=== PATIENT | male | born 1980 | race Hispanic/Latino ===

== ENCOUNTER 2021-04-08 06:02 | Emergency (ER) | payer OTHER ==
[~2021-04-08] VITALS: Ht 180.3 cm; Wt 113.4 kg
[2021-04-08 06:25] VITALS: BP 127/79
[2021-04-08 06:44] LABS: BASOPHILS % (AUTO) 0.3 % (0.0-5.0); HEMATOCRIT 42.2 % (42-54); MEAN CORPUSCULAR HEMOGLOBIN 30.1 pg (27.0-33.0); MEAN CORPUSCULAR HGB CONC 33.6 g/dL (32.0-36.0); MEAN CORPUSCULAR VOLUME 89.4 fL (79-99); MONOCYTES % (AUTO) 8.8 % (3.0-13.0); NEUTROPHILS % (AUTO) 76.5 % (40.0-77.0); PLATELET COUNT (AUTO) 258 K/uL (130-400); RED BLOOD CELL COUNT(AUTO) 4.72 MIL/uL (4.50-6.20); RED CELL DISTRIBUTION WIDTH 12.5 % (11.0-15.5)
[2021-04-08 07:04] LABS: ALBUMIN 3.3 g/dL (3.5-5.0); BILIRUBIN,TOTAL 0.7 mg/dL (0.2-1.0); CREATININE 0.9 mg/dL (0.5-1.5); TOTAL PROTEIN, SERUM 6.5 g/dL (6.0-8.3)
[2021-04-08 07:06] LABS: APPEARANCE,URINE Clear (CLEAR); BILIRUBIN,URINE Negative (NEGATIVE); COLOR,URINE Yellow (YELLOW); GLUCOSE, URINE (UA) Negative (NEGATIVE); KETONES,URINE Negative (NEGATIVE); LEUKOCYTE ESTERASE ,URINE Negative (NEGATIVE); NITRATE,URINE Negative (NEGATIVE); OCCULT BLOOD,URINE Negative (NEGATIVE); PH,URINE 6.5 (5.0-8.0); PROTEIN,URINE Negative (NEGATIVE); UROBILINOGEN,URINE 0.2 mg/dL (0.2-1.0)
[2021-04-08 07:25] VITALS: BP 132/82
[2021-04-08] MEDS ORDERED: METRONIDAZOLE 500MG/100ML BAG 100 ML IVPB SCH (08:10)
[2021-04-08] MEDS ORDERED: METR-172 PO (08:13)
[2021-04-08] MEDS ORDERED: CIPR-278 PO (08:13)
[2021-04-08] MEDS ORDERED: LEVOFLOXACIN 500 MG/D5W 100 ML 100 ML IV SCH (08:30)
[2021-04-08] MEDS ORDERED: KETOROLAC 30MG VIAL (30MG/ML) ONE (08:45)
[2021-04-08] MEDS ORDERED: KETOROLAC 30MG VIAL (30MG/ML) IV SCH (09:00)
[2021-04-08 09:41] VITALS: BP 127/71
== END 2021-04-08 10:09 | disposition home or self-care (01) ==
LOC: EDH 06:02
DX: K57.92 Diverticulitis of intestine, part unspecified, without perforation or abscess without bleeding (principal); Z79.1 Long term (current) use of non-steroidal anti-inflammatories (NSAID)
CPT/HCPCS: 36415; 80053; 81003; 83605; 83690; 85025; 96365; 96367; 96375; 99284; J1885; J1956; J3490

== ENCOUNTER 2022-12-09 12:02 | Emergency (ER) | payer OTHER ==
[~2022-12-09] VITALS: Ht 177.8 cm; Wt 104.3 kg
[~2022-12-09 12:02] MED LIST: CIPR-278 PO; METR-172 PO
[2022-12-09 12:37] VITALS: BP 139/89
[2022-12-09] MEDS ORDERED: CIPOTIC OT (13:13)
[2022-12-09] MEDS ORDERED: AMOX500C2 PO (13:13)
[2022-12-09] MEDS ORDERED: CIPROFLOXACIN HCL 0.2%/HYDROCORT 1% 10 ML OTIC SUSP OTIC SCH (13:30)
[2022-12-09] MEDS ORDERED: ACETAMINOPHEN 500 MG TABLET PO ONE (13:30)
[2022-12-09] MEDS ORDERED: AMOXICILLIN 500 MG CAPSULE PO ONE (13:30)
[2022-12-09] MEDS ORDERED: IBUPROFEN 600 MG TABLET PO ONE (13:30)
== END 2022-12-09 13:44 | disposition home or self-care (01) ==
LOC: EDH 12:02
DX: H60.91 Unspecified otitis externa, right ear (principal); H66.91 Otitis media, unspecified, right ear; Z79.899 Other long term (current) drug therapy; Z98.890 Other specified postprocedural states

== ENCOUNTER → 2023-03-04 | Outpatient (CLI) | payer OTHER ==
[~2023-03-04] MED LIST changes: +AMOX500C2 PO; +CIPOTIC OT
[2023-03-04 08:54] LABS: APPEARANCE,URINE CLEAR (CLEAR); BILIRUBIN,URINE NEGATIVE (NEGATIVE); COLOR,URINE LIGHT-YELLOW (YELLOW); GLUCOSE, URINE (UA) NEGATIVE (NEGATIVE); KETONES,URINE NEGATIVE (NEGATIVE); LEUKOCYTE ESTERASE ,URINE NEGATIVE Leu/uL (NEGATIVE); MUCUS,URINE RARE LPF (None Seen); NITRATE,URINE NEGATIVE (NEGATIVE); OCCULT BLOOD,URINE NEGATIVE (NEGATIVE); PH,URINE 5.5 (5.0-8.0); PROTEIN,URINE NEGATIVE (NEGATIVE); UROBILINOGEN,URINE 0.2 mg/dL (0.2-1.0); WBC,URINE 0-1 /HPF (0-1)
[2023-03-04 09:03] LABS: ALBUMIN 3.8 g/dL (3.5-5.0); BILIRUBIN,TOTAL 0.6 mg/dL (0.2-1.0); CREATININE 0.8 mg/dL (0.5-1.5); POTASSIUM 3.8 mmol/L (3.5-5.1); THYROID STIMULATING HORMONE 0.96 uIU/mL (0.36-3.74); TOTAL PROTEIN, SERUM 6.8 g/dL (6.0-8.3)
== END | disposition home or self-care (01) ==
LOC: LAB 08:00
PROVIDERS: ATTEND Family Medicine
DX: I10 Essential (primary) hypertension (principal); E78.2 Mixed hyperlipidemia
CPT/HCPCS: 36415; 80053; 80061; 81001; 82043; 82570; 84439; 84443

== ENCOUNTER 2023-07-14 00:22 | Emergency (ER) | payer OTHER ==
[~2023-07-14] VITALS: Ht 177.8 cm; Wt 108.9 kg
[2023-07-14 00:51] LABS: BASOPHILS # (AUTO) 0.05 K/uL (0.00-0.20); BASOPHILS % (AUTO) 0.6 % (0.0-5.0); EOSINOPHILS # (AUTO) 0.23 K/uL (0.00-0.70); EOSINOPHILS % (AUTO) 2.6 % (0.0-8.0); HEMATOCRIT 41.1 % (42-54); IMMATURE GRANULOCYTE ABSOLUTE 0.02 K/uL (0-1); LYMPHOCYTES # (AUTO) 1.8 K/uL (1.0-4.8); LYMPHOCYTES % (AUTO) 20.6 % (21.0-51.0); MEAN CORPUSCULAR HEMOGLOBIN 30.1 pg (27.0-33.0); MEAN CORPUSCULAR HGB CONC 34.8 g/dL (32.0-36.0); MEAN CORPUSCULAR VOLUME 86.5 fL (79-99); MONOCYTES # (AUTO) 0.7 K/uL (0.1-1.0); MONOCYTES % (AUTO) 7.6 % (3.0-13.0); NEUTROPHILS # (AUTO) 6.1 K/uL (1.8-7.7); NEUTROPHILS % (AUTO) 68.4 % (40.0-77.0); PLATELET COUNT (AUTO) 280 K/uL (130-400); RED BLOOD CELL COUNT(AUTO) 4.75 MIL/uL (4.50-6.20); RED CELL DISTRIBUTION WIDTH 11.9 % (11.0-15.5); WHITE BLOOD COUNT (AUTO) 8.9 K/uL (4.8-10.8)
[2023-07-14] MEDS ORDERED: METOCLOPRAMIDE 10 MG/2 ML VIAL IVP ONE (01:00)
[2023-07-14] MEDS ORDERED: LACTATED RINGERS 1000ML 1,000 ML IV ONE ×2 (01:00→02:30)
[2023-07-14] MEDS ORDERED: FAMOTIDINE 20MG VIAL IV ONE (01:00)
[2023-07-14] MEDS ORDERED: KETOROLAC 30MG VIAL (30MG/ML) IVP ONE (01:00)
[2023-07-14 01:03] LABS: CREATININE 0.8 mg/dL (0.5-1.5); POTASSIUM 3.8 mmol/L (3.5-5.1)
[2023-07-14 01:07] LABS: ALBUMIN 3.7 g/dL (3.5-5.0); BILIRUBIN,TOTAL 0.5 mg/dL (0.2-1.0); TOTAL PROTEIN, SERUM 7.6 g/dL (6.0-8.3)
[2023-07-14 01:10] LABS: APPEARANCE,URINE CLEAR (CLEAR); BILIRUBIN,URINE NEGATIVE (NEGATIVE); COLOR,URINE YELLOW (YELLOW); GLUCOSE, URINE (UA) NEGATIVE (NEGATIVE); KETONES,URINE NEGATIVE (NEGATIVE); LEUKOCYTE ESTERASE ,URINE NEGATIVE Leu/uL (NEGATIVE); NITRATE,URINE NEGATIVE (NEGATIVE); OCCULT BLOOD,URINE NEGATIVE (NEGATIVE); PROTEIN,URINE NEGATIVE (NEGATIVE); UROBILINOGEN,URINE 0.2 mg/dL (0.2-1.0)
[2023-07-14 01:11] LABS: ADD UA MICROSCOPIC NO
[2023-07-14] MEDS ORDERED: IOHEXOL 350 MG/ML 100ML INFUS..BTL IV ONE (01:19)
[2023-07-14] MEDS ORDERED: CIPR-278 PO (02:04)
[2023-07-14] MEDS ORDERED: METR-172 PO (02:04)
[2023-07-14] MEDS ORDERED: METRONIDAZOLE 500MG/100ML BAG 100 ML ONE (02:25)
[2023-07-14] MEDS ORDERED: LEVOFLOXACIN 750 MG/D5W 150ML BAG IV ONE (02:30)
[2023-07-14 03:59] VITALS: BP 126/82; PULSE 68; RESP 16; O2SAT 99
[2023-07-14] MEDS ORDERED: METRONIDAZOLE 500MG/100ML BAG 100 ML IVPB SCH (06:00)
== END 2023-07-14 04:13 | disposition home or self-care (01) ==
LOC: EDH 00:22
DX: K57.92 Diverticulitis of intestine, part unspecified, without perforation or abscess without bleeding (principal); I16.0 Hypertensive urgency; Z79.899 Other long term (current) drug therapy; Z98.890 Other specified postprocedural states
CPT/HCPCS: 99285; 74178; 96365; 96375; 96366; 96361; 82550; 84484; 80053; 83690; 85025; 83605; 81003; 36415; 96368; J7120 ×2; J3490 ×2; J1956; J1885; J2765; Q9967

== ENCOUNTER → 2023-08-28 | Outpatient (CLI) | payer OTHER ==
[2023-08-28 07:29] LABS: BILIRUBIN,TOTAL 0.8 mg/dL (0.2-1.0); CREATININE 0.8 mg/dL (0.5-1.5); POTASSIUM 3.8 mmol/L (3.5-5.1); THYROID STIMULATING HORMONE 0.77 uIU/mL (0.36-3.74); TOTAL PROTEIN, SERUM 7.2 g/dL (6.0-8.3)
[2023-08-28 08:15] LABS: APPEARANCE,URINE CLEAR (CLEAR); BILIRUBIN,URINE NEGATIVE (NEGATIVE); COLOR,URINE LIGHT-YELLOW (YELLOW); GLUCOSE, URINE (UA) NEGATIVE (NEGATIVE); KETONES,URINE 5 mg/dL (NEGATIVE); LEUKOCYTE ESTERASE ,URINE NEGATIVE Leu/uL (NEGATIVE); NITRATE,URINE NEGATIVE (NEGATIVE); OCCULT BLOOD,URINE NEGATIVE (NEGATIVE); PH,URINE 5.5 (5.0-8.0); PROTEIN,URINE NEGATIVE (NEGATIVE); UROBILINOGEN,URINE 0.2 mg/dL (0.2-1.0)
[2023-08-28 08:22] LABS: ADD UA MICROSCOPIC YES
[2023-08-28 08:26] LABS: MUCUS,URINE RARE LPF (None Seen)
== END | disposition home or self-care (01) ==
LOC: LAB 06:13
PROVIDERS: ATTEND Family Medicine
DX: E78.2 Mixed hyperlipidemia (principal)
CPT/HCPCS: 36415; 80053; 80061; 81001; 82043; 82570; 84439; 84443

== ENCOUNTER 2023-11-10 02:09 | Emergency (ER) | payer OTHER ==
[~2023-11-10] VITALS: Ht 177.8 cm; Wt 107.5 kg
[2023-11-10 02:20] VITALS: BP 132/88; PULSE 88; RESP 16; O2SAT 99
[2023-11-10] MEDS: BUPIVACAINE/PF 0.5% 10ML VIAL IJ ONE (02:49)
[2023-11-10] MEDS: TRIAMCINOLONE ACETONIDE 40 MG/ML 1ML VIAL IARTIC ONE (02:49)
[2023-11-10] MEDS ORDERED: MELO10CA3 PO (02:50)
[2023-11-10] MEDS: LIDOCAINE HCL-MPF 2% 5ML VIAL ONE (02:50)
[2023-11-10] MEDS: LIDOCAINE HCL MPF 1% 5ML VIAL IM SCH (02:50)
== END 2023-11-10 02:59 | disposition home or self-care (01) ==
LOC: EDH 02:09
DX: M25.562 Pain in left knee (principal); Z79.899 Other long term (current) drug therapy; Z98.890 Other specified postprocedural states
CPT/HCPCS: 20610; 99283; J0665; J3301; J3490 ×2

== ENCOUNTER → 2024-03-01 | Outpatient (CLI) | payer OTHER ==
[~2024-03-01] MED LIST changes: +MELO10CA3 PO
[2024-03-01 09:49] LABS: ALBUMIN 3.9 g/dL (3.5-5.0); BILIRUBIN,TOTAL 0.3 mg/dL (0.2-1.0); CREATININE 0.8 mg/dL (0.5-1.3); POTASSIUM 3.9 mmol/L (3.5-5.1); TOTAL PROTEIN, SERUM 7.8 g/dL (6.0-8.3)
[2024-03-01 09:57] LABS: APPEARANCE,URINE CLEAR (CLEAR); BILIRUBIN,URINE NEGATIVE (NEGATIVE); COLOR,URINE COLORLESS (YELLOW); GLUCOSE, URINE (UA) NEGATIVE (NEGATIVE); KETONES,URINE NEGATIVE (NEGATIVE); LEUKOCYTE ESTERASE ,URINE NEGATIVE Leu/uL (NEGATIVE); NITRATE,URINE NEGATIVE (NEGATIVE); OCCULT BLOOD,URINE NEGATIVE (NEGATIVE); PROTEIN,URINE NEGATIVE (NEGATIVE); UROBILINOGEN,URINE 0.2 mg/dL (0.2-1.0)
[2024-03-01 10:02] LABS: ADD UA MICROSCOPIC NO
== END | disposition home or self-care (01) ==
LOC: LAB 08:58
PROVIDERS: ATTEND Family Medicine
DX: I10 Essential (primary) hypertension (principal); R73.01 Impaired fasting glucose; E78.2 Mixed hyperlipidemia
CPT/HCPCS: 36415; 80053; 80061; 81003; 82043; 82570; 83036

== ENCOUNTER → 2024-03-08 | Outpatient (CLI) | payer OTHER ==
[2024-03-08 07:58] LABS: BASOPHILS # (AUTO) 0.05 K/uL (0.00-0.20); BASOPHILS % (AUTO) 0.9 % (0.0-5.0); EOSINOPHILS # (AUTO) 0.16 K/uL (0.00-0.70); HEMATOCRIT 44.7 % (42-54); IMMATURE GRANULOCYTE ABSOLUTE 0.01 K/uL (0-1); LYMPHOCYTES # (AUTO) 1.2 K/uL (1.0-4.8); LYMPHOCYTES % (AUTO) 23.4 % (21.0-51.0); MEAN CORPUSCULAR HEMOGLOBIN 30.6 pg (27.0-33.0); MEAN CORPUSCULAR VOLUME 89.9 fL (79-99); MONOCYTES # (AUTO) 0.4 K/uL (0.1-1.0); MONOCYTES % (AUTO) 6.6 % (3.0-13.0); NEUTROPHILS # (AUTO) 3.5 K/uL (1.8-7.7); NEUTROPHILS % (AUTO) 65.9 % (40.0-77.0); PLATELET COUNT (AUTO) 287 K/uL (130-400); RED BLOOD CELL COUNT(AUTO) 4.97 MIL/uL (4.50-6.20); WHITE BLOOD COUNT (AUTO) 5.3 K/uL (4.8-10.8)
[2024-03-08 08:26] LABS: THYROID STIMULATING HORMONE 1.47 uIU/mL (0.36-3.74)
== END | disposition home or self-care (01) ==
LOC: LAB 07:14
PROVIDERS: ATTEND Family Medicine
DX: E29.1 Testicular hypofunction (principal); R53.83 Other fatigue
CPT/HCPCS: 36415; 82306; 84270; 84402; 84403; 84439; 84443; 85025

== ENCOUNTER → 2024-09-02 | Outpatient (CLI) | payer OTHER ==
[2024-09-02 08:14] LABS: APPEARANCE,URINE CLEAR (CLEAR); BILIRUBIN,URINE NEGATIVE (NEGATIVE); COLOR,URINE LIGHT-YELLOW (YELLOW); GLUCOSE, URINE (UA) NEGATIVE (NEGATIVE); KETONES,URINE 10 mg/dL (NEGATIVE); LEUKOCYTE ESTERASE ,URINE NEGATIVE Leu/uL (NEGATIVE); NITRATE,URINE NEGATIVE (NEGATIVE); OCCULT BLOOD,URINE NEGATIVE (NEGATIVE); PH,URINE 5.5 (5.0-8.0); PROTEIN,URINE NEGATIVE (NEGATIVE); UROBILINOGEN,URINE 0.2 mg/dL (0.2-1.0)
[2024-09-02 08:24] LABS: ADD UA MICROSCOPIC YES
[2024-09-02 08:26] LABS: MUCUS,URINE RARE LPF (None Seen); WBC,URINE 0-1 /HPF (0-1)
[2024-09-02 08:28] LABS: ALBUMIN 4.2 g/dL (3.5-5.0); BILIRUBIN,TOTAL 0.9 mg/dL (0.2-1.0); CREATININE 0.9 mg/dL (0.5-1.3); TOTAL PROTEIN, SERUM 8.1 g/dL (6.0-8.3)
== END | disposition home or self-care (01) ==
LOC: LAB 08:36
PROVIDERS: ATTEND Family Medicine
DX: I10 Essential (primary) hypertension (principal); E78.2 Mixed hyperlipidemia; R53.83 Other fatigue
CPT/HCPCS: 36415; 80053; 80061; 81001; 82043; 82570; 84270; 84402; 84403

== ENCOUNTER → 2024-09-26 | Outpatient (CLI) | payer OTHER | END | disposition home or self-care (01) | LOC: LAB 07:51 | PROVIDERS: ATTEND Family Medicine | DX: E29.1 Testicular hypofunction (principal) | CPT/HCPCS: 36415; 84270; 84402; 84403 ==

== ENCOUNTER → 2025-03-17 | Outpatient (CLI) | payer OTHER ==
[2025-03-17 08:29] LABS: APPEARANCE,URINE CLEAR (CLEAR); GLUCOSE, URINE (UA) NEGATIVE (NEGATIVE); LEUKOCYTE ESTERASE ,URINE 75 Leu/uL (NEGATIVE); NITRATE,URINE NEGATIVE (NEGATIVE); OCCULT BLOOD,URINE SMALL (NEGATIVE)
[2025-03-17 08:40] LABS: ASPARTATE AMINOTRANSFERASE 22.0 U/L (10-37); CREATININE 0.9 mg/dL (0.5-1.3); GLOMERULAR FILTR. RATE CALC 109.0 mL/min (>90); GLUCOSE,RANDOM 99.0 mg/dL (70-105); LDL DIRECT 147.0 mg/dL (0-99); SODIUM SERUM 133.0 mmol/L (136-145); TOTAL PROTEIN, SERUM 8.4 g/dL (6.0-8.3); UREA NITROGEN, BLOOD 13.0 mg/dL (7-18)
[2025-03-17 08:44] LABS: SQUAMOUS EPITHELIAL CELL,UR Rare /HPF (0-2)
== END | disposition home or self-care (01) ==
LOC: LAB 07:25
PROVIDERS: ATTEND Family Medicine
DX: E29.1 Testicular hypofunction (principal); I10 Essential (primary) hypertension; R53.83 Other fatigue
CPT/HCPCS: 36415; 80053; 80061; 81001; 82043; 82570; 83036; 84270; 84402; 84403; 87086; 87186

== ENCOUNTER 2025-03-27 19:40 | Inpatient (IN) | payer OTHER ==
[~2025-03-27] VITALS: Ht 177.8 cm; Wt 118.2 kg
--- NOTE | 2025-03-27 20:13 | ERN ---
ED Note History of Present Illness Stated Complaint: GBW Chief Complaint: Fever Time Seen by MD: 19:56 Dictation: This is a 44-year-old male who presented to the emergency room with complaints of generalized body weakness and fever since Thursday. He took Tylenol at 5:00 p.m. and decided to come into the ER for further evaluation. Denied any travel or sick contacts . He reports fever with chills generalized malaise. He does have right flank pain but he attributes it to right knee pain radiating to the flank. No diarrhea nausea vomitings. Relates diaphoresis also. Spouse Suze as at bedside. He denies any pain in the perineum genitals but he has chronic left lower abdominal pain which he states that is related to diverticulitis Temperature 99.9 pulse 98 respirations 18 blood pressure 108/76 with a pulse oximetry of 99% on room air His only past medical history includes ADHD and history of knee surgery. He also gives a history of diverticulitis in the past Allergies: Coded Allergies: No Known Drug Allergies (Unverified Allergy, Unknown, 04/08/21) Home Meds Active Scripts Meloxicam, Submicronized (Meloxicam) 10 Mg Capsule, 10 MG PO DAILY, #30 CAP Prov:SHAHEEN OCONNOR MD 11/10/23 Metronidazole (Metronidazole) 500 Mg Tablet, 500 MG PO QID, #40 TAB 0 Refills Prov:EMILY BERNAL Sr., MD 07/14/23 Ciprofloxacin HCl (Cipro) 500 Mg Tablet, 1 TAB PO BID for 10 Days, #20 TAB 0 Refills Prov:EMILY BERNAL Sr., MD 07/14/23 Amoxicillin (Amoxicillin) 500 Mg Capsule, 500 MG PO BID for 7 Days, #14 CAP 0 Refills Prov:BARBY SINGH NP 12/09/22 Ciprofloxacin/Hydrocortisone (Cipro Hc Otic Suspension) 10 Ml Drops.susp, 1 DROP OT TID for 7 Days, #1 BOTTLE Prov:BARBY SINGH NP 12/09/22 Metronidazole (Metronidazole) 500 Mg Tablet, 500 MG PO TID for 10 Days, #30 TAB 0 Refills Prov:MEME PETERSON MD 04/08/21 Ciprofloxacin HCl (Cipro) 500 Mg Tablet, 1 TAB PO BID for 10 Days, #20 TAB 0 Refills Prov:MEME PETERSON MD 04/08/21 Past Medical History Past Medical History: No Pertinent History, Diverticulitis, UTI Additional Past Medical Hx: ADHD Surgical History: Other Surgical History Other: BILAT ACL REPAIR Family History: Negative Social History: Negative, Lives with family RN Note Reviewed/Agreed w/PFSH: Yes Review of System Dictation Constitutional: Positive for fever, also positive for generalized body weakness and malaise chills, deniesand weight loss Eyes: Negative for injury, pain,redness, and discharge ENT: Negative for injury,pain or swelling Cardiovascular: Negative for chest pain, palpitations, and edema Respiratory: Negative for shortness of breath, cough, and wheezing, Abdomen/GI: Negative for abdominal pain, nausea, vomiting, diarrhea, and constipation Back: Negative for injury and positive for right flank pain : Negative for injury, bleeding and discharge MS/Extremity: Negative for injury and deformity Skin: Negative for rash, and discoloration Neuro: Negative for headache, weakness, numbness, tingling, and seizure Psych: Negative for suicide ideation, homicidal ideation, and hallucinations Initial Vital Sign VS Vital Signs Date Time Temp Pulse Resp B/P (MAP) Pulse Ox O2 Delivery O2 Flow Rate FiO2 03/27/25 19:49 99.9 98 18 108/76 99 Room Air 0 03/27/25 21:49 21 Physical Exam Dictation General: awake, alert, NAD looks sick, facial flush Head/Face: Normocephalic, atraumatic Eyes: PERRL, EOMI, vision at baseline ENT: oral cavity clear, TMs clear, no signs of infection Neck: Trachea midline, supple, no nuchal rigidity Cardiovascular: RRR, normal S1/S2, No MRGs, no JVD Respiratory: CTAB, no respiratory distress, No rales or wheezes Abdomen: Soft, non-tender, non-distended, normal bowel sounds, no guarding or rebound. Tenderness in the right flank area Skin: Warm, dry, normal turgor, no rash MS/Extremity: Pulses equal, no cyanosis, neurovascular intact, FROM Neuro: COAx4, GCS 15, strength 5/5, CN 2-12 intact, normal cerebellar exam, normal gait, Psych: Normal behavior, mood, and affect normal Extremities-trace edema without any palpable cords, Homans sign is negative Results (Laboratory/Radiology) Laboratory/Radiology Laboratory Tests Test 03/27/25 20:06 03/27/25 20:17 03/27/25 20:25 Influenza Type A Antigen Negative For Type A Influenza Type B Antigen Negative For Type B SARS-CoV-2, RNA, NAAT NEGATIVE SARS CoV-2 Group A Streptococcus Rapid negative (NEGATIVE) White Blood Count 17.0 K/uL (4.8-10.8) H Red Blood Count 5.30 MIL/uL (4.50-6.20) Hemoglobin 15.9 g/dL (14.0-18.0) Hematocrit 46.8 % (42-54) Mean Corpuscular Volume 88.3 fL (79-99) Mean Corpuscular Hemoglobin 30.0 pg (27.0-33.0) Mean Corpuscular Hemoglobin Concent 34.0 g/dL (32.0-36.0) Red Cell Distribution Width 13.7 % (11.0-15.5) Platelet Count 264 K/uL (130-400) Mean Platelet Volume 8.7 fL (7.5-10.5) Immature Granulocyte % (Auto) 0.3 % (0-1) Neutrophils (%) (Auto) 85.1 % (40.0-77.0) H Lymphocytes (%) (Auto) 5.9 % (21.0-51.0) L Monocytes (%) (Auto) 8.3 % (3.0-13.0) Eosinophils (%) (Auto) 0.1 % (0.0-8.0) Basophils (%) (Auto) 0.3 % (0.0-5.0) Neutrophils # (Auto) 14.5 K/uL (1.8-7.7) H Lymphocytes # (Auto) 1.0 K/uL (1.0-4.8) Monocytes # (Auto) 1.4 K/uL (0.1-1.0) H Eosinophils # (Auto) 0.02 K/uL (0.00-0.70) Basophils # (Auto) 0.05 K/uL (0.00-0.20) Absolute Immature Granulocyte (auto 0.05 K/uL (0-1) Nucleated Red Blood Cells 0.0 % (0.0-0.19) White Cell Morphology Comment See comments Sodium Level 133 mmol/L (136-145) L Potassium Level 3.7 mmol/L (3.5-5.1) Chloride Level 97 mmol/L (101-111) L Carbon Dioxide Level 30 mmol/L (21-32) Blood Urea Nitrogen 10 mg/dL (7-18) Creatinine 1.0 mg/dL (0.5-1.3) Glomerular Filtration Rate Calc 96 mL/min (>90) Random Glucose 94 mg/dL (70-105) Lactic Acid Level 1.7 mmol/L (0.8-2.5) Total Calcium 9.0 mg/dL (8.5-10.1) Urine Color LIGHT-ORANGE (YELLOW) Urine Appearance CLOUDY (CLEAR) H Urine pH 6.0 (5.0-8.0) Urine Specific Raymond 1.011 (1.001-1.031) Urine Protein 30 mg/dL (NEGATIVE) H Urine Glucose (UA) NEGATIVE mg/dL (NEGATIVE) Urine Ketones NEGATIVE mg/dL (NEGATIVE) Urine Occult Blood MODERATE (NEGATIVE) H Urine Nitrate 2+ (NEGATIVE) H Urine Bilirubin NEGATIVE mg/dL (NEGATIVE) Urine Urobilinogen 0.2 mg/dL (0.2-1.0) Urine Leukocyte Esterase 500 Isabela/uL (NEGATIVE) H Urine RBC 11-25 /HPF (0-1) H Urine WBC TNTC /HPF (0-1) H Urine WBC Clumps (Auto) MOD /HPF (0-1) Urine Non-Squamous Epithelial Cells 2 /HPF (0-2) Urine Bacteria MANY /HPF (None Seen) Urine Hyaline Casts 2-5 /LPF (0-1 /LPF) H Labs Reviewed?: Yes ED Course ED Course Orders Procedure Category Date Status Time Cbc With Differential LAB 03/27/25 Complete 19:44 Basic Metabolic Panel LAB 03/27/25 Complete 19:44 Chest 1vw RAD 03/27/25 Resulted 19:44 Covid Rna Naat LAB 03/27/25 Complete 19:44 Influenza Type A & B, LAB 03/27/25 Complete Rapid 19:44 Rapid (Group A Strep) LAB 03/27/25 Complete 19:44 0.9%Nacl 1000ml (Ns PHA 03/27/25 Complete 1000ml) 20:30 Urinalysis Profile LAB 03/27/25 Complete 20:19 Lactic Acid LAB 03/27/25 Complete 20:19 0.9%Nacl 1000ml (Ns PHA 03/27/25 Complete 1000ml) 20:30 Ketorolac PHA 03/27/25 Complete Tromethamine 30mg/Ml 20:30 Culture Urine PARK 03/27/25 In Process 20:38 Ct Abdomen/Pelvis CT 03/27/25 Logged W/Wo Contras 21:16 0.9%Nacl 1000ml (Ns PHA 03/27/25 In Process 1000ml) 21:30 Levofloxacin 750 PHA 03/27/25 Complete Mg/D5w 150 Ml 21:30 Diatr PHA 03/27/25 Complete Meglu/Diatrizoate 22:10 Iohexol (Omnipaque) PHA 03/27/25 Complete 23:30 Current Medications Medications (Trade) Dose Ordered Sig/Armando Route PRN Reason Start Time Stop Time Status Last Admin Dose Admin Diatrizoate Meglum/ Diatrizoate Sod (Gastrografin 66-10 Solution) 30 ml STK-MED ONCE .ROUTE 03/27/25 22:10 03/27/25 22:10 DC Iohexol (Omnipaque) 35,000 mg STK-MED ONCE IV 03/27/25 23:30 03/27/25 23:31 DC Ketorolac Tromethamine (toRADol) 30 mg ONCE ONCE IVP 03/27/25 20:30 03/27/25 20:31 DC 03/27/25 20:29 Levofloxacin/ Dextrose (LEvaquIN 750 MG/ D5W 150 ML) 750 mg ONCE ONCE IV 03/27/25 21:30 03/27/25 21:31 DC 03/27/25 21:48 Sodium Chloride 1,000 ml @ 0 mls/hr ONCE ONCE IV 03/27/25 20:30 03/27/25 20:31 DC 03/27/25 20:30 Sodium Chloride 1,000 ml @ 0 mls/hr Q0M ONCE IV 03/27/25 20:30 03/27/25 20:31 DC Sodium Chloride 1,000 ml @ 125 mls/hr ONCE ONCE IV 03/27/25 21:30 03/28/25 05:29 03/27/25 21:47 Vital Signs Date Time Temp Pulse Resp B/P (MAP) Pulse Ox O2 Delivery O2 Flow Rate FiO2 03/27/25 22:46 86 20 120/64 98 Room Air* 0 21 03/27/25 21:49 99.0 90 18 110/56 99 Room Air* 0 21 03/27/25 19:49 99.9 98 18 108/76 99 Room Air 0 We will perform diagnostic labs, imaging and administer medications according to the patient's complaint. Once the results are available, will review and personally interpreted the labs to rule out any acute life-threatening emergency the trach require immediate intervention and treatment. I will then re-evaluate the patient after treatment and diagnostic exams have return to determine whether the patient requires any further testing, can safely be discharged home or need further admission to hospital for additional treatment and evaluation. 8:40 p.m. labs [place] [address] hemoglobin 15.9 platelets 264. Lactic acid is 1.7. BNP 7 is significant for a sodium of 133 chloride 97 bicarb 30 BUN and creatinine are 10 and 1.0 with a glucose of 96. Urinalysis shows positive leuko esterase positive nitrites too numerous to count WBCs. Swabs for influenza Streptococcus and COVID are negative. Chest x-ray is unremarkable for any focal infiltrate. Blood cultures requested and empiric levofloxacin. I had a long discussion with patient and and at such a young age patient has a recurrent UTI which raises multiple concerns including resistant UTI, prostatitis, pyelonephritis, infected stone, any other intra abdominal pathology We will pursue a CT scan of the abdomen and pelvis to better evaluate the etiology discussed above and patient is agreeable 11:15 p.m. patient remains sick and continues to feel bad overall. Persistent low-grade fevers continue. CT scan of the abdomen and pelvis is still pending. I recommended admission to the hospital in view of sepsis and recurrent UTI and patient is agreeable 11:40 p.m. patient accepted by [facility]-level provider for [facility] for admission and further management Medical Decision Making MDM Differential diagnosis: Pyelonephritis, recurrent UTI, diverticulitis Influenza, COVID, streptococcal pharyngitis, acute viral syndrome, pneumonia, br onchitis Rationale: Tests considered and ordered secondary to shared decision making include: Previous outside records reviewed: Old ER visits. Risk of complication and/or morbidity or mortality of patient management: None Medications-Per medication reconciliation Need for hospitalization: Patient does not meet criteria for hospitalization. Need for emergency major/minor surgery: No There are no social concerns with this patient. Prescription drug management Prescriptions will include symptomatic care Patient's prior external medical records from other ER visits were reviewed by me as indicated. Prior testing and results from previous visits were reviewed. Prior tests were taken into account with medical decision making and resource utilization, independent historian/historians were used to obtain complete medical history. I independently interpreted the test that were performed, results were reviewed by me and considered findings on radiology if ordered. Medical management and examination interpretation discussions were had by me with other qualified healthcare professionals as indicated for the patient's care. Problem List Problem List: (1) Sepsis (2) Complicated UTI (urinary tract infection) (3) Recurrent UTI (4) Leukocytosis (5) Hyponatremia (6) Hypochloremia (7) Dehydration (8) History of diverticulitis DX & DISP Disposition: Inpatient Decision to Admit Time: 23:45 Departure Impression: Primary Impression: Sepsis Additional Impressions: Complicated UTI (urinary tract infection), Recurrent UTI, Leukocytosis, Hyponatremia, Hypochloremia, Dehydration, History of diverticulitis Condition: Stable Additional Instructions: Patient was informed of all the diagnostic labs and procedures conducted in the emergency room today and demonstrated understanding of the results. I personally reviewed and interpreted all the diagnostic exams performed in the ER today. The patient will be admitted to the hospital for further treatment and evaluation. Disposition-admit to facility Condition-stable/guarded Course-uncertain at this time Pain status-decreased Assessment-exam unchanged Admission Certification- I certify that the patients status is appropriate and is based on my best clinical judgment and the patient's condition as documented in the medical records Referrals: KAE HWANG MD (PCP) ISABEL MENDOZA MD Mar 27, 2025 20:13
[2025-03-27 20:25] LABS: IMMATURE GRANULOCYTE ABSOLUTE 0.05 K/uL (0-1); NUCLEATED RED BLOOD CELLS 0.0 % (0.0-0.19); PLATELET COUNT (AUTO) 264 K/uL (130-400); RED BLOOD CELL COUNT(AUTO) 5.30 MIL/uL (4.50-6.20); RED CELL DISTRIBUTION WIDTH 13.7 % (11.0-15.5); WHITE BLOOD COUNT (AUTO) 17.0 K/uL (4.8-10.8)
[2025-03-27] MEDS: 0.9%NACL 1000ML 1,000 ML IV ONE ×3 (20:30→21:47)
[2025-03-27 20:33] LABS: CREATININE 1.0 mg/dL (0.5-1.3); GLOMERULAR FILTR. RATE CALC 96.0 mL/min (>90); GLUCOSE,RANDOM 94.0 mg/dL (70-105); SODIUM SERUM 133.0 mmol/L (136-145); UREA NITROGEN, BLOOD 10.0 mg/dL (7-18)
[2025-03-27 20:35] LABS: APPEARANCE,URINE CLOUDY (CLEAR); GLUCOSE, URINE (UA) NEGATIVE (NEGATIVE); LEUKOCYTE ESTERASE ,URINE 500 Leu/uL (NEGATIVE); NITRATE,URINE 2+ (NEGATIVE); OCCULT BLOOD,URINE MODERATE (NEGATIVE)
[2025-03-27 20:35] LABS: SARS-CoV-2, RNA, NAAT NEGATIVE SARS CoV-2 (NEGATIVE)
[2025-03-27 20:38] LABS: ADD UA MICROSCOPIC YES
[2025-03-27 20:41] LABS: INFLUENZA TYPE A Negative For Type A (NEGATIVE); INFLUENZA TYPE B Negative For Type B (NEGATIVE)
[2025-03-27 20:42] LABS: NON-SQUAMOUS EPITHELIAL CELL 2 /HPF (0-2); WBC CLUMP MOD /HPF (0-1)
[2025-03-27 20:51] LABS: RAPID GROUP A STREP negative (NEGATIVE)
--- NOTE | 2025-03-27 20:56 | HMCIMG ---
EXAM: XR Chest, 1 View. CLINICAL HISTORY: 44 year old male with shortness of breath. COMPARISON: None provided. FINDINGS: LUNGS: The lungs are clear. No consolidation. PLEURAL SPACES: No pleural effusion or pneumothorax. HEART: The heart size is normal. BONES: No acute osseous abnormality. IMPRESSION: 1. No acute cardiopulmonary pathology. /[place]
[2025-03-27] MEDS ORDERED: DIATR MEGLU/DIATRIZOATE SODIUM 30 ML BOTTLE ONE (22:10)
[2025-03-27] MEDS ORDERED: IOHEXOL 350 MG/ML 100ML INFUS..BTL IV ONE (23:30)
--- NOTE | 2025-03-27 23:42 | HP ---
[facility] HISTORY & PHYSICAL Date Patient Seen: Mar 27, 2025 Time of Visit: 23:45 Supervising Physician: [Dr. Farooq Berrios] Primary Care Physician: [Dr. Raul Blanco] Outpatient Specialists: [ ] Inpatient Consults: [ ] PROBLEM LIST: Suspected complicated UTI-POA Sepsis 2/2 above-POA Primary HTN ADHD Prior diverticulitis PLAN: -Admit to [facility] -Start on IV Rocephin and Vancomycin, deescalate as warranted -Pending blood and urine CX report; monitor fever curve, WBC trends and SIRS/Mews score -CT AP pending -Manage pain, fever and N/V PRN HPI: [Patient is a 44-year-old morbidly obese male with PMH significant for diverticulitis, HTN and ADHD who has presented to the ED concerning UTI symptoms with fever onset the night prior to ED visit.Pertinent positives include dysuria, low back pain, urinary frequency, urgency, lower abdominal pain, concentrated urine, nausea and chills. He also noticed gas/fart coming out of his urethra. Patient denies diarrhea, hematuria or HX of kidney stone. He was treated with oral antibiotics for UTI last month and he recovered well after that. However, he came back tonight feeling worst. He was flagged meeting the sepsis criteria 2/2 positive UTI and was given IV fluids and IV Levaquin. CT AP is pending result. Physical assessment was unrevealing except for lower abdominal and LUQ tenderness. Goals of care were discussed with the patient verbalizing understanding and agreement.] PAST MEDICAL HX: see above PAST SURGICAL HX: noncontributory SOCIAL HISTORY: No tobacco, ETOH, or illicit drug use Coded Allergies: No Known Drug Allergies (Unverified Allergy, Unknown, 04/08/21) REVIEW OF SYSTEMS: 12 point ROS reviewed with patient. Pertinent positives mentioned above. Otherwise negative. PHYSICAL EXAM: GENERAL: alert, weak, awake oriented x 3 HEENT: EOMI, Sclera non icteric, moist mucosa NECK: Supple, no JVD, trachea midline LUNGS: Clear breath sounds bilaterally. No wheezes HEART: Regular rate and rhythm. Normal S1 and S2, without murmurs ABD: Abdomen soft, (+) lower abdomen and LUQ tenderness. Bowel sounds present EXT: No clubbing cyanosis or edema NEURO: Alert and oriented to person, follows commands Vital Signs (last 8hr) Date Time Temp Pulse Resp B/P (MAP) Pulse Ox O2 Delivery O2 Flow Rate FiO2 03/27/25 22:46 86 20 120/64 98 Room Air* 0 21 03/27/25 21:49 99.0 90 18 110/56 99 Room Air* 0 21 03/27/25 19:49 99.9 98 18 108/76 99 Room Air 0 LABS: Hematology Labs: Test 03/27/25 20:17 Range/Units White Blood Count 17.0 H 4.8-10.8 K/uL Red Blood Count 5.30 4.50-6.20 MIL/uL Hemoglobin 15.9 14.0-18.0 g/dL Hematocrit 46.8 42-54 % Mean Corpuscular Volume 88.3 79-99 fL Mean Corpuscular Hemoglobin 30.0 27.0-33.0 pg Mean Corpuscular Hemoglobin Concent 34.0 32.0-36.0 g/dL Red Cell Distribution Width 13.7 11.0-15.5 % Platelet Count 264 130-400 K/uL Mean Platelet Volume 8.7 7.5-10.5 fL Immature Granulocyte % (Auto) 0.3 0-1 % Neutrophils (%) (Auto) 85.1 H 40.0-77.0 % Lymphocytes (%) (Auto) 5.9 L 21.0-51.0 % Monocytes (%) (Auto) 8.3 3.0-13.0 % Eosinophils (%) (Auto) 0.1 0.0-8.0 % Basophils (%) (Auto) 0.3 0.0-5.0 % Neutrophils # (Auto) 14.5 H 1.8-7.7 K/uL Lymphocytes # (Auto) 1.0 1.0-4.8 K/uL Monocytes # (Auto) 1.4 H 0.1-1.0 K/uL Eosinophils # (Auto) 0.02 0.00-0.70 K/uL Basophils # (Auto) 0.05 0.00-0.20 K/uL Absolute Immature Granulocyte (auto 0.05 0-1 K/uL Nucleated Red Blood Cells 0.0 0.0-0.19 % White Cell Morphology Comment See comments Chemistry Labs: Test 03/27/25 20:17 Range/Units Sodium Level 133 L 136-145 mmol/L Potassium Level 3.7 3.5-5.1 mmol/L Chloride Level 97 L 101-111 mmol/L Carbon Dioxide Level 30 21-32 mmol/L Blood Urea Nitrogen 10 7-18 mg/dL Creatinine 1.0 0.5-1.3 mg/dL Glomerular Filtration Rate Calc 96 >90 mL/min Random Glucose 94 70-105 mg/dL Lactic Acid Level 1.7 0.8-2.5 mmol/L Total Calcium 9.0 8.5-10.1 mg/dL DIAGNOSTICS / RADIOLOGY RESULTS: [ ] PLAN NEURO: Minimize central acting medications as possible. Maintain fall precautions, adequate lighting during the day PULMONARY: Supplemental 02 as needed. Maintain aspiration precautions at all times CARDIOVASCULAR: Follow hemodynamics. Vital signs per facility protocol GI & NUTRITION: Continue with nutritional support. Continue stool softeners and laxatives as needed. KIDNEYS & ELECTROLYTES: Strict monitoring of intake, output and overall fluid balance. Avoid nephrotoxic medications to the extent possible. Medications to be dosed according to renal function. Monitor electrolytes and replace as needed ENDOCRINE: Maintain blood glucose between 100-180 at all times. Hypoglycemia protocol in place INFECTIOUS DISEASE: Trend temperature, WBC and procalcitonin level Follow cultures, deescalate antibiotics as soon as possible. Panculture if new onset fever ONCOLOGY/HEMATOLOGY/COAGULATION: Monitor for s/s of bleeding Monitor hemoglobin, coagulation studies as needed SKIN: Pressure ulcer prevention per facility protocol Specialty mattress ORTHO/REHAB: Continue PT/OT Prophylaxis: Continue GI and DVT prophylaxis Code Status: Full Resuscitation Disposition: Home MARLYYAS MENDIETA AGPCNP Mar 27, 2025 23:42
[2025-03-28] VITALS (12 sets, daily range): BP systolic 110–151; BP diastolic 67–90; PULSE 101–116; RESP 18–19; TEMP 98.8–103; O2SAT 98–99
[2025-03-28] MEDS ORDERED: LACTULOSE 20 GM/30 ML UDCUP PO PRN
--- NOTE | 2025-03-28 00:02 | NUR ---
PT IS CURRENTLY DRINKING PO CONTRAST. LONG PREP NEEDED DUE TO HX OF RECURRING UTI, POSSIBLE FISTULA.
[2025-03-28] MEDS: 0.9%NACL 1000ML 1,000 ML IV SCH (00:05)
[2025-03-28] MEDS ORDERED: RENAL DOSE IV STA (01:02)
[2025-03-28] MEDS ORDERED: VANCOMYCIN PROTOCOL PER PHARMACY IV SCH (01:30)
[2025-03-28] MEDS: VANCOMYCIN 2GM/500 ML BAG 500 ML IV ONE (02:16)
--- NOTE | 2025-03-28 02:18 | NUR ---
REPORT GIVEN TO ESCOBAR ABBOTT
[2025-03-28] MEDS ORDERED: LOSA50TA64 PO (03:27)
[2025-03-28] MEDS ORDERED: LISD70CA PO (03:27)
--- NOTE | 2025-03-28 03:49 | HMCIMG ---
EXAM: CT Abdomen and Pelvis without and with IV contrast CLINICAL HISTORY: Recurrent UTI. Questionable stone or prostatitis. Questionable rectovesical fistula. TECHNIQUE: Pre and post-contrast thin collimated axial CT images of the abdomen and pelvis were obtained, with sagittal and coronal reformatted images also submitted. A CT scan is done according to ALARA (As Low As Reasonably Achievable). COMPARISON: CT abdomen and pelvis dated 07/14/2023. FINDINGS: Mild right diaphragmatic eventration with subsegmental atelectasis in the right lung base. Mild fatty liver. No focal abnormality within the gallbladder, pancreas, spleen, or adrenals. Mild hydroureteronephrosis and perinephric inflammatory changes on the right side. Unremarkable left kidney. There is asymmetric soft tissue thickening around the left anterior superior aspect of the urinary bladder with a maximum thickness of 2 cm, with a fistulous communication between the urinary bladder and the adjacent portion of the sigmoid colon, which measures about 3 cm in length and 1.5 cm in width. Scattered colonic diverticula with questionable chronic sigmoid diverticulitis. No significant bowel dilatation or obstruction. Unremarkable appendix. A component of mild constipation is present in the colon. Mild calcific atherosclerotic disease in the abdominal aorta and iliac arteries. Small, uncomplicated fat-containing umbilical hernia. No pathological lymphadenopathy in the abdomen or pelvis. No ascites or pneumoperitoneum. No acute bony abnormality is evident. Chronic left L5 spondylolysis without significant spondylolisthesis. Mild degenerative osseous changes. 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 Scattered colonic diverticula with chronic sigmoid diverticulitis. The inflammatory process is less pronounced in the present CT compared to the previous CT dated 07/14/2023. A component of mild constipation is present in the colon. Interval development of mild hydroureteronephrosis and perinephric inflammatory changes on the right side. No renal, ureteral, or bladder calculus is evident. Stable mild fatty liver. Stable small, uncomplicated fat-containing umbilical hernia. Redemonstrated chronic left L5 spondylolysis without significant spondylolisthesis. /[place]
[2025-03-28 05:36] LABS: AMPHET/METH SCREEN,URINE POSITIVE (NEGATIVE); BARBITURATE SCREEN, URINE NEGATIVE (NEGATIVE); CANNABINOID SCREEN,URINE POSITIVE (NEGATIVE); COCAINE SCREEN,URINE NEGATIVE (NEGATIVE)
[2025-03-28 06:27] LABS: CREATININE 0.9 mg/dL (0.5-1.3); GLOMERULAR FILTR. RATE CALC 109.0 mL/min (>90); GLUCOSE,RANDOM 98.0 mg/dL (70-105); SODIUM SERUM 134.0 mmol/L (136-145); UREA NITROGEN, BLOOD 11.0 mg/dL (7-18)
[2025-03-28 06:33] LABS: IMMATURE GRANULOCYTE ABSOLUTE 0.04 K/uL (0-1); NUCLEATED RED BLOOD CELLS 0.0 % (0.0-0.19); PLATELET COUNT (AUTO) 217 K/uL (130-400); RED BLOOD CELL COUNT(AUTO) 4.78 MIL/uL (4.50-6.20); RED CELL DISTRIBUTION WIDTH 13.5 % (11.0-15.5); WHITE BLOOD COUNT (AUTO) 11.5 K/uL (4.8-10.8)
[2025-03-28] MEDS: DEXTROSE 5 % AND 0.9 % NACL 1,000 ML IV SCH (09:57)
[2025-03-28] MEDS ORDERED: VANCOMYCIN 1G/250ML KIT 250 ML IV SCH (10:00)
--- NOTE | 2025-03-28 10:56 | NUR ---
DCP:HOME Pt currently lives at home with his and 2 children. Pt does not have any DME, home health, or provider services. Pt is able to complete ADLs independently. PCP is Dr. Raul Blanco and uses [facility] for any RX needs. At [place] pt will want to go home and family can assist with transportation. Addendum: 03/28/25 at 1058 by ZAKIA WARD SS Amended: Links added.
[2025-03-28] MEDS: 0.9% NACL 500ML IV.SOLN 500 ML IV STA (11:32)
--- NOTE | 2025-03-28 13:32 | CONS ---
CONSULT NOTE: Consulting physician:Dr Berrios Consulting service: General surgery Reason for consultation: Colovesicular fistula History of present illness: This is a 44-year-old male with a medical history listed below most notably previous episode of diverticulitis greater than one year prior that has been consulted to surgery for concerns of colovesicular fistula. Patient reporting a one week history of abdominal discomfort. Patient also reporting fevers. Patient also reporting dark urine with concerns of gas coming out of the urethra. For concerns patient presented to the hospital where imaging confirmed day colovesicular fistula . Patient was admitted started on IV antibiotics. Patient on clear liquid diet but still reporting abdominal pain. WBCs 11.5 with a hemoglobin of 14. Medical history: Previous history of diverticulitis Hypertension Surgical history: Knee surgery Review of systems: General: No Fever, No Chills, No Night Sweats, No Fatigue, No Malaise, No Appetite, No Other HEENT: No Head Aches, No Visual Changes, No Eye Pain, No Ear Pain, No Dysphasia, No Sinus Congestion, No Post Nasal Drip, No Sore Throat, No Other Pulmonary: No Dyspnea, No Cough, No Pleuritic Chest Pain, No Other Cardiovascular: No: Chest Pain, Palpitations, Orthopnea, Paroxysmal No Dyspnea, Edema, Lt Headedness, Other Gastrointestinal: No: Nausea, Vomiting, Diarrhea, Constipation, Melena, Hematochezia, Other Genitourinary: No Dysuria, No Frequency, No Incontinence, No Hematuria, No Retention, No Other Musculoskeletal: No: other, neck pain, shoulder pain, arm pain, back pain, hand pain, leg pain, foot pain Skin: No Urticaria, No Rash, No Other Neurological: No: Weakness, Numbness, Incoordination, Change in speech, Confusion, Seizures, Other Physical exam: General: Awake alert and oriented Heart: Regular rate and rhythm} Lungs: [Clear to auscultation no distress Abdomen: Generalized abdominal discomfort more focused in left lower quadrant no peritonitis Assessment: This is a 44-year-old male with concerns of colovesicular fistula Plan: At this point in time plan will be for conservative management Plan will be to treat diverticulitis 1st with the IV antibiotics Patient to be made NPO Repeat CBC and CMP At later date once diverticulitis has resolved patient will likely need colonoscopy before colovesicular fistula takedown Dr. Reeder has been made aware of patient's status Surgical team to follow patient closely Surgical case has been discussed with my supervising physician in the above plan was formulated and agreed upon Supervising physicians evaluation the patient be done within next 24 hours We appreciate the hospitalist team for us to participate in patient's care. Greater than 55 minutes of time spent patient, reviewing chart, working on documentation SAMIRA ARAUZ Jr. Mar 28, 2025 13:32
--- NOTE | 2025-03-28 15:04 | PN ---
[facility] PROGRESS NOTE Date Patient Seen: Mar 28, 2025 Time of Visit: 14:52 Supervising Physician: NIK CUELLO Primary Care Physician: [Dr. Raul Blanco] Outpatient Specialists: [ ] Inpatient Consults: JULY MD ESTHER - GENERAL SURGERY PROBLEM LIST: Severe Sepsis , POA Acute Colovesicular Fistula Complicated Cystitis secondary to above Chronic Diverticulitis Hydroureteronephrosis secondary to above Primary HTN ADHD PLAN: STAT bolus 500cc , npo status Proceed with D5NS at 100cc/hr Ice Packs Levaquin/Flagyl and ID consultation General Surgery consult - for now treat the active infection and await further recommendations Follow Blood /Urine culture Manage pain, fever and N/V PRN INTERVAL HISTORY: Patient was seen and examined today by me, the patient is lying in bed with at bedside. At this time the patient continues septic with leukocytosis at 11, persistent fever at 1:02 a.m. 103 F, tachycardia, with blood pressures dipping in the low 100s. Stat bolus was given to the patient with improvement of blood pressures in the 150s. Antibiotic therapy was adjusted and ID was consulted along with general surgery. Long discussion with the patient's and patient regarding plan of care and current findings. All questions were answered to the satisfaction. REVIEW OF SYSTEMS: 12 point ROS reviewed with patient. Pertinent positives mentioned above. Otherwise negative. PHYSICAL EXAM: GENERAL: alert, weak, awake oriented x 3, toxic appearing, ill acutely, warm s kin HEENT: EOMI, Sclera non icteric, moist mucosa , diaphoretic, facial flushing NECK: Supple, no JVD, trachea midline LUNGS: Clear breath sounds bilaterally. No wheezes HEART: Regular rate and rhythm. Normal S1 and S2, without murmurs ABD: Abdomen soft, (+) lower abdomen and LUQ tenderness. Bowel sounds present EXT: No clubbing cyanosis or edema NEURO: Alert and oriented to person, follows commands Vital Signs (last 8hr) Date Time Temp Pulse Resp B/P (MAP) Pulse Ox O2 Delivery O2 Flow Rate FiO2 03/28/25 12:11 102.7 115 18 131/78 96 Room Air 0.0 03/28/25 11:40 99.3 116 18 151/86 98 Room Air 03/28/25 11:10 102.9 03/28/25 11:00 102.9 116 18 151/86 98 Room Air 03/28/25 07:47 98.8 103 18 118/76 98 Room Air LABS: Hematology Labs: Test 03/28/25 05:30 03/27/25 20:17 Range/Units White Blood Count 11.5 #H 4.8-10.8 K/uL Red Blood Count 4.78 4.50-6.20 MIL/uL Hemoglobin 14.4 14.0-18.0 g/dL Hematocrit 42.5 42-54 % Mean Corpuscular Volume 88.9 79-99 fL Mean Corpuscular Hemoglobin 30.1 27.0-33.0 pg Mean Corpuscular Hemoglobin Concent 33.9 32.0-36.0 g/dL Red Cell Distribution Width 13.5 11.0-15.5 % Platelet Count 217 130-400 K/uL Mean Platelet Volume 9.1 7.5-10.5 fL Immature Granulocyte % (Auto) 0.3 0-1 % Neutrophils (%) (Auto) 85.6 H 40.0-77.0 % Lymphocytes (%) (Auto) 4.8 L 21.0-51.0 % Monocytes (%) (Auto) 8.7 3.0-13.0 % Eosinophils (%) (Auto) 0.2 0.0-8.0 % Basophils (%) (Auto) 0.4 0.0-5.0 % Neutrophils # (Auto) 9.8 H 1.8-7.7 K/uL Lymphocytes # (Auto) 0.6 L 1.0-4.8 K/uL Monocytes # (Auto) 1.0 0.1-1.0 K/uL Eosinophils # (Auto) 0.02 0.00-0.70 K/uL Basophils # (Auto) 0.05 0.00-0.20 K/uL Absolute Immature Granulocyte (auto 0.04 0-1 K/uL Nucleated Red Blood Cells 0.0 0.0-0.19 % White Cell Morphology Comment See comments Chemistry Labs: Test 03/28/25 11:07 03/28/25 05:30 03/27/25 20:17 Range/Units Whole Blood Glucose 103 70-110 MG/DL Sodium Level 134 L 136-145 mmol/L Potassium Level 3.7 3.5-5.1 mmol/L Chloride Level 100 L 101-111 mmol/L Carbon Dioxide Level 26 21-32 mmol/L Blood Urea Nitrogen 11 7-18 mg/dL Creatinine 0.9 0.5-1.3 mg/dL Glomerular Filtration Rate Calc 109 >90 mL/min Random Glucose 98 70-105 mg/dL Total Calcium 7.7 L 8.5-10.1 mg/dL Magnesium Level 1.60 L 1.80-2.40 mg/dL Lactic Acid Level 1.7 0.8-2.5 mmol/L Procalcitonin 6.75 H 0.05-0.5 ng/mL DIAGNOSTICS / RADIOLOGY RESULTS: [ ] PLAN NEURO: Minimize central acting medications as possible. Maintain fall precautions, adequate lighting during the day PULMONARY: Supplemental 02 as needed. Maintain aspiration precautions at all times CARDIOVASCULAR: Follow hemodynamics. Vital signs per facility protocol GI & NUTRITION: Continue with nutritional support. Continue stool softeners and laxatives as needed. KIDNEYS & ELECTROLYTES: Strict monitoring of intake, output and overall fluid balance. Avoid nephrotoxic medications to the extent possible. Medications to be dosed according to renal function. Monitor electrolytes and replace as needed ENDOCRINE: Maintain blood glucose between 100-180 at all times. Hypoglycemia protocol in place INFECTIOUS DISEASE: Trend temperature, WBC and procalcitonin level Follow cultures, deescalate antibiotics as soon as possible. Panculture if new onset fever ONCOLOGY/HEMATOLOGY/COAGULATION: Monitor for s/s of bleeding Monitor hemoglobin, coagulation studies as needed SKIN: Pressure ulcer prevention per facility protocol Specialty mattress ORTHO/REHAB: Continue PT/OT Prophylaxis: Continue GI and DVT prophylaxis Code Status: Full Resuscitation Disposition: To be determined Total patient care time is over 35 minutes, high-risk for decompensation. ZAKIA LITTLEJOHN Mar 28, 2025 15:04
[2025-03-28] MEDS: ZOSYN 3.375GM +NS 50ML IV SCH (21:36)
[2025-03-29] VITALS (9 sets, daily range): BP systolic 121–152; BP diastolic 55–83; PULSE 67–98; RESP 18–20; TEMP 98.3–100.6; O2SAT 98
[2025-03-29 03:55] LABS: IMMATURE GRANULOCYTE ABSOLUTE 0.03 K/uL (0-1); NUCLEATED RED BLOOD CELLS 0.0 % (0.0-0.19); PLATELET COUNT (AUTO) 195 K/uL (130-400); RED BLOOD CELL COUNT(AUTO) 4.83 MIL/uL (4.50-6.20); RED CELL DISTRIBUTION WIDTH 13.3 % (11.0-15.5); WHITE BLOOD COUNT (AUTO) 8.2 K/uL (4.8-10.8)
[2025-03-29 04:18] LABS: ASPARTATE AMINOTRANSFERASE 23.0 U/L (10-37); CREATININE 1.1 mg/dL (0.5-1.3); GLOMERULAR FILTR. RATE CALC 85.0 mL/min (>90); GLUCOSE,RANDOM 120.0 mg/dL (70-105); SODIUM SERUM 131.0 mmol/L (136-145); TOTAL PROTEIN, SERUM 6.8 g/dL (6.0-8.3); UREA NITROGEN, BLOOD 8.0 mg/dL (7-18)
--- NOTE | 2025-03-29 14:49 | NUR ---
DR PRESSLEY SAW PATIENT AND I UPDATED HIM ON ALL CURRENT LABS/DIAGNOSTIC EXAMS. DEPENDING UPON PROGRESSION, PATIENT MAY/MAY NOT REQUIRE THE PLACEMENT OF A PERIPHERALLY INSERTED CENTRAL CATHETER (PICC LINE) FOR ANTIBIOTICS AN OUTPATIENT
--- NOTE | 2025-03-29 14:52 | PN ---
[facility] PROGRESS NOTE Date Patient Seen: Mar 29, 2025 Time of Visit: 14:47 Supervising Physician: NIK CUELLO Primary Care Physician: [Dr. Raul Blanco] Outpatient Specialists: [ ] Inpatient Consults: JULY MD ESTHER - GENERAL SURGERY PROBLEM LIST: Severe Sepsis , POA Acute Colovesicular Fistula Complicated Cystitis secondary to above Chronic Diverticulitis Hydroureteronephrosis secondary to above Primary HTN ADHD PLAN: NPO status Continue D5NS at 100cc/hr Ice Packs , Acetaminophen rectal prn fever Zosyn , ID following closely General Surgery consult - for now treat the active infection and await further recommendations Urology consultation Follow Blood /Urine culture Manage pain, fever and N/V PRN INTERVAL HISTORY: Patient was seen and examined today by me, the patient is lying in bed with family at bedside. At this time the patient continues septic , persistent fever at 100.6 F,wth TMAX of 102 overnight , tachycardia. WBC downtrending and tachycardia resolved ID is following closely Long discussion with the patient's and patient/family regarding plan of care and current findings. All questions were answered to the satisfaction. REVIEW OF SYSTEMS: 12 point ROS reviewed with patient. Pertinent positives mentioned above. Otherwise negative. PHYSICAL EXAM: GENERAL: alert, weak, awake oriented x 3,ill acutely, warm skin HEENT: EOMI, Sclera non icteric, moist mucosa , diaphoretic, facial flushing NECK: Supple, no JVD, trachea midline LUNGS: Clear breath sounds bilaterally. No wheezes HEART: Regular rate and rhythm. Normal S1 and S2, without murmurs ABD: Abdomen soft, (+) lower abdomen and LUQ tenderness. Bowel sounds present EXT: No clubbing cyanosis or edema NEURO: Alert and oriented to person, follows commands Vital Signs (last 8hr) Date Time Temp Pulse Resp B/P (MAP) Pulse Ox O2 Delivery O2 Flow Rate FiO2 03/29/25 13:15 100.6 03/29/25 12:58 100.6 03/29/25 12:00 99.7 92 20 138/82 95 Room Air 03/29/25 08:00 98.6 93 20 121/72 95 Room Air LABS: Hematology Labs: Test 03/29/25 03:26 03/27/25 20:17 Range/Units White Blood Count 8.2 # 4.8-10.8 K/uL Red Blood Count 4.83 4.50-6.20 MIL/uL Hemoglobin 14.6 14.0-18.0 g/dL Hematocrit 41.6 L 42-54 % Mean Corpuscular Volume 86.1 79-99 fL Mean Corpuscular Hemoglobin 30.2 27.0-33.0 pg Mean Corpuscular Hemoglobin Concent 35.1 32.0-36.0 g/dL Red Cell Distribution Width 13.3 11.0-15.5 % Platelet Count 195 130-400 K/uL Mean Platelet Volume 9.2 7.5-10.5 fL Immature Granulocyte % (Auto) 0.4 0-1 % Neutrophils (%) (Auto) 84.5 H 40.0-77.0 % Lymphocytes (%) (Auto) 6.0 L 21.0-51.0 % Monocytes (%) (Auto) 8.7 3.0-13.0 % Eosinophils (%) (Auto) 0.0 0.0-8.0 % Basophils (%) (Auto) 0.4 0.0-5.0 % Neutrophils # (Auto) 6.9 1.8-7.7 K/uL Lymphocytes # (Auto) 0.5 L 1.0-4.8 K/uL Monocytes # (Auto) 0.7 0.1-1.0 K/uL Eosinophils # (Auto) 0.00 0.00-0.70 K/uL Basophils # (Auto) 0.03 0.00-0.20 K/uL Absolute Immature Granulocyte (auto 0.03 0-1 K/uL Nucleated Red Blood Cells 0.0 0.0-0.19 % White Cell Morphology Comment See comments Chemistry Labs: Test 03/29/25 11:51 03/29/25 03:26 03/27/25 20:17 Range/Units Whole Blood Glucose 94 70-110 MG/DL Sodium Level 131 L 136-145 mmol/L Potassium Level 3.9 3.5-5.1 mmol/L Chloride Level 97 L 101-111 mmol/L Carbon Dioxide Level 26 21-32 mmol/L Blood Urea Nitrogen 8 7-18 mg/dL Creatinine 1.1 0.5-1.3 mg/dL Glomerular Filtration Rate Calc 85 >90 mL/min Random Glucose 120 H 70-105 mg/dL Total Calcium 7.8 L 8.5-10.1 mg/dL Magnesium Level 1.70 L 1.80-2.40 mg/dL Total Bilirubin 0.6 0.2-1.0 mg/dL Aspartate Amino Transf (AST/SGOT) 23 10-37 U/L Alanine Aminotransferase (ALT/SGPT) 26 12-78 U/L Alkaline Phosphatase 79 50-136 U/L Total Protein 6.8 6.0-8.3 g/dL Albumin 2.6 L 3.5-5.0 g/dL Lactic Acid Level 1.7 0.8-2.5 mmol/L Procalcitonin 6.75 H 0.05-0.5 ng/mL DIAGNOSTICS / RADIOLOGY RESULTS: REASON: recurrent UTI- ? stone? prostatitis ? Recto-vescial fistula ORDERING PHYSICIAN: ISABEL MENDOZA MD PROCEDURE: ABD PELWWO - CT ABDOMEN/PELVIS W/WO CONTRAS EXAM: CT Abdomen and Pelvis without and with IV contrast CLINICAL HISTORY: Recurrent UTI. Questionable stone or prostatitis. Questionable rectovesical fistula. TECHNIQUE: Pre and post-contrast thin collimated axial CT images of the abdomen and pelvis were obtained, with sagittal and coronal reformatted images also submitted. A CT scan is done according to ALARA (As Low As Reasonably Achievable). COMPARISON: CT abdomen and pelvis dated 07/14/2023. FINDINGS: Mild right diaphragmatic eventration with subsegmental atelectasis in the right lung base. Mild fatty liver. No focal abnormality within the gallbladder, pancreas, spleen, or adrenals. Mild hydroureteronephrosis and perinephric inflammatory changes on the right side. Unremarkable left kidney. There is asymmetric soft tissue thickening around the left anterior superior aspect of the urinary bladder with a maximum thickness of 2 cm, with a fistulous communication between the urinary bladder and the adjacent portion of the sigmoid colon, which measures about 3 cm in length and 1.5 cm in width. Scattered colonic diverticula with questionable chronic sigmoid diverticulitis. No significant bowel dilatation or obstruction. Unremarkable appendix. A component of mild constipation is present in the colon. Mild calcific atherosclerotic disease in the abdominal aorta and iliac arteries. Small, uncomplicated fat-containing umbilical hernia. No pathological lymphadenopathy in the abdomen or pelvis. No ascites or pneumoperitoneum. No acute bony abnormality is evident. Chronic left L5 spondylolysis without significant spondylolisthesis. Mild degenerative osseous changes. 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 Scattered colonic diverticula with chronic sigmoid diverticulitis. The inflammatory process is less pronounced in the present CT compared to the previous CT dated 07/14/2023. A component of mild constipation is present in the colon. Interval development of mild hydroureteronephrosis and perinephric inflammatory changes on the right side. No renal, ureteral, or bladder calculus is evident. Stable mild fatty liver. Stable small, uncomplicated fat-containing umbilical hernia. Redemonstrated chronic left L5 spondylolysis without significant spondylolisthesis. PLAN NEURO: Minimize central acting medications as possible. Maintain fall precautions, adequate lighting during the day PULMONARY: Supplemental 02 as needed. Maintain aspiration precautions at all times CARDIOVASCULAR: Follow hemodynamics. Vital signs per facility protocol GI & NUTRITION: Continue with nutritional support. Continue stool softeners and laxatives as needed. KIDNEYS & ELECTROLYTES: Strict monitoring of intake, output and overall fluid balance. Avoid nephrotoxic medications to the extent possible. Medications to be dosed according to renal function. Monitor electrolytes and replace as needed ENDOCRINE: Maintain blood glucose between 100-180 at all times. Hypoglycemia protocol in place INFECTIOUS DISEASE: Trend temperature, WBC and procalcitonin level Follow cultures, deescalate antibiotics as soon as possible. Panculture if new onset fever ONCOLOGY/HEMATOLOGY/COAGULATION: Monitor for s/s of bleeding Monitor hemoglobin, coagulation studies as needed SKIN: Pressure ulcer prevention per facility protocol Specialty mattress ORTHO/REHAB: Continue PT/OT Prophylaxis: Continue GI and DVT prophylaxis Code Status: Full Resuscitation Disposition: To be determined Total patient care time is over 35 minutes, high-risk for decompensation. ZAKIA LITTLEJOHN Mar 29, 2025 14:52
--- NOTE | 2025-03-29 16:01 | PN ---
This is a 44-year-old male with concerns of colovesicular fistula Interval history: This 44-year-old male seen in his room resting Patient continues with fevers Infectious disease on board Patient continues with the antibiotics Patient remains NPO Continued abdominal discomfort noted WBCs trending down hemoglobin stable Physical exam General: Awake alert and oriented Heart: Regular rate and rhythm} Lungs: [Clear to auscultation no distress Abdomen: [Continued abdominal discomfort Assessment : This is a 44-year-old male with colovesicular fistula Plan: From surgical standpoint patient to remain NPO Continue with the IV fluids and IV antibiotics Await for cultures for UTI Patient will need colovesicular takedown pending future date once current episode of diverticulitis resolves Patient made aware of plan understands Dr. Reeder to be updated in patient's status and nursing report any further acute events Surgical case has been discussed with my supervising physician in the above plan was formulated and agreed upon We appreciate the hospitalist team for us to participate in patient's care. Greater than 45 minutes of time spent patient, reviewing chart, working on documentation Vitals/Labs Vital Signs Date Time Temp Pulse Resp B/P (MAP) Pulse Ox O2 Delivery O2 Flow Rate FiO2 03/29/25 13:15 100.6 03/29/25 12:00 92 20 138/82 95 Room Air 03/28/25 20:00 0 21 Laboratory Tests 03/29/25 03:26 Medications Current Medications Sodium Chloride 1,000 ml @ 0 mls/hr ONCE ONCE IV Last administered on 03/27/25at 20:30; Start 03/27/25 at 20:30; Stop 03/27/25 at 20:31; Status DC Sodium Chloride 1,000 ml @ 0 mls/hr Q0M ONCE IV; Start 03/27/25 at 20:30; Stop 03/27/25 at 20:31; Status DC Ketorolac Tromethamine 30 mg ONCE ONCE IVP Last administered on 03/27/25at 20:29; Start 03/27/25 at 20:30; Stop 03/27/25 at 20:31; Status DC Sodium Chloride 1,000 ml @ 125 mls/hr ONCE ONCE IV Last administered on 03/27/25at 21:47; Start 03/27/25 at 21:30; Stop 03/28/25 at 05:29; Status DC Levofloxacin/ Dextrose 750 mg ONCE ONCE IV Last administered on 03/27/25at 21:48; Start 03/27/25 at 21:30; Stop 03/27/25 at 21:31; Status DC Diatrizoate Meglum/ Diatrizoate Sod 30 ml STK-MED ONCE .ROUTE; Start 03/27/25 at 22:10; Stop 03/27/25 at 22:10; Status DC Iohexol 35,000 mg STK-MED ONCE IV; Start 03/27/25 at 23:30; Stop 03/27/25 at 23:31; Status DC Sodium Chloride 1,000 ml @ 125 mls/hr Q8H IV Last administered on 03/28/25at 00:05; Start 03/28/25 at 00:00; Stop 03/28/25 at 09:41; Status DC Ceftriaxone Sodium 2 gm DAILY10 IVP; Start 03/28/25 at 00:00; Stop 03/28/25 at 00:01; Status DC Acetaminophen 650 mg Q6H PRN PO Last administered on 03/29/25at 13:15; Start 03/28/25 at 00:00; Stop 04/27/25 at 00:00 Lactulose 20 gm Q6H PRN PO; Start 03/28/25 at 00:00; Stop 04/27/25 at 00:00 Temazepam 15 mg HS PRN PO Last administered on 03/29/25at 01:33; Start 03/28/25 at 00:00; Stop 04/27/25 at 00:00 Ondansetron HCl 4 mg Q6H PRN IVP Last administered on 03/29/25at 07:42; Start 03/28/25 at 00:00; Stop 04/27/25 at 00:00 Clonidine HCl 0.1 mg Q6H PRN PO; Start 03/28/25 at 00:00; Stop 04/27/25 at 00:00 Hydralazine HCl 10 mg Q6H PRN IV; Start 03/28/25 at 00:00; Stop 03/27/25 at 23:53; Status DC Labetalol HCl 10 mg Q2H PRN IV; Start 03/28/25 at 00:00; Stop 04/27/25 at 00:00 Insulin Human Regular INSULIN SLIDING SCAL... ACHS SQ; Start 03/28/25 at 07:30; Stop 04/27/25 at 07:29 Ceftriaxone Sodium 1 gm DAILY10 IVPB Last administered on 03/28/25at 00:06; Start 03/28/25 at 00:00; Stop 03/28/25 at 01:05; Status DC Ibuprofen 800 mg ONCE ONCE PO Last administered on 03/28/25at 01:26; Start 03/28/25 at 01:00; Stop 03/28/25 at 01:05; Status DC Ceftriaxone Sodium 1 gm DAILY10 IVPB; Start 03/29/25 at 00:00; Stop 03/28/25 at 09:40; Status DC Ketorolac Tromethamine 30 mg ONCE ONCE IVP Last administered on 03/28/25at 01:27; Start 03/28/25 at 01:30; Stop 03/28/25 at 01:31; Status DC Vancomycin HCl 1 each AD IV; Start 03/28/25 at 01:30; Stop 03/28/25 at 09:59; Status DC Vancomycin HCl 500 ml @ 250 mls/hr ONCE ONCE IV Last administered on 03/28/25at 02:16; Start 03/28/25 at 01:30; Stop 03/28/25 at 03:29; Status DC Vancomycin HCl 250 ml @ 125 mls/hr Q8H IV; Start 03/28/25 at 10:00; Stop 03/28/25 at 09:40; Status DC Hydromorphone HCl 0.5 mg Q4H PRN IVP Last administered on 03/29/25at 12:52; Start 03/28/25 at 10:00; Stop 04/02/25 at 09:59 Levofloxacin/ Dextrose 750 mg Q24H IV Last administered on 03/28/25at 10:57; Start 03/28/25 at 10:00; Stop 03/28/25 at 19:12; Status DC Metronidazole/ Sodium Chloride 500 mg Q8H IV Last administered on 03/29/25at 14:02; Start 03/28/25 at 12:00; Stop 03/29/25 at 15:57; Status DC Dextrose/Sodium Chloride 1,000 ml @ 100 mls/hr Q10H IV Last administered on 03/29/25at 04:58; Start 03/28/25 at 10:00; Stop 04/27/25 at 09:59 Sodium Chloride 500 ml @ 0 mls/hr Q0M STAT IV Last administered on 03/28/25at 11:32; Start 03/28/25 at 11:14; Stop 03/28/25 at 11:18; Status DC Ketorolac Tromethamine 15 mg ONCE ONCE IM Last administered on 03/28/25at 13:54; Start 03/28/25 at 14:00; Stop 03/28/25 at 14:01; Status DC Acetaminophen 650 mg Q6H PRN RC Last administered on 03/28/25at 18:40; Start 03/28/25 at 18:00; Stop 04/27/25 at 17:59 Piperacillin Sod/ Tazobactam Sod 3.375 gm Q8H IV Last administered on 03/29/25at 14:02; Start 03/28/25 at 21:00; Stop 04/07/25 at 20:59 Enoxaparin Sodium 40 mg DAILY SQ; Start 03/30/25 at 09:00; Stop 04/29/25 at 08:59; Status SAMIRA CR Jr. Mar 29, 2025 16:01
--- NOTE | 2025-03-29 22:21 | PN ---
INFECTIOUS DISEASE PROGRESS NOTE Date of Service: Mar 29, 2025 SUBJECTIVE: This is a 44-year-old male patient who presented to the hospital with chief complaint of fever, abdominal pain and urinary symptoms. On admission the WBC was 17.0 and patient had a fever of 101.3. Today patient patient is still having a low-grade fever of 100.6, the WBC however has trended down to 8.2. Was positive and urine culture is growing A CT of the abdomen with done on admission showed a colovesical fistula and chronic sigmoid diverticulitis. General surgery has been consulted. We will continue on Zosyn. PHYSICAL EXAM EYES: Anicteric. Pupils equal and reactive. HENT: No oral thrush seen, moist Oral mucosa NECK: Supple, no JVD or thyromegaly. LUNGS: Good air entry. No rales, no rhonchi. CARDIOVASCULAR: S1, S2 regular. No murmur heard. ABDOMEN: Soft, non tender, bowel sounds present, no organomegaly. Abdominal pain POA. CENTRAL NERVOUS SYSTEM: Awake, alert, oriented x 3. SKIN: No rashes, no swelling. LYMPHATICS: No peripheral lymphadenopathy. MUSCULOSKELETAL: No joint swelling, erythema or tenderness. EXTREMITIES: No cyanosis or clubbing. BACK: No deformity, no pressure ulcer. Lower back pain POA. GENITOURINARY: Dysuria, frequency and urgency POA. Vital Sign (Last 12 Hours) 03/29/25 03/29/25 03/29/25 03/29/25 12:00 12:58 13:15 16:00 Temp 99.7 100.6 100.6 99.9 Pulse 92 83 Resp 20 20 B/P (MAP) 138/82 128/80 Pulse Ox 95 96 O2 Delivery Room Air Room Air 03/29/25 19:00 Temp 100.6 Pulse 98 Resp 18 B/P (MAP) 136/79 Pulse Ox 97 O2 Delivery Room Air Intake & Output (last 24hrs) 03/28/25 03/28/25 03/29/25 14:59 22:59 06:59 Output Total 400 ml Balance -400 ml LABS: Laboratory: Test 03/29/25 20:44 03/29/25 03:26 03/28/25 05:22 Range/Units Whole Blood Glucose 111 H 70-110 MG/DL White Blood Count 8.2 # 4.8-10.8 K/uL Red Blood Count 4.83 4.50-6.20 MIL/uL Hemoglobin 14.6 14.0-18.0 g/dL Hematocrit 41.6 L 42-54 % Mean Corpuscular Volume 86.1 79-99 fL Mean Corpuscular Hemoglobin 30.2 27.0-33.0 pg Mean Corpuscular Hemoglobin Concent 35.1 32.0-36.0 g/dL Red Cell Distribution Width 13.3 11.0-15.5 % Platelet Count 195 130-400 K/uL Mean Platelet Volume 9.2 7.5-10.5 fL Immature Granulocyte % (Auto) 0.4 0-1 % Neutrophils (%) (Auto) 84.5 H 40.0-77.0 % Lymphocytes (%) (Auto) 6.0 L 21.0-51.0 % Monocytes (%) (Auto) 8.7 3.0-13.0 % Eosinophils (%) (Auto) 0.0 0.0-8.0 % Basophils (%) (Auto) 0.4 0.0-5.0 % Neutrophils # (Auto) 6.9 1.8-7.7 K/uL Lymphocytes # (Auto) 0.5 L 1.0-4.8 K/uL Monocytes # (Auto) 0.7 0.1-1.0 K/uL Eosinophils # (Auto) 0.00 0.00-0.70 K/uL Basophils # (Auto) 0.03 0.00-0.20 K/uL Absolute Immature Granulocyte (auto 0.03 0-1 K/uL Nucleated Red Blood Cells 0.0 0.0-0.19 % Sodium Level 131 L 136-145 mmol/L Potassium Level 3.9 3.5-5.1 mmol/L Chloride Level 97 L 101-111 mmol/L Carbon Dioxide Level 26 21-32 mmol/L Blood Urea Nitrogen 8 7-18 mg/dL Creatinine 1.1 0.5-1.3 mg/dL Glomerular Filtration Rate Calc 85 >90 mL/min Random Glucose 120 H 70-105 mg/dL Total Calcium 7.8 L 8.5-10.1 mg/dL Magnesium Level 1.70 L 1.80-2.40 mg/dL Total Bilirubin 0.6 0.2-1.0 mg/dL Aspartate Amino Transf (AST/SGOT) 23 10-37 U/L Alanine Aminotransferase (ALT/SGPT) 26 12-78 U/L Alkaline Phosphatase 79 50-136 U/L Total Protein 6.8 6.0-8.3 g/dL Albumin 2.6 L 3.5-5.0 g/dL Urine Opiates Screen NEGATIVE NEGATIVE Urine Barbiturates Screen NEGATIVE NEGATIVE Urine Phencyclidine Screen NEGATIVE NEGATIVE Urine Amphetamines Screen POSITIVE H NEGATIVE Urine Benzodiazepines Screen NEGATIVE NEGATIVE Urine Cocaine Screen NEGATIVE NEGATIVE Urine Marijuana (THC) Screen POSITIVE H NEGATIVE DIAGNOSTICS / RADIOLOGY: PATIENT: ANIYA GIRON ACCT: [id number] LOC: [facility] U: [id number] AGE/SX: 44/M ROOM: 204 RE03/27/[address]: TAURUS SALAZAR MD : 1980 BED: 1 DIS: STATUS: ADM Amanda TLOC: SPEC: [id number] KARIS: 03/27/25-2024 STATUS: RES REQ: [id number] RECD: 03/28/[address] [facility] [address]: ISABEL MENDOZA [place] [facility] [place]25 [facility] DR: KAE HWANG MD [facility]: CLEAN CAT ORDERED: AERO ID & SENS Procedure Result Christophe Date-Time AEROBIC ID & SENSITIVITIES Preliminary 03/29/25-08 [facility] COLONY DESCRIPTION: DAY 1: COLONY COUNT: >100,000 CFU/ML GRAM NEGATIVE RODS IDENTIFICATION AND SENSITIVITY TO FOLLOW ASSESSMENT: Urinary tract infection. Colovesicular fistula. Sigmoid diverticulitis. Hypertension. PLAN: Continue Zosyn IV every 8 hours. Continue antidiabetics. We will follow up on the final cultures. Continue pain management. This case was reviewed and discussed with my supervising physician Dr. Pressley and the above assessment and plan was formulated and agreed upon. ATTESTATION BY PHYSICIAN I have seen and examined the patient. I reviewed the documentation, medical decision making, and treatment plan as noted by the mid-level provider above. I agree with the findings and plan of care. MEENA PRESSLEY MD, MIRTA L [facility] Mar 29, 2025 22:21
[2025-03-30] VITALS (9 sets, daily range): BP systolic 109–145; BP diastolic 71–89; PULSE 75–94; RESP 16–20; TEMP 98.1–100.4; O2SAT 97–98
--- NOTE | 2025-03-30 02:27 | CONS ---
INFECTIOUS DISEASES CONSULTATION DATE OF SERVICE: 03/29/2025 REQUESTING PHYSICIAN: MAGEN Sarkar REASON FOR CONSULTATION: Sepsis and antibiotic management. HISTORY OF PRESENT ILLNESS: A 44-year-old male with morbid obesity, diverticulitis and hypertension, who was admitted after presenting with fever and chills. The patient also complains of urinary symptoms. The patient's T-max was 102.9. The patient was started on levofloxacin and Flagyl for continued persistent fever. CT of the abdomen was done, which came back positive for colovesical fistula. Urine culture growing Gram-negative rods. No cough. No hemoptysis. PAST MEDICAL HISTORY: 1. Obesity. 2. Hypertension. 3. ADHD. 4. Diverticulitis. PAST SURGICAL HISTORY: Denies. ALLERGIES: No known drug allergies. CURRENT MEDICATIONS: Reviewed. SOCIAL HISTORY: . No alcohol, tobacco or illicit drug use. FAMILY HISTORY: Noncontributory. REVIEW OF SYSTEMS: Greater than 10 systems were reviewed and negative, except as documented above. PHYSICAL EXAMINATION: GENERAL: A young male. VITAL SIGNS: Temperature 99.2, pulse 92, respiratory rate 20, BP 138/82. EYES: No icterus. Pupils equal and reactive. HENT: No oral thrush seen. Moist oral mucosa. NECK: Supple. No JVD or thyromegaly. LUNGS: Good air entry. No rales. No rhonchi. CARDIOVASCULAR: S1 and S2. Regular. Tachycardic. No murmur heard. ABDOMEN: Obese, soft, nontender and bowel sounds are present. CENTRAL NERVOUS SYSTEM: Awake, alert and oriented x 3. No focal deficits. SKIN: No rashes. No itchiness. LYMPHATICS: No peripheral lymphadenopathy. MUSCULOSKELETAL: No joint swelling, erythema or tenderness. BACK: No deformity. No pressure ulcer. LABORATORY DATA: Sodium 131, potassium 3.9, BUN 8, creatinine 1.1. WBC 8.2, hemoglobin 14.6 and platelets 195. Urine drug screen was positive for amphetamines and THC. Blood culture - No growth for 1 day. Urine culture growing Gram-negative eddie. RADIOLOGY: CT of the abdomen shows colovesical fistula. ASSESSMENT: A 44-year-old male with fever. CURRENT PROBLEMS: Include: 1. Gram-negative sepsis. 2. Urinary tract infection. 3. Colovesical fistula. 4. Obesity. PLAN: 1. Continue Zosyn. 2. Follow up cultures. 3. Continue pain management. 4. Continue DVT prophylaxis. 5. Continue antiemetics. 6. Antibiotics will be adjusted when cultures are updated or finalized. Thank you for allowing me to participate in the care of this patient. TID: [id number] RECEIPT: [id number]
[2025-03-30 04:22] LABS: IMMATURE GRANULOCYTE ABSOLUTE 0.02 K/uL (0-1); NUCLEATED RED BLOOD CELLS 0.0 % (0.0-0.19); PLATELET COUNT (AUTO) 191 K/uL (130-400); RED BLOOD CELL COUNT(AUTO) 4.88 MIL/uL (4.50-6.20); RED CELL DISTRIBUTION WIDTH 13.3 % (11.0-15.5); WHITE BLOOD COUNT (AUTO) 5.4 K/uL (4.8-10.8)
[2025-03-30 04:50] LABS: ASPARTATE AMINOTRANSFERASE 20.0 U/L (10-37); CREATININE 0.9 mg/dL (0.5-1.3); GLOMERULAR FILTR. RATE CALC 109.0 mL/min (>90); GLUCOSE,RANDOM 118.0 mg/dL (70-105); SODIUM SERUM 133.0 mmol/L (136-145); TOTAL PROTEIN, SERUM 6.5 g/dL (6.0-8.3); UREA NITROGEN, BLOOD 7.0 mg/dL (7-18)
--- NOTE | 2025-03-30 09:28 | PN ---
[facility] PROGRESS NOTE Date Patient Seen: Mar 30, 2025 Time of Visit: 09:25 Supervising Physician: MARTIN Primary Care Physician: [Dr. Raul Blanco] Outpatient Specialists: [ ] Inpatient Consults: JULY MD ESTHER - GENERAL SURGERY PROBLEM LIST: Severe Sepsis , POA Acute Colovesicular Fistula Complicated Cystitis secondary to above , ECOLI Chronic Diverticulitis Hydroureteronephrosis secondary to above Primary HTN ADHD PLAN: NPO status Continue D5NS at 100cc/hr , wean once on clear liquid diet Potassium/magnesium protocols Ice Packs , Acetaminophen rectal prn fever Zosyn , ID following closely General Surgery consult - for now treat the active infection and await further recommendations . NPO until pain resolves. Manage pain, fever and N/V PRN INTERVAL HISTORY: Patient was seen and examined today by me, the patient is lying in bed with family at bedside. TMAX of 100.6 overnight WBC downtrending and tachycardia resolved ID is following closely . General surgery on the case., at this time ina continue with current treatment with Iv antibiotics, NPO status and Fever control . Patient will require surgical repair at a later date likely 6-8 weeks post this event once active infection has completely healed. Discussed Urology consult with General surgery, at this time they state they will continue the care and will consult Urology in the near future if warranted. Long discussion with the patient's and patient/family regarding plan of care and current findings. All questions were answered to the satisfaction. REVIEW OF SYSTEMS: 12 point ROS reviewed with patient. Pertinent positives mentioned above. Otherwise negative. PHYSICAL EXAM: GENERAL: alert, weak, awake oriented x 3,ill acutely, warm skin HEENT: EOMI, Sclera non icteric, moist mucosa , diaphoretic, facial flushing NECK: Supple, no JVD, trachea midline LUNGS: Clear breath sounds bilaterally. No wheezes HEART: Regular rate and rhythm. Normal S1 and S2, without murmurs ABD: Abdomen soft, (+) lower abdomen and LUQ tenderness. Bowel sounds present EXT: No clubbing cyanosis or edema NEURO: Alert and oriented to person, follows commands Vital Signs (last 8hr) Date Time Temp Pulse Resp B/P (MAP) Pulse Ox O2 Delivery O2 Flow Rate FiO2 03/30/25 08:00 98 Room Air* 0 21 03/30/25 07:00 98.1 91 16 109/74 97 Room Air 9/18/25 05:30 98.8 03/30/25 03:29 100.4 94 18 115/71 96 Room Air LABS: Hematology Labs: Test 03/30/25 04:11 Range/Units White Blood Count 5.4 4.8-10.8 K/uL Red Blood Count 4.88 4.50-6.20 MIL/uL Hemoglobin 14.5 14.0-18.0 g/dL Hematocrit 41.7 L 42-54 % Mean Corpuscular Volume 85.5 79-99 fL Mean Corpuscular Hemoglobin 29.7 27.0-33.0 pg Mean Corpuscular Hemoglobin Concent 34.8 32.0-36.0 g/dL Red Cell Distribution Width 13.3 11.0-15.5 % Platelet Count 191 130-400 K/uL Mean Platelet Volume 8.8 7.5-10.5 fL Immature Granulocyte % (Auto) 0.4 0-1 % Neutrophils (%) (Auto) 82.0 H 40.0-77.0 % Lymphocytes (%) (Auto) 5.8 L 21.0-51.0 % Monocytes (%) (Auto) 11.2 3.0-13.0 % Eosinophils (%) (Auto) 0.2 0.0-8.0 % Basophils (%) (Auto) 0.4 0.0-5.0 % Neutrophils # (Auto) 4.4 1.8-7.7 K/uL Lymphocytes # (Auto) 0.3 L 1.0-4.8 K/uL Monocytes # (Auto) 0.6 0.1-1.0 K/uL Eosinophils # (Auto) 0.01 0.00-0.70 K/uL Basophils # (Auto) 0.02 0.00-0.20 K/uL Absolute Immature Granulocyte (auto 0.02 0-1 K/uL Nucleated Red Blood Cells 0.0 0.0-0.19 % Chemistry Labs: Test 03/30/25 05:47 03/30/25 04:11 Range/Units Whole Blood Glucose 114 H 70-110 MG/DL Sodium Level 133 L 136-145 mmol/L Potassium Level 3.4 L 3.5-5.1 mmol/L Chloride Level 98 L 101-111 mmol/L Carbon Dioxide Level 26 21-32 mmol/L Blood Urea Nitrogen 7 7-18 mg/dL Creatinine 0.9 0.5-1.3 mg/dL Glomerular Filtration Rate Calc 109 >90 mL/min Random Glucose 118 H 70-105 mg/dL Total Calcium 8.0 L 8.5-10.1 mg/dL Magnesium Level 1.90 1.80-2.40 mg/dL Total Bilirubin 0.4 0.2-1.0 mg/dL Aspartate Amino Transf (AST/SGOT) 20 10-37 U/L Alanine Aminotransferase (ALT/SGPT) 26 12-78 U/L Alkaline Phosphatase 71 50-136 U/L Total Protein 6.5 6.0-8.3 g/dL Albumin 2.5 L 3.5-5.0 g/dL DIAGNOSTICS / RADIOLOGY RESULTS: [ ] PLAN NEURO: Minimize central acting medications as possible. Maintain fall precautions, adequate lighting during the day PULMONARY: Supplemental 02 as needed. Maintain aspiration precautions at all times CARDIOVASCULAR: Follow hemodynamics. Vital signs per facility protocol GI & NUTRITION: Continue with nutritional support. Continue stool softeners and laxatives as needed. KIDNEYS & ELECTROLYTES: Strict monitoring of intake, output and overall fluid balance. Avoid nephrotoxic medications to the extent possible. Medications to be dosed according to renal function. Monitor electrolytes and replace as needed ENDOCRINE: Maintain blood glucose between 100-180 at all times. Hypoglycemia protocol in place INFECTIOUS DISEASE: Trend temperature, WBC and procalcitonin level Follow cultures, deescalate antibiotics as soon as possible. Panculture if new onset fever ONCOLOGY/HEMATOLOGY/COAGULATION: Monitor for s/s of bleeding Monitor hemoglobin, coagulation studies as needed SKIN: Pressure ulcer prevention per facility protocol Specialty mattress ORTHO/REHAB: Continue PT/OT Prophylaxis: Continue GI and DVT prophylaxis Code Status: Full Resuscitation Disposition: To be determined Total patient care time is over 35 minutes, high-risk for decompensation. ZAKIA LITTLEJOHN Mar 30, 2025 09:28
[2025-03-30] MEDS ORDERED: PoTASSium chl 10% ELIXIR 20MEQ 20 MEQ/15 ML UDCUP PO PRN (09:30)
[2025-03-30] MEDS ORDERED: MAGNESIUM 2GM PREMIX 50ML 50 ML IV PRN (09:30)
[2025-03-30] MEDS: ENOXAPARIN SODIUM 40 MG/0.4 ML SYRINGE SQ SCH (09:40)
[2025-03-30] MEDS: PoTASSium chloRIDE 20MEQ ER 20 MEQ ERTAB PO PRN (09:41)
[2025-03-30] MEDS: PoTASSium chloRIDE 20MEQ ER 20 MEQ ERTAB PO ONE (09:41)
--- NOTE | 2025-03-30 11:08 | NUR ---
I SPOKE WITH DR PRESSLEY WHILE HE WAS EVALUATING THE PATIENT. STATED THAT NO PICC LINE OR OUTPATIENT INFUSIONS WILL BE NECESSARY OF THIS TIME BECAUSE PATIENT IS IMPROVING ON CURRENT MEDICATIONS. STATED "PATIENT WILL LIKELY GO HOME IN THE NEXT COUPLE OF DAYS ON ORAL ANTIBIOTICS."
--- NOTE | 2025-03-30 16:08 | PN ---
INFECTIOUS DISEASE PROGRESS NOTE Date of Service: Mar 30, 2025 SUBJECTIVE: This is a 44-year-old male patient who was seen and examined at bedside in room 204. Patient is awake, alert and oriented x3. Patient had a low-grade fever of 100.4 earlier this morning. The WBC however has trended down to 5.4 and patient reported improvement of the abdominal pain and the dysuria and frequency has decreased. The final urine culture results came back positive for E coli. We will continue on Zosyn and current plan is to discharge patient on oral antibiotics when ready to discharge. PHYSICAL EXAM EYES: Anicteric. Pupils equal and reactive. HENT: No oral thrush seen, moist Oral mucosa NECK: Supple, no JVD or thyromegaly. LUNGS: Good air entry. No rales, no rhonchi. CARDIOVASCULAR: S1, S2 regular. No murmur heard. ABDOMEN: Soft, non tender, bowel sounds present, no organomegaly. Abdominal pain POA. CENTRAL NERVOUS SYSTEM: Awake, alert, oriented x 3. SKIN: No rashes, no swelling. LYMPHATICS: No peripheral lymphadenopathy. MUSCULOSKELETAL: No joint swelling, erythema or tenderness. EXTREMITIES: No cyanosis or clubbing. BACK: No deformity, no pressure ulcer. Lower back pain POA. GENITOURINARY: Dysuria, frequency and urgency POA. Vital Sign (Last 12 Hours) 03/30/25 03/30/25 03/30/25 03/30/25 05:30 07:00 08:00 11:00 Temp 98.8 98.1 98.4 Pulse 91 77 Resp 16 20 B/P (MAP) 109/74 130/82 Pulse Ox 97 98 97 O2 Delivery Room Air Room Air* Room Air O2 Flow Rate 0 FiO2 21 Intake & Output (last 24hrs) 03/29/25 03/29/25 03/30/25 15:00 23:00 07:00 Intake Total 50.0 ml 1250.0 ml Output Total 950 ml 1000 ml Balance -900.0 ml 250.0 ml LABS: Laboratory: Test 03/30/25 15:41 03/30/25 04:11 Range/Units Whole Blood Glucose 85 70-110 MG/DL White Blood Count 5.4 4.8-10.8 K/uL Red Blood Count 4.88 4.50-6.20 MIL/uL Hemoglobin 14.5 14.0-18.0 g/dL Hematocrit 41.7 L 42-54 % Mean Corpuscular Volume 85.5 79-99 fL Mean Corpuscular Hemoglobin 29.7 27.0-33.0 pg Mean Corpuscular Hemoglobin Concent 34.8 32.0-36.0 g/dL Red Cell Distribution Width 13.3 11.0-15.5 % Platelet Count 191 130-400 K/uL Mean Platelet Volume 8.8 7.5-10.5 fL Immature Granulocyte % (Auto) 0.4 0-1 % Neutrophils (%) (Auto) 82.0 H 40.0-77.0 % Lymphocytes (%) (Auto) 5.8 L 21.0-51.0 % Monocytes (%) (Auto) 11.2 3.0-13.0 % Eosinophils (%) (Auto) 0.2 0.0-8.0 % Basophils (%) (Auto) 0.4 0.0-5.0 % Neutrophils # (Auto) 4.4 1.8-7.7 K/uL Lymphocytes # (Auto) 0.3 L 1.0-4.8 K/uL Monocytes # (Auto) 0.6 0.1-1.0 K/uL Eosinophils # (Auto) 0.01 0.00-0.70 K/uL Basophils # (Auto) 0.02 0.00-0.20 K/uL Absolute Immature Granulocyte (auto 0.02 0-1 K/uL Nucleated Red Blood Cells 0.0 0.0-0.19 % Sodium Level 133 L 136-145 mmol/L Potassium Level 3.4 L 3.5-5.1 mmol/L Chloride Level 98 L 101-111 mmol/L Carbon Dioxide Level 26 21-32 mmol/L Blood Urea Nitrogen 7 7-18 mg/dL Creatinine 0.9 0.5-1.3 mg/dL Glomerular Filtration Rate Calc 109 >90 mL/min Random Glucose 118 H 70-105 mg/dL Total Calcium 8.0 L 8.5-10.1 mg/dL Magnesium Level 1.90 1.80-2.40 mg/dL Total Bilirubin 0.4 0.2-1.0 mg/dL Aspartate Amino Transf (AST/SGOT) 20 10-37 U/L Alanine Aminotransferase (ALT/SGPT) 26 12-78 U/L Alkaline Phosphatase 71 50-136 U/L Total Protein 6.5 6.0-8.3 g/dL Albumin 2.5 L 3.5-5.0 g/dL DIAGNOSTICS / RADIOLOGY: PATIENT: ANIYA GIRON ACCT: [id number] LOC: [facility] U: [id number] AGE/SX: 44/M ROOM: 204 RE03/27/[address]: TAURUS SALAZAR MD : 1980 BED: 1 DIS: STATUS: ADM IN TLOC: SPEC: [id number] KARIS: 03/27/25-2024 STATUS: COMP REQ: [id number] RECD: 03/28/[address] [facility] [address]: ISABEL MENDOZA MD SOURCE: [facility] [place]: 03/28/25 [facility] DR: KAE HWANG MD SPDESC: CLEAN CAT ORDERED: AERO ID & SENS ----- ------- Procedure Result Christophe Date-Time AEROBIC ID & SENSITIVITIES Final 03/30/25-714 [facility] COLONY DESCRIPTION: DAY 1: COLONY COUNT: >100,000 CFU/ML GRAM NEGATIVE RODS IDENTIFICATION AND SENSITIVITY TO FOLLOW ESCHERICHIA COLI E COLI M.I.C. RX --------- ---- AMPICILLIN >16 R AZTREONAM <=4 S CEFAZOLIN 8 R CEFTAZIDIME/AVIBACTAM <=8 S CEFTRIAXONE <=1 S GENTAMICIN >8 R LEVOFLOXACIN <=0.5 S NITROFURANTOIN <=32 S TOBRAMYCIN 8 R MEROPENEM <=1 S PIPERACILLIN/TAZOBACTAM <=8 S TRIMETHOPRIM/SUFLAMETHOXAZOLE >/38 R ASSESSMENT: Urinary tract infection with E coli. Colovesicular fistula. Sigmoid diverticulitis. Hypertension. PLAN: Continue Zosyn IV every 8 hours. Continue antidiabetics. General surgery following patient. Continue pain management. Plan is for oral antibiotics on discharge. This case was reviewed and discussed with my supervising physician Dr. Pressley and the above assessment and plan was formulated and agreed upon. ATTESTATION BY PHYSICIAN I have seen and examined the patient. I reviewed the documentation, medical decision making, and treatment plan as noted by the mid-level provider above. I agree with the findings and plan of care. MEENA PRESSLEY MD, MIRTA L [facility] Mar 30, 2025 16:08
--- NOTE | 2025-03-30 17:19 | PN ---
GENERAL SURGERY PROGRESS NOTE Date/Time Patient Seen: [03/30/2025 13:00 PM ] Problem List: [Diverticulitis, colovesicular fistula ] Interval History: [44-year-old male seen in his room resting Patient has been afebrile for 24 hours WBCs trending down to 5.4 Patient continues with IV antibiotics Patient remains NPO Continues with lower abdominal pain, but significantly less and more tolerable] Current Medications Medications (Trade) Dose Ordered Sig/Armando Route Start Time Stop Time Status Last Admin Dose Admin Ceftriaxone Sodium (ROCEphine 1G INJ) 1 gm DAILY10 IVPB 03/28/25 00:00 03/28/25 01:05 DC 03/28/25 00:06 1 GM Ceftriaxone Sodium (ROCEphine 1G INJ) 1 gm DAILY10 IVPB 03/29/25 00:00 03/28/25 09:40 DC Ceftriaxone Sodium (ROCEphine 1G INJ) 2 gm DAILY10 IVP 03/28/25 00:00 03/28/25 00:01 DC Dextrose/Sodium Chloride 1,000 ml @ 100 mls/hr Q10H IV 03/28/25 10:00 04/27/25 09:59 03/30/25 02:13 100 MLS/HR Enoxaparin Sodium (Lovenox) 40 mg DAILY SQ 03/30/25 09:00 04/29/25 08:59 03/30/25 09:40 40 MG Insulin Human Regular (humuLIN R 100 UNIT/ML 3ML) INSULIN SLIDING SCAL... ACHS SQ 03/28/25 07:30 04/27/25 07:29 Levofloxacin/ Dextrose (LEvaquIN 750 MG/ D5W 150 ML) 750 mg Q24H IV 03/28/25 10:00 03/28/25 19:12 DC 03/28/25 10:57 750 MG Metronidazole/ Sodium Chloride (flaGYL) 500 mg Q8H IV 03/28/25 12:00 03/29/25 15:57 DC 03/29/25 14:02 500 MG Piperacillin Sod/ Tazobactam Sod (Zosyn 3.375gm+NS 50ml) 3.375 gm Q8H IV 03/28/25 21:00 04/07/25 20:59 03/30/25 15:28 3.375 GM Sodium Chloride 500 ml @ 0 mls/hr Q0M STAT IV 03/28/25 11:14 03/28/25 11:18 DC 03/28/25 11:32 500 MLS/HR Sodium Chloride 1,000 ml @ 125 mls/hr Q8H IV 03/28/25 00:00 03/28/25 09:41 DC 03/28/25 00:05 125 MLS/HR Vancomycin HCl 250 ml @ 125 mls/hr Q8H IV 03/28/25 10:00 03/28/25 09:40 DC Vancomycin HCl (Vancomycin Protocol) 1 each AD IV 03/28/25 01:30 03/28/25 09:59 DC Physical Examination: GENERAL: [No acute distress, male, comfortably resting in bed with family at bedside.] HEAD: [Normocephalic.] EYES: [PERRLA.] ENT: [Hearing grossly intact] NECK: [Supple.] LUNGS: [Clear breath sounds bilaterally.] HEART: [Normal rate and rhythm.] VASC: [Peripheral pulses +2 bilaterally.] ABD: [Bowel sounds normal, soft, minimal tenderness to lower abdomen on deep palpation, no guarding or rigidity.] : [Not examined] EXT: [No edema.] SKIN: [No rashes or lesions noted.] NEURO: [Awake, alert, and oriented x3. No focal sensory or strength deficits noted.] Vital Signs (last 8hr) Date Time Temp Pulse Resp B/P (MAP) Pulse Ox O2 Delivery O2 Flow Rate FiO2 03/30/25 16:00 98.8 87 20 143/89 97 Room Air 03/30/25 11:00 98.4 77 20 130/82 97 Room Air Laboratory: [ ] Hematology Labs: Test 03/30/25 04:11 Range/Units White Blood Count 5.4 4.8-10.8 K/uL Red Blood Count 4.88 4.50-6.20 MIL/uL Hemoglobin 14.5 14.0-18.0 g/dL Hematocrit 41.7 L 42-54 % Mean Corpuscular Volume 85.5 79-99 fL Mean Corpuscular Hemoglobin 29.7 27.0-33.0 pg Mean Corpuscular Hemoglobin Concent 34.8 32.0-36.0 g/dL Red Cell Distribution Width 13.3 11.0-15.5 % Platelet Count 191 130-400 K/uL Mean Platelet Volume 8.8 7.5-10.5 fL Immature Granulocyte % (Auto) 0.4 0-1 % Neutrophils (%) (Auto) 82.0 H 40.0-77.0 % Lymphocytes (%) (Auto) 5.8 L 21.0-51.0 % Monocytes (%) (Auto) 11.2 3.0-13.0 % Eosinophils (%) (Auto) 0.2 0.0-8.0 % Basophils (%) (Auto) 0.4 0.0-5.0 % Neutrophils # (Auto) 4.4 1.8-7.7 K/uL Lymphocytes # (Auto) 0.3 L 1.0-4.8 K/uL Monocytes # (Auto) 0.6 0.1-1.0 K/uL Eosinophils # (Auto) 0.01 0.00-0.70 K/uL Basophils # (Auto) 0.02 0.00-0.20 K/uL Absolute Immature Granulocyte (auto 0.02 0-1 K/uL Nucleated Red Blood Cells 0.0 0.0-0.19 % Chemistry Labs: Test 03/30/25 15:41 03/30/25 04:11 Range/Units Whole Blood Glucose 85 70-110 MG/DL Sodium Level 133 L 136-145 mmol/L Potassium Level 3.4 L 3.5-5.1 mmol/L Chloride Level 98 L 101-111 mmol/L Carbon Dioxide Level 26 21-32 mmol/L Blood Urea Nitrogen 7 7-18 mg/dL Creatinine 0.9 0.5-1.3 mg/dL Glomerular Filtration Rate Calc 109 >90 mL/min Random Glucose 118 H 70-105 mg/dL Total Calcium 8.0 L 8.5-10.1 mg/dL Magnesium Level 1.90 1.80-2.40 mg/dL Total Bilirubin 0.4 0.2-1.0 mg/dL Aspartate Amino Transf (AST/SGOT) 20 10-37 U/L Alanine Aminotransferase (ALT/SGPT) 26 12-78 U/L Alkaline Phosphatase 71 50-136 U/L Total Protein 6.5 6.0-8.3 g/dL Albumin 2.5 L 3.5-5.0 g/dL Diagnostics / Radiology: [Copy/Paste Echos/Imaging Report here] Impression and Plan: [Clinically, patient is doing significantly better, pain improving and has been afebrile for 24 hours We will repeat CT scan abdomen pelvis with IV and oral contrast tomorrow morning From surgical standpoint patient to remain NPO Continue with the IV fluids and IV antibiotics Await for cultures for UTI Patient will need colovesicular takedown pending future date once current episode of diverticulitis resolves Patient and family made aware of plan understands Continue with IV fluids and IV antibiotics Repeat labs in a.m. Dr. Lutz, covering for Dr. Reeder, updated in patient's status and nursing report any further acute events Surgical case has been discussed with my supervising physician in the above plan was formulated and agreed upon We appreciate the hospitalist team for us to participate in patient's care. Greater than 45 minutes of time spent patient, reviewing chart, working on documentation] ATTESTATION BY PHYSICIAN I have seen and examined the patient. I reviewed the documentation, medical decision making, and treatment plan as noted by the mid-level provider above. I agree with the findings and plan of care. MD KENDRA Khoury LETICIA A [employer] Mar 30, 2025 17:19
[2025-03-30 17:53] LABS: ASPARTATE AMINOTRANSFERASE 21.0 U/L (10-37); CREATININE 0.9 mg/dL (0.5-1.3); GLOMERULAR FILTR. RATE CALC 109.0 mL/min (>90); GLUCOSE,RANDOM 93.0 mg/dL (70-105); SODIUM SERUM 133.0 mmol/L (136-145); TOTAL PROTEIN, SERUM 7.0 g/dL (6.0-8.3); UREA NITROGEN, BLOOD 7.0 mg/dL (7-18)
[2025-03-30] MEDS ORDERED: DIATR MEGLU/DIATRIZOATE SODIUM 30 ML BOTTLE ONE (22:22)
[2025-03-31] VITALS (7 sets, daily range): BP systolic 124–148; BP diastolic 73–92; PULSE 68–78; RESP 16–20; TEMP 97.9–99.4; O2SAT 98–99
[2025-03-31 04:33] LABS: IMMATURE GRANULOCYTE ABSOLUTE 0.01 K/uL (0-1); NUCLEATED RED BLOOD CELLS 0.0 % (0.0-0.19); PLATELET COUNT (AUTO) 263 K/uL (130-400); RED BLOOD CELL COUNT(AUTO) 4.90 MIL/uL (4.50-6.20); RED CELL DISTRIBUTION WIDTH 13.6 % (11.0-15.5); WHITE BLOOD COUNT (AUTO) 4.6 K/uL (4.8-10.8)
[2025-03-31 04:52] LABS: ASPARTATE AMINOTRANSFERASE 24.0 U/L (10-37); CREATININE 0.9 mg/dL (0.5-1.3); GLOMERULAR FILTR. RATE CALC 109.0 mL/min (>90); GLUCOSE,RANDOM 108.0 mg/dL (70-105); SODIUM SERUM 134.0 mmol/L (136-145); TOTAL PROTEIN, SERUM 6.4 g/dL (6.0-8.3); UREA NITROGEN, BLOOD 8.0 mg/dL (7-18)
[2025-03-31] MEDS ORDERED: IOHEXOL-350 75 ML VIAL IV ONE (06:51)
--- NOTE | 2025-03-31 09:17 | HMCIMG ---
EXAM: CT Abdomen and Pelvis with IV contrast CLINICAL HISTORY: COLOVESICULAR FISTULA TECHNIQUE: Axial computed tomography images of the abdomen and pelvis with intravenous contrast. CONTRAST: with intravenous contrast. COMPARISON: CT Abdomen and Pelvis dated 03/28/2025 FINDINGS: LUNG BASES: Mild right diaphragmatic eventration with subsegmental atelectasis in the right lung base. LIVER: Liver is enlarged and measures 18.6 cm in craniocaudal span. Mild hepatic steatosis. GALLBLADDER AND BILE DUCTS: The gallbladder appears within normal limits. No radioopaque gallstones are seen. No biliary ductal dilatation is evident. PANCREAS: Unremarkable. SPLEEN: Unremarkable. ADRENAL GLANDS: Unremarkable. KIDNEYS AND URETERS: Mild hydroureteronephrosis and perinephric inflammatory changes on the right side. Stable since prior CT scan dated 03/28/2025. Unremarkable left kidney. Left kidney appears within normal limits. There is no hydronephrosis or hydroureter. No urinary calculi are seen. STOMACH AND BOWEL AND BLADDER: Unremarkable appearance of the stomach. There is asymmetric soft tissue thickening along the left anterior superior aspect of the urinary bladder with a maximum thickness of 2 cm. A fistulous communication between the urinary bladder and the adjacent portion of the sigmoid colon is demostrated, which measures about 3 cm in length and 1.5 cm in width. Stable since prior CT scan dated 03/28/2025. Small intravesical air. Scattered colonic diverticula with questionable chronic sigmoid diverticulitis. Stable since prior CT scan dated 03/28/2025. Small, uncomplicated fat-containing umbilical hernia.APPENDIX: No evidence of acute appendicitis on CT examination. PERITONEUM: No free fluid. No free air. LYMPH NODES: No lymphadenopathy is evident. REPRODUCTIVE: Unremarkable as visualized. VASCULATURE: No evidence of abdominal aortic aneurysm. Mild calcific atherosclerotic disease in the abdominal aorta and iliac arteries. BONES: Chronic left L5 spondylolysis without significant spondylolisthesis. Mild degenerative osseous changes. No aggressive appearing osseous lesion. No acute osseous pathology evident. 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 Scattered colonic diverticula with chronic sigmoid diverticulitis. Stable compared to the previous CT dated 03/28/2025. Redemonstrated mild hydroureteronephrosis and perinephric inflammatory changes on the right side. No renal, ureteral, or bladder calculus is evident. Stable mild hepatomegaly with heaptic steatosis. Stable small, uncomplicated fat-containing umbilical hernia. Redemonstrated chronic left L5 spondylolysis without significant spondylolisthesis. /[place]
--- NOTE | 2025-03-31 10:25 | PN ---
[facility] PROGRESS NOTE Date Patient Seen: Mar 31, 2025 Time of Visit: 10:22 Supervising Physician: MARTIN CONDON Primary Care Physician: [Dr. Raul Blanco] Outpatient Specialists: [ ] Inpatient Consults: JULY MD ESTHER - GENERAL SURGERY PROBLEM LIST: Severe Sepsis , POA Acute Colovesicular Fistula Complicated Cystitis secondary to above , ECOLI Chronic Diverticulitis Mild Right Sided Hydroureteronephrosis with peripheric stranding 2/2 to above Primary HTN ADHD PLAN: NPO status Continue D5NS at 100cc/hr , wean once on clear liquid diet Potassium/magnesium protocols Ice Packs , Acetaminophen rectal prn fever Zosyn , ID following closely , plan for home iwth oral abx once diet advanced General Surgery consult - for now treat the active infection and await further recommendations . NPO until pain resolves. Manage pain, fever and N/V PRN INTERVAL HISTORY: Patient was seen and examined today by me, pain improved , no further fevers. ID is following closely . General surgery on the case., at this time will continue with current treatment with Iv antibiotics, NPO status . Patient will require surgical repair at a later date likely 6-8 weeks post this event once active infection has completely healed. Discussed Urology consult with General surgery, at this time they state they will continue the care and will consult Urology in the near future if warranted. Repeat CT scan done by General surgery overnight reveals stable findings without change All questions were answered to the satisfaction. REVIEW OF SYSTEMS: 12 point ROS reviewed with patient. Pertinent positives mentioned above. Otherwise negative. PHYSICAL EXAM: GENERAL: alert, weak, awake oriented x 3 , calm HEENT: EOMI, Sclera non icteric, moist mucosa NECK: Supple, no JVD, trachea midline LUNGS: Clear breath sounds bilaterally. No wheezes HEART: Regular rate and rhythm. Normal S1 and S2, without murmurs ABD: Abdomen soft,nondistended, mild tenderness Bowel sounds present EXT: No clubbing cyanosis or edema NEURO: Alert and oriented to person, follows commands Vital Signs (last 8hr) Date Time Temp Pulse Resp B/P (MAP) Pulse Ox O2 Delivery O2 Flow Rate FiO2 03/31/25 08:00 98.2 69 20 142/92 98 Room Air 03/31/25 04:12 98.2 68 18 124/73 98 Room Air LABS: Hematology Labs: Test 03/31/25 04:06 Range/Units White Blood Count 4.6 L 4.8-10.8 K/uL Red Blood Count 4.90 4.50-6.20 MIL/uL Hemoglobin 14.5 14.0-18.0 g/dL Hematocrit 42.2 42-54 % Mean Corpuscular Volume 86.1 79-99 fL Mean Corpuscular Hemoglobin 29.6 27.0-33.0 pg Mean Corpuscular Hemoglobin Concent 34.4 32.0-36.0 g/dL Red Cell Distribution Width 13.6 11.0-15.5 % Platelet Count 263 # 130-400 K/uL Mean Platelet Volume 8.8 7.5-10.5 fL Immature Granulocyte % (Auto) 0.2 0-1 % Neutrophils (%) (Auto) 66.5 40.0-77.0 % Lymphocytes (%) (Auto) 16.6 L 21.0-51.0 % Monocytes (%) (Auto) 14.9 H 3.0-13.0 % Eosinophils (%) (Auto) 0.9 0.0-8.0 % Basophils (%) (Auto) 0.9 0.0-5.0 % Neutrophils # (Auto) 3.0 1.8-7.7 K/uL Lymphocytes # (Auto) 0.8 L 1.0-4.8 K/uL Monocytes # (Auto) 0.7 0.1-1.0 K/uL Eosinophils # (Auto) 0.04 0.00-0.70 K/uL Basophils # (Auto) 0.04 0.00-0.20 K/uL Absolute Immature Granulocyte (auto 0.01 0-1 K/uL Nucleated Red Blood Cells 0.0 0.0-0.19 % Chemistry Labs: Test 03/31/25 05:42 03/31/25 04:06 Range/Units Whole Blood Glucose 102 70-110 MG/DL Sodium Level 134 L 136-145 mmol/L Potassium Level 3.5 3.5-5.1 mmol/L Chloride Level 100 L 101-111 mmol/L Carbon Dioxide Level 26 21-32 mmol/L Blood Urea Nitrogen 8 7-18 mg/dL Creatinine 0.9 0.5-1.3 mg/dL Glomerular Filtration Rate Calc 109 >90 mL/min Random Glucose 108 H 70-105 mg/dL Total Calcium 8.0 L 8.5-10.1 mg/dL Magnesium Level 2.00 1.80-2.40 mg/dL Total Bilirubin 0.4 # 0.2-1.0 mg/dL Aspartate Amino Transf (AST/SGOT) 24 10-37 U/L Alanine Aminotransferase (ALT/SGPT) 27 # 12-78 U/L Alkaline Phosphatase 66 50-136 U/L Total Protein 6.4 6.0-8.3 g/dL Albumin 2.5 L 3.5-5.0 g/dL DIAGNOSTICS / RADIOLOGY RESULTS: [ ] PLAN NEURO: Minimize central acting medications as possible. Maintain fall precautions, adequate lighting during the day PULMONARY: Supplemental 02 as needed. Maintain aspiration precautions at all times CARDIOVASCULAR: Follow hemodynamics. Vital signs per facility protocol GI & NUTRITION: Continue with nutritional support. Continue stool softeners and laxatives as needed. KIDNEYS & ELECTROLYTES: Strict monitoring of intake, output and overall fluid balance. Avoid nephrotoxic medications to the extent possible. Medications to be dosed according to renal function. Monitor electrolytes and replace as needed ENDOCRINE: Maintain blood glucose between 100-180 at all times. Hypoglycemia protocol in place INFECTIOUS DISEASE: Trend temperature, WBC and procalcitonin level Follow cultures, deescalate antibiotics as soon as possible. Panculture if new onset fever ONCOLOGY/HEMATOLOGY/COAGULATION: Monitor for s/s of bleeding Monitor hemoglobin, coagulation studies as needed SKIN: Pressure ulcer prevention per facility protocol Specialty mattress ORTHO/REHAB: Continue PT/OT Prophylaxis: Continue GI and DVT prophylaxis Code Status: Full Resuscitation Disposition: To be determined Total patient care time is over 35 minutes, high-risk for decompensation. ZAKIA LITTLEJOHN Mar 31, 2025 10:25
--- NOTE | 2025-03-31 15:43 | PN ---
INFECTIOUS DISEASE PROGRESS NOTE Date of Service: Mar 31, 2025 SUBJECTIVE: This is a 44-year-old male patient who was seen and examined at bedside in room 204. Patient is awake, alert and oriented x 3. Patient has remained afebrile for the past 24 hours and the WBC has remained within normal level of 4.6. Continues on Zosyn and no reports of nausea or vomiting. From Infectious Disease standpoint patient can be discharged on levofloxacin 750 mg p.o. daily x 14 days when ready to discharge. PHYSICAL EXAM EYES: Anicteric. Pupils equal and reactive. HENT: No oral thrush seen, moist Oral mucosa NECK: Supple, no JVD or thyromegaly. LUNGS: Good air entry. No rales, no rhonchi. CARDIOVASCULAR: S1, S2 regular. No murmur heard. ABDOMEN: Soft, non tender, bowel sounds present, no organomegaly. Abdominal pain POA, resolved. CENTRAL NERVOUS SYSTEM: Awake, alert, oriented x 3. SKIN: No rashes, no swelling. LYMPHATICS: No peripheral lymphadenopathy. MUSCULOSKELETAL: No joint swelling, erythema or tenderness. EXTREMITIES: No cyanosis or clubbing. BACK: No deformity, no pressure ulcer. Lower back pain POA. GENITOURINARY: Dysuria, frequency and urgency POA, resolved. Vital Sign (Last 12 Hours) 03/31/25 03/31/25 03/31/25 03/31/25 04:12 08:00 08:00 12:00 Temp 98.2 98.2 98.1 Pulse 68 69 70 Resp 18 20 20 B/P (MAP) 124/73 142/92 130/82 Pulse Ox 98 98 98 97 O2 Delivery Room Air Room Air* Room Air Room Air O2 Flow Rate 0 FiO2 21 Intake & Output (last 24hrs) 03/30/25 03/30/25 03/31/25 14:59 22:59 06:59 Intake Total 240 ml 350.0 ml 750.0 ml Output Total 300 ml 750 ml Balance -60 ml 350.0 ml 0 ml LABS: Laboratory: Test 03/31/25 11:35 03/31/25 04:06 Range/Units Whole Blood Glucose 95 70-110 MG/DL White Blood Count 4.6 L 4.8-10.8 K/uL Red Blood Count 4.90 4.50-6.20 MIL/uL Hemoglobin 14.5 14.0-18.0 g/dL Hematocrit 42.2 42-54 % Mean Corpuscular Volume 86.1 79-99 fL Mean Corpuscular Hemoglobin 29.6 27.0-33.0 pg Mean Corpuscular Hemoglobin Concent 34.4 32.0-36.0 g/dL Red Cell Distribution Width 13.6 11.0-15.5 % Platelet Count 263 # 130-400 K/uL Mean Platelet Volume 8.8 7.5-10.5 fL Immature Granulocyte % (Auto) 0.2 0-1 % Neutrophils (%) (Auto) 66.5 40.0-77.0 % Lymphocytes (%) (Auto) 16.6 L 21.0-51.0 % Monocytes (%) (Auto) 14.9 H 3.0-13.0 % Eosinophils (%) (Auto) 0.9 0.0-8.0 % Basophils (%) (Auto) 0.9 0.0-5.0 % Neutrophils # (Auto) 3.0 1.8-7.7 K/uL Lymphocytes # (Auto) 0.8 L 1.0-4.8 K/uL Monocytes # (Auto) 0.7 0.1-1.0 K/uL Eosinophils # (Auto) 0.04 0.00-0.70 K/uL Basophils # (Auto) 0.04 0.00-0.20 K/uL Absolute Immature Granulocyte (auto 0.01 0-1 K/uL Nucleated Red Blood Cells 0.0 0.0-0.19 % Sodium Level 134 L 136-145 mmol/L Potassium Level 3.5 3.5-5.1 mmol/L Chloride Level 100 L 101-111 mmol/L Carbon Dioxide Level 26 21-32 mmol/L Blood Urea Nitrogen 8 7-18 mg/dL Creatinine 0.9 0.5-1.3 mg/dL Glomerular Filtration Rate Calc 109 >90 mL/min Random Glucose 108 H 70-105 mg/dL Total Calcium 8.0 L 8.5-10.1 mg/dL Magnesium Level 2.00 1.80-2.40 mg/dL Total Bilirubin 0.4 # 0.2-1.0 mg/dL Aspartate Amino Transf (AST/SGOT) 24 10-37 U/L Alanine Aminotransferase (ALT/SGPT) 27 # 12-78 U/L Alkaline Phosphatase 66 50-136 U/L Total Protein 6.4 6.0-8.3 g/dL Albumin 2.5 L 3.5-5.0 g/dL ASSESSMENT: Urinary tract infection with E coli. Colovesicular fistula. Sigmoid diverticulitis. Leukocytosis, resolved. Hypertension. PLAN: Continue Zosyn IV every 8 hours while in the hospital.. From Infectious Disease standpoint patient can be discharged on levofloxacin 750 mg p.o. daily x14 days when ready to discharge. This case was reviewed and discussed with my supervising physician Dr. Pressley and the above assessment and plan was formulated and agreed upon. ATTESTATION BY PHYSICIAN I have seen and examined the patient. I reviewed the documentation, medical decision making, and treatment plan as noted by the mid-level provider above. I agree with the findings and plan of care. MEENA PRESSLEY MD, [facility] Mar 31, 2025 15:42
--- NOTE | 2025-03-31 16:15 | PN ---
This is a 44-year-old male with concerns for colovesicular fistula Interval history: This 44-year-old male seen in his room resting CT imaging showing no significant changes to colovesicular fistula Patient with no abdominal pain Patient is still NPO Labs and vitals stable Physical exam General: Awake alert and oriented Heart: Regular rate and rhythm} Lungs: Clear to auscultation no distress Abdomen: [Soft, nontender, nondistended Assessment : This is a 44-year-old male with concerns for colovesicular fistula Plan: From surgical standpoint patient is cleared for discharge once cleared medically Patient to be started on clear liquid diet Patient to remain on liquid diet until follow up with Dr. Reeder Scheduled follow up in 3-4 weeks for planning of potential colovesicular fistula Dr. Reeder to be updated in patient's status and nursing to report any further acute events Surgical team to sign off at this time Surgical case has been discussed with my supervising physician in the above plan was formulated and agreed upon We appreciate the hospitalist team for us to participate in patient's care. Greater than 45 minutes of time spent patient, reviewing chart, working on documentation Vitals/Labs Vital Signs Date Time Temp Pulse Resp B/P (MAP) Pulse Ox O2 Delivery O2 Flow Rate FiO2 03/31/25 12:00 98.1 70 20 130/82 97 Room Air 03/31/25 08:00 0 21 Laboratory Tests 03/30/25 17:24 03/31/25 04:06 Medications Current Medications Sodium Chloride 1,000 ml @ 0 mls/hr ONCE ONCE IV Last administered on 03/27/25at 20:30; Start 03/27/25 at 20:30; Stop 03/27/25 at 20:31; Status DC Sodium Chloride 1,000 ml @ 0 mls/hr Q0M ONCE IV; Start 03/27/25 at 20:30; Stop 03/27/25 at 20:31; Status DC Ketorolac Tromethamine 30 mg ONCE ONCE IVP Last administered on 03/27/25at 20:29; Start 03/27/25 at 20:30; Stop 03/27/25 at 20:31; Status DC Sodium Chloride 1,000 ml @ 125 mls/hr ONCE ONCE IV Last administered on 03/27/25at 21:47; Start 03/27/25 at 21:30; Stop 03/28/25 at 05:29; Status DC Levofloxacin/ Dextrose 750 mg ONCE ONCE IV Last administered on 03/27/25at 21:48; Start 03/27/25 at 21:30; Stop 03/27/25 at 21:31; Status DC Diatrizoate Meglum/ Diatrizoate Sod 30 ml STK-MED ONCE .ROUTE; Start 03/27/25 at 22:10; Stop 03/27/25 at 22:10; Status DC Iohexol 35,000 mg STK-MED ONCE IV; Start 03/27/25 at 23:30; Stop 03/27/25 at 23:31; Status DC Sodium Chloride 1,000 ml @ 125 mls/hr Q8H IV Last administered on 03/28/25at 00:05; Start 03/28/25 at 00:00; Stop 03/28/25 at 09:41; Status DC Ceftriaxone Sodium 2 gm DAILY10 IVP; Start 03/28/25 at 00:00; Stop 03/28/25 at 00:01; Status DC Acetaminophen 650 mg Q6H PRN PO Last administered on 03/31/25at 12:30; Start 03/28/25 at 00:00; Stop 04/27/25 at 00:00 Lactulose 20 gm Q6H PRN PO; Start 03/28/25 at 00:00; Stop 04/27/25 at 00:00 Temazepam 15 mg HS PRN PO Last administered on 03/31/25at 02:47; Start 03/28/25 at 00:00; Stop 04/27/25 at 00:00 Ondansetron HCl 4 mg Q6H PRN IVP Last administered on 03/30/25at 23:21; Start 03/28/25 at 00:00; Stop 04/27/25 at 00:00 Clonidine HCl 0.1 mg Q6H PRN PO; Start 03/28/25 at 00:00; Stop 04/27/25 at 00:00 Hydralazine HCl 10 mg Q6H PRN IV; Start 03/28/25 at 00:00; Stop 03/27/25 at 23:53; Status DC Labetalol HCl 10 mg Q2H PRN IV; Start 03/28/25 at 00:00; Stop 04/27/25 at 00:00 Insulin Human Regular INSULIN SLIDING SCAL... ACHS SQ; Start 03/28/25 at 07:30; Stop 04/27/25 at 07:29 Ceftriaxone Sodium 1 gm DAILY10 IVPB Last administered on 03/28/25at 00:06; Start 03/28/25 at 00:00; Stop 03/28/25 at 01:05; Status DC Ibuprofen 800 mg ONCE ONCE PO Last administered on 03/28/25at 01:26; Start 03/28/25 at 01:00; Stop 03/28/25 at 01:05; Status DC Ceftriaxone Sodium 1 gm DAILY10 IVPB; Start 03/29/25 at 00:00; Stop 03/28/25 at 09:40; Status DC Ketorolac Tromethamine 30 mg ONCE ONCE IVP Last administered on 03/28/25at 01:27; Start 03/28/25 at 01:30; Stop 03/28/25 at 01:31; Status DC Vancomycin HCl 1 each AD IV; Start 03/28/25 at 01:30; Stop 03/28/25 at 09:59; Status DC Vancomycin HCl 500 ml @ 250 mls/hr ONCE ONCE IV Last administered on 03/28/25at 02:16; Start 03/28/25 at 01:30; Stop 03/28/25 at 03:29; Status DC Vancomycin HCl 250 ml @ 125 mls/hr Q8H IV; Start 03/28/25 at 10:00; Stop 03/28/25 at 09:40; Status DC Hydromorphone HCl 0.5 mg Q4H PRN IVP Last administered on 03/30/25at 23:21; Start 03/28/25 at 10:00; Stop 04/02/25 at 09:59 Levofloxacin/ Dextrose 750 mg Q24H IV Last administered on 03/28/25at 10:57; Start 03/28/25 at 10:00; Stop 03/28/25 at 19:12; Status DC Metronidazole/ Sodium Chloride 500 mg Q8H IV Last administered on 03/29/25at 14:02; Start 03/28/25 at 12:00; Stop 03/29/25 at 15:57; Status DC Dextrose/Sodium Chloride 1,000 ml @ 100 mls/hr Q10H IV Last administered on 03/31/25at 09:14; Start 03/28/25 at 10:00; Stop 04/27/25 at 09:59 Sodium Chloride 500 ml @ 0 mls/hr Q0M STAT IV Last administered on 03/28/25at 11:32; Start 03/28/25 at 11:14; Stop 03/28/25 at 11:18; Status DC Ketorolac Tromethamine 15 mg ONCE ONCE IM Last administered on 03/28/25at 13:54; Start 03/28/25 at 14:00; Stop 03/28/25 at 14:01; Status DC Acetaminophen 650 mg Q6H PRN RC Last administered on 03/28/25at 18:40; Start 03/28/25 at 18:00; Stop 04/27/25 at 17:59 Piperacillin Sod/ Tazobactam Sod 3.375 gm Q8H IV Last administered on 03/31/25at 12:20; Start 03/28/25 at 21:00; Stop 04/07/25 at 20:59 Enoxaparin Sodium 40 mg DAILY SQ Last administered on 03/31/25at 09:15; Start 03/30/25 at 09:00; Stop 04/29/25 at 08:59 Potassium Chloride 100 ml @ 50 mls/hr AD PRN IV; Start 03/30/25 at 09:30; Stop 04/29/25 at 09:29 Magnesium Sulfate 50 ml @ 0 mls/hr PROTOCOL PRN IV; Start 03/30/25 at 09:30; Stop 04/29/25 at 09:29 Potassium Chloride 20 meq AD PRN PO; Start 03/30/25 at 09:30; Stop 04/29/25 at 09:29 Potassium Chloride 20 meq AD PRN PO Last administered on 03/31/25at 02:47; Start 03/30/25 at 09:30; Stop 04/29/25 at 09:29 Potassium Chloride 20 meq STK-MED ONCE PO Last administered on 03/30/25at 09:41; Start 03/30/25 at 09:32; Stop 03/30/25 at 09:32; Status DC Diatrizoate Meglum/ Diatrizoate Sod 30 ml STK-MED ONCE .ROUTE; Start 03/30/25 at 22:22; Stop 03/30/25 at 22:22; Status DC Iohexol 75 ml STK-MED ONCE IV; Start 03/31/25 at 06:51; Stop 03/31/25 at 06:51; Status DC SAMIRA ARAUZ Jr. MAGEN Mar 31, 2025 16:15
[2025-04-01 04:38] VITALS: BP 142/96; PULSE 72; RESP 16; TEMP 98.5
[2025-04-01 04:46] LABS: IMMATURE GRANULOCYTE ABSOLUTE 0.02 K/uL (0-1); NUCLEATED RED BLOOD CELLS 0.0 % (0.0-0.19); PLATELET COUNT (AUTO) 244 K/uL (130-400); RED BLOOD CELL COUNT(AUTO) 4.91 MIL/uL (4.50-6.20); RED CELL DISTRIBUTION WIDTH 13.6 % (11.0-15.5); WHITE BLOOD COUNT (AUTO) 5.0 K/uL (4.8-10.8)
[2025-04-01 05:01] LABS: ASPARTATE AMINOTRANSFERASE 30.0 U/L (10-37); CREATININE 0.9 mg/dL (0.5-1.3); GLOMERULAR FILTR. RATE CALC 109.0 mL/min (>90); GLUCOSE,RANDOM 113.0 mg/dL (70-105); SODIUM SERUM 137.0 mmol/L (136-145); TOTAL PROTEIN, SERUM 6.4 g/dL (6.0-8.3); UREA NITROGEN, BLOOD 6.0 mg/dL (7-18)
[2025-04-01 07:17] VITALS: BP 124/82; PULSE 68; RESP 18; TEMP 98.1
[2025-04-01 08:00] VITALS: O2SAT 99
--- NOTE | 2025-04-01 10:21 | NUR ---
PATIENT ALERT AND ORIENTED X4 WITH FAMILY MEMBER AT BEDSIDE BEING DISCHARGED HOME. PATIENT EDUCATED TO FOLLOW UP WITH PCP AND CALL ON THURSDAY FOR GABRI[place] WITH DR. CONNOR. PRESCRIPTION FOR ANTIBIOTIC GIVEN, MEDICATION EXPLAINED INCLUDING SIDE EFFECTS, PATIENT EDUCATED TO RESUME HOME MEDS. IV REMOVED WITHOUT COMPLICATIONS. PATIENT EDUCATED TO CONTINUE ON CLEAR LIQUID DIET UNTIL FOLLOW UP WITH DR. CONNOR. ALL QUESTIONS ANSWERED, PATIENT VERBALIZED COMPLETE UNDERSTANDING. PATIENT GATHERED ALL BELONGINGS AND TOOK WITH HIM AT [place].
--- NOTE | 2025-04-01 10:52 | DS ---
[facility] DISCHARGE SUMMARY Date Patient Seen: Apr 01, 2025 Time of Visit: 10:50 Supervising Physician: Dr Farooq Berrios Primary Care Physician: [Dr. Raul Blanco] Outpatient Specialists: [ ] Inpatient Consults: JULY MD ESTHER - GENERAL SURGERY PROBLEM LIST: Severe Sepsis , POA Acute Colovesicular Fistula Complicated Cystitis secondary to above , ECOLI Chronic Diverticulitis Mild Right Sided Hydroureteronephrosis with peripheric stranding 2/2 to above Primary HTN ADHD HOSPITAL COURSE: HPI [Patient is a 44-year-old morbidly obese male with PMH significant for diverticulitis, HTN and ADHD who has presented to the ED concerning UTI symptoms with fever onset the night prior to ED visit.Pertinent positives include dysuria, low back pain, urinary frequency, urgency, lower abdominal pain, concentrated urine, nausea and chills. He also noticed gas/fart coming out of his urethra. Patient denies diarrhea, hematuria or HX of kidney stone. He was treated with oral antibiotics for UTI last month and he recovered well after that. However, he came back tonight feeling worst. He was flagged meeting the sepsis criteria 2/2 positive UTI and was given IV fluids and IV Levaquin. CT AP is pending result. Physical assessment was unrevealing except for lower abdominal and LUQ tenderness. Goals of care were discussed with the patient verbalizing understanding and agreement.] PAST MEDICAL HX: The patient was treated for the following problems: ACTIVE PROBLEM LIST FOR THE HOSPITALIZATION: Severe Sepsis , POA Acute Colovesicular Fistula Complicated Cystitis secondary to above , ECOLI Chronic Diverticulitis Mild Right Sided Hydroureteronephrosis with peripheric stranding 2/2 to above Primary HTN ADHD CHRONIC PROBLEMS: continue previous management per PCP unless otherwise indicated [employer] FINDINGS/RECOMMENDATIONS: [ ] PROCEDURES: as mentioned above DISCHARGE MEDICATIONS: Levofloxacin 750 mg q.day times 14 days per Infectious Disease Pt hemodynamically stable and afebrile at time of discharge. PCP notified of patients admission, hospital course and discharge. PHYSICAL EXAM: GENERAL: alert, weak, awake oriented x 3 , calm HEENT: EOMI, Sclera non icteric, moist mucosa NECK: Supple, no JVD, trachea midline LUNGS: Clear breath sounds bilaterally. No wheezes HEART: Regular rate and rhythm. Normal S1 and S2, without murmurs ABD: Abdomen soft,nondistended, mild tenderness Bowel sounds present EXT: No clubbing cyanosis or edema NEURO: Alert and oriented to person, follows commands FOLLOW-UP: Follow-up with PCP in 2-3 days Liquid diet until follow up with surgery in 2-3 weeks Return precautions Antibiotics RECOMMENDATIONS: See Discharge Instructions This case was seen and discussed with my supervising physician. More than 30 minutes spent on discharge process, including evaluation of the patient, discussion with nursing staff, medication reconciliation and follow-up appointments YAS APPLE Apr 01, 2025 10:52
== END 2025-04-01 10:44 | disposition home or self-care (01) | DRG 872 ==
LOC: EDH 19:40 → OBSVTOIN 23:36 → EDHIP 23:36 → INTOOBSV 23:36 → 3BH 03-28 01:54 → 2AH 03-28 17:37
PROVIDERS: ADMIT Internal Medicine Critical Care Medicine; ATTEND Internal Medicine Critical Care Medicine
DX: A41.50 Gram-negative sepsis, unspecified (principal); K57.32 Diverticulitis of large intestine without perforation or abscess without bleeding; N13.6 Pyonephrosis; N32.1 Vesicointestinal fistula; F90.9 Attention-deficit hyperactivity disorder, unspecified type; I10 Essential (primary) hypertension; R65.20 Severe sepsis without septic shock; B96.20 Unspecified Escherichia coli [E. coli] as the cause of diseases classified elsewhere; Z87.440 Personal history of urinary (tract) infections; Z79.899 Other long term (current) drug therapy
CPT/HCPCS: 36415; 71045; 74177; 74178; 80048; 80053; 80305; 81001; 82948; 83605; 83735; 84145; 85025; 87040; 87086; 87186; 87635; 87804; 87880; 96361; 96374; 99285; G0378; J0696; J1171; J1650; J1885; J1956; J2405; J2543; J3490; Q9963; Q9967; J3375

== ENCOUNTER 2025-04-09 15:30 | Emergency (ER) | payer OTHER ==
[~2025-04-09] VITALS: Ht 177.8 cm; Wt 104.3 kg
[~2025-04-09 15:30] MED LIST changes: -AMOX500C2 PO; -CIPOTIC OT; -CIPR-278 PO; +LISD70CA PO; +LOSA50TA64 PO; -MELO10CA3 PO; -METR-172 PO
--- NOTE | 2025-04-09 16:19 | NUR ---
UA CUP PROVIDED
[2025-04-09] MEDS: 0.9%NACL 1000ML 3,129 ML IV ONE (16:49)
[2025-04-09 16:56] LABS: IMMATURE GRANULOCYTE ABSOLUTE 0.03 K/uL (0-1); NUCLEATED RED BLOOD CELLS 0.0 % (0.0-0.19); PLATELET COUNT (AUTO) 590 K/uL (130-400); RED BLOOD CELL COUNT(AUTO) 4.84 MIL/uL (4.50-6.20); RED CELL DISTRIBUTION WIDTH 13.2 % (11.0-15.5); WHITE BLOOD COUNT (AUTO) 8.4 K/uL (4.8-10.8)
[2025-04-09 16:58] LABS: APPEARANCE,URINE CLEAR (CLEAR); GLUCOSE, URINE (UA) NEGATIVE (NEGATIVE); LEUKOCYTE ESTERASE ,URINE 500 Leu/uL (NEGATIVE); NITRATE,URINE NEGATIVE (NEGATIVE); OCCULT BLOOD,URINE NEGATIVE (NEGATIVE)
[2025-04-09 16:59] LABS: ADD UA MICROSCOPIC YES
[2025-04-09 17:08] LABS: CREATININE 0.9 mg/dL (0.5-1.3); GLOMERULAR FILTR. RATE CALC 109.0 mL/min (>90); GLUCOSE,RANDOM 82.0 mg/dL (70-105); SODIUM SERUM 136.0 mmol/L (136-145); UREA NITROGEN, BLOOD 8.0 mg/dL (7-18)
--- NOTE | 2025-04-09 17:11 | ERN ---
General Chief Complaint: Abdominal Pain Stated Complaint: LEFT LOWER QUADRANT PAIN Time Seen by MD: 16:16 Source: patient History of Present Illness Initial Comments Patient is a 44-year-old gentleman coming in complaining of lower abdominal discomfort. Per patient he was recently diagnosed with diverticulitis received IV antibiotics while in the hospital was pending a PICC line placement for ongoing IV antibiotics at home but did not occur. Per patient the discomfort has been ongoing and has been progressively getting worse. He states that he has been also been presenting with fever chills nauseousness. Along with the his he did not noticed blood in the urine as well. Allergies: Coded Allergies: No Known Drug Allergies (Unverified Allergy, Unknown, 04/08/21) Home Meds Active Scripts Oxycodone HCl/Acetaminophen (Percocet 5-325 mg Tablet) 5 Mg-325 Mg Tablet, 1 EACH PO Q6H for pain, #16 TAB 0 Refills Prov:ISABEL MENDOZA MD 04/09/25 Sulfamethoxazole/Trimethoprim (Bactrim Ds Tablet) 800 Mg-160 Mg Tablet, 1 TAB PO BID for 14 Days, #28 TAB 0 Refills Prov:ISABEL MENDOZA MD 04/09/25 Reported Medications Lisdexamfetamine Dimesylate (Vyvanse) 70 Mg Capsule, 1 CAP PO DAILY 03/28/25 Losartan Potassium (Losartan Potassium) 50 Mg Tablet, 1 TAB PO DAILY 03/28/25 Past Medical History Past Medical History: Diverticulitis, UTI Medical History Other: ADHD, SEPSIS Past Surgical History: Other Surgical History Other: BILAT ACL REPAIR Family History Family History: Negative Social History Social History: Negative, Lives with family ROS Dictation CONSTITUTIONAL: No chills, no fever, no weakness, no diaphoresis, no malaise. HEAD/FACE: No signs of trauma. EENT: No eye pain, no blurred vision, no tearing, no double vision, no ear pain, no ear discharge, no nose pain, no nasal congestion, no throat pain, no throat swelling, no mouth pain. RESPIRATORY: No cough, no orthopnea, no SOB, no stridor, no wheezing. CARDIOVASCULAR: No chest pain, no edema, no palpitations, no syncope. GASTROINTESTINAL/ABDOMINAL: No abdominal pain, no constipation, no diarrhea, no nausea, no vomiting. GENITOURINARY: No abnormal discharge, no dysuria, no frequent urination, no hematuria. No complaints of pain in the genitals. MUSCULOSKELETAL: No back pain, no gout, no joint pain, no joint swelling, no muscle pain, no muscle stiffness, no neck pain. INTEGUMENTARY: No change in color, no change in hair/nails, no dryness, no lesion, no lumps, no rash. NEUROLOGICAL/PSYCH: No anxiety, not depressed, no emotional problem, no headache, no numbness, no pre-existing deficit, no history of seizures, no tremors, no weakness. HEMATOLOGIC/LYMPHATIC: Not anemic, no history of blood clots, no apparent bleeding, no bruising, glands not swollen. All Systems Negative, Except as Noted. Physical Exam Physical Exam Dictation VITAL SIGNS: Reviewed. GENERAL APPEARANCE: Alert, oriented x3, no acute distress, obese. HEAD AND FACE: Non-traumatic. EYES: PERRL, pink conjunctivas, eyelid no trauma, anterior chamber clear. EARS: Pinnas intact and no signs of trauma or erythema. Ear canals clear and n o discharge. TMs no erythema. NOSE: No discharge, no bleeding. OROPHARYNX: Mouth normal, teeth no caries, tongue pink. Pharynx clear, no erythema. Tonsils no exudates, no abscesses noted. Mucous membrane moist. NECK: Supple, non-tender, no thyromegaly, no masses, no JVD, no bruits. BREAST: Deferred. CHEST: No tenderness, no crepitus, no paradoxical movement, no retractions. LUNGS: Clear, well-ventilated, symmetric, no rales, no wheezing, no rhonchi, no stridor, good breath sounds bilaterally. HEART: Regular rate, regular rhythm, no murmur, no gallops. VASCULAR: No peripheral edema. ABDOMEN: Soft, positive bowel sounds, nondistended, no guarding, nontender, no rebound, no masses no hepatomegaly, no splenomegaly, no Xiong's sign, no hernias. RECTAL: Deferred. GENITAL: Deferred. NEUROLOGICAL: Normal speech, gross motor function intact, gross sensory function intact. MUSCULOSKELETAL: Neck nontender, full range of motion, back nontender, full range of motion. EXTREMITIES: Nontender, full range of motion. SKIN: Color pink, dry, no turgor, no rash, no lacerations, no abrasions, no contusions. LYMPHATICS: Deferred. Results Laboratory and Microbiology Lab and Micro Result Laboratory Tests Test 04/09/25 16:45 04/09/25 16:48 White Blood Count 8.4 K/uL (4.8-10.8) Red Blood Count 4.84 MIL/uL (4.50-6.20) Hemoglobin 14.4 g/dL (14.0-18.0) Hematocrit 42.2 % (42-54) Mean Corpuscular Volume 87.2 fL (79-99) Mean Corpuscular Hemoglobin 29.8 pg (27.0-33.0) Mean Corpuscular Hemoglobin Concent 34.1 g/dL (32.0-36.0) Red Cell Distribution Width 13.2 % (11.0-15.5) Platelet Count 590 K/uL (130-400) H Mean Platelet Volume 8.6 fL (7.5-10.5) Immature Granulocyte % (Auto) 0.4 % (0-1) Neutrophils (%) (Auto) 75.3 % (40.0-77.0) Lymphocytes (%) (Auto) 16.6 % (21.0-51.0) L Monocytes (%) (Auto) 6.5 % (3.0-13.0) Eosinophils (%) (Auto) 0.7 % (0.0-8.0) Basophils (%) (Auto) 0.5 % (0.0-5.0) Neutrophils # (Auto) 6.3 K/uL (1.8-7.7) Lymphocytes # (Auto) 1.4 K/uL (1.0-4.8) Monocytes # (Auto) 0.5 K/uL (0.1-1.0) Eosinophils # (Auto) 0.06 K/uL (0.00-0.70) Basophils # (Auto) 0.04 K/uL (0.00-0.20) Absolute Immature Granulocyte (auto 0.03 K/uL (0-1) Nucleated Red Blood Cells 0.0 % (0.0-0.19) Sodium Level 136 mmol/L (136-145) Potassium Level 3.6 mmol/L (3.5-5.1) Chloride Level 96 mmol/L (101-111) L Carbon Dioxide Level 27 mmol/L (21-32) Blood Urea Nitrogen 8 mg/dL (7-18) Creatinine 0.9 mg/dL (0.5-1.3) Glomerular Filtration Rate Calc 109 mL/min (>90) Random Glucose 82 mg/dL (70-105) Lactic Acid Level 1.8 mmol/L (0.8-2.5) Total Calcium 8.8 mg/dL (8.5-10.1) Total Creatine Kinase 55 U/L (21-232) Troponin I High Sensitivity 6 ng/L (4-75) Urine Color STRAW (YELLOW) Urine Appearance CLEAR (CLEAR) Urine pH 6.0 (5.0-8.0) Urine Specific [place] 1.001 (1.001-1.031) Urine Protein NEGATIVE mg/dL (NEGATIVE) Urine Glucose (UA) NEGATIVE mg/dL (NEGATIVE) Urine Ketones 5 mg/dL (NEGATIVE) H Urine Occult Blood NEGATIVE (NEGATIVE) Urine Nitrate NEGATIVE (NEGATIVE) Urine Bilirubin NEGATIVE mg/dL (NEGATIVE) Urine Urobilinogen 0.2 mg/dL (0.2-1.0) Urine Leukocyte Esterase 500 Isabela/uL (NEGATIVE) H Urine RBC 0-1 /HPF (0-1) Urine WBC 11-25 /HPF (0-1) H Urine Bacteria RARE /HPF (None Seen) Labs Reviewed?: Yes MDM MDM: Differential diagnosis: Diverticulitis, UTI, abdominal pain, Rationale: Tests considered and ordered secondary to shared decision making incl ude: Previous outside records reviewed: Old ER visits. Risk of complication and/or morbidity or mortality of patient management: None Medications-Per medication reconciliation Need for hospitalization: Patient does meet criteria for hospitalization. Need for emergency major/minor surgery: No There are no social concerns with this patient. Prescription drug management Prescriptions will include symptomatic care Patient's prior external medical records from other ER visits were reviewed by me as indicated. Prior testing and results from previous visits were reviewed. Prior tests were taken into account with medical decision making and resource utilization, independent historian/historians were used to obtain complete medical history. I independently interpreted the test that were performed, results were reviewed by me and considered findings on radiology if ordered. Medical management and examination interpretation discussions were had by me with other qualified healthcare professionals as indicated for the patient's care. 7:00 p.m. assumed care . 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 Martine Reeder who basically recommended only conservative management. He came into the ER today with left lower quadrant abdominal pain. No fevers chills. I reviewed the labs today as well as cultures from his recent admission and the urine culture showed E coli which is resistant to levofloxacin. Patient was seen by infectious disease and treated for diverticulitis with Levaquin and F lagyl. Today's Labs reviewed urinalysis shows positive leuko esterase increased WBCs again consistent with a UTI. I updated Yeison and his on today CT scan findings which I reviewed. I made an illustration and presented the problems as well as possible options 1, recurrent UTI-2 days UTI likely was not treated recently as E coli was resistant to Levaquin. In looking at the antibiogram, it is sensitive to Bactrim 2. Colovesical fistula-anterosuperior area of the bladder there are severe inf lammatory changes. Patient has been on clear liquid diet for the past 14 days and has lost some weight. He has a scheduled appointment with the [facility] this coming . I recommended that he should continue the clear liquids for now until GI evaluation and possible colonoscopy to assess the fistula. Until such time he should be treated with Bactrim to complete the treatment for E coli UTI. Should he have any recurrent fever and sepsis or worsening air from his bladder and penis, I recommended to pursue any surgical options at a tertiary care center and also to obtain opinion from the GI physician Yeison did not want to be admitted to the hospital this time and stated that he satisfied that the pain maybe related to the inflammatory changes in the bladder and colon area. I recommended that he should return to the ER should he have any worsening pain, fever chills or diarrhea. ED Course Orders Procedure Category Date Status Time Cbc With Differential LAB 04/09/25 Complete 16:26 Blood Cult PARK 04/09/25 In Process 16:26 Urinalysis Profile LAB 04/09/25 Complete 16:26 Culture Urine PARK 04/09/25 In Process 16: 0.9%Nacl 1000ml (Ns PHA 04/09/25 Complete 1000ml) 16:30 Creatine Kinase, Total LAB 04/09/25 Complete 16: Troponin I High LAB 04/09/25 Complete Sensitivity 16:26 Lactic Acid LAB 04/09/25 Complete 16:26 Basic Metabolic Panel LAB 04/09/25 Complete 16:26 Ondansetron 4mg Inj PHA 04/09/25 Complete (Zofran 4mg Inj) 16:30 Morphine 4mg Syg PHA 04/09/25 Complete (Morphine 4mg Syg) 17:00 Ct Abdomen/Pelvis CT 04/09/25 Resulted W/Contrast 17:19 Iohexol (Omnipaque) PHA 04/09/25 Complete 17:43 Hydromorphone 0.5mg PHA 04/09/25 Complete Syg (Dilaudid 0.5mg 18:30 Current Medications Medications (Trade) Dose Ordered Sig/Armando Route PRN Reason Start Time Stop Time Status Last Admin Dose Admin Hydromorphone HCl (DiLAUDid 0.5MG INJ) 0.5 mg ONCE ONCE IJ 04/09/25 18:30 04/09/25 18:31 DC 04/09/25 19:03 Iohexol (Omnipaque) 75 ml STK-MED ONCE IV 04/09/25 17:43 04/09/25 17:43 DC Morphine Sulfate (morPHINE 4MG SYG) 2 mg ONCE ONCE IVP 04/09/25 17:00 04/09/25 17:01 DC 04/09/25 16:50 Ondansetron HCl (zoFRAN 4MG INJ) 4 mg ONCE ONCE IVP 04/09/25 16:30 04/09/25 16:31 DC 04/09/25 16:49 Sodium Chloride 3,129 ml @ 1,043 mls/hr ONCE ONCE IV 04/09/25 16:30 04/09/25 19:29 DC 04/09/25 16:49 Vital Signs Date Time Temp Pulse Resp B/P (MAP) Pulse Ox O2 Delivery O2 Flow Rate FiO2 04/09/25 20:30 98.6 95 18 141/87 99 Room Air* 0 04/09/25 16:57 98.2 76 16 130/91 98 Room Air* 0 21 04/09/25 16:16 98.1 116 20 172/110 97 Room Air 7:00 p.m. assumed care from Dr. Arellano See my note in MDM section DX & DISP Disposition: Discharge Departure Impression: Primary Impression: Urinary tract infection Additional Impressions: Diverticulitis, E. coli UTI (urinary tract infection) Condition: Stable Scripts Oxycodone HCl/Acetaminophen (Percocet 5-325 mg Tablet) 5 Mg-325 Mg Tablet 1 EACH PO Q6H for pain, #16 TAB 0 Refills Prov: ISABEL MENDOZA MD 04/09/25 Sulfamethoxazole/Trimethoprim (Bactrim Ds Tablet) 800 Mg-160 Mg Tablet 1 TAB PO BID for 14 Days, #28 TAB 0 Refills Prov: ISABEL MENDOZA MD 04/09/25 Additional Instructions: Patient and the caregiver have been informed of all the diagnostic tests and the imaging conducted during the today's visit to the emergency room and has verbalized understanding of the results I have personally reviewed and interpreted all diagnostic exams performed here in the ER today as well as the v ital signs documented by the nursing staff. The patient is now being discharged to home and should follow up with the primary care physician or the specialist as directed by the ER staff. Referrals: KAE HWANG MD (PCP) DEDE ARELLANO MD Apr 09, 2025 17:11 ISABEL MENDOZA MD Apr 09, 2025 20:13
[2025-04-09 17:23] LABS: CREATINE KINASE, TOTAL 55.0 U/L (21-232)
--- NOTE | 2025-04-09 17:25 | NUR ---
PENDING CONSENT FOR CT EXAM.
[2025-04-09] MEDS ORDERED: IOHEXOL-350 75 ML VIAL IV ONE (17:43)
--- NOTE | 2025-04-09 19:08 | HMCIMG ---
EXAM: CT Abdomen and Pelvis with IV contrast CLINICAL HISTORY: Left lower abdominal pain. TECHNIQUE: Axial computed tomography images of the abdomen and pelvis with intravenous contrast. CONTRAST: with intravenous contrast. COMPARISON: CT Abdomen and Pelvis dated 03/31/2025 FINDINGS: LUNG BASES: Visualized lung parenchyma appear unremarkable. LIVER: Liver is enlarged and measures 18.6 cm in craniocaudal span. Mild hepatic steatosis. GALLBLADDER AND BILE DUCTS: The gallbladder appears within normal limits. No radioopaque gallstones are seen. No biliary ductal dilatation is evident. PANCREAS: Unremarkable. SPLEEN: Unremarkable. ADRENAL GLANDS: Unremarkable. KIDNEYS AND URETERS: Mild hydroureteronephrosis and perinephric inflammatory changes on the right side. Mild interval improvement since prior CT scan dated 03/31/2025. Unremarkable left kidney. Left kidney appears within normal limits. There is no hydronephrosis or hydroureter. No urinary calculi are seen. STOMACH AND BOWEL AND BLADDER: Unremarkable appearance of the stomach. There is asymmetric soft tissue thickening along the left anterior superior aspect of the urinary bladder with a maximum thickness of 2 cm. A fistulous communication between the urinary bladder and the adjacent portion of the sigmoid colon is demostrated, which measures about 3 cm in length and 1.5 cm in width. Stable since prior CT scan dated 03/31/2025. Interval resolution of the intravesical air. Scattered colonic diverticula with sigmoid diverticulitis. Mild interval increase in the adjacent fat stranding since prior CT scan dated 03/28/2025. Small, uncomplicated fat-containing umbilical hernia. APPENDIX: No evidence of acute appendicitis on CT examination. PERITONEUM: No free fluid. No free air. LYMPH NODES: No lymphadenopathy is evident. REPRODUCTIVE: Unremarkable as visualized. VASCULATURE: No evidence of abdominal aortic aneurysm. Mild calcific atherosclerotic disease in the abdominal aorta and iliac arteries. BONES: Chronic left L5 spondylolysis without significant spondylolisthesis. Mild degenerative osseous changes. No aggressive appearing osseous lesion. No acute osseous pathology evident. IMPRESSION: Redemonstrated acute sigmoid diverticulitis with colovesical fistula. Interval resolution of the intravesical air. Imaging findings could represent closure of the fistula lumen. However, CT with rectal contrast can better demonstrate the patency of the fistula. Redemonstrated mild hydroureteronephrosis and perinephric inflammatory changes on the right side. No renal, ureteral, or bladder calculus is evident. Stable mild hepatomegaly with heaptic steatosis. Stable small, uncomplicated fat-containing umbilical hernia. Redemonstrated chronic left L5 spondylolysis without significant spondylolisthesis. /[place]
[2025-04-09] MEDS ORDERED: OXYC-38 PO (20:09)
[2025-04-09] MEDS ORDERED: SULF1TAB42 PO (20:09)
[2025-04-09 20:30] VITALS: BP 141/87; PULSE 95; RESP 18; TEMP 98.6; O2SAT 99
== END 2025-04-09 20:32 | disposition home or self-care (01) ==
LOC: EDH 15:30
DX: N39.0 Urinary tract infection, site not specified (principal); K57.32 Diverticulitis of large intestine without perforation or abscess without bleeding; B96.20 Unspecified Escherichia coli [E. coli] as the cause of diseases classified elsewhere; Z79.899 Other long term (current) drug therapy
CPT/HCPCS: 99285; 74177; 96374; 96361; 96375; 82550; 84484; 80048; 85025; 87040 ×2; 87086; 83605; 81001; 36415; J7030; J2405; J2270 ×2; Q9967; J1171

== ENCOUNTER 2025-05-01 07:48 | Day surgery (SDC) | payer OTHER ==
[~2025-05-01] VITALS: Ht 177.8 cm; Wt 101.2 kg
[2025-05-01] VITALS (10 sets, daily range): BP systolic 109–131; BP diastolic 71–95; PULSE 74–86; RESP 16–18; TEMP 97.2–98
[~2025-05-01 07:48] MED LIST changes: +OXYC-38 PO; +SULF1TAB42 PO
[2025-05-01] MEDS: 0.9%NACL 1000ML 1,000 ML IV ONE (08:26)
== END 2025-05-01 10:08 | disposition home or self-care (01) ==
LOC: ENDO 07:48 → DAH 07:48 → ENDO 10:08
PROVIDERS: ATTEND Surgery
DX: K57.92 Diverticulitis of intestine, part unspecified, without perforation or abscess without bleeding (principal); K64.0 First degree hemorrhoids; K57.30 Diverticulosis of large intestine without perforation or abscess without bleeding; F90.9 Attention-deficit hyperactivity disorder, unspecified type; Z80.1 Family history of malignant neoplasm of trachea, bronchus and lung; Z98.890 Other specified postprocedural states
CPT/HCPCS: 45378; J7030; A4620; A4215 ×2; A4223; A4222; A4221; A4663; A4606

== ENCOUNTER 2025-05-05 22:36 | Emergency (ER) | payer OTHER ==
[~2025-05-05] VITALS: Ht 177.8 cm; Wt 99.8 kg
[~2025-05-05 22:36] MED LIST changes: -LOSA50TA64 PO; -OXYC-38 PO
--- NOTE | 2025-05-05 22:50 | ERN ---
ED Note History of Present Illness Stated Complaint: POST SX ISSUES, Chief Complaint: Post-Op Problem Time Seen by MD: 22:39 Dictation: 44-year-old male with a history of vesical fistula status post ileostomy creation who presented to the ER due to leaking at site of ileostomy. Denies fever, chills, no abdominal pain. Allergies: Coded Allergies: No Known Drug Allergies (Unverified Allergy, Unknown, 04/08/21) Home Meds Active Scripts Sulfamethoxazole/Trimethoprim (Bactrim Ds Tablet) 800 Mg-160 Mg Tablet, 1 TAB PO BID for 14 Days, #28 TAB 0 Refills Prov:ISABEL MENDOZA MD 04/09/25 Reported Medications Lisdexamfetamine Dimesylate (Vyvanse) 70 Mg Capsule, 1 CAP PO DAILY 03/28/25 Discontinued Reported Medications Losartan Potassium (Losartan Potassium) 50 Mg Tablet, 1 TAB PO DAILY 03/28/25 Discontinued Scripts Oxycodone HCl/Acetaminophen (Percocet 5-325 mg Tablet) 5 Mg-325 Mg Tablet, 1 EACH PO Q6H for pain, #16 TAB 0 Refills Prov:ISABEL MENDOZA MD 04/09/25 Past Medical History Past Medical History: Diverticulitis, UTI Additional Past Medical Hx: ADHD, SEPSIS Surgical History: Other Surgical History Other: BILAT ACL REPAIR, ILEOSTOMY Family History: Negative Social History: Negative, Lives with family Review of System Dictation NEGATIVE EXCEPT PER HPI Constitutional: Negative for fever,chills, and weight loss Eyes: Negative for injury, pain,redness, and discharge ENT: Negative for injury,pain or swelling Cardiovascular: denies chest pain, palpitations, and edema Respiratory: Negative for shortness of breath, cough, and wheezing, Abdomen/GI: Ileostomy leakage Back: Negative for injury and pain : Negative for injury, bleeding and discharge MS/Extremity: Negative for injury and deformity Skin: Negative for rash, and discoloration Neuro: Negative for headache, weakness, numbness, tingling, and seizure Psych: Negative for suicide ideation, homicidal ideation, and hallucinations Initial Vital Sign VS Vital Signs Date Time Temp Pulse Resp B/P (MAP) Pulse Ox O2 Delivery O2 Flow Rate FiO2 05/05/25 22:37 97.9 90 20 150/99 99 Room Air Physical Exam Dictation General: awake, alert, NAD Head/Face: Normocephalic, atraumatic Eyes: PERRL, EOMI, vision at baseline ENT: oral cavity clear, TMs clear, no signs of infection Neck: Trachea midline, supple, no nuchal rigidity Cardiovascular: RRR, normal S1/S2, No MRGs, no JVD Respiratory: CTAB, no respiratory distress, No rales or wheezes Abdomen: Soft lost some in place with leaking Skin: Warm, dry, normal turgor, no rash MS/Extremity: Pulses equal, no cyanosis, neurovascular intact, FROM Neuro: COAx4, GCS 15, strength 5/5, CN 2-12 intact, normal cerebellar exam, normal gait, Psych: Normal behavior, mood, and affect normal ED Course ED Course Vital Signs Date Time Temp Pulse Resp B/P (MAP) Pulse Ox O2 Delivery O2 Flow Rate FiO2 05/05/25 22:37 97.9 90 20 150/99 99 Room Air Medical Decision Making MDM Ileostomy leaking We will proceed with a change of ileostomy bag, If there is no leak the patient will be discharged in recommendation to follow up with the PCP DX & DISP Disposition: Discharge Departure Impression: Primary Impression: Ileostomy bag changed Additional Impression: Ileostomy dysfunction Condition: Stable Additional Instructions: RETURN TO ER FOR ANY ACUTE OR WORSENING SYMPTOMS. FOLLOW-UP IN 1-2 DAYS WITH PRIMARY PROVIDER FOR RECHECK OF TODAY'S SYMPTOMS. Referrals: KAE HWANG MD (PCP) MAGUI CHRISTIAN MD May 05, 2025 22:50
--- NOTE | 2025-05-05 23:01 | NUR ---
COLOSTOMY BAG EXCHANGED ORDERED
[2025-05-05 23:20] VITALS: BP 142/68; PULSE 86; RESP 18; TEMP 97.8; O2SAT 99
== END 2025-05-05 23:49 | disposition home or self-care (01) ==
LOC: EDH 22:36
DX: K94.13 Enterostomy malfunction (principal); F90.9 Attention-deficit hyperactivity disorder, unspecified type; Z79.899 Other long term (current) drug therapy; Z87.440 Personal history of urinary (tract) infections; Y83.8 Other surgical procedures as the cause of abnormal reaction of the patient, or of later complication, without mention of misadventure at the time of the procedure
CPT/HCPCS: 99282

== ENCOUNTER 2025-05-06 08:59 | Emergency (ER) | payer OTHER ==
[~2025-05-06] VITALS: Ht 177.8 cm; Wt 99.8 kg
--- NOTE | 2025-05-06 09:41 | ERN ---
General Chief Complaint: Other Problems Stated Complaint: ILEOSTOMY LEAK Time Seen by MD: 09:12 History of Present Illness Initial Comments 44 y/o male came in for ileostomy bag leak which started yesterday. Otherwise has no pain at the site. Allergies: Coded Allergies: No Known Drug Allergies (Unverified Allergy, Unknown, 04/08/21) Home Meds Active Scripts Sulfamethoxazole/Trimethoprim (Bactrim Ds Tablet) 800 Mg-160 Mg Tablet, 1 TAB PO BID for 14 Days, #28 TAB 0 Refills Prov:ISABEL MENDOZA MD 04/09/25 Reported Medications Lisdexamfetamine Dimesylate (Vyvanse) 70 Mg Capsule, 1 CAP PO DAILY 03/28/25 Discontinued Reported Medications Losartan Potassium (Losartan Potassium) 50 Mg Tablet, 1 TAB PO DAILY 03/28/25 Discontinued Scripts Oxycodone HCl/Acetaminophen (Percocet 5-325 mg Tablet) 5 Mg-325 Mg Tablet, 1 EACH PO Q6H for pain, #16 TAB 0 Refills Prov:ISABEL MENDOZA MD 04/09/25 Past Medical History Past Medical History: Diverticulitis, UTI Medical History Other: ADHD, SEPSIS Past Surgical History: Other Surgical History Other: BILAT ACL REPAIR, ILEOSTOMY Family History Family History: Negative Social History Social History: Negative, Lives with family ROS Dictation None Physical Exam Physical Exam Dictation Ileostomy site looks clean and dry without any tenderness. There is paste noted around the site which is preventing adhesion of the bag. MDM Paste removed and bag replaced without any problem. Pt to follow up with lambert krause. Pt agrees and understand with plan of care. ED Course Orders Procedure Category Date Status Time Labetalol 20mg Syg PHA 05/06/25 Complete (Trandate 20mg Syg) 09:30 Current Medications Medications (Trade) Dose Ordered Sig/Armando Route PRN Reason Start Time Stop Time Status Last Admin Dose Admin Labetalol HCl (TRANdate 20MG SYG) 10 mg ONCE ONCE IV 05/06/25 09:30 05/06/25 09:31 DC Vital Signs Date Time Temp Pulse Resp B/P (MAP) Pulse Ox O2 Delivery O2 Flow Rate FiO2 05/06/25 09:03 97.9 111 16 150/97 98 Room Air* 0 21 05/06/25 09:00 97.9 111 16 177/111 98 Room Air DX & DISP Disposition: Discharge Departure Impression: Primary Impression: Ileostomy bag changed Condition: Stable Referrals: KAE HWANG MD (PCP) CLAUDE BARNETT MD May 06, 2025 09:41
[2025-05-06 11:05] VITALS: BP 144/99; PULSE 101; RESP 20; TEMP 98.2; O2SAT 98
--- NOTE | 2025-05-06 11:08 | NUR ---
ILEOSTOMY BAG CHANGED AND VERIFIED GOOD SEAL AND NO LEAKAGE NOTED, PT TOLERATED WELL. WRITTEN ILEOSTOMY CARE INSTRUCTIONS PROVIDED TO PT AND PT VERBALIZED UNDERSTANDING.
== END 2025-05-06 11:12 | disposition home or self-care (01) ==
LOC: EDH 08:59
DX: K94.13 Enterostomy malfunction (principal); F90.9 Attention-deficit hyperactivity disorder, unspecified type; Z79.899 Other long term (current) drug therapy; Z87.440 Personal history of urinary (tract) infections; Y83.8 Other surgical procedures as the cause of abnormal reaction of the patient, or of later complication, without mention of misadventure at the time of the procedure
CPT/HCPCS: 99282

== ENCOUNTER 2025-05-07 23:42 | Emergency (ER) | payer OTHER ==
[~2025-05-07] VITALS: Ht 177.8 cm; Wt 99.8 kg
--- NOTE | 2025-05-08 01:23 | NUR ---
OSTOMY APPLIANCE REPLACED FOR PATIENT.
[2025-05-08] MEDS: OCTYL 2-CYANOACRYLATE 1 EACH TP ONE ×2 (01:58→02:41)
--- NOTE | 2025-05-08 02:34 | ERN ---
General Chief Complaint: Other Problems Stated Complaint: OSTOMY Time Seen by MD: 23:45 History of Present Illness Initial Comments 44-year-old male came in for concerned with a his ileostomy bag. Patient states that his back has been leaking around the adhesive part of the bag. Patient was seen few days ago for similar concern in the bag was replaced. Patient is a advised in his abdominal pain nausea and vomiting. Allergies: Coded Allergies: No Known Drug Allergies (Unverified Allergy, Unknown, 04/08/21) Home Meds Active Scripts Sulfamethoxazole/Trimethoprim (Bactrim Ds Tablet) 800 Mg-160 Mg Tablet, 1 TAB PO BID for 14 Days, #28 TAB 0 Refills Prov:ISABEL MENDOZA MD 04/09/25 Reported Medications Lisdexamfetamine Dimesylate (Vyvanse) 70 Mg Capsule, 1 CAP PO DAILY 03/28/25 Discontinued Reported Medications Losartan Potassium (Losartan Potassium) 50 Mg Tablet, 1 TAB PO DAILY 03/28/25 Discontinued Scripts Oxycodone HCl/Acetaminophen (Percocet 5-325 mg Tablet) 5 Mg-325 Mg Tablet, 1 EACH PO Q6H for pain, #16 TAB 0 Refills Prov:ISABEL MENDOZA MD 04/09/25 Past Medical History Past Medical History: Diverticulitis, UTI Medical History Other: ADHD, SEPSIS Past Surgical History: Other Surgical History Other: BILAT ACL REPAIR, ILEOSTOMY Family History Family History: Negative Social History Social History: Negative, Lives with family ROS Dictation None Physical Exam Physical Exam Dictation Ileostomy stoma noted no tenderness around the stoma with the ostomy site looks dry and clean. That has no abdominal tenderness in all four quadrants. [facility] Ileostomy bag replaced patient to follow up with Dr. Casarez. Patient is a signed the agrees with the plan of care. ED Course Orders Procedure Category Date Status Time Dermabond (Dermabond) PHA 05/08/25 Complete 00:58 Dermabond (Dermabond) PHA 05/08/25 Complete 01:00 Current Medications Medications (Trade) Dose Ordered Sig/Armando Route PRN Reason Start Time Stop Time Status Last Admin Dose Admin Octyl Cyanoacrylate (Dermabond) 1 each ONCE ONCE TP 05/08/25 01:00 05/08/25 01:11 DC Octyl Cyanoacrylate (Dermabond) 1 each STK-MED ONCE TP 05/08/25 00:58 05/08/25 00:58 DC Vital Signs Date Time Temp Pulse Resp B/P (MAP) Pulse Ox O2 Delivery O2 Flow Rate FiO2 05/07/25 23:44 98.4 88 18 165/109 98 Room Air DX & DISP Disposition: Discharge Departure Impression: Primary Impression: Ileostomy bag changed Condition: Stable Referrals: KAE HWANG MD (PCP) CLAUDE BARNETT MD May 08, 2025 02:34
[2025-05-08 02:46] VITALS: BP 138/80; PULSE 76; RESP 18; TEMP 98.4; O2SAT 98
== END 2025-05-08 02:51 | disposition home or self-care (01) ==
LOC: EDH 23:42
DX: K94.13 Enterostomy malfunction (principal); F90.9 Attention-deficit hyperactivity disorder, unspecified type; Z79.899 Other long term (current) drug therapy; Z87.440 Personal history of urinary (tract) infections
CPT/HCPCS: 99282

== ENCOUNTER → 2025-05-25 | Outpatient (CLI) | payer OTHER ==
[2025-05-25 08:20] LABS: IMMATURE GRANULOCYTE ABSOLUTE 0.03 K/uL (0-1); NUCLEATED RED BLOOD CELLS 0.0 % (0.0-0.19); PLATELET COUNT (AUTO) 347 K/uL (130-400); RED BLOOD CELL COUNT(AUTO) 5.08 MIL/uL (4.50-6.20); RED CELL DISTRIBUTION WIDTH 13.9 % (11.0-15.5); WHITE BLOOD COUNT (AUTO) 6.7 K/uL (4.8-10.8)
[2025-05-25 08:43] LABS: ASPARTATE AMINOTRANSFERASE 21.0 U/L (10-37); CREATININE 0.8 mg/dL (0.5-1.3); GLOMERULAR FILTR. RATE CALC 113.0 mL/min (>90); GLUCOSE,RANDOM 94.0 mg/dL (70-105); LDL DIRECT 71.0 mg/dL (0-99); SODIUM SERUM 137.0 mmol/L (136-145); TOTAL PROTEIN, SERUM 8.5 g/dL (6.0-8.3); UREA NITROGEN, BLOOD 13.0 mg/dL (7-18)
== END | disposition home or self-care (01) ==
LOC: LAB 07:49
PROVIDERS: ATTEND Family Medicine
DX: E29.1 Testicular hypofunction (principal); Z00.00 Encounter for general adult medical examination without abnormal findings; F90.9 Attention-deficit hyperactivity disorder, unspecified type; Z93.2 Ileostomy status
CPT/HCPCS: 36415; 80053; 80061; 84153; 84154; 84402; 84403; 84443; 85025

== ENCOUNTER → 2025-06-05 | Outpatient (CLI) | payer OTHER ==
[~2025-06-05] MED LIST changes: +DIATR MEGLU/DIATRIZOATE SODIUM 30 ML BOTTLE ONE
--- NOTE | 2025-06-05 14:19 | HMCIMG ---
Single-contrast Gastrografin enema History: Ileostomy status Comparison: None available Contrast: barium sulfate suspension and air insufflated through rectal tube TECHNIQUE: EXAMINATION IS DONE UNDER FLUOROSCOPIC CONTROL, WITH FLUOROSCOPIC SPOTS OBTAINED. Procedure performed by Silvina Nguyen, RA student, under the supervision of Dr. Lobo. Multiple overheads obtained as well. Total fluoro time: 0.7 minutes Findings: The sales enablement analyst film is unremarkable. After retrograde instillation of Gastrografin into the rectum, there is normal flow from rectum to cecum without obstructive or stenotic lesions. No radiographic evidence of diverticulitis is noted at this time. There is no perforation. No leak of contrast or air is noted during the examination. No gross intraluminal lesions are noted to suggest polyps or tumors.. The appendix is unremarkable. There are no other gross abnormalities. There is scattered diverticulosis mostly in the sigmoid colon. Impression: Diverticulosis mostly in the sigmoid colon...
== END | disposition home or self-care (01) ==
LOC: RAH 07:52
PROVIDERS: ATTEND Surgery
DX: K57.30 Diverticulosis of large intestine without perforation or abscess without bleeding (principal); Z93.2 Ileostomy status
CPT/HCPCS: 74270; Q9963 ×2

== ENCOUNTER 2025-06-14 12:49 | Inpatient (IN) | payer OTHER ==
[~2025-06-14] VITALS: Ht 177.8 cm; Wt 102.4 kg
[~2025-06-14 12:49] MED LIST changes: -DIATR MEGLU/DIATRIZOATE SODIUM 30 ML BOTTLE ONE
--- NOTE | 2025-06-14 13:07 | ERN ---
ED Note History of Present Illness Stated Complaint: MULTIPLE COMPLAINTS Chief Complaint: Multiple Complaints Time Seen by MD: 13:01 Dictation: PATIENT IS A 44-YEAR-OLD MALE HERE WITH COMPLAINTS OF INCREASED LIQUID HE OUTPUT FROM HIS ILEOSTOMY OVER THE LAST TWO DAYS. HE STATES HE IS ALSO HAVING MILD DIFFUSE ABDOMINAL PAIN WITH NAUSEA FOR THE SAME AMOUNT OF TIME. NO FEVER NO CHILLS NO CHEST PAIN NO BACK PAIN. STATES HE WAS ABLE TO EAT BREAKFAST THIS MORNING WHICH WAS EGGS WITH TOAST. Allergies: Coded Allergies: No Known Drug Allergies (Unverified Allergy, Unknown, 04/08/21) Home Meds Active Scripts Sulfamethoxazole/Trimethoprim (Bactrim Ds Tablet) 800 Mg-160 Mg Tablet, 1 TAB PO BID for 14 Days, #28 TAB 0 Refills Prov:ISABEL MENDOZA MD 04/09/25 Reported Medications Lisdexamfetamine Dimesylate (Vyvanse) 70 Mg Capsule, 1 CAP PO DAILY 03/28/25 Past Medical History Past Medical History: Diverticulitis, Diverticulosis Additional Past Medical Hx: ADHD, SEPSIS Surgical History: Other Surgical History Other: ILEOSTOMY, URINARY BLADDER FISTULA REPAIR BILAT KNEE SX, Family History: Negative Social History: Negative, Lives with family RN Note Reviewed/Agreed w/PFSH: Yes Review of System Dictation CONSTITUTIONAL: NEGATIVE EXCEPT FOR HPI HEAD/FACE: NEGATIVE EXCEPT FOR HPI EENT: NEGATIVE EXCEPT FOR HPI RESPIRATORY: NEGATIVE EXCEPT FOR HPI GASTROINTESTINAL/ABDOMINAL: NEGATIVE EXCEPT FOR HPI NAUSEA WITH INCREASED ILEOSTOMY OUTPUT ABDOMINAL PAIN GENITOURINARY: NEGATIVE EXCEPT FOR HPI MUSCULOSKELETAL: NEGATIVE EXCEPT FOR HPI INTEGUMENTARY: NEGATIVE EXCEPT FOR HPI NEUROLOGICAL/PSYCH: NEGATIVE EXCEPT FOR HPI HEMATOLOGIC/LYMPHATIC: NEGATIVE EXCEPT FOR HPI ALL SYSTEMS NEGATIVE, EXCEPT NOTED ABOVE. 13 POINT REVIEW OF SYSTEMS ASSESSED AND ALL NEGATIVE EXCEPT FOR ABOVE. Initial Vital Sign VS Vital Signs Date Time Temp Pulse Resp B/P (MAP) Pulse Ox O2 Delivery O2 Flow Rate FiO2 06/14/25 12:50 98.1 113 18 148/103 96 Room Air 0 06/14/25 13:40 21 Physical Exam Dictation VITAL SIGNS REVIEWED GENERAL APPEARANCE: ALERT, ORIENTED X 3, MILD ACUTE DISTRESS, WELL DEVELOPED, N OURISHED. HEAD AND FACE: NON-TRAUMATIC. EYES: PERRL, PINK CONJUNCTIVAS, EYELID NO TRAUMA, ANTERIOR CHAMBER WITH ARCUS SENILIS. EARS: PINNAS INTACT AND NO SIGNS OF TRAUMA OR ERYTHEMA EAR CANALS CLEAR AND NO DISCHARGE TM NO ERYTHEMA NOSE: NO DISCHARGE, NO BLEEDING. OROPHARYNX: MOUTH NORMAL, TONGUE PINK, PHARYNX CLEAR,NO ERYTHEMA, TONSILS NO EXUDATES, NO ABSCESSES NOTED, MUCOUS MEMBRANE MOIST NECK: SUPPLE, NON-TENDER, NO THYROMEGALY, NO MASSES, NO JVD, NO BRUITS BREAST:DEFERRED CHEST:NO TENDERNESS, NO CREPITUS, NO PARADOXICAL MOVEMENT, NO RETRACTIONS LUNGS:CLEAR, WELL-VENTILATED, SYMMETRIC, NO RALES, NO WHEEZING, NO RHONCHI, NO STRIDOR, GOOD BREATH SOUNDS BILATERALLY HEART: REGULAR RATE, REGULAR RHYTHM, NO MURMUR, NO GALLOPS VASCULAR: NO PERIPHERAL EDEMA, ABDOMEN: SOFT, POSITIVE BOWEL SOUNDS, NONDISTENDED, NO GUARDING, NONTENDER, NO REBOUND, NO MASSES NO HEPATOMEGALY, NO SPLENOMEGALY, NO FRANK'S SIGN, NO HERNIAS. ILEOSTOMY IN PLACE WITH GREEN DRAINAGE RECTAL: DEFERRED GENITAL: DEFERRED NEUROLOGICAL: NORMAL SPEECH, MOTOR FUNCTION INTACT, SENSORY FUNCTION INTACT MUSCULOSKELETAL: NECK NONTENDER, FULL RANGE OF MOTION, BACK NONTENDER, FULL RANGE OF MOTION, EXTREMITIES: NONTENDER, FULL RANGE OF MOTION SKIN: COLOR PINK, DRY, NO TURGOR, NO RASH, NO LACERATIONS, NO ABRASIONS, NO CONTUSIONS. LYMPHATIC: DEFERRED Results (Laboratory/Radiology) Laboratory/Radiology Laboratory Tests Test 06/14/25 13:20 06/14/25 14:26 White Blood Count 15.9 K/uL (4.8-10.8) H Red Blood Count 6.00 MIL/uL (4.50-6.20) Hemoglobin 18.1 g/dL (14.0-18.0) H Hematocrit 51.6 % (42-54) Mean Corpuscular Volume 86.0 fL (79-99) Mean Corpuscular Hemoglobin 30.2 pg (27.0-33.0) Mean Corpuscular Hemoglobin Concent 35.1 g/dL (32.0-36.0) Red Cell Distribution Width 15.5 % (11.0-15.5) Platelet Count 285 K/uL (130-400) Mean Platelet Volume 8.7 fL (7.5-10.5) Immature Granulocyte % (Auto) 0.3 % (0-1) Neutrophils (%) (Auto) 79.6 % (40.0-77.0) H Lymphocytes (%) (Auto) 7.6 % (21.0-51.0) L Monocytes (%) (Auto) 6.8 % (3.0-13.0) Eosinophils (%) (Auto) 5.4 % (0.0-8.0) Basophils (%) (Auto) 0.3 % (0.0-5.0) Neutrophils # (Auto) 12.7 K/uL (1.8-7.7) H Lymphocytes # (Auto) 1.2 K/uL (1.0-4.8) Monocytes # (Auto) 1.1 K/uL (0.1-1.0) H Eosinophils # (Auto) 0.86 K/uL (0.00-0.70) H Basophils # (Auto) 0.04 K/uL (0.00-0.20) Absolute Immature Granulocyte (auto 0.05 K/uL (0-1) Nucleated Red Blood Cells 0.0 % (0.0-0.19) White Cell Morphology Comment See comments Sodium Level 136 mmol/L (136-145) Potassium Level 3.4 mmol/L (3.5-5.1) L Chloride Level 98 mmol/L (101-111) L Carbon Dioxide Level 26 mmol/L (21-32) Blood Urea Nitrogen 15 mg/dL (7-18) Creatinine 1.0 mg/dL (0.5-1.3) Glomerular Filtration Rate Calc 96 mL/min (>90) Random Glucose 108 mg/dL (70-105) H Total Calcium 9.2 mg/dL (8.5-10.1) Lipase 69 U/L (16-77) Lactic Acid Level 2.4 mmol/L (0.8-2.5) GALLBLADDER AND BILE DUCTS: The gallbladder appears within normal limits. No radioopaque gallstones are seen. No biliary ductal dilatation is evident. PANCREAS: Unremarkable. SPLEEN: Unremarkable. ADRENAL GLANDS: Unremarkable. KIDNEYS, URETERS, AND BLADDER: The kidneys appear within normal limits. There is no hydronephrosis or hydroureter. No urinary calculi are seen. STOMACH AND BOWEL: Unremarkable appearance of the stomach and bowel. No evidence of bowel obstruction. No evidence suggesting enteritis or colitis. There is underdistention of the transverse colon ascending colon with apparent thickening. 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 APPENDIX: No evidence of acute appendicitis on CT examination. PERITONEUM: No free fluid. No free air. LYMPH NODES: No lymphadenopathy is evident. REPRODUCTIVE: Unremarkable as visualized. VASCULATURE: No evidence of abdominal aortic aneurysm. BONES: No aggressive appearing osseous lesion. No acute osseous pathology evident. IMPRESSION: 1. Thickening of the ascending colon transverse colon which could be related to underdistention versus colitis. 2. Right sided ostomy with parastomal hernia. No evidence for bowel obstruction /[facility] Labs Reviewed?: Yes ED Course ED Course Orders Procedure Category Date Status Time Cbc With Differential LAB 06/14/25 Complete 13:05 Urinalysis Profile LAB 06/14/25 Logged 13:05 Ct Abdomen/Pelvis CT 06/14/25 Resulted W/Contrast 13:05 0.9%Nacl 1000ml (Ns PHA 06/14/25 Complete 1000ml) 13:30 Morphine 2mg Syg PHA 06/14/25 Complete (Morphine 2mg Syg) 13:30 Ondansetron 4mg Inj PHA 06/14/25 Complete (Zofran 4mg Inj) 13:30 Lipase LAB 06/14/25 Complete 13:05 Basic Metabolic Panel LAB 06/14/25 Complete 13:05 Iohexol (Omnipaque) PHA 06/14/25 Complete 13:39 Diatr PHA 06/14/25 Complete Meglu/Diatrizoate 13:56 Blood Cult PARK 06/14/25 In Process 14:02 Lactic Acid LAB 06/14/25 Complete 14:02 Zosyn 3.375gm+Ns 50ml PHA 06/14/25 Complete (Zosyn 3.375gm+Ns 15:30 Hydromorphone 1 Mg PHA 06/14/25 In Process Inj (Dilaudid 1mg Inj 16:00 Edm Admit Bridge Order ADM 06/14/25 Verified 15:48 Current Medications Medications (Trade) Dose Ordered Sig/Armando Route PRN Reason Start Time Stop Time Status Last Admin Dose Admin Diatrizoate Meglum/ Diatrizoate Sod (Gastrografin 66-10 Solution) 30 ml STK-MED ONCE .ROUTE 06/14/25 13:56 06/14/25 13:56 DC Hydromorphone HCl (DiLAUDid 1MG INJ) 1 mg ONCE ONCE IVP 06/14/25 16:00 06/14/25 16:01 Iohexol (Omnipaque) 75 ml STK-MED ONCE IV 06/14/25 13:39 06/14/25 13:40 DC Morphine Sulfate (morPHINE 2MG SYG) 2 mg ONCE ONCE IVP 06/14/25 13:30 06/14/25 15:42 DC Ondansetron HCl (zoFRAN 4MG INJ) 4 mg ONCE ONCE IVP 06/14/25 13:30 06/14/25 13:31 DC 06/14/25 14:40 Piperacillin Sod/ Tazobactam Sod (Zosyn 3.375gm+NS 50ml) 3.375 gm ONCE ONCE IVPB 06/14/25 15:30 06/14/25 15:31 DC Sodium Chloride 1,000 ml @ 0 mls/hr ONCE ONCE IV 06/14/25 13:30 06/14/25 13:31 DC 06/14/25 14:39 Vital Signs Date Time Temp Pulse Resp B/P (MAP) Pulse Ox O2 Delivery O2 Flow Rate FiO2 06/14/25 13:40 98.8 103 20 144/95 95 Room Air* 0 21 06/14/25 12:50 98.1 113 18 148/103 96 Room Air 0 1545/spoke with patient at length regarding clinical [place], [address] WBCs, lactic acid elevation. He is requesting Dilaudid since he does better with the pain management then with morphine. I agreed for this He is aware I we will be admitting him to the hospital for further evaluation and treatment. All questions and 1550/spoke with , reviewed CT labs and interventions for sepsis to include fluids and Zosyn. He agreed to admit patient. Medical Decision Making MDM MDM: Differential diagnosis: Appendicitis/diverticulitis/ileus/small-bowel obstruction/hernia with a incarceration/electrolyte imbalance/dehydration/sepsis Rationale: Tests considered and ordered secondary to shared decision making include: labs, and radiology Previous outside records reviewed: Old ER visits. Risk of complication and/or morbidity or mortality of patient management: Moderate Medications-Per medication reconciliation Need for hospitalization: Patient does meet criteria for hospitalization. Patient will need admitted to the hospital for further evaluation of his diarrhea and management of colitis pain management Need for emergency major/minor surgery: No There are no social concerns with this patient. Prescription drug management Prescriptions will include symptomatic care Patient's prior external medical records from other ER visits were reviewed by me as indicated. Prior testing and results from previous visits were reviewed. Prior tests were taken into account with medical decision making and resource utilization, independent historian/historians were used to obtain complete medical history. I independently interpreted the test that were performed, results were reviewed by me and considered findings on radiology if ordered. Medical management and examination interpretation discussions were had by me with other qualified healthcare professionals as indicated for the patient's care. DX & DISP Disposition: Inpatient Decision to Admit Time: 15:45 Departure Impression: Primary Impression: Infectious colitis Additional Impressions: Hypochloremia, Hypokalemia, Hyperglycemia, Sepsis, Ileostomy in place Condition: Stable Referrals: DONNA GARZA Jr., MD (PCP) Time of Disposition: 15:45 I have reviewed the case, and I agree with, Diagnosis and Plan CECILE PATTENP Jun 14, 2025 13:07
[2025-06-14 13:28] LABS: IMMATURE GRANULOCYTE ABSOLUTE 0.05 K/uL (0-1); NUCLEATED RED BLOOD CELLS 0.0 % (0.0-0.19); PLATELET COUNT (AUTO) 285 K/uL (130-400); RED BLOOD CELL COUNT(AUTO) 6.00 MIL/uL (4.50-6.20); RED CELL DISTRIBUTION WIDTH 15.5 % (11.0-15.5); WHITE BLOOD COUNT (AUTO) 15.9 K/uL (4.8-10.8)
[2025-06-14 13:36] LABS: CREATININE 1.0 mg/dL (0.5-1.3); GLOMERULAR FILTR. RATE CALC 96.0 mL/min (>90); GLUCOSE,RANDOM 108.0 mg/dL (70-105); SODIUM SERUM 136.0 mmol/L (136-145); UREA NITROGEN, BLOOD 15.0 mg/dL (7-18)
[2025-06-14] MEDS ORDERED: IOHEXOL-350 75 ML VIAL IV ONE (13:39)
[2025-06-14] MEDS ORDERED: DIATR MEGLU/DIATRIZOATE SODIUM 30 ML BOTTLE ONE (13:56)
[2025-06-14] MEDS: 0.9%NACL 1000ML 1,000 ML IV ONE (14:39)
--- NOTE | 2025-06-14 15:17 | HMCIMG ---
EXAM: CT Abdomen and Pelvis with IV contrast CLINICAL HISTORY: NAUSEA WITH INCREASED ILEOSTOMY OUTPUT. TECHNIQUE: Axial computed tomography images of the abdomen and pelvis with intravenous contrast. CONTRAST: with intravenous contrast. COMPARISON: April 09, 2025 FINDINGS: LUNG BASES: The lung bases appear clear. No pleural effusions are seen. LIVER: Unremarkable. GALLBLADDER AND BILE DUCTS: The gallbladder appears within normal limits. No radioopaque gallstones are seen. No biliary ductal dilatation is evident. PANCREAS: Unremarkable. SPLEEN: Unremarkable. ADRENAL GLANDS: Unremarkable. KIDNEYS, URETERS, AND BLADDER: The kidneys appear within normal limits. There is no hydronephrosis or hydroureter. No urinary calculi are seen. STOMACH AND BOWEL: Unremarkable appearance of the stomach and bowel. No evidence of bowel obstruction. No evidence suggesting enteritis or colitis. There is underdistention of the transverse colon ascending colon with apparent thickening. 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 APPENDIX: No evidence of acute appendicitis on CT examination. PERITONEUM: No free fluid. No free air. LYMPH NODES: No lymphadenopathy is evident. REPRODUCTIVE: Unremarkable as visualized. VASCULATURE: No evidence of abdominal aortic aneurysm. BONES: No aggressive appearing osseous lesion. No acute osseous pathology evident. IMPRESSION: 1. Thickening of the ascending colon transverse colon which could be related to underdistention versus colitis. 2. Right sided ostomy with parastomal hernia. No evidence for bowel obstruction /[place]
[2025-06-14] MEDS ORDERED: PoTASSium chloRIDE 20MEQ ER 20 MEQ ERTAB PO PRN (16:30)
[2025-06-14] MEDS: ZOSYN 3.375GM +NS 50ML IVPB ONE (16:34)
--- NOTE | 2025-06-14 17:51 | NUR ---
REPORT GIVEN TO RACHEL AT THIS TIME.
[2025-06-14 17:52] LABS: ASPARTATE AMINOTRANSFERASE 19.0 U/L (10-37); LACTATE DEHYDROGENASE 136.0 U/L (81-234); TOTAL PROTEIN, SERUM 6.8 g/dL (6.0-8.3)
[2025-06-14 18:30] VITALS: BP 130/89; PULSE 81; RESP 16; TEMP 98.3
--- NOTE | 2025-06-14 18:30 | NUR ---
RECEIVED PATIENT FROM ER. VITAL SIGNS ARE STABLE. SIGNED BED ALARM REFUSAL. ORIENTED TO ROOM. NO C/O PAIN OR DISCOMFORT.
[2025-06-14 19:21] LABS: CREATININE 1.0 mg/dL (0.5-1.3); GLOMERULAR FILTR. RATE CALC 96.0 mL/min (>90); GLUCOSE,RANDOM 102.0 mg/dL (70-105); SODIUM SERUM 138.0 mmol/L (136-145); UREA NITROGEN, BLOOD 14.0 mg/dL (7-18)
--- NOTE | 2025-06-14 19:31 | CONS ---
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 He presented with abdominal pain, nausea and vomiting. Has been having a recent output from ileostomy he is pending reversal next week he has been treated for mild cellulitis with Augmentin by his PCP. CT abdomen and pelvis revealing thickening of the ascending colon which could be related to underdistention versus colitis and right-sided ostomy with parastomal hernia Review of Systems: CONSTITUTIONAL: No malaise or change in sensation of wellbeing. ENMT: No rhinorrhea, otorrhea, sinus pain, ear ache. CARDIOVASCULAR: No angina, palpitations, orthopnea or paroxysmal dyspnea. RESPIRATORY: No SOB. GASTROINTESTINAL: No abdominal pain, nausea, vomiting, diarrhea, hematemesis, melena or change in the patient's habitual bowel movements consistency/number. GENITOURINARY: No dysuria, hematuria or change in bladder continence. MUSCULOSKELETAL: No new muscle pain or decrease in muscular strength. No new joint swelling, redness or tenderness. SKIN: No new rash. Past Medical History: [ ] Past Surgical History: [ ] Past Social History: [ ] Family History: [ ] Coded Allergies: No Known Drug Allergies (Unverified Allergy, Unknown, 04/08/21) Physical Exam: GEN: Awake, alert, oriented in person, time and place, and in no acute distress. HEENT: No sinus tenderness. Tympanic membranes were not examined. No rhinorrhea. Oral pharyngeal mucosa is pink, moist and within normal limits. Neck is supple with no cervical lymphadenopathy, thyromegaly or JVD. CHEST: Inspection, palpation and percussion of the chest were unremarkable. Lung auscultation revealed normal breath sounds bilaterally. CARDIAC: PMI is within normal limits. Heart sounds are regular. Normal S1, S2. No gallop or murmur. ABD: Soft, non-tender and not distended. No peritoneal signs on palpation. No organomegaly. Normal bowel sounds. EXT: No cyanosis or clubbing. No edema. SKIN: Intact. No rashes. JOINTS: No evidence of synovitis or acute arthritis. NEURO: Alert and oriented to name, place and person. Cranial nerve examination is unremarkable. No focal motor deficits. Normal speech. Gait is normal. Strength is normal. Vital Sign (Last 24 Hours) 06/14/25 06/14/25 17:51 18:30 Temp 98.2 Pulse 81 Resp 16 B/P (MAP) 130/89 Pulse Ox 98 O2 Delivery Room Air O2 Flow Rate 0 FiO2 21 Laboratory: [ ] Laboratory: Test 06/14/25 18:57 06/14/25 16:45 06/14/25 14:26 06/14/25 13:20 Range/Units Sodium Level 138 136-145 mmol/L Potassium Level 3.7 3.5-5.1 mmol/L Chloride Level 99 L 101-111 mmol/L Carbon Dioxide Level 29 21-32 mmol/L Blood Urea Nitrogen 14 7-18 mg/dL Creatinine 1.0 0.5-1.3 mg/dL Glomerular Filtration Rate Calc 96 >90 mL/min Random Glucose 102 70-105 mg/dL Lactic Acid Level 1.6 0.8-2.5 mmol/L Total Calcium 8.5 8.5-10.1 mg/dL C. difficile Antigen and Toxins A,B See comments NEG Magnesium Level 1.20 L 1.80-2.40 mg/dL Total Bilirubin 0.9 0.2-1.0 mg/dL Direct Bilirubin 0.1 0.0-0.3 mg/dL Aspartate Amino Transf (AST/SGOT) 19 10-37 U/L Alanine Aminotransferase (ALT/SGPT) 55 12-78 U/L Alkaline Phosphatase 105 50-136 U/L Lactate Dehydrogenase 136 81-234 U/L C-Reactive Protein, Quantitative 8.70 H 0.5-3.0 mg/L Total Protein 6.8 6.0-8.3 g/dL Albumin 3.4 L 3.5-5.0 g/dL Procalcitonin < 0.05 L 0.05-0.5 ng/mL White Blood Count 15.9 H 4.8-10.8 K/uL Red Blood Count 6.00 4.50-6.20 MIL/uL Hemoglobin 18.1 H 14.0-18.0 g/dL Hematocrit 51.6 42-54 % Mean Corpuscular Volume 86.0 79-99 fL Mean Corpuscular Hemoglobin 30.2 27.0-33.0 pg Mean Corpuscular Hemoglobin Concent 35.1 32.0-36.0 g/dL Red Cell Distribution Width 15.5 11.0-15.5 % Platelet Count 285 130-400 K/uL Mean Platelet Volume 8.7 7.5-10.5 fL Immature Granulocyte % (Auto) 0.3 0-1 % Neutrophils (%) (Auto) 79.6 H 40.0-77.0 % Lymphocytes (%) (Auto) 7.6 L 21.0-51.0 % Monocytes (%) (Auto) 6.8 3.0-13.0 % Eosinophils (%) (Auto) 5.4 0.0-8.0 % Basophils (%) (Auto) 0.3 0.0-5.0 % Neutrophils # (Auto) 12.7 H 1.8-7.7 K/uL Lymphocytes # (Auto) 1.2 1.0-4.8 K/uL Monocytes # (Auto) 1.1 H 0.1-1.0 K/uL Eosinophils # (Auto) 0.86 H 0.00-0.70 K/uL Basophils # (Auto) 0.04 0.00-0.20 K/uL Absolute Immature Granulocyte (auto 0.05 0-1 K/uL Nucleated Red Blood Cells 0.0 0.0-0.19 % White Cell Morphology Comment See comments Erythrocyte Sedimentation Rate 22 H 0-15 MM/HR Lipase 69 16-77 U/L Current Medications Medications (Trade) Dose Ordered Sig/Armando Route PRN Reason Start Time Stop Time Status Last Admin Dose Admin Acetaminophen (TYLenol 325MG TAB) 650 mg Q6H PRN PO MILD PAIN (1-3) 06/14/25 16:30 07/14/25 16:29 Hydromorphone HCl (DiLAUDid 0.5MG INJ) 0.5 mg Q6H PRN IVP SEVERE PAIN (7-10) 06/14/25 16:30 06/19/25 16:29 Lactated Ringer's 1,000 ml @ 100 mls/hr Q10H IV 06/14/25 17:00 07/14/25 16:59 Magnesium Sulfate 50 ml @ 0 mls/hr PROTOCOL IV 06/14/25 19:00 07/14/25 18:59 Ondansetron HCl (zoFRAN 4MG INJ) 4 mg Q6H PRN IVP NAUSEA/VOMITING 06/14/25 16:30 07/14/25 16:29 Piperacillin Sod/ Tazobactam Sod (Zosyn 3.375gm+NS 50ml) 3.375 gm Q8H IVPB 06/14/25 21:00 06/14/25 16:24 DC Piperacillin Sod/ Tazobactam Sod (Zosyn 3.375gm+NS 50ml) 3.375 gm Q8H IVPB 06/15/25 00:30 06/25/25 00:29 Potassium Chloride 100 ml @ 100 mls/hr AD PRN IV POTASSIUM PROTOCOL 06/14/25 16:30 07/14/25 16:29 Potassium Chloride (K-Dur/Klor-Con 20meq) 20 meq AD PRN PO POTASSIUM PROTOCOL 06/14/25 16:30 07/14/25 16:29 Potassium Chloride (KCl 10% Elixir 20meq/15ml) 20 meq AD PRN PO POTASSIUM PROTOCOL 06/14/25 16:30 07/14/25 16:29 Diagnostics / Radiology: [COPY/PASTE HERE IF NO REPORTS PLEASE DELETE SECTION] Assessment: Dehydration Ileostomy status Plan: IVF hydration No colorectal intervention at this time JADON MASSEY [employer] Jun 14, 2025 19:31
[2025-06-14 20:00] VITALS: BP 131/81; PULSE 84; RESP 18; TEMP 98.3
--- NOTE | 2025-06-14 20:24 | HP ---
[facility] HISTORY AND PHYSICAL Date of Service: Jun 14, 2025 Time of Service: 20:15 HISTORY OF PRESENT ILLNESS: Date of service: 06/14/2025, patient was seen in ER room 13 This is a 44-year-old male with history of diverticulosis complicated by colovesical fistula with history of laparoscopic diverting ileostomy in 04/2025 with repair of bladder, presented to the ER for further evaluation of abdominal pain, nausea and vomiting. Symptoms have been ongoing for the past two days. Patient reports having increased output from the ileostomy. He has needed to change the ileostomy about five times today due to loose stool. Patient reports having nausea and had episodes of vomiting yesterday. Oral intake has been poor. Abdominal pain is moderate in severity. Denies any episodes of GI bleeding. Reports having had surgery for colovesicular fistula in 04/2025 and is supposed to have reversal of ileostomy next week by Dr. Baez. Patient denies any previous cardiac or pulmonary comorbidities. Does report having being previously hospitalized in March, in [facility] [place] [facility] for management of sepsis secondary to complicated urinary tract infection. Patient does report being treated for mild cellulitis with Augmentin by his PCP, he finished Augmentin 4 days prior to getting his current symptoms. Patient on further evaluation was noted to be afebrile with T-max of 98.1 F, heart rate of 113, blood pressure of 148/103. [place] [address], hemoglobin of 18.1, platelet count of 359436. BMP on presentation showed sodium of 136, potassium 3.4, chloride of 98, bicarb of 26, BUN of 15, creatinine of 1.0, lactic acid of 2.4, magnesium 1.2. Patient underwent further evaluation with CT abdomen pelvis with IV contrast which showed findings of colitis involving the ascending colon and transverse colon. There was no evidence of bowel obstruction. Patient will be admitted for further management of sepsis with acute colitis involving the ascending and transverse colon. Patient is dehydrated [place] [address] with lactic acidosis of 2.4. Patient will receive aggressive IV hydration, broad-spectrum antibiotics, consultation with Gastroenterology will be requested this admission. We will see how patient progresses in the next 24-48 hours. REVIEW OF SYSTEMS CONSTITUTIONAL: Denies fevers, chills, or night sweats. No unintentional weight loss reported. NEUROLOGICAL: Denies headache, amaurosis fugax, motor weakness, sensory deficit, vertigo/spinning sensation, gait abnormalities, or tremors. ENT: No hearing loss, otalgia, otorrhea, rhinitis, rhinorrhea, hoarseness, or sore throat. CARDIOVASCULAR: Denies any exertional angina, dyspnea on exertion, orthopnea, paroxysmal nocturnal dyspnea, palpitations, life-threatening arrhythmias, claudication. PULMONARY: Denies any shortness of breath, cough, phlegm/sputum, hemoptysis, pleuritic chest pain. SLEEP: Denies morning headaches, daytime somnolence or napping. Denies difficulty falling asleep, staying asleep, waking from sleep. Denies knowledge of snoring. GASTROINTESTINAL: Denies any type of dysphagia to either liquids or solids. Denies nausea, vomiting, pyrosis, early satiety, abdominal pain, diarrhea, constipation, or changes in stool consistency or caliber. Denies coffee-ground emesis, hematemesis, hematochezia, or melanotic stools. GENITOURINARY: Denies frequency, urgency, nocturia, hematuria or incontinence (Storage/Irritative symptoms.) Low urinary stream, straining to void, urinary intermittency or hesitancy, splitting of the voiding stream, terminal dribbling. ENDOCRINOLOGIC: Denies polyuria, polydipsia, polyphagia or heat/cold intolerances. HEMATOLOGIC: Denies thrombophilia/previous clots, or coagulopathy/bleeding disorders. ONCOLOGIC: Denies personal history of malignancy. DERMATOLOGIC: Denies rashes or pruritus. PSYCHIATRIC: Denies any suicidal or homicidal ideation. Denies hallucinations. PAST MEDICAL HISTORY: [ ADHD, history of previous diverticulosis/diverticulitis ] PAST SURGICAL HISTORY: [ ACL Knee, colovesicular fistula repair in 04/[address] Baez with creation of diverting ileostomy] PAST SOCIAL HISTORY: [ Patient lives with . Patient denies alcohol tobacco and recreational drug use ] FAMILY HISTORY: [Hypertension, diabetes, Chronic obstructive pulmonary disease and cancer ] Coded Allergies: No Known Drug Allergies (Unverified Allergy, Unknown, 04/08/21) PHYSICAL EXAM GENERAL APPEARANCE: The patient is awake, alert, and oriented, in no acute cardiopulmonary distress. NEUROLOGICAL: Cranial nerves II-XII grossly intact. Motor is 5/5 in bilateral upper and lower extremities proximal to distal. No sensory deficits. HEENT: Face is symmetric. Pupils are equal and reactive. Extraocular movements are intact. NECK: Supple. No JVD. No thyromegaly. No submental, submandibular, pre- /postauricular, occipital or supraclavicular lymphadenopathy. CHEST: Normal chest expansion. No Telemetry. LUNGS: Absence of any rales, rhonchi or any wheezing. CARDIOVASCULAR: Regular. S1 and S2 normal. No appreciable rubs, murmurs or gallops. ABDOMEN: Soft, nondistended, ileostomy site is productive, mild tenderness to palpation of the lower abdominal quadrant : Deferred. No Lee. EXTREMITIES: Non-edematous and not cyanotic. No clubbing. Good capillary refill. SKIN: No skin breakdown. Vital Sign (Last 24 Hours) 06/14/25 06/14/25 17:51 18:30 Temp 98.2 Pulse 81 Resp 16 B/P (MAP) 130/89 Pulse Ox 98 O2 Delivery Room Air O2 Flow Rate 0 FiO2 21 LABS: Laboratory: Test 06/14/25 18:57 06/14/25 16:45 06/14/25 14:26 06/14/25 13:20 Range/Units Sodium Level 138 136-145 mmol/L Potassium Level 3.7 3.5-5.1 mmol/L Chloride Level 99 L 101-111 mmol/L Carbon Dioxide Level 29 21-32 mmol/L Blood Urea Nitrogen 14 7-18 mg/dL Creatinine 1.0 0.5-1.3 mg/dL Glomerular Filtration Rate Calc 96 >90 mL/min Random Glucose 102 70-105 mg/dL Lactic Acid Level 1.6 0.8-2.5 mmol/L Total Calcium 8.5 8.5-10.1 mg/dL C. difficile Antigen and Toxins A,B See comments NEG Magnesium Level 1.20 L 1.80-2.40 mg/dL Total Bilirubin 0.9 0.2-1.0 mg/dL Direct Bilirubin 0.1 0.0-0.3 mg/dL Aspartate Amino Transf (AST/SGOT) 19 10-37 U/L Alanine Aminotransferase (ALT/SGPT) 55 12-78 U/L Alkaline Phosphatase 105 50-136 U/L Lactate Dehydrogenase 136 81-234 U/L C-Reactive Protein, Quantitative 8.70 H 0.5-3.0 mg/L Total Protein 6.8 6.0-8.3 g/dL Albumin 3.4 L 3.5-5.0 g/dL Procalcitonin < 0.05 L 0.05-0.5 ng/mL White Blood Count 15.9 H 4.8-10.8 K/uL Red Blood Count 6.00 4.50-6.20 MIL/uL Hemoglobin 18.1 H 14.0-18.0 g/dL Hematocrit 51.6 42-54 % Mean Corpuscular Volume 86.0 79-99 fL Mean Corpuscular Hemoglobin 30.2 27.0-33.0 pg Mean Corpuscular Hemoglobin Concent 35.1 32.0-36.0 g/dL Red Cell Distribution Width 15.5 11.0-15.5 % Platelet Count 285 130-400 K/uL Mean Platelet Volume 8.7 7.5-10.5 fL Immature Granulocyte % (Auto) 0.3 0-1 % Neutrophils (%) (Auto) 79.6 H 40.0-77.0 % Lymphocytes (%) (Auto) 7.6 L 21.0-51.0 % Monocytes (%) (Auto) 6.8 3.0-13.0 % Eosinophils (%) (Auto) 5.4 0.0-8.0 % Basophils (%) (Auto) 0.3 0.0-5.0 % Neutrophils # (Auto) 12.7 H 1.8-7.7 K/uL Lymphocytes # (Auto) 1.2 1.0-4.8 K/uL Monocytes # (Auto) 1.1 H 0.1-1.0 K/uL Eosinophils # (Auto) 0.86 H 0.00-0.70 K/uL Basophils # (Auto) 0.04 0.00-0.20 K/uL Absolute Immature Granulocyte (auto 0.05 0-1 K/uL Nucleated Red Blood Cells 0.0 0.0-0.19 % White Cell Morphology Comment See comments Erythrocyte Sedimentation Rate 22 H 0-15 MM/HR Lipase 69 16-77 U/L Current Medications Medications (Trade) Dose Ordered Sig/Armando Route PRN Reason Start Time Stop Time Status Last Admin Dose Admin Acetaminophen (TYLenol 325MG TAB) 650 mg Q6H PRN PO MILD PAIN (1-3) 06/14/25 16:30 07/14/25 16:29 Hydromorphone HCl (DiLAUDid 0.5MG INJ) 0.5 mg Q6H PRN IVP SEVERE PAIN (7-10) 06/14/25 16:30 06/19/25 16:29 Lactated Ringer's 1,000 ml @ 100 mls/hr Q10H IV 06/14/25 17:00 07/14/25 16:59 Magnesium Sulfate 50 ml @ 0 mls/hr PROTOCOL IV 06/14/25 19:00 07/14/25 18:59 Ondansetron HCl (zoFRAN 4MG INJ) 4 mg Q6H PRN IVP NAUSEA/VOMITING 06/14/25 16:30 07/14/25 16:29 Piperacillin Sod/ Tazobactam Sod (Zosyn 3.375gm+NS 50ml) 3.375 gm Q8H IVPB 06/14/25 21:00 06/14/25 16:24 DC Piperacillin Sod/ Tazobactam Sod (Zosyn 3.375gm+NS 50ml) 3.375 gm Q8H IVPB 06/15/25 00:30 06/25/25 00:29 Potassium Chloride 100 ml @ 100 mls/hr AD PRN IV POTASSIUM PROTOCOL 06/14/25 16:30 07/14/25 16:29 Potassium Chloride (K-Dur/Klor-Con 20meq) 20 meq AD PRN PO POTASSIUM PROTOCOL 06/14/25 16:30 07/14/25 16:29 Potassium Chloride (KCl 10% Elixir 20meq/15ml) 20 meq AD PRN PO POTASSIUM PROTOCOL 06/14/25 16:30 07/14/25 16:29 DIAGNOSTICS / RADIOLOGY: SERVICE 1305 REASON: NAUSEA WITH INCREASED ILEOSTOMY OUTPUT. ORDERING PHYSICIAN: CECILE PATTEN PROCEDURE: ABD PEL W - CT ABDOMEN/PELVIS W/CONTRAST EXAM: CT Abdomen and Pelvis with IV contrast CLINICAL HISTORY: NAUSEA WITH INCREASED ILEOSTOMY OUTPUT. TECHNIQUE: Axial computed tomography images of the abdomen and pelvis with intravenous contrast. CONTRAST: with intravenous contrast. COMPARISON: April 09, 2025 FINDINGS: LUNG BASES: The lung bases appear clear. No pleural effusions are seen. LIVER: Unremarkable. GALLBLADDER AND BILE DUCTS: The gallbladder appears within normal limits. No radioopaque gallstones are seen. No biliary ductal dilatation is evident. PANCREAS: Unremarkable. SPLEEN: Unremarkable. ADRENAL GLANDS: Unremarkable. KIDNEYS, URETERS, AND BLADDER: The kidneys appear within normal limits. There is no hydronephrosis or hydroureter. No urinary calculi are seen. STOMACH AND BOWEL: Unremarkable appearance of the stomach and bowel. No evidence of bowel obstruction. No evidence suggesting enteritis or colitis. There is underdistention of the transverse colon ascending colon with apparent thickening. 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 APPENDIX: No evidence of acute appendicitis on CT examination. PERITONEUM: No free fluid. No free air. LYMPH NODES: No lymphadenopathy is evident. REPRODUCTIVE: Unremarkable as visualized. VASCULATURE: No evidence of abdominal aortic aneurysm. BONES: No aggressive appearing osseous lesion. No acute osseous pathology evident. IMPRESSION: 1. Thickening of the ascending colon transverse colon which could be related to underdistention versus colitis. 2. Right sided ostomy with parastomal hernia. No evidence for bowel obstruction /[place] DICTATED BY: JUICE MOREIRA MD DATE: 06/14/251614 ELECTRONICALLY SIGNED BY: JUICE MOREIRA MD DATE: 06/14/251614 ASSESSMENT: Sepsis, 2/2 infectious colitis, POA Acute colitis involving the ascending and transverse colon, POA Leukocytosis, POA Significant dehydration, POA Hypokalemia, POA Hypomagnesemia, POA Lactic acidosis secondary to underlying sepsis, POA History of diverting ileostomy, POA History of colovesical fistula status post repair in 04/2025, POA History of diverticulitis/diverticulosis, POA PLAN: Patient will be admitted to cardiac telemetry floor Patient will receive full sepsis bolus of fluid 30 mL/kg and will be started on maintenance IV fluid with LR at 100 mL/hour Patient will be started on renally dosed IV Zosyn Blood cultures, GI PCR panel,stool cultures, C diff panel will be obtained Consultation with GI will be requested, patient's case was discussed with Dr. Del Castillo, appreciate recommendations, we will have GI notify Colorectal Service w/ Dr. Baez about patient's acute hospitalization, patient reports there is plans for patient to undergo reversal of ileostomy next week on Thursday We will keep patient on bowel rest today and we will start patient on a clear liquid diet tomorrow Pain control with IV hydromorphone 0.5 mg q.6 hours PRN Home medications were reconciled and updated once available We will keep patient on GI prophylaxis with Pepcid and DVT prophylaxis with Lovenox All labs will be repeated in the morning We will see how patient progresses next 24-48 hours Plan of care was discussed with patient family at bedside Date of service: 06/14/2025, Mathew Dodd MD Advanced Care Planning: Which of the following were discussed: Hospice care: Yes __ No _X_ Therapeutic options: Yes _X_ No __ Advance directives: Yes X__ No __ Other discussions: Discussed with who?: Patient Voluntary nature of this service was explained to the patient? Yes _x_ No __ Amount of time spent: 20 minutes MATHEW DODD MD Jun 14, 2025 20:24
[2025-06-14] MEDS ORDERED: ZOSYN 3.375GM +NS 50ML IVPB SCH (21:00)
[2025-06-14] MEDS: LACTATED RINGERS 1000ML 1,000 ML IV SCH (21:41)
[2025-06-14] MEDS: 0.9%NACL 1000ML 2,190 ML IV ONE (21:42)
[2025-06-14 21:45] VITALS: O2SAT 96
[2025-06-14] MEDS: FAMOTIDINE 20MG VIAL IV SCH (22:42)
[2025-06-14] MEDS: MAGNESIUM 2GM PREMIX 50ML 50 ML IV SCH (22:42)
[2025-06-14 23:30] VITALS: BP 130/84; PULSE 73; RESP 18; TEMP 98.1
[2025-06-15] VITALS (8 sets, daily range): BP systolic 122–139; BP diastolic 79–93; PULSE 64–87; RESP 16–20; TEMP 97.9–98.3; O2SAT 95–97
[2025-06-15] MEDS: MAG/ALUM/SIMETH 30 ML UDCUP PO ONE (00:27)
[2025-06-15] MEDS: ZOSYN 3.375GM +NS 50ML IVPB SCH (01:13)
[2025-06-15 05:30] LABS: APPEARANCE,URINE CLEAR (CLEAR); GLUCOSE, URINE (UA) NEGATIVE (NEGATIVE); LEUKOCYTE ESTERASE ,URINE NEGATIVE Leu/uL (NEGATIVE); NITRATE,URINE NEGATIVE (NEGATIVE); OCCULT BLOOD,URINE NEGATIVE (NEGATIVE)
[2025-06-15 05:37] LABS: ADD UA MICROSCOPIC NO
[2025-06-15 06:45] LABS: IMMATURE GRANULOCYTE ABSOLUTE 0.03 K/uL (0-1); NUCLEATED RED BLOOD CELLS 0.0 % (0.0-0.19); PLATELET COUNT (AUTO) 220 K/uL (130-400); RED BLOOD CELL COUNT(AUTO) 5.19 MIL/uL (4.50-6.20); RED CELL DISTRIBUTION WIDTH 15.2 % (11.0-15.5); WHITE BLOOD COUNT (AUTO) 8.8 K/uL (4.8-10.8)
[2025-06-15 06:59] LABS: CREATININE 1.1 mg/dL (0.5-1.3); GLOMERULAR FILTR. RATE CALC 85.0 mL/min (>90); GLUCOSE,RANDOM 103.0 mg/dL (70-105); SODIUM SERUM 136.0 mmol/L (136-145); UREA NITROGEN, BLOOD 11.0 mg/dL (7-18)
[2025-06-15] MEDS: DIPHENOXYLATE HCL/ATROPINE 2.5/0.025 MG TAB PO ONE ×2 (07:01→14:46)
[2025-06-15] MEDS: ENOXAPARIN SODIUM 40 MG/0.4 ML SYRINGE SQ SCH (10:03)
[2025-06-15] MEDS: PoTASSium chl 10% ELIXIR 20MEQ 20 MEQ/15 ML UDCUP PO PRN (10:06)
--- NOTE | 2025-06-15 12:21 | NUR ---
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 Pt independent, no DME or in home care services. PCP is Marty Hernandez and uses [facility] for rx needs. Pt denies dc needs, will return home at dc
--- NOTE | 2025-06-15 12:32 | PN ---
[facility] PROGRESS NOTE Date of Service: Jun 15, 2025 Time of Service: 12:29 SUBJECTIVE: 06/15 the patient has been seen and examined at bedside, case discussed with the RN, no acute events overnight. Patient admitted to the PCU secondary to sepsis due to infectious colitis, with CT findings of acute colitis involving the ascending and transverse colon. At the time of my visit the patient is awake, following commands, denies chest pain, shortness shortness for breath, no nausea, no vomiting, no abdominal discomfort. Leukocytosis resolved, WBC today at 8.8. Patient to be downgraded to the medical floor, continue broad-spectrum IV antibiotics with Zosyn IV adjusted to creatinine clearance. Follow GI stool panel. GI consultation requested as the patient reported that there is plan for patient to undergo reversal ileostomy next week on Thursday. Patient already evaluated by GI, diet has been advanced. We will follow a.m. labs. REVIEW OF SYSTEMS CONSTITUTIONAL: Denies fevers, chills, or night sweats. No unintentional weight loss reported. NEUROLOGICAL: Denies headache, amaurosis fugax, motor weakness, sensory deficit, vertigo/spinning sensation, gait abnormalities, or tremors. ENT: No hearing loss, otalgia, otorrhea, rhinitis, rhinorrhea, hoarseness, or sore throat. CARDIOVASCULAR: Denies any exertional angina, dyspnea on exertion, orthopnea, paroxysmal nocturnal dyspnea, palpitations, life-threatening arrhythmias, claudication. PULMONARY: Denies any shortness of breath, cough, phlegm/sputum, hemoptysis, pleuritic chest pain. SLEEP: Denies morning headaches, daytime somnolence or napping. Denies difficulty falling asleep, staying asleep, waking from sleep. Denies knowledge of snoring. GASTROINTESTINAL: Denies any type of dysphagia to either liquids or solids. Denies nausea, vomiting, pyrosis, early satiety, abdominal pain, diarrhea, constipation, or changes in stool consistency or caliber. Denies coffee-ground emesis, hematemesis, hematochezia, or melanotic stools. GENITOURINARY: Denies frequency, urgency, nocturia, hematuria or incontinence (Storage/Irritative symptoms.) Low urinary stream, straining to void, urinary intermittency or hesitancy, splitting of the voiding stream, terminal dribbling. ENDOCRINOLOGIC: Denies polyuria, polydipsia, polyphagia or heat/cold intolerances. HEMATOLOGIC: Denies thrombophilia/previous clots, or coagulopathy/bleeding disorders. ONCOLOGIC: Denies personal history of malignancy. DERMATOLOGIC: Denies rashes or pruritus. PSYCHIATRIC: Denies any suicidal or homicidal ideation. Denies hallucinations. PHYSICAL EXAM GENERAL APPEARANCE: The patient is awake, alert, and oriented, in no acute cardiopulmonary distress. NEUROLOGICAL: Cranial nerves II-XII grossly intact. Motor is 5/5 in bilateral upper and lower extremities proximal to distal. No sensory deficits. HEENT: Face is symmetric. Pupils are equal and reactive. Extraocular movements are intact. NECK: Supple. No JVD. No thyromegaly. No submental, submandibular, pre- /postauricular, occipital or supraclavicular lymphadenopathy. CHEST: Normal chest expansion. No Telemetry. LUNGS: Absence of any rales, rhonchi or any wheezing. CARDIOVASCULAR: Regular. S1 and S2 normal. No appreciable rubs, murmurs or gallops. ABDOMEN: Soft, nondistended, ileostomy site is productive, mild tenderness to palpation of the lower abdominal quadrant : Deferred. No Lee. EXTREMITIES: Non-edematous and not cyanotic. No clubbing. Good capillary refill. SKIN: No skin breakdown. Vital Signs (last 8hr) Date Time Temp Pulse Resp B/P (MAP) Pulse Ox O2 Delivery O2 Flow Rate FiO2 06/15/25 12: 97.9 77 16 135/79 97 Room Air 06/15/25 07:47 98.1 64 16 122/82 97 Room Air LABS: Laboratory: Test 06/15/25 06:39 06/15/25 02:20 06/14/25 18:57 06/14/25 16:45 Range/Units White Blood Count 8.8 # 4.8-10.8 K/uL Red Blood Count 5.19 4.50-6.20 MIL/uL Hemoglobin 15.7 14.0-18.0 g/dL Hematocrit 46.3 42-54 % Mean Corpuscular Volume 89.2 79-99 fL Mean Corpuscular Hemoglobin 30.3 27.0-33.0 pg Mean Corpuscular Hemoglobin Concent 33.9 32.0-36.0 g/dL Red Cell Distribution Width 15.2 11.0-15.5 % Platelet Count 220 130-400 K/uL Mean Platelet Volume 8.5 7.5-10.5 fL Immature Granulocyte % (Auto) 0.3 0-1 % Neutrophils (%) (Auto) 68.3 40.0-77.0 % Lymphocytes (%) (Auto) 12.1 L 21.0-51.0 % Monocytes (%) (Auto) 7.0 3.0-13.0 % Eosinophils (%) (Auto) 12.1 H 0.0-8.0 % Basophils (%) (Auto) 0.2 0.0-5.0 % Neutrophils # (Auto) 6.0 1.8-7.7 K/uL Lymphocytes # (Auto) 1.1 1.0-4.8 K/uL Monocytes # (Auto) 0.6 0.1-1.0 K/uL Eosinophils # (Auto) 1.06 H 0.00-0.70 K/uL Basophils # (Auto) 0.02 0.00-0.20 K/uL Absolute Immature Granulocyte (auto 0.03 0-1 K/uL Nucleated Red Blood Cells 0.0 0.0-0.19 % Sodium Level 136 136-145 mmol/L Potassium Level 3.8 3.5-5.1 mmol/L Chloride Level 99 L 101-111 mmol/L Carbon Dioxide Level 33 H 21-32 mmol/L Blood Urea Nitrogen 11 7-18 mg/dL Creatinine 1.1 0.5-1.3 mg/dL Glomerular Filtration Rate Calc 85 >90 mL/min Random Glucose 103 70-105 mg/dL Total Calcium 8.0 L 8.5-10.1 mg/dL Magnesium Level 2.40 1.80-2.40 mg/dL Urine Color COLORLESS YELLOW Urine Appearance CLEAR CLEAR Urine pH 5.5 5.0-8.0 Urine Specific [place] 1.009 1.001-1.031 Urine Protein NEGATIVE NEGATIVE mg/dL Urine Glucose (UA) NEGATIVE NEGATIVE mg/dL Urine Ketones NEGATIVE NEGATIVE mg/dL Urine Occult Blood NEGATIVE NEGATIVE Urine Nitrate NEGATIVE NEGATIVE Urine Bilirubin NEGATIVE NEGATIVE mg/dL Urine Urobilinogen 0.2 0.2-1.0 mg/dL Urine Leukocyte Esterase NEGATIVE NEGATIVE [place]/uL Lactic Acid Level 1.6 0.8-2.5 mmol/L C. difficile Antigen and Toxins A,B See comments NEG Test 12/3/25 14:26 06/14/25 13:20 Range/Units Total Bilirubin 0.9 0.2-1.0 mg/dL Direct Bilirubin 0.1 0.0-0.3 mg/dL Aspartate Amino Transf (AST/SGOT) 19 10-37 U/L Alanine Aminotransferase (ALT/SGPT) 55 12-78 U/L Alkaline Phosphatase 105 50-136 U/L Lactate Dehydrogenase 136 81-234 U/L C-Reactive Protein, Quantitative 8.70 H 0.5-3.0 mg/L Total Protein 6.8 6.0-8.3 g/dL Albumin 3.4 L 3.5-5.0 g/dL Procalcitonin < 0.05 L 0.05-0.5 ng/mL White Cell Morphology Comment See comments Erythrocyte Sedimentation Rate 22 H 0-15 MM/HR Lipase 69 16-77 U/L Current Medications Medications (Trade) Dose Ordered Sig/Armando Route PRN Reason Start Time Stop Time Status Last Admin Dose Admin Acetaminophen (TYLenol 325MG TAB) 650 mg Q6H PRN PO MILD PAIN (1-3) 06/14/25 16:30 07/14/25 16:29 06/15/25 10:09 650 MG Enoxaparin Sodium (Lovenox) 40 mg DAILY SQ 06/15/25 09:00 07/15/25 08:59 06/15/25 10:03 40 MG Famotidine (Pepcid 20mg Vial) 20 mg BID IV 06/14/25 21:00 07/14/25 20:59 06/15/25 10:06 20 MG Hydromorphone HCl (DiLAUDid 0.5MG INJ) 0.5 mg Q6H PRN IVP SEVERE PAIN (7-10) 06/14/25 16:30 06/19/25 16:29 Lactated Ringer's 1,000 ml @ 100 mls/hr Q10H IV 06/14/25 17:00 07/14/25 16:59 06/14/25 21:41 100 MLS/HR Magnesium Sulfate 50 ml @ 0 mls/hr PROTOCOL IV 06/14/25 19:00 07/14/25 18:59 06/15/25 02:01 25 MLS/HR Ondansetron HCl (zoFRAN 4MG INJ) 4 mg Q6H PRN IVP NAUSEA/VOMITING 06/14/25 16:30 07/14/25 16:29 06/14/25 21:44 4 MG Piperacillin Sod/ Tazobactam Sod (Zosyn 3.375gm+NS 50ml) 3.375 gm Q8H IVPB 06/14/25 21:00 06/14/25 16:24 DC Piperacillin Sod/ Tazobactam Sod (Zosyn 3.375gm+NS 50ml) 3.375 gm Q8H IVPB 06/15/25 00:30 06/25/25 00:29 06/15/25 10:02 3.375 GM Potassium Chloride 100 ml @ 100 mls/hr AD PRN IV POTASSIUM PROTOCOL 06/14/25 16:30 07/14/25 16:29 Potassium Chloride (K-Dur/Klor-Con 20meq) 20 meq AD PRN PO POTASSIUM PROTOCOL 06/14/25 16:30 07/14/25 16:29 Potassium Chloride (KCl 10% Elixir 20meq/15ml) 20 meq AD PRN PO POTASSIUM PROTOCOL 06/14/25 16:30 07/14/25 16:29 06/15/25 10:06 20 MEQ DIAGNOSTICS / RADIOLOGY: [ ] ASSESSMENT: Sepsis, 2/2 infectious colitis, POA Acute colitis involving the ascending and transverse colon, POA Leukocytosis, POA Significant dehydration, POA Hypokalemia, POA Hypomagnesemia, POA Lactic acidosis secondary to underlying sepsis, POA History of diverting ileostomy, POA History of colovesical fistula status post repair in 04/2025, POA History of diverticulitis/diverticulosis, POA PLAN: the patient has been seen and examined at bedside, case discussed with the RN, no acute events overnight. Patient admitted to the PCU secondary to sepsis due to infectious colitis, with CT findings of acute colitis involving the ascending and transverse colon. At the time of my visit the patient is awake, following commands, denies chest pain, shortness shortness for breath, no nausea, no vom iting, no abdominal discomfort. Leukocytosis resolved, WBC today at 8.8. Patient to be downgraded to the medical floor, continue broad-spectrum IV antibiotics with Zosyn IV adjusted to creatinine clearance. Follow GI stool panel. GI consultation requested as the patient reported that there is plan for patient to undergo reversal ileostomy next week on Thursday. Patient already e valuated by GI, diet has been advanced. We will follow a.m. labs. NEURO: Minimize central acting medications as possible. Fall Precautions. Well lighted room through the day and minimize interruptions through the night to prevent acute delirium. PULMONARY: Supplemental 02 as needed BiPAP as necessary, for respiratory distress Titrate Fio2 to keep Spo2 > or = 90% DuoNebs and CPT as needed IS hourly while awake for pulmonary hygiene prn Out of bed to chair as tolerated Maintain aspiration precautions at all times CARDIOVASCULAR: Follow hemodynamics. Vital signs per facility protocol GI & NUTRITION: Continue nutritional support Aspirations precautions Prokinetic agents and laxatives as needed KIDNEYS & ELECTROLYTES: Strict monitoring of intake and output Daily weights Avoid nephrotoxic agents Monitor electrolytes and replace as needed Goal urine output of 30mL/hr or 0.5mL/kg/hr Medications to be dosed according to renal function. Avoid contrast if possible ENDOCRINE: Maintain blood glucose between 100-180 at all times. Insulin sliding scale for blood glucose management Hypoglycemia and hyperglycemia protocol in place INFECTIOUS DISEASE: Trend temperature, WBC and procalcitonin level Follow cultures, deescalate antibiotics as soon as possible. Panculture if new onset fever HEMATOLOGY & COAGULATION: Monitor H&H. Keep Hgb > 7 Transfuse 1 unit of PRBC for Hgb < 7 Transfuse 1 pack of platelets of platelets < 20, 000 Watch for any signs and symptoms of bleeding SKIN: Pressure ulcer prevention per facility protocol Specialty mattress as needed ORTHO/REHAB Continue PT/OT PRN: MEDICATIONS Tylenol 650 mg po every 4 hrs for fever zofran 4 mg IV every 6 hrs for n/v Hydralazine 5 mg IV every 4 hrs systolic pressure > 160 bowel regiment: lactulose 20 gm PO BID PRN constipation Supportive measures: Continue GI and DVT prophylaxis Disposition: Pending improvement in clinical condition All questions answered time spent: > 35 min FRANCISCO DELGADO MD Jun 15, 2025 12:32
--- NOTE | 2025-06-15 16:00 | NUR ---
SPEECH TRIGGER COMPLETED / DEHYDRATION Pt IS A 44 Y.O. MALE ADMITTED SECONDARY TO SEPSIS, COLITIS, LACTIC ACIDOSIS, AND DEHYDRATION. Pt HAS A PAST MEDICAL HISTORY SIGNIFICANT FOR DIVERTICULOSIS AND ADHD. Pt CURRENTLY ON GI SOFT/BLAND DIET (REGULAR TEXTURE AND THIN LIQUIDS). PER NURSE LEE ANN, Pt TOLERATING DIET WITH NO OVERT S/S OF ASPIRATION. PLEASE REQUEST SPEECH THERAPY SERVICES FOR SKILLED BEDSIDE SWALLOW EVALUATION IF Pt PRESENTS WITH +S/S OF ASPIRATION SUCH COUGH RESPONSE, THROAT CLEAR, OR WET VOCAL QUALITY DURING ORAL INTAKE. ALL QUESTIONS ANSWERED AT THIS TIME. Addendum: 06/15/[address] JAVIER TATE Amended: Links added.
--- NOTE | 2025-06-15 16:55 | PN ---
GASTROENTEROLOGY PROGRESS NOTE Date of Visit: Jun 15, 2025 Time of Visit: 16:55 Events / Notes: [ ] Review of Systems: CONSTITUTIONAL: No malaise or change in sensation of wellbeing. ENMT: No rhinorrhea, otorrhea, sinus pain, ear ache. CARDIOVASCULAR: No angina, palpitations, orthopnea or paroxysmal dyspnea. RESPIRATORY: No SOB. GASTROINTESTINAL: No abdominal pain, nausea, vomiting, diarrhea, hematemesis, melena or change in the patient's habitual bowel movements consistency/number. GENITOURINARY: No dysuria, hematuria or change in bladder continence. MUSCULOSKELETAL: No new muscle pain or decrease in muscular strength. No new joint swelling, redness or tenderness. SKIN: No new rash. Physical Exam: GEN: Awake, alert, oriented in person, time and place, and in no acute distress. HEENT: No sinus tenderness. Tympanic membranes were not examined. No rhinorrhea. Oral pharyngeal mucosa is pink, moist and within normal limits. Neck is supple with no cervical lymphadenopathy, thyromegaly or JVD. CHEST: Inspection, palpation and percussion of the chest were unremarkable. Lung auscultation revealed normal breath sounds bilaterally. CARDIAC: PMI is within normal limits. Heart sounds are regular. Normal S1, S2. No gallop or murmur. ABD: Soft, non-tender and not distended. No peritoneal signs on palpation. No organomegaly. Normal bowel sounds. EXT: No cyanosis or clubbing. No edema. SKIN: Intact. No rashes. JOINTS: No evidence of synovitis or acute arthritis. NEURO: Alert and oriented to name, place and person. Cranial nerve examination is unremarkable. No focal motor deficits. Normal speech. Gait is normal. Strength is normal. Vital Signs (last 8hr) Date Time Temp Pulse Resp B/P (MAP) Pulse Ox O2 Delivery O2 Flow Rate FiO2 06/15/25 16:00 98.1 87 16 139/93 98 Room Air 06/15/25 12: 97.9 77 16 135/79 97 Room Air Laboratory: [ ] Laboratory: Test 06/15/25 06:39 06/15/25 02:20 06/14/25 18:57 06/14/25 16:45 Range/Units White Blood Count 8.8 # 4.8-10.8 K/uL Red Blood Count 5.19 4.50-6.20 MIL/uL Hemoglobin 15.7 14.0-18.0 g/dL Hematocrit 46.3 42-54 % Mean Corpuscular Volume 89.2 79-99 fL Mean Corpuscular Hemoglobin 30.3 27.0-33.0 pg Mean Corpuscular Hemoglobin Concent 33.9 32.0-36.0 g/dL Red Cell Distribution Width 15.2 11.0-15.5 % Platelet Count 220 130-400 K/uL Mean Platelet Volume 8.5 7.5-10.5 fL Immature Granulocyte % (Auto) 0.3 0-1 % Neutrophils (%) (Auto) 68.3 40.0-77.0 % Lymphocytes (%) (Auto) 12.1 L 21.0-51.0 % Monocytes (%) (Auto) 7.0 3.0-13.0 % Eosinophils (%) (Auto) 12.1 H 0.0-8.0 % Basophils (%) (Auto) 0.2 0.0-5.0 % Neutrophils # (Auto) 6.0 1.8-7.7 K/uL Lymphocytes # (Auto) 1.1 1.0-4.8 K/uL Monocytes # (Auto) 0.6 0.1-1.0 K/uL Eosinophils # (Auto) 1.06 H 0.00-0.70 K/uL Basophils # (Auto) 0.02 0.00-0.20 K/uL Absolute Immature Granulocyte (auto 0.03 0-1 K/uL Nucleated Red Blood Cells 0.0 0.0-0.19 % Sodium Level 136 136-145 mmol/L Potassium Level 3.8 3.5-5.1 mmol/L Chloride Level 99 L 101-111 mmol/L Carbon Dioxide Level 33 H 21-32 mmol/L Blood Urea Nitrogen 11 7-18 mg/dL Creatinine 1.1 0.5-1.3 mg/dL Glomerular Filtration Rate Calc 85 >90 mL/min Random Glucose 103 70-105 mg/dL Total Calcium 8.0 L 8.5-10.1 mg/dL Magnesium Level 2.40 1.80-2.40 mg/dL Urine Color COLORLESS YELLOW Urine Appearance CLEAR CLEAR Urine pH 5.5 5.0-8.0 Urine Specific [place] 1.009 1.001-1.031 Urine Protein NEGATIVE NEGATIVE mg/dL Urine Glucose (UA) NEGATIVE NEGATIVE mg/dL Urine Ketones NEGATIVE NEGATIVE mg/dL Urine Occult Blood NEGATIVE NEGATIVE Urine Nitrate NEGATIVE NEGATIVE Urine Bilirubin NEGATIVE NEGATIVE mg/dL Urine Urobilinogen 0.2 0.2-1.0 mg/dL Urine Leukocyte Esterase NEGATIVE NEGATIVE Isabel[place]/uL Lactic Acid Level 1.6 0.8-2.5 mmol/L C. difficile Antigen and Toxins A,B See comments NEG Test 06/14/25 14:26 06/14/25 13:20 Range/Units Total Bilirubin 0.9 0.2-1.0 mg/dL Direct Bilirubin 0.1 0.0-0.3 mg/dL Aspartate Amino Transf (AST/SGOT) 19 10-37 U/L Alanine Aminotransferase (ALT/SGPT) 55 12-78 U/L Alkaline Phosphatase 105 50-136 U/L Lactate Dehydrogenase 136 81-234 U/L C-Reactive Protein, Quantitative 8.70 H 0.5-3.0 mg/L Total Protein 6.8 6.0-8.3 g/dL Albumin 3.4 L 3.5-5.0 g/dL Procalcitonin < 0.05 L 0.05-0.5 ng/mL White Cell Morphology Comment See comments Erythrocyte Sedimentation Rate 22 H 0-15 MM/HR Lipase 69 16-77 U/L Current Medications Medications (Trade) Dose Ordered Sig/Armando Route PRN Reason Start Time Stop Time Status Last Admin Dose Admin Acetaminophen (TYLenol 325MG TAB) 650 mg Q6H PRN PO MILD PAIN (1-3) 06/14/25 16:30 07/14/25 16:29 06/15/25 10:09 650 MG Enoxaparin Sodium (Lovenox) 40 mg DAILY SQ 06/15/25 09:00 07/15/25 08:59 06/15/25 10:03 40 MG Famotidine (Pepcid 20mg Vial) 20 mg BID IV 06/14/25 21:00 07/14/25 20:59 06/15/25 10:06 20 MG Hydromorphone HCl (DiLAUDid 0.5MG INJ) 0.5 mg Q6H PRN IVP SEVERE PAIN (7-10) 06/14/25 16:30 06/19/25 16:29 Lactated Ringer's 1,000 ml @ 100 mls/hr Q10H IV 06/14/25 17:00 07/14/25 16:59 06/15/25 14:39 100 MLS/HR Magnesium Sulfate 50 ml @ 0 mls/hr PROTOCOL IV 06/14/25 19:00 07/14/25 18:59 06/15/25 02:01 25 MLS/HR Ondansetron HCl (zoFRAN 4MG INJ) 4 mg Q6H PRN IVP NAUSEA/VOMITING 06/14/25 16:30 07/14/25 16:29 06/15/25 14:24 4 MG Piperacillin Sod/ Tazobactam Sod (Zosyn 3.375gm+NS 50ml) 3.375 gm Q8H IVPB 06/14/25 21:00 06/14/25 16:24 DC Piperacillin Sod/ Tazobactam Sod (Zosyn 3.375gm+NS 50ml) 3.375 gm Q8H IVPB 06/15/25 00:30 06/25/25 00:29 06/15/25 10:02 3.375 GM Potassium Chloride 100 ml @ 100 mls/hr AD PRN IV POTASSIUM PROTOCOL 06/14/25 16:30 07/14/25 16:29 Potassium Chloride (K-Dur/Klor-Con 20meq) 20 meq AD PRN PO POTASSIUM PROTOCOL 06/14/25 16:30 07/14/25 16:29 Potassium Chloride (KCl 10% Elixir 20meq/15ml) 20 meq AD PRN PO POTASSIUM PROTOCOL 06/14/25 16:30 07/14/25 16:29 06/15/25 10:06 20 MEQ Diagnostics / Radiology: [COPY/PASTE HERE IF NO REPORTS PLEASE DELETE SECTION] Assessment: Dehydration Ileostomy status Plan: IVF hydration No colorectal intervention at this time JADON MASSEY BASKET GRADER Jun 15, 2025 16:55
[2025-06-15] MEDS: LACTOBACILLUS RHAMNOSUS GG 1 EACH CAP.SPRINK PO SCH (20:29)
[2025-06-15] MEDS: DIPHENOXYLATE HCL/ATROPINE 2.5/0.025 MG TAB PO SCH (20:29)
[2025-06-15] MEDS: PSYLLIUM SEED 1 EACH PACKET PO SCH (20:30)
[2025-06-16 03:10] VITALS: BP 117/75; PULSE 76; RESP 18; TEMP 97.6
[2025-06-16 03:39] LABS: NUCLEATED RED BLOOD CELLS 0.0 % (0.0-0.19); PLATELET COUNT (AUTO) 234.0 K/uL (130-400); RED BLOOD CELL COUNT(AUTO) 4.85 MIL/uL (4.50-6.20); RED CELL DISTRIBUTION WIDTH 14.7 % (11.0-15.5); WHITE BLOOD COUNT (AUTO) 6.6 K/uL (4.8-10.8)
[2025-06-16 03:55] LABS: ASPARTATE AMINOTRANSFERASE 17.0 U/L (10-37); CREATININE 1.0 mg/dL (0.5-1.3); GLOMERULAR FILTR. RATE CALC 96.0 mL/min (>90); GLUCOSE,RANDOM 88.0 mg/dL (70-105); SODIUM SERUM 138.0 mmol/L (136-145); TOTAL PROTEIN, SERUM 6.6 g/dL (6.0-8.3); UREA NITROGEN, BLOOD 11.0 mg/dL (7-18)
[2025-06-16 07:48] VITALS: BP 133/85; PULSE 70; RESP 18; TEMP 97.9
[2025-06-16 08:00] VITALS: O2SAT 100
--- NOTE | 2025-06-16 11:18 | PN ---
[facility] PROGRESS NOTE Date of Service: Jun 16, 2025 Time of Service: 11:16 SUBJECTIVE: 06/15 the patient has been seen and examined at bedside, case discussed with the RN, no acute events overnight. Patient admitted to the PCU secondary to sepsis due to infectious colitis, with CT findings of acute colitis involving the ascending and transverse colon. At the time of my visit the patient is awake, following commands, denies chest pain, shortness shortness for breath, no nausea, no vomiting, no abdominal discomfort. Leukocytosis resolved, WBC today at 8.8. Patient to be downgraded to the medical floor, continue broad-spectrum IV antibiotics with Zosyn IV adjusted to creatinine clearance. Follow GI stool panel. GI consultation requested as the patient reported that there is plan for patient to undergo reversal ileostomy next week on Thursday. Patient already evaluated by GI, diet has been advanced. We will follow a.m. labs. REVIEW OF SYSTEMS CONSTITUTIONAL: Denies fevers, chills, or night sweats. No unintentional weight loss reported. NEUROLOGICAL: Denies headache, amaurosis fugax, motor weakness, sensory deficit, vertigo/spinning sensation, gait abnormalities, or tremors. ENT: No hearing loss, otalgia, otorrhea, rhinitis, rhinorrhea, hoarseness, or sore throat. CARDIOVASCULAR: Denies any exertional angina, dyspnea on exertion, orthopnea, paroxysmal nocturnal dyspnea, palpitations, life-threatening arrhythmias, claudication. PULMONARY: Denies any shortness of breath, cough, phlegm/sputum, hemoptysis, pleuritic chest pain. SLEEP: Denies morning headaches, daytime somnolence or napping. Denies difficulty falling asleep, staying asleep, waking from sleep. Denies knowledge of snoring. GASTROINTESTINAL: Denies any type of dysphagia to either liquids or solids. Denies nausea, vomiting, pyrosis, early satiety, abdominal pain, diarrhea, constipation, or changes in stool consistency or caliber. Denies coffee-ground emesis, hematemesis, hematochezia, or melanotic stools. GENITOURINARY: Denies frequency, urgency, nocturia, hematuria or incontinence (Storage/Irritative symptoms.) Low urinary stream, straining to void, urinary intermittency or hesitancy, splitting of the voiding stream, terminal dribbling. ENDOCRINOLOGIC: Denies polyuria, polydipsia, polyphagia or heat/cold intolerances. HEMATOLOGIC: Denies thrombophilia/previous clots, or coagulopathy/bleeding disorders. ONCOLOGIC: Denies personal history of malignancy. DERMATOLOGIC: Denies rashes or pruritus. PSYCHIATRIC: Denies any suicidal or homicidal ideation. Denies hallucinations. PHYSICAL EXAM GENERAL APPEARANCE: The patient is awake, alert, and oriented, in no acute cardiopulmonary distress. NEUROLOGICAL: Cranial nerves II-XII grossly intact. Motor is 5/5 in bilateral upper and lower extremities proximal to distal. No sensory deficits. HEENT: Face is symmetric. Pupils are equal and reactive. Extraocular movements are intact. NECK: Supple. No JVD. No thyromegaly. No submental, submandibular, pre- /postauricular, occipital or supraclavicular lymphadenopathy. CHEST: Normal chest expansion. No Telemetry. LUNGS: Absence of any rales, rhonchi or any wheezing. CARDIOVASCULAR: Regular. S1 and S2 normal. No appreciable rubs, murmurs or gallops. ABDOMEN: Soft, nondistended, ileostomy site is productive, mild tenderness to palpation of the lower abdominal quadrant : Deferred. No Lee. EXTREMITIES: Non-edematous and not cyanotic. No clubbing. Good capillary refill. SKIN: No skin breakdown. Vital Signs (last 8hr) Date Time Temp Pulse Resp B/P (MAP) Pulse Ox O2 Delivery O2 Flow Rate FiO2 06/16/25 08:00 100 Room Air* 0 21 06/16/25 07:48 97.9 70 18 133/85 100 Room Air LABS: Laboratory: Test 06/16/25 03:28 06/15/25 06:39 06/15/25 02:20 06/14/25 18:57 Range/Units White Blood Count 6.6 4.8-10.8 K/uL Red Blood Count 4.85 4.50-6.20 MIL/uL Hemoglobin 14.7 14.0-18.0 g/dL Hematocrit 42.3 42-54 % Mean Corpuscular Volume 87.2 79-99 fL Mean Corpuscular Hemoglobin 30.3 27.0-33.0 pg Mean Corpuscular Hemoglobin Concent 34.8 32.0-36.0 g/dL Red Cell Distribution Width 14.7 11.0-15.5 % Platelet Count 234 130-400 K/uL Mean Platelet Volume 8.6 7.5-10.5 fL Nucleated Red Blood Cells 0.0 0.0-0.19 % Sodium Level 138 136-145 mmol/L Potassium Level 3.6 3.5-5.1 mmol/L Chloride Level 100 L 101-111 mmol/L Carbon Dioxide Level 31 21-32 mmol/L Blood Urea Nitrogen 11 7-18 mg/dL Creatinine 1.0 0.5-1.3 mg/dL Glomerular Filtration Rate Calc 96 >90 mL/min Random Glucose 88 70-105 mg/dL Total Calcium 8.0 L 8.5-10.1 mg/dL Magnesium Level 2.10 1.80-2.40 mg/dL Total Bilirubin 0.6 0.2-1.0 mg/dL Aspartate Amino Transf (AST/SGOT) 17 10-37 U/L Alanine Aminotransferase (ALT/SGPT) 39 12-78 U/L Alkaline Phosphatase 105 50-136 U/L Total Protein 6.6 6.0-8.3 g/dL Albumin 3.3 L 3.5-5.0 g/dL Immature Granulocyte % (Auto) 0.3 0-1 % Neutrophils (%) (Auto) 68.3 40.0-77.0 % Lymphocytes (%) (Auto) 12.1 L 21.0-51.0 % Monocytes (%) (Auto) 7.0 3.0-13.0 % Eosinophils (%) (Auto) 12.1 H 0.0-8.0 % Basophils (%) (Auto) 0.2 0.0-5.0 % Neutrophils # (Auto) 6.0 1.8-7.7 K/uL Lymphocytes # (Auto) 1.1 1.0-4.8 K/uL Monocytes # (Auto) 0.6 0.1-1.0 K/uL Eosinophils # (Auto) 1.06 H 0.00-0.70 K/uL Basophils # (Auto) 0.02 0.00-0.20 K/uL Absolute Immature Granulocyte (auto 0.03 0-1 K/uL Urine Color COLORLESS YELLOW Urine Appearance CLEAR CLEAR Urine pH 5.5 5.0-8.0 Urine Specific [place] 1.009 1.001-1.031 Urine Protein NEGATIVE NEGATIVE mg/dL Urine Glucose (UA) NEGATIVE NEGATIVE mg/dL Urine Ketones NEGATIVE NEGATIVE mg/dL Urine Occult Blood NEGATIVE NEGATIVE Urine Nitrate NEGATIVE NEGATIVE Urine Bilirubin NEGATIVE NEGATIVE mg/dL Urine Urobilinogen 0.2 0.2-1.0 mg/dL Urine Leukocyte Esterase NEGATIVE NEGATIVE Isabela/uL Lactic Acid Level 1.6 0.8-2.5 mmol/L Test 06/14/25 16:45 06/14/25 14:26 06/14/25 13:20 Range/Units C. difficile Antigen and Toxins A,B See comments NEG Direct Bilirubin 0.1 0.0-0.3 mg/dL Lactate Dehydrogenase 136 81-234 U/L C-Reactive Protein, Quantitative 8.70 H 0.5-3.0 mg/L Procalcitonin < 0.05 L 0.05-0.5 ng/mL White Cell Morphology Comment See comments Erythrocyte Sedimentation Rate 22 H 0-15 MM/HR Lipase 69 16-77 U/L Current Medications Medications (Trade) Dose Ordered Sig/Amrando Route PRN Reason Start Time Stop Time Status Last Admin Dose Admin Acetaminophen (TYLenol 325MG TAB) 650 mg Q6H PRN PO MILD PAIN (1-3) 06/14/25 16:30 07/14/25 16:29 06/15/25 20:31 650 MG Cholestyramine Resin (Cholestyramine Packet) 4 gm TIDAC PO 06/16/25 11:30 07/16/25 11:29 Diphenoxylate HCl/ Atropine (Lomotil) 2 tab TID PO 06/15/25 21:00 07/15/25 20:59 06/16/25 08:52 2 TAB Enoxaparin Sodium (Lovenox) 40 mg DAILY SQ 06/15/25 09:00 07/15/25 08:59 06/16/25 08:52 40 MG Famotidine (Pepcid 20mg Vial) 20 mg BID IV 06/14/25 21:00 07/14/25 20:59 06/16/25 08:53 20 MG Hydromorphone HCl (DiLAUDid 0.5MG INJ) 0.5 mg Q6H PRN IVP SEVERE PAIN (7-10) 06/14/25 16:30 06/19/25 16:29 Lactated Ringer's 1,000 ml @ 100 mls/hr Q10H IV 06/14/25 17:00 1/2/26 16:59 06/16/25 08:53 100 MLS/HR Lactobacillus Rhamnosus ([facility] [employer]) 1 each BID PO 06/15/25 21:00 07/15/25 20:59 06/16/25 08:53 1 EACH Magnesium Sulfate 50 ml @ 0 mls/hr PROTOCOL IV 06/14/25 19:00 07/14/25 18:59 06/15/25 02:01 25 MLS/HR Ondansetron HCl (zoFRAN 4MG INJ) 4 mg Q6H PRN IVP NAUSEA/VOMITING 06/14/25 16:30 07/14/25 16:29 06/15/25 14:24 4 MG Piperacillin Sod/ Tazobactam Sod (Zosyn 3.375gm+NS 50ml) 3.375 gm Q8H IVPB 06/14/25 21:00 06/14/25 16:24 DC Piperacillin Sod/ Tazobactam Sod (Zosyn 3.375gm+NS 50ml) 3.375 gm Q8H IVPB 06/15/25 00:30 06/25/25 00:29 06/16/25 08:53 3.375 GM Potassium Chloride 100 ml @ 100 mls/hr AD PRN IV POTASSIUM PROTOCOL 06/14/25 16:30 07/14/25 16:29 Potassium Chloride (K-Dur/Klor-Con 20meq) 20 meq AD PRN PO POTASSIUM PROTOCOL 06/14/25 16:30 07/14/25 16:29 Potassium Chloride (KCl 10% Elixir 20meq/15ml) 20 meq AD PRN PO POTASSIUM PROTOCOL 06/14/25 16:30 07/14/25 16:29 06/16/25 08:52 20 MEQ Psyllium Hydrophilic Mucilloid (Metamucil) 1 tbs BID PO 06/15/25 21:00 07/15/25 20:59 06/16/25 08:52 1 TBS DIAGNOSTICS / RADIOLOGY: [ ] ASSESSMENT: Sepsis, 2/2 infectious colitis, POA Acute colitis involving the ascending and transverse colon, POA Leukocytosis, POA Significant dehydration, POA Hypokalemia, POA Hypomagnesemia, POA Lactic acidosis secondary to underlying sepsis, POA History of diverting ileostomy, POA History of colovesical fistula status post repair in 04/2025, POA History of diverticulitis/diverticulosis, POA PLAN: the patient has been seen and examined at bedside, case discussed with the RN, no acute events overnight. Patient admitted to the PCU secondary to sepsis due to infectious colitis, with CT findings of acute colitis involving the ascending and transverse colon. At the time of my visit the patient is awake, following commands, denies chest pain, shortness shortness for breath, no nausea, no vomiting, no abdominal discomfort. Leukocytosis resolved, WBC today at 8.8. Patient to be downgraded to the medical floor, continue broad-spectrum IV antibiotics with Zosyn IV adjusted to creatinine clearance. Follow GI stool panel. GI consultation requested as the patient reported that there is plan for patient to undergo reversal ileostomy next week on Thursday. Patient already evaluated by GI, diet has been advanced. We will follow a.m. labs. NEURO: Minimize central acting medications as possible. Fall Precautions. Well lighted room through the day and minimize interruptions through the night to prevent acute delirium. PULMONARY: Supplemental 02 as needed BiPAP as necessary, for respiratory distress Titrate Fio2 to keep Spo2 > or = 90% DuoNebs and CPT as needed IS hourly while awake for pulmonary hygiene prn Out of bed to chair as tolerated Maintain aspiration precautions at all times CARDIOVASCULAR: Follow hemodynamics. Vital signs per facility protocol GI & NUTRITION: Continue nutritional support Aspirations precautions Prokinetic agents and laxatives as needed KIDNEYS & ELECTROLYTES: Strict monitoring of intake and output Daily weights Avoid nephrotoxic agents Monitor electrolytes and replace as needed Goal urine output of 30mL/hr or 0.5mL/kg/hr Medications to be dosed according to renal function. Avoid contrast if possible ENDOCRINE: Maintain blood glucose between 100-180 at all times. Insulin sliding scale for blood glucose management Hypoglycemia and hyperglycemia protocol in place INFECTIOUS DISEASE: Trend temperature, WBC and procalcitonin level Follow cultures, deescalate antibiotics as soon as possible. Panculture if new onset fever HEMATOLOGY & COAGULATION: Monitor H&H. Keep Hgb > 7 Transfuse 1 unit of PRBC for Hgb < 7 Transfuse 1 pack of platelets of platelets < 20, 000 Watch for any signs and symptoms of bleeding SKIN: Pressure ulcer prevention per facility protocol Specialty mattress as needed ORTHO/REHAB Continue PT/OT PRN: MEDICATIONS Tylenol 650 mg po every 4 hrs for fever zofran 4 mg IV every 6 hrs for n/v Hydralazine 5 mg IV every 4 hrs systolic pressure > 160 bowel regiment: lactulose 20 gm PO BID PRN constipation Supportive measures: Continue GI and DVT prophylaxis Disposition: Pending improvement in clinical condition All questions answered time spent: > 35 min ATTESTATION BY PHYSICIAN I have seen and examined the patient. I reviewed the documentation, medical decision making, and treatment plan as noted by the resident physician above. I agree with the findings and plan of care. YEIMY LARA MD, SUNIL MD Jun 16, 2025 11:18
[2025-06-16 11:44] VITALS: BP 128/79; PULSE 79; RESP 18; TEMP 97.6
[2025-06-16] MEDS: CHOLESTYRAMINE PACKET 4 GM PACKET PO SCH (11:44)
[2025-06-16] MEDS ORDERED: CHOL4POW4 PO (14:25)
[2025-06-16] MEDS ORDERED: LACT1CAP79 PO (14:25)
[2025-06-16] MEDS ORDERED: AMOX-426 PO (14:25)
--- NOTE | 2025-06-16 15:02 | DS ---
Discharge Summary Assessment/Plan: ASSESSMENT: Sepsis, 2/2 infectious colitis, POA Acute colitis involving the ascending and transverse colon, POA Leukocytosis, POA Significant dehydration, POA Hypokalemia, POA Hypomagnesemia, POA Lactic acidosis secondary to underlying sepsis, POA History of diverting ileostomy, POA History of colovesical fistula status post repair in 04/2025, POA History of diverticulitis/diverticulosis, POA PLAN: the patient has been seen and examined at bedside, case discussed with the RN, no acute events overnight. Patient admitted to the PCU secondary to sepsis due to infectious colitis, with CT findings of acute colitis involving the ascending and transverse colon. At the time of my visit the patient is awake, following commands, denies chest pain, shortness shortness for breath, no nausea, no v omiting, no abdominal discomfort. Leukocytosis resolved, WBC today at 8.8. Patient to be downgraded to the medical floor, continue broad-spectrum IV antibiotics with Zosyn IV adjusted to creatinine clearance. Follow GI stool panel. GI consultation requested as the patient reported that there is plan for patient to undergo reversal ileostomy next week on Thursday. Patient already evaluated by GI, diet has been advanced. We will follow a.m. labs. NEURO: Minimize central acting medications as possible. Fall Precautions. Well lighted room through the day and minimize interruptions through the night to prevent acute delirium. PULMONARY: Supplemental 02 as needed BiPAP as necessary, for respiratory distress Titrate Fio2 to keep Spo2 > or = 90% DuoNebs and CPT as needed IS hourly while awake for pulmonary hygiene prn Out of bed to chair as tolerated Maintain aspiration precautions at all times CARDIOVASCULAR: Follow hemodynamics. Vital signs per facility protocol GI & NUTRITION: Continue nutritional support Aspirations precautions Prokinetic agents and laxatives as needed KIDNEYS & ELECTROLYTES: Strict monitoring of intake and output Daily weights Avoid nephrotoxic agents Monitor electrolytes and replace as needed Goal urine output of 30mL/hr or 0.5mL/kg/hr Medications to be dosed according to renal function. Avoid contrast if possible ENDOCRINE: Maintain blood glucose between 100-180 at all times. Insulin sliding scale for blood glucose management Hypoglycemia and hyperglycemia protocol in place INFECTIOUS DISEASE: Trend temperature, WBC and procalcitonin level Follow cultures, deescalate antibiotics as soon as possible. Panculture if new onset fever HEMATOLOGY & COAGULATION: Monitor H&H. Keep Hgb > 7 Transfuse 1 unit of PRBC for Hgb < 7 Transfuse 1 pack of platelets of platelets < 20, 000 Watch for any signs and symptoms of bleeding SKIN: Pressure ulcer prevention per facility protocol Specialty mattress as needed ORTHO/REHAB Continue PT/OT PRN: MEDICATIONS Tylenol 650 mg po every 4 hrs for fever zofran 4 mg IV every 6 hrs for n/v Hydralazine 5 mg IV every 4 hrs systolic pressure > 160 bowel regiment: lactulose 20 gm PO BID PRN constipation Supportive measures: Continue GI and DVT prophylaxis Disposition: Pending improvement in clinical condition All questions answered time spent: > 35 min Discharge Instructions: -You are prescribed Augmentin (500-125) twice a day for 7 days. Please continue as recommended -You are started on 4gm cholestyramine packet. Please take it 3 times a day before meal. -You are started on diphenoxylate. Please take 2 tab 3 times a day -You are started on Metamucil. Please take 1 tab twice a day -Please take lactobacillus probiotic capsule, 1 cap twice a day for 5 days -Please keep yourself hydrated -You have upcoming ileostomy reversal surgery on Thursday. -Please follow up with your PCP within 2-3 days. Home Medications: Active Scripts Sulfamethoxazole/Trimethoprim (Bactrim Ds Tablet) 800 Mg-160 Mg Tablet, 1 TAB PO BID for 14 Days, #28 TAB 0 Refills Prov:ISABEL MENDOZA MD 04/09/25 Reported Medications Lisdexamfetamine Dimesylate (Vyvanse) 70 Mg Capsule, 1 CAP PO DAILY 03/28/25 Time spent arranging discharge: 1-30 minutes ATTESTATION BY PHYSICIAN I have seen and examined the patient. I reviewed the documentation, medical decision making, and treatment plan as noted by the resident physician above. I agree with the findings and plan of care. YEIMY ALRA MD, SUNIL MD Jun 16, 2025 15:02
[2025-06-16] MEDS ORDERED: PSYL0.4C2 PO (15:06)
[2025-06-16] MEDS ORDERED: DIPH1TAB PO (15:06)
[2025-06-16 15:15] VITALS: BP 131/82; PULSE 82; RESP 18; TEMP 97.7
--- NOTE | 2025-06-16 15:20 | NUR ---
DISCHARGE INSTRUCTIONS WERE GIVEN TO THIS PATIENT AND EDUCATION WAS GIVEN ON NEW MEDICATIONS. PIV TO LEFT AND RIGHT FOREARM WAS REMOVED WITH CATHETERS INTACT AND DRY DRESSING WAS APPLIED ONCE BLEEDING SUBSIDED. TELE PACK WAS REMOVED AND RETURNED. PATIENT DENIES ANY PAIN AND DENIES SHORTNESS OF BREATH. PATIENT WAS TAKEN DOWN TO PRIVATE VEHICLE VIA WHEEL CHAIR.
--- NOTE | 2025-06-16 19:32 | PN ---
GASTROENTEROLOGY PROGRESS NOTE Date of Visit: Jun 16, 2025 Time of Visit: 19:32 Events / Notes: [ ] Review of Systems: CONSTITUTIONAL: No malaise or change in sensation of wellbeing. ENMT: No rhinorrhea, otorrhea, sinus pain, ear ache. CARDIOVASCULAR: No angina, palpitations, orthopnea or paroxysmal dyspnea. RESPIRATORY: No SOB. GASTROINTESTINAL: No abdominal pain, nausea, vomiting, diarrhea, hematemesis, melena or change in the patient's habitual bowel movements consistency/number. GENITOURINARY: No dysuria, hematuria or change in bladder continence. MUSCULOSKELETAL: No new muscle pain or decrease in muscular strength. No new joint swelling, redness or tenderness. SKIN: No new rash. Physical Exam: GEN: Awake, alert, oriented in person, time and place, and in no acute distress. HEENT: No sinus tenderness. Tympanic membranes were not examined. No rhinorrhea. Oral pharyngeal mucosa is pink, moist and within normal limits. Neck is supple with no cervical lymphadenopathy, thyromegaly or JVD. CHEST: Inspection, palpation and percussion of the chest were unremarkable. Lung auscultation revealed normal breath sounds bilaterally. CARDIAC: PMI is within normal limits. Heart sounds are regular. Normal S1, S2. No gallop or murmur. ABD: Soft, non-tender and not distended. No peritoneal signs on palpation. No organomegaly. Normal bowel sounds. EXT: No cyanosis or clubbing. No edema. SKIN: Intact. No rashes. JOINTS: No evidence of synovitis or acute arthritis. NEURO: Alert and oriented to name, place and person. Cranial nerve examination is unremarkable. No focal motor deficits. Normal speech. Gait is normal. Strength is normal. Vital Signs (last 8hr) Date Time Temp Pulse Resp B/P (MAP) Pulse Ox O2 Delivery O2 Flow Rate FiO2 06/16/25 15:15 97.7 82 18 131/82 100 Room Air 06/16/25 11:44 97.5 79 18 128/79 100 Room Air Laboratory: [ ] Laboratory: Test 06/16/25 03:28 06/15/25 06:39 06/15/25 02:20 Range/Units White Blood Count 6.6 4.8-10.8 K/uL Red Blood Count 4.85 4.50-6.20 MIL/uL Hemoglobin 14.7 14.0-18.0 g/dL Hematocrit 42.3 42-54 % Mean Corpuscular Volume 87.2 79-99 fL Mean Corpuscular Hemoglobin 30.3 27.0-33.0 pg Mean Corpuscular Hemoglobin Concent 34.8 32.0-36.0 g/dL Red Cell Distribution Width 14.7 11.0-15.5 % Platelet Count 234 130-400 K/uL Mean Platelet Volume 8.6 7.5-10.5 fL Nucleated Red Blood Cells 0.0 0.0-0.19 % Sodium Level 138 136-145 mmol/L Potassium Level 3.6 3.5-5.1 mmol/L Chloride Level 100 L 101-111 mmol/L Carbon Dioxide Level 31 21-32 mmol/L Blood Urea Nitrogen 11 7-18 mg/dL Creatinine 1.0 0.5-1.3 mg/dL Glomerular Filtration Rate Calc 96 >90 mL/min Random Glucose 88 70-105 mg/dL Total Calcium 8.0 L 8.5-10.1 mg/dL Magnesium Level 2.10 1.80-2.40 mg/dL Total Bilirubin 0.6 0.2-1.0 mg/dL Aspartate Amino Transf (AST/SGOT) 17 10-37 U/L Alanine Aminotransferase (ALT/SGPT) 39 12-78 U/L Alkaline Phosphatase 105 50-136 U/L Total Protein 6.6 6.0-8.3 g/dL Albumin 3.3 L 3.5-5.0 g/dL Immature Granulocyte % (Auto) 0.3 0-1 % Neutrophils (%) (Auto) 68.3 40.0-77.0 % Lymphocytes (%) (Auto) 12.1 L 21.0-51.0 % Monocytes (%) (Auto) 7.0 3.0-13.0 % Eosinophils (%) (Auto) 12.1 H 0.0-8.0 % Basophils (%) (Auto) 0.2 0.0-5.0 % Neutrophils # (Auto) 6.0 1.8-7.7 K/uL Lymphocytes # (Auto) 1.1 1.0-4.8 K/uL Monocytes # (Auto) 0.6 0.1-1.0 K/uL Eosinophils # (Auto) 1.06 H 0.00-0.70 K/uL Basophils # (Auto) 0.02 0.00-0.20 K/uL Absolute Immature Granulocyte (auto 0.03 0-1 K/uL Urine Color COLORLESS YELLOW Urine Appearance CLEAR CLEAR Urine pH 5.5 5.0-8.0 Urine Specific [place] 1.009 1.001-1.031 Urine Protein NEGATIVE NEGATIVE mg/dL Urine Glucose (UA) NEGATIVE NEGATIVE mg/dL Urine Ketones NEGATIVE NEGATIVE mg/dL Urine Occult Blood NEGATIVE NEGATIVE Urine Nitrate NEGATIVE NEGATIVE Urine Bilirubin NEGATIVE NEGATIVE mg/dL Urine Urobilinogen 0.2 0.2-1.0 mg/dL Urine Leukocyte Esterase NEGATIVE NEGATIVE Isabela/uL Current Medications Medications (Trade) Dose Ordered Sig/Armando Route PRN Reason Start Time Stop Time Status Last Admin Dose Admin Acetaminophen (TYLenol 325MG TAB) 650 mg Q6H PRN PO MILD PAIN (1-3) 06/14/25 16:30 06/16/25 15:30 DC 06/15/25 20:31 650 MG Cholestyramine Resin (Cholestyramine Packet) 4 gm TIDAC PO 06/16/25 11:30 06/16/25 15:30 DC 06/16/25 11:44 4 GM Diphenoxylate HCl/ Atropine (Lomotil) 2 tab TID PO 06/15/25 21:00 06/16/25 15:30 DC 06/16/25 14:36 2 TAB Enoxaparin Sodium (Lovenox) 40 mg DAILY SQ 06/15/25 09:00 06/16/25 15:30 DC 06/16/25 08:52 40 MG Famotidine (Pepcid 20mg Vial) 20 mg BID IV 06/14/25 21:00 06/16/25 15:30 DC 06/16/25 08:53 20 MG Hydromorphone HCl (DiLAUDid 0.5MG INJ) 0.5 mg Q6H PRN IVP SEVERE PAIN (7-10) 06/14/25 16:30 06/16/25 15:30 DC Lactated Ringer's 1,000 ml @ 100 mls/hr Q10H IV 06/14/25 17:00 06/16/25 15:30 DC 06/16/25 08:53 100 MLS/HR Lactobacillus Rhamnosus ([facility] [employer]) 1 each BID PO 06/15/25 21:00 06/16/25 15:30 DC 06/16/25 08:53 1 EACH Magnesium Sulfate 50 ml @ 0 mls/hr PROTOCOL IV 06/14/25 19:00 06/16/25 15:30 DC 06/15/25 02:01 25 MLS/HR Ondansetron HCl (zoFRAN 4MG INJ) 4 mg Q6H PRN IVP NAUSEA/VOMITING 06/14/25 16:30 06/16/25 15:30 DC 06/15/25 14:24 4 MG Piperacillin Sod/ Tazobactam Sod (Zosyn 3.375gm+NS 50ml) 3.375 gm Q8H IVPB 06/14/25 21:00 06/14/25 16:24 DC Piperacillin Sod/ Tazobactam Sod (Zosyn 3.375gm+NS 50ml) 3.375 gm Q8H IVPB 06/15/25 00:30 06/16/25 15:30 DC 06/16/25 08:53 3.375 GM Potassium Chloride 100 ml @ 100 mls/hr AD PRN IV POTASSIUM PROTOCOL 06/14/25 16:30 06/16/25 15:30 DC Potassium Chloride (K-Dur/Klor-Con 20meq) 20 meq AD PRN PO POTASSIUM PROTOCOL 06/14/25 16:30 06/16/25 15:30 DC Potassium Chloride (KCl 10% Elixir 20meq/15ml) 20 meq AD PRN PO POTASSIUM PROTOCOL 06/14/25 16:30 06/16/25 15:30 DC 06/16/25 08:52 20 MEQ Psyllium Hydrophilic Mucilloid (Metamucil) 1 tbs BID PO 06/15/25 21:00 06/16/25 15:30 DC 06/16/25 08:52 1 TBS Diagnostics / Radiology: [COPY/PASTE HERE IF NO REPORTS PLEASE DELETE SECTION] Assessment: Dehydration Ileostomy status Plan: IVF hydration No colorectal intervention at this time JADON MASSEY PHOTOGRAPHIC TECHNICIAN Jun 16, 2025 19:32
[2025-06-17 05:11] LABS: C DIFFICILE TOXIN A/B Not Detected (Not Detected); ENTEROAGGREGATIVE ECOLI Not Detected (Not Detected); GIARDIA LAMBLIA Not Detected (Not Detected); PLESIOMONAS SHIGELOIDES Not Detected (Not Detected); SAPOVIRUS Not Detected (Not Detected); SHIGELLA/ENTEROINVASIVE E COLI Not Detected (Not Detected); VIBRIO Not Detected (Not Detected); VIBRIO CHOLERAE Not Detected (Not Detected)
== END 2025-06-16 15:30 | disposition home or self-care (01) | DRG 872 ==
LOC: EDH 12:49 → EDHIP 16:04 → 2DH 18:30
PROVIDERS: ADMIT Internal Medicine; ATTEND Internal Medicine
DX: A41.9 Sepsis, unspecified organism (principal); E87.20 Acidosis, unspecified; A09 Infectious gastroenteritis and colitis, unspecified; E86.0 Dehydration; K43.5 Parastomal hernia without obstruction or gangrene; E87.6 Hypokalemia; E83.42 Hypomagnesemia; E87.8 Other disorders of electrolyte and fluid balance, not elsewhere classified; Z82.5 Family history of asthma and other chronic lower respiratory diseases; Z83.3 Family history of diabetes mellitus; Z93.2 Ileostomy status; Z82.49 Family history of ischemic heart disease and other diseases of the circulatory system
CPT/HCPCS: 36415; 74177; 80048; 80053; 80076; 81003; 83605; 83615; 83690; 83735; 84145; 85025; 85027; 85651; 86140; 87040; 87046; 87177; 87324; 87507; 99285; G0378; J1171; J1650; J2270; J2405; J2543; J3475; J7030; Q9963; Q9967; J1308

== ENCOUNTER 2025-06-17 08:22 | Inpatient (IN) | payer OTHER ==
[~2025-06-17] VITALS: Ht 177.8 cm; Wt 100.0 kg
--- NOTE | 2025-06-17 08:32 | NUR ---
PT JUST NOW PLACED IN ED BED 9
--- NOTE | 2025-06-17 08:44 | EKG ---
[facility] Test Date: 2025-06-17 Test Time: 08:35:35 Pat Name: ANIYA GIRON Department: ED Room: 403 Gender: M Windows [employer] Developer: [id number] : 1980 Requested By: DEDE ARELLANO Order Number: [id number] Reading MD: Joe Villalba Measurements Intervals [place] Rate: 73 P: 35 NM: 154 QRS: 64 QRSD: 77 T: 80 QT: 358 QTc: 395 Interpretive Statements Sinus rhythm Compared to ECG 04/27/2025 07:22:21 No significant changes Electronically Signed On 06-19-2025 13:07:01 TRANSPORT OPERATIONS INSPECTOR by Joe Villalba Please click the below link to view image of tracing.
--- NOTE | 2025-06-17 09:00 | NUR ---
GREEN LIQUID STOOL SAMPLE SENT TO LAB. OBTAINED FROM PTS ILEOSTOMY
[2025-06-17] MEDS: 0.9%NACL 1000ML 1,000 ML IV ONE ×2 (09:08→09:47)
--- NOTE | 2025-06-17 09:10 | NUR ---
ED INFORMED THAT PT C/O HEAD AND ABD DISCOMFORT
--- NOTE | 2025-06-17 09:27 | ERN ---
General Chief Complaint: Abdominal Pain Stated Complaint: ABDOMINAL PAIN Time Seen by MD: 08:24 Source: patient History of Present Illness Initial Comments Patient is a 44-year-old male coming in complaining of abdominal pain. Per patient he was recently discharged from hospital. He states that he was at home in his excruciating pain and he passed out. Allergies: Coded Allergies: No Known Drug Allergies (Unverified Allergy, Unknown, 04/08/21) Home Meds Active Scripts Psyllium Husk (Metamucil) 0.4 Gram Capsule, 1 CAP PO BID for 30 Days, #60 CAP 0 Refills Prov:YEIMY LARA MD 06/16/25 Diphenoxylate HCl/Atropine (Lomotil Tablet) 2.5 Mg-0.025 Mg Tablet, 2 TAB PO TID for 10 Days, #60 TAB 0 Refills Prov:YEIMY LARA MD 06/16/25 Amoxicillin/Potassium Clav (Augmentin 500-125 Tablet) 500 Mg-125 Mg Tablet, 1 TAB PO BID for 7 Days, #14 TAB 0 Refills Prov:VIVI WALTERS MD 06/16/25 Lactobacillus Rhamnosus GG (Culturelle) 15 Billion Cell Cap.sprink, 1 EACH PO BID for 5 Days, #10 CAP.SPRINK 0 Refills Prov:VIVI WALTERS MD 06/16/25 Cholestyramine (with Sugar) (Cholestyramine Packet) 4 Gram Powd.pack, 1 PACKET PO TIDAC for 5 Days, #15 PACKET 0 Refills Prov:VIVI WALTERS MD 06/16/25 Reported Medications Lisdexamfetamine Dimesylate (Vyvanse) 70 Mg Capsule, 1 CAP PO DAILY 03/28/25 Discontinued Scripts Sulfamethoxazole/Trimethoprim (Bactrim Ds Tablet) 800 Mg-160 Mg Tablet, 1 TAB PO BID for 14 Days, #28 TAB 0 Refills Prov:ISABEL MENDOZA MD 04/09/25 Past Medical History Past Medical History: Diverticulitis, Diverticulosis Medical History Other: ADHD, SEPSIS Past Surgical History: Other Surgical History Other: ILEOSTOMY, URINARY BLADDER FISTULA REPAIR BILAT KNEE SX, Family History Family History: Negative Social History Social History: Negative, Lives with family ROS Dictation CONSTITUTIONAL: No chills, no fever, no weakness, no diaphoresis, no malaise. HEAD/FACE: No signs of trauma. EENT: No eye pain, no blurred vision, no tearing, no double vision, no ear pain, no ear discharge, no nose pain, no nasal congestion, no throat pain, no throat swelling, no mouth pain. RESPIRATORY: No cough, no orthopnea, no SOB, no stridor, no wheezing. CARDIOVASCULAR: No chest pain, no edema, no palpitations, no syncope. GASTROINTESTINAL/ABDOMINAL: abdominal pain, no constipation, no diarrhea, no nausea, no vomiting. GENITOURINARY: No abnormal discharge, no dysuria, no frequent urination, no hematuria. No complaints of pain in the genitals. MUSCULOSKELETAL: No back pain, no gout, no joint pain, no joint swelling, no muscle pain, no muscle stiffness, no neck pain. INTEGUMENTARY: No change in color, no change in hair/nails, no dryness, no lesion, no lumps, no rash. NEUROLOGICAL/PSYCH: No anxiety, not depressed, no emotional problem, no headache, no numbness, no pre-existing deficit, no history of seizures, no tremors, no weakness. HEMATOLOGIC/LYMPHATIC: Not anemic, no history of blood clots, no apparent b leeding, no bruising, glands not swollen. All Systems Negative, Except as Noted. Physical Exam Physical Exam Dictation VITAL SIGNS: Reviewed. GENERAL APPEARANCE: Alert, oriented x3, no acute distress, obese. HEAD AND FACE: Non-traumatic. EYES: PERRL, pink conjunctivas, eyelid no trauma, anterior chamber clear. EARS: Pinnas intact and no signs of trauma or erythema. Ear canals clear and no discharge. TMs no erythema. NOSE: No discharge, no bleeding. OROPHARYNX: Mouth normal, teeth no caries, tongue pink. Pharynx clear, no erythema. Tonsils no exudates, no abscesses noted. Mucous membrane moist. NECK: Supple, non-tender, no thyromegaly, no masses, no JVD, no bruits. BREAST: Deferred. CHEST: No tenderness, no crepitus, no paradoxical movement, no retractions. LUNGS: Clear, well-ventilated, symmetric, no rales, no wheezing, no rhonchi, no stridor, good breath sounds bilaterally. HEART: Regular rate, regular rhythm, no murmur, no gallops. VASCULAR: No peripheral edema. ABDOMEN: Soft, positive bowel sounds, nondistended, no guarding, nontender, no rebound, no masses no hepatomegaly, no splenomegaly, no Xiong's sign, no hernias. RECTAL: Deferred. GENITAL: Deferred. NEUROLOGICAL: Normal speech, gross motor function intact, gross sensory function intact. MUSCULOSKELETAL: Neck nontender, full range of motion, back nontender, full ra nge of motion. EXTREMITIES: Nontender, full range of motion. SKIN: Color pink, dry, no turgor, no rash, no lacerations, no abrasions, no contusions. LYMPHATICS: Deferred. Results Laboratory and Microbiology Lab and Micro Result Laboratory Tests Test 06/17/25 08:50 06/17/25 09:24 Stool Occult Blood POSITIVE (NEGATIVE) H White Blood Count 8.8 K/uL (4.8-10.8) Red Blood Count 5.55 MIL/uL (4.50-6.20) Hemoglobin 16.8 g/dL (14.0-18.0) Hematocrit 48.6 % (42-54) Mean Corpuscular Volume 87.6 fL (79-99) Mean Corpuscular Hemoglobin 30.3 pg (27.0-33.0) Mean Corpuscular Hemoglobin Concent 34.6 g/dL (32.0-36.0) Red Cell Distribution Width 14.7 % (11.0-15.5) Platelet Count 249 K/uL (130-400) Mean Platelet Volume 9.0 fL (7.5-10.5) Immature Granulocyte % (Auto) 0.3 % (0-1) Neutrophils (%) (Auto) 67.6 % (40.0-77.0) Lymphocytes (%) (Auto) 13.2 % (21.0-51.0) L Monocytes (%) (Auto) 6.7 % (3.0-13.0) Eosinophils (%) (Auto) 12.0 % (0.0-8.0) H Basophils (%) (Auto) 0.2 % (0.0-5.0) Neutrophils # (Auto) 5.9 K/uL (1.8-7.7) Lymphocytes # (Auto) 1.2 K/uL (1.0-4.8) Monocytes # (Auto) 0.6 K/uL (0.1-1.0) Eosinophils # (Auto) 1.06 K/uL (0.00-0.70) H Basophils # (Auto) 0.02 K/uL (0.00-0.20) Absolute Immature Granulocyte (auto 0.03 K/uL (0-1) Nucleated Red Blood Cells 0.0 % (0.0-0.19) Sodium Level 138 mmol/L (136-145) Potassium Level 3.9 mmol/L (3.5-5.1) Chloride Level 99 mmol/L (101-111) L Carbon Dioxide Level 30 mmol/L (21-32) Blood Urea Nitrogen 11 mg/dL (7-18) Creatinine 0.9 mg/dL (0.5-1.3) Glomerular Filtration Rate Calc 109 mL/min (>90) Random Glucose 92 mg/dL (70-105) Total Calcium 8.4 mg/dL (8.5-10.1) L Total Bilirubin 1.0 mg/dL (0.2-1.0) Aspartate Amino Transf (AST/SGOT) 23 U/L (10-37) Alanine Aminotransferase (ALT/SGPT) 39 U/L (12-78) Alkaline Phosphatase 124 U/L (50-136) Total Creatine Kinase 52 U/L (21-232) Troponin I High Sensitivity 4 ng/L (4-75) Total Protein 6.7 g/dL (6.0-8.3) Albumin 3.6 g/dL (3.5-5.0) Lipase 24 U/L (16-77) Labs Reviewed?: Yes EKG/XRAY/US/CT/MRI EKG Comment 06/17/2025 time 8:35 a.m. Ventricular rate 73 Sinus rhythm OR [address] wave elevation or depression MDM MDM: Differential diagnosis: SYNCOPE, DEHYDRATION, Rationale: Tests considered and ordered secondary to shared decision making include: Previous outside records reviewed: Old ER visits. Risk of complication and/or morbidity or mortality of patient management: None Medications-Per medication reconciliation Need for hospitalization: Patient does meet criteria for hospitalization. Need for emergency major/minor surgery: No There are no social concerns with this patient. Prescription drug management Prescriptions will include symptomatic care Patient's prior external medical records from other ER visits were reviewed by me as indicated. Prior testing and results from previous visits were reviewed. Prior tests were taken into account with medical decision making and resource utilization, independent historian/historians were used to obtain complete medical history. I independently interpreted the test that were performed, results were reviewed by me and considered findings on radiology if ordered. Medical management and examination interpretation discussions were had by me with other qualified healthcare professionals as indicated for the patient's care. PATIENT WILL BE ADMITTED UNDER THE CARE OF THE HOSPITALIST GROUP ED Course Orders Procedure Category Date Status Time Cbc With Differential LAB 06/17/25 Complete 08:27 Comprehensive LAB 06/17/25 Complete Metabolic Panel 08:27 Troponin I High LAB 06/17/25 Complete Sensitivity 08:27 Urinalysis Profile LAB 06/17/25 Logged 08:27 12 Lead Ekg Tracing- EKG 06/17/25 Complete Technical 08:27 0.9%Nacl 1000ml (Ns PHA 06/17/25 Complete 1000ml) 08:30 Creatine Kinase, Total LAB 06/17/25 Complete 08:27 Lipase LAB 06/17/25 Complete 08:27 Stool Culture PARK 06/17/25 In Process 08:53 Occult Blood Stool LAB 06/17/25 Complete Single Only 08:53 0.9%Nacl 1000ml (Ns PHA 06/17/25 In Process 1000ml) 10:00 Morphine 2mg Syg PHA 06/17/25 Complete (Morphine 2mg Syg) 10:00 Ketorolac PHA 06/17/25 Complete Tromethamine 15mg/Ml 10:30 Current Medications Medications (Trade) Dose Ordered Sig/Armanod Route PRN Reason Start Time Stop Time Status Last Admin Dose Admin Ketorolac Tromethamine (toRADol) 15 mg ONCE ONCE IV 06/17/25 10:30 06/17/25 10:31 DC 06/17/25 10:45 Morphine Sulfate (morPHINE 2MG SYG) 1 mg ONCE ONCE IVP 06/17/25 10:00 06/17/25 10:01 DC 06/17/25 09:55 Sodium Chloride 1,000 ml @ 0 mls/hr ONCE ONCE IV 06/17/25 08:30 06/17/25 08:31 DC 06/17/25 09:08 Sodium Chloride 1,000 ml @ 150 mls/hr Q6H40M ONCE IV 06/17/25 10:00 06/17/25 16:39 06/17/25 09:47 Vital Signs Date Time Temp Pulse Resp B/P (MAP) Pulse Ox O2 Delivery O2 Flow Rate FiO2 06/17/25 10:55 81 13 125/81 98 Room Air* 0 21 06/17/25 08:24 97.7 82 20 132/90 98 Room Air DX & DISP Disposition: Inpatient Decision to Admit Time: 12:13 Departure Impression: Primary Impression: Syncope and collapse Additional Impression: Dehydration Condition: Stable Referrals: DONNA GARZA Jr., MD (PCP) DEDE ARELLANO MD Jun 17, 2025 09:27
--- NOTE | 2025-06-17 10:15 | NUR ---
PT WAS PROVIDED A URINAL AND AM PENDING URINE
[2025-06-17 10:37] LABS: IMMATURE GRANULOCYTE ABSOLUTE 0.03 K/uL (0-1); NUCLEATED RED BLOOD CELLS 0.0 % (0.0-0.19); PLATELET COUNT (AUTO) 249 K/uL (130-400); RED BLOOD CELL COUNT(AUTO) 5.55 MIL/uL (4.50-6.20); RED CELL DISTRIBUTION WIDTH 14.7 % (11.0-15.5); WHITE BLOOD COUNT (AUTO) 8.8 K/uL (4.8-10.8)
[2025-06-17 10:49] LABS: CREATININE 0.9 mg/dL (0.5-1.3); GLOMERULAR FILTR. RATE CALC 109.0 mL/min (>90); GLUCOSE,RANDOM 92.0 mg/dL (70-105); SODIUM SERUM 138.0 mmol/L (136-145); UREA NITROGEN, BLOOD 11.0 mg/dL (7-18)
[2025-06-17 10:53] LABS: ASPARTATE AMINOTRANSFERASE 23.0 U/L (10-37); CREATINE KINASE, TOTAL 52.0 U/L (21-232); TOTAL PROTEIN, SERUM 6.7 g/dL (6.0-8.3)
--- NOTE | 2025-06-17 11:13 | NUR ---
OSTOMY INITIAL OSTOMY DRAINAGE THROWN WAS LIQUID GREEN W/SEDIMENT OF SAME COLOR. THE SECOND TIME IT WAS MORE OF A BROWNSISH LIQUID SEDIMENT W/SAME COLOR.
--- NOTE | 2025-06-17 12:01 | NUR ---
PT STILL STATES HE IS UNABLE TO NOR FEELS THE URGE TO VOID
--- NOTE | 2025-06-17 12:05 | NUR ---
DR ARELLAON JUST SPOKE TO THE PT ABOUT RE-ADMITTING HIM
[2025-06-17 12:23] LABS: APPEARANCE,URINE CLEAR (CLEAR); GLUCOSE, URINE (UA) NEGATIVE (NEGATIVE); LEUKOCYTE ESTERASE ,URINE NEGATIVE Leu/uL (NEGATIVE); NITRATE,URINE NEGATIVE (NEGATIVE); OCCULT BLOOD,URINE NEGATIVE (NEGATIVE)
[2025-06-17 12:25] LABS: ADD UA MICROSCOPIC NO
[2025-06-17] MEDS: 0.9%NACL 1000ML 1,000 ML IV SCH (12:30)
[2025-06-17] MEDS ORDERED: 0.9%NACL 50ML IV SCH (12:30)
--- NOTE | 2025-06-17 12:33 | HP ---
[facility] HISTORY AND PHYSICAL Date of Service: Jun 17, 2025 Time of Service: 12:32 HISTORY OF PRESENT ILLNESS: 44-year-old male with past medical history of diverticulosis complicated by colovesical fistula with history of diverting ileostomy in 2024 who presented to the hospital secondary to generalized weakness and presyncope. Patient states today he felt very weak while he was standing up. He felt dizzy and felt he was going to pass out. He never lost consciousness and he was able to prevent himself from falling by sitting on a chair. He denied any chest pain, palpitations prior to the event. He has noted that he is having increased output from his ostomy. He has changed his ostomy around3 times today. Denies any fever, chills. He does state he had episode of abdominal pain today. Denies any nausea, vomiting. His ostomy is currently having greenish colored stool which is loose. He had any chest pain at rest. Denied any upper or lower extremity weakness. Denied any headache. He has been ambulating without issues. Patient was scheduled for outpatient elective ileostomy reversal next week by Dr. Zamorano Labs were notable for white count of 8.8, hemoglobin was 16.8, 249 K, sodium was 138, potassium was 3.9, creatinine was 0.9, BUN was 11, troponin was negative x1 REVIEW OF SYSTEMS CONSTITUTIONAL: Denies fevers, chills, or night sweats. No unintentional weight loss reported. NEUROLOGICAL: Denies headache, amaurosis fugax, motor weakness, sensory deficit, vertigo/spinning sensation, gait abnormalities, or tremors. ENT: No hearing loss, otalgia, otorrhea, rhinitis, rhinorrhea, hoarseness, or sore throat. CARDIOVASCULAR: Denies any exertional angina, dyspnea on exertion, orthopnea, paroxysmal nocturnal dyspnea, palpitations, life-threatening arrhythmias, claudication. PULMONARY: Denies any shortness of breath, cough, phlegm/sputum, hemoptysis, pleuritic chest pain. SLEEP: Denies morning headaches, daytime somnolence or napping. Denies difficulty falling asleep, staying asleep, waking from sleep. Denies knowledge of snoring. GASTROINTESTINAL: Positive for abdominal pain. Denied any nausea, vomiting. GENITOURINARY: Denies frequency, urgency, nocturia, hematuria or incontinence (Storage/Irritative symptoms.) Low urinary stream, straining to void, urinary intermittency or hesitancy, splitting of the voiding stream, terminal dribbling. ENDOCRINOLOGIC: Denies polyuria, polydipsia, polyphagia or heat/cold int olerances. HEMATOLOGIC: Denies thrombophilia/previous clots, or coagulopathy/bleeding disorders. ONCOLOGIC: Denies personal history of malignancy. DERMATOLOGIC: Denies rashes or pruritus. PSYCHIATRIC: Denies any suicidal or homicidal ideation. Denies hallucinations. PAST MEDICAL HISTORY: [ ADHD, history of previous diverticulosis/diverticulitis ] PAST SURGICAL HISTORY: [ ACL Knee, colovesicular fistula repair in 04/[address] Baez with creation of diverting ileostomy] PAST SOCIAL HISTORY: [ Patient lives with . Patient denies alcohol tobacco and recreational drug use ] FAMILY HISTORY: [Hypertension, diabetes, Chronic obstructive pulmonary disease and cancer ] Coded Allergies: No Known Drug Allergies (Unverified Allergy, Unknown, 04/08/21) PHYSICAL EXAM GENERAL APPEARANCE: The patient is awake, alert, and oriented, in no acute card iopulmonary distress. NEUROLOGICAL: Cranial nerves II-XII grossly intact. Motor is 5/5 in bilateral upper and lower extremities proximal to distal. No sensory deficits. HEENT: Face is symmetric. Pupils are equal and reactive. Extraocular movements are intact. NECK: Supple. No JVD. No thyromegaly. No submental, submandibular, pre- /postauricular, occipital or supraclavicular lymphadenopathy. CHEST: Normal chest expansion. No Telemetry. LUNGS: Absence of any rales, rhonchi or any wheezing. CARDIOVASCULAR: Regular. S1 and S2 normal. No appreciable rubs, murmurs or gallops. ABDOMEN: Soft, nontender. Patient has a ileostomy present. He has greenish colored stool which is loose in his ostomy bag. : Deferred. No Lee. EXTREMITIES: Non-edematous and not cyanotic. No clubbing. Good capillary refill. SKIN: No skin breakdown. Vital Sign (Last 24 Hours) 06/17/25 06/17/25 08:24 10:55 Temp 97.7 Pulse 81 Resp 13 B/P (MAP) 125/81 Pulse Ox 98 O2 Delivery Room Air* O2 Flow Rate 0 FiO2 21 LABS: Laboratory: Test 06/17/25 12:08 06/17/25 09:24 06/17/25 08:50 Range/Units Urine Color YELLOW YELLOW Urine Appearance CLEAR CLEAR Urine pH 6.0 5.0-8.0 Urine Specific [place] 1.018 1.001-1.031 Urine Protein NEGATIVE NEGATIVE mg/dL Urine Glucose (UA) NEGATIVE NEGATIVE mg/dL Urine Ketones NEGATIVE NEGATIVE mg/dL Urine Occult Blood NEGATIVE NEGATIVE Urine Nitrate NEGATIVE NEGATIVE Urine Bilirubin NEGATIVE NEGATIVE mg/dL Urine Urobilinogen 0.2 0.2-1.0 mg/dL Urine Leukocyte Esterase NEGATIVE NEGATIVE Isabela/uL White Blood Count 8.8 4.8-10.8 K/uL Red Blood Count 5.55 4.50-6.20 MIL/uL Hemoglobin 16.8 14.0-18.0 g/dL Hematocrit 48.6 42-54 % Mean Corpuscular Volume 87.6 79-99 fL Mean Corpuscular Hemoglobin 30.3 27.0-33.0 pg Mean Corpuscular Hemoglobin Concent 34.6 32.0-36.0 g/dL Red Cell Distribution Width 14.7 11.0-15.5 % Platelet Count 249 130-400 K/uL Mean Platelet Volume 9.0 7.5-10.5 fL Immature Granulocyte % (Auto) 0.3 0-1 % Neutrophils (%) (Auto) 67.6 40.0-77.0 % Lymphocytes (%) (Auto) 13.2 L 21.0-51.0 % Monocytes (%) (Auto) 6.7 3.0-13.0 % Eosinophils (%) (Auto) 12.0 H 0.0-8.0 % Basophils (%) (Auto) 0.2 0.0-5.0 % Neutrophils # (Auto) 5.9 1.8-7.7 K/uL Lymphocytes # (Auto) 1.2 1.0-4.8 K/uL Monocytes # (Auto) 0.6 0.1-1.0 K/uL Eosinophils # (Auto) 1.06 H 0.00-0.70 K/uL Basophils # (Auto) 0.02 0.00-0.20 K/uL Absolute Immature Granulocyte (auto 0.03 0-1 K/uL Nucleated Red Blood Cells 0.0 0.0-0.19 % Sodium Level 138 136-145 mmol/L Potassium Level 3.9 3.5-5.1 mmol/L Chloride Level 99 L 101-111 mmol/L Carbon Dioxide Level 30 21-32 mmol/L Blood Urea Nitrogen 11 7-18 mg/dL Creatinine 0.9 0.5-1.3 mg/dL Glomerular Filtration Rate Calc 109 >90 mL/min Random Glucose 92 70-105 mg/dL Total Calcium 8.4 L 8.5-10.1 mg/dL Total Bilirubin 1.0 0.2-1.0 mg/dL Aspartate Amino Transf (AST/SGOT) 23 10-37 U/L Alanine Aminotransferase (ALT/SGPT) 39 12-78 U/L Alkaline Phosphatase 124 50-136 U/L Total Creatine Kinase 52 21-232 U/L Troponin I High Sensitivity 4 4-75 ng/L Total Protein 6.7 6.0-8.3 g/dL Albumin 3.6 3.5-5.0 g/dL Lipase 24 16-77 U/L Stool Occult Blood POSITIVE H NEGATIVE DIAGNOSTICS / RADIOLOGY: [ ] ASSESSMENT: Dehydration POA Presyncope Colovesicular fistula status post diverting ileostomy Recent infectious colitis being treated outpatient with Augmentin PLAN: - patient to be admitted to medical-surgical unit with telemetry -in reference to presyncope. This is likely from dehydration. Patient never lost consciousness during the episode. The patient will be monitored on telemetry. Patient to continue on NS for gentle hydration. Also obtain a echo. - patient to be started on IV Zosyn. -we will request consultation with Colorectal surgery due to patient having increased output from his ostomy. -patient was recommended CT abdomen pelvis for evaluation of abdominal pain. Patient declined to undergo CT abdomen pelvis -further orders per hospitalization course. Advanced Care Planning Which of the following were discussed: Hospice care: Yes __ No _x_ Therapeutic options: Yes __ No __ Advance directives: Yes __ No __ Other discussions: Discussed with who?: patient (Patient, family or surrogates) Voluntary nature of this service was explained to the patient? Yes _x_ No __ Amount of time spent: 25 minutes JEWEL Whiting MD, MD Jun 17, 2025 12:33
[2025-06-17 12:47] LABS: INR 1.13 (0.85-1.15)
[2025-06-17] MEDS: ZOSYN 3.375GM +NS 50ML IVPB SCH (14:50)
[2025-06-17 15:00] VITALS: O2SAT 99
[2025-06-17 16:00] VITALS: BP 121/89; PULSE 82; RESP 18; TEMP 98.7
[2025-06-17 20:00] VITALS: O2SAT 95
[2025-06-17 20:32] VITALS: BP 138/93; PULSE 76; RESP 18; TEMP 98.1
[2025-06-17 23:55] VITALS: BP 132/86; PULSE 71; RESP 18; TEMP 97.8
[2025-06-18] VITALS (7 sets, daily range): BP systolic 124–138; BP diastolic 68–92; PULSE 76–93; RESP 16–18; TEMP 97.6–98.9; O2SAT 96
[2025-06-18] MEDS: CHOLESTYRAMINE PACKET 4 GM PACKET PO SCH (07:15)
[2025-06-18 07:36] LABS: IMMATURE GRANULOCYTE ABSOLUTE 0.04 K/uL (0-1); NUCLEATED RED BLOOD CELLS 0.0 % (0.0-0.19); PLATELET COUNT (AUTO) 275 K/uL (130-400); RED BLOOD CELL COUNT(AUTO) 5.82 MIL/uL (4.50-6.20); RED CELL DISTRIBUTION WIDTH 14.7 % (11.0-15.5); WHITE BLOOD COUNT (AUTO) 8.6 K/uL (4.8-10.8)
[2025-06-18] MEDS: PSYLLIUM SEED 1 EACH PACKET PO SCH (07:45)
[2025-06-18] MEDS: DIPHENOXYLATE HCL/ATROPINE 2.5/0.025 MG TAB PO SCH (07:45)
--- NOTE | 2025-06-18 07:46 | NUR ---
Patient has home meds in the room. He asked for his medication. When walking into the room the patient had already administered his own medication & also verbalized he has his own metamucil in the room. refused the one offered by nurse.
[2025-06-18 07:47] LABS: CREATININE 1.2 mg/dL (0.5-1.3); GLOMERULAR FILTR. RATE CALC 77.0 mL/min (>90); GLUCOSE,RANDOM 88.0 mg/dL (70-105); SODIUM SERUM 137.0 mmol/L (136-145); UREA NITROGEN, BLOOD 12.0 mg/dL (7-18)
--- NOTE | 2025-06-18 10:48 | PN ---
[facility] PROGRESS NOTE Date of Service: Jun 18, 2025 Time of Service: 10:46 SUBJECTIVE: Follow up visit for a 44-year-old male with recent history of diverting ileostomy, admitted to the hospital for acute dehydration, presyncope. Patient remains on IV Zosyn, IVF. Consultation with surgeon has been requested pending evaluation. Continues to have large amount of liquidy output from ileostomy. REVIEW OF SYSTEMS CONSTITUTIONAL: Denies fevers, chills, or night sweats. No unintentional weight loss reported. NEUROLOGICAL: Denies headache, amaurosis fugax, motor weakness, sensory deficit, vertigo/spinning sensation, gait abnormalities, or tremors. ENT: No hearing loss, otalgia, otorrhea, rhinitis, rhinorrhea, hoarseness, or sore throat. CARDIOVASCULAR: Denies any exertional angina, dyspnea on exertion, orthopnea, paroxysmal nocturnal dyspnea, palpitations, life-threatening arrhythmias, claudication. PULMONARY: Denies any shortness of breath, cough, phlegm/sputum, hemoptysis, pleuritic chest pain. SLEEP: Denies morning headaches, daytime somnolence or napping. Denies difficulty falling asleep, staying asleep, waking from sleep. Denies knowledge of snoring. GASTROINTESTINAL: Positive for abdominal pain. Denied any nausea, vomiting. GENITOURINARY: Denies frequency, urgency, nocturia, hematuria or incontinence (Storage/Irritative symptoms.) Low urinary stream, straining to void, urinary intermittency or hesitancy, splitting of the voiding stream, terminal dribbling. ENDOCRINOLOGIC: Denies polyuria, polydipsia, polyphagia or heat/cold intoleran jessica. HEMATOLOGIC: Denies thrombophilia/previous clots, or coagulopathy/bleeding disorders. ONCOLOGIC: Denies personal history of malignancy. DERMATOLOGIC: Denies rashes or pruritus. PSYCHIATRIC: Denies any suicidal or homicidal ideation. Denies hallucinations. PHYSICAL EXAM GENERAL APPEARANCE: The patient is awake, alert, and oriented, in no acute cardiopulmonary distress. NEUROLOGICAL: Cranial nerves II-XII grossly intact. Motor is 5/5 in bilateral upper and lower extremities proximal to distal. No sensory deficits. HEENT: Face is symmetric. Pupils are equal and reactive. Extraocular movements are intact. NECK: Supple. No JVD. No thyromegaly. No submental, submandibular, pre- /postauricular, occipital or supraclavicular lymphadenopathy. CHEST: Normal chest expansion. No Telemetry. LUNGS: Absence of any rales, rhonchi or any wheezing. CARDIOVASCULAR: Regular. S1 and S2 normal. No appreciable rubs, murmurs or gallops. ABDOMEN: Soft, nontender. Patient has a ileostomy present. He has greenish colored stool which is loose in his ostomy bag. : Deferred. No Lee. EXTREMITIES: Non-edematous and not cyanotic. No clubbing. Good capillary refill. SKIN: No skin breakdown. Vital Signs (last 8hr) Date Time Temp Pulse Resp B/P (MAP) Pulse Ox O2 Delivery O2 Flow Rate FiO2 06/18/25 08:00 98.1 79 18 128/89 96 Room Air 06/18/25 07:52 Room Air* 0 21 06/18/25 04:43 97.5 79 18 138/90 95 Room Air LABS: Laboratory: Test 06/18/25 07:25 06/17/25 12:08 06/17/25 09:24 06/17/25 08:50 Range/Units White Blood Count 8.6 4.8-10.8 K/uL Red Blood Count 5.82 4.50-6.20 MIL/uL Hemoglobin 17.6 14.0-18.0 g/dL Hematocrit 50.6 42-54 % Mean Corpuscular Volume 86.9 79-99 fL Mean Corpuscular Hemoglobin 30.2 27.0-33.0 pg Mean Corpuscular Hemoglobin Concent 34.8 32.0-36.0 g/dL Red Cell Distribution Width 14.7 11.0-15.5 % Platelet Count 275 130-400 K/uL Mean Platelet Volume 8.5 7.5-10.5 fL Immature Granulocyte % (Auto) 0.5 0-1 % Neutrophils (%) (Auto) 52.3 40.0-77.0 % Lymphocytes (%) (Auto) 18.8 L 21.0-51.0 % Monocytes (%) (Auto) 5.4 3.0-13.0 % Eosinophils (%) (Auto) 22.9 H 0.0-8.0 % Basophils (%) (Auto) 0.1 0.0-5.0 % Neutrophils # (Auto) 4.5 1.8-7.7 K/uL Lymphocytes # (Auto) 1.6 1.0-4.8 K/uL Monocytes # (Auto) 0.5 0.1-1.0 K/uL Eosinophils # (Auto) 1.96 H 0.00-0.70 K/uL Basophils # (Auto) 0.01 0.00-0.20 K/uL Absolute Immature Granulocyte (auto 0.04 0-1 K/uL Nucleated Red Blood Cells 0.0 0.0-0.19 % Sodium Level 137 136-145 mmol/L Potassium Level 3.7 3.5-5.1 mmol/L Chloride Level 97 L 101-111 mmol/L Carbon Dioxide Level 32 21-32 mmol/L Blood Urea Nitrogen 12 7-18 mg/dL Creatinine 1.2 0.5-1.3 mg/dL Glomerular Filtration Rate Calc 77 >90 mL/min Random Glucose 88 70-105 mg/dL Total Calcium 8.5 8.5-10.1 mg/dL Urine Color YELLOW YELLOW Urine Appearance CLEAR CLEAR Urine pH 6.0 5.0-8.0 Urine Specific [place] 1.018 1.001-1.031 Urine Protein NEGATIVE NEGATIVE mg/dL Urine Glucose (UA) NEGATIVE NEGATIVE mg/dL Urine Ketones NEGATIVE NEGATIVE mg/dL Urine Occult Blood NEGATIVE NEGATIVE Urine Nitrate NEGATIVE NEGATIVE Urine Bilirubin NEGATIVE NEGATIVE mg/dL Urine Urobilinogen 0.2 0.2-1.0 mg/dL Urine Leukocyte Esterase NEGATIVE NEGATIVE Isabela/uL Prothrombin Time 11.8 H 9.6-11.6 SEC Prothromb Time International Ratio 1.13 0.85-1.15 Activated Partial Thromboplast Time 26.8 26.3-35.5 SEC Hemoglobin A1c 4.9 4.0-6.0 % Estimated Average Glucose (eAG) 94 70-126 mg/dL Total Bilirubin 1.0 0.2-1.0 mg/dL Aspartate Amino Transf (AST/SGOT) 23 10-37 U/L Alanine Aminotransferase (ALT/SGPT) 39 12-78 U/L Alkaline Phosphatase 124 50-136 U/L Total Creatine Kinase 52 21-232 U/L Troponin I High Sensitivity 4 4-75 ng/L C-Reactive Protein, Quantitative 7.80 H 0.5-3.0 mg/L Total Protein 6.7 6.0-8.3 g/dL Albumin 3.6 3.5-5.0 g/dL Lipase 24 16-77 U/L Procalcitonin < 0.05 L 0.05-0.5 ng/mL Thyroid Stimulating Hormone (TSH) 1.46 # 0.36-3.74 uIU/mL Stool Occult Blood POSITIVE H NEGATIVE Current Medications Medications (Trade) Dose Ordered Sig/Armando Route PRN Reason Start Time Stop Time Status Last Admin Dose Admin Acetaminophen (TYLenol 500MG TAB) 500 mg Q6H PRN PO MILD PAIN (1-3) 06/17/25 12:30 07/17/25 12:29 06/18/25 08:50 500 MG Cholestyramine Resin (Cholestyramine Packet) 4 gm TIDAC PO 06/18/25 07:30 07/18/25 07:29 06/18/25 07:15 4 GM Diphenoxylate HCl/ Atropine (Lomotil) 2 tab TID PO 06/18/25 09:00 07/18/25 08:59 Hydralazine HCl (APRESOLine 20MG INJ) 10 mg Q6H PRN IV ADMINISTER FOR SBP > 180 06/17/25 12:30 07/17/25 12:29 Ondansetron HCl (zoFRAN 4MG INJ) 4 mg Q6H PRN IVP NAUSEA/VOMITING 06/17/25 13:00 07/17/25 12:59 Piperacillin Sod/ Tazobactam Sod (Zosyn 3.375gm+NS 50ml) 3.375 gm Q8H IVPB 06/17/25 12:30 06/27/25 12:29 06/18/25 04:32 3.375 GM Psyllium Hydrophilic Mucilloid (Metamucil) 1 tbs BID PO 06/18/25 09:00 07/18/25 08:59 Sodium Chloride 1,000 ml @ 100 mls/hr Q10H IV 06/17/25 12:30 07/17/25 12:29 Sodium Chloride (NS 50ml) 50 ml AD IV 06/17/25 12:30 06/17/25 12:37 DC DIAGNOSTICS / RADIOLOGY: [ ] ASSESSMENT: Dehydration POA Presyncope Colovesicular fistula status post diverting ileostomy Recent infectious colitis being treated outpatient with Augmentin PLAN: - continue admission to medical-surgical unit with telemetry - continue on NS for gentle hydration. - continue on IV Zosyn. -requested consultation with Colorectal surgery due to patient having increased output from his ostomy. -patient was recommended CT abdomen pelvis for evaluation of abdominal pain. Patient declined to undergo CT abdomen pelvis -p.r.n. medications for fever, pain, nausea - follow up a.m. labs - further orders per hospital course AMADEO CASTELAN PAC Jun 18, 2025 10:48
--- NOTE | 2025-06-18 11:50 | CONS ---
[facility] CONSULTATION NOTE Date of Consultation: Jun 18, 2025 Time of Consultation: 11:46 History of Present Illness: [44-year-old male with past medical history of diverticulosis complicated by colovesical fistula with history of low anterior resection with diverting ileostomy in April 2025 who presented to the hospital secondary to generalized weakness and presyncope. Patient admitted due to concerns for dehydration secondary to high ileostomy output. Patient scheduled for ileostomy closure on Thursday. Patient seen today laying comfortably in bed. Ileostomy consistency shows some improvement. denies any abdominal pain and or NV at this time. We will continue to monitor ] Review of Systems: CONSTITUTIONAL: No malaise or change in sensation of wellbeing. ENMT: No rhinorrhea, otorrhea, sinus pain, ear ache. CARDIOVASCULAR: No angina, palpitations, orthopnea or paroxysmal dyspnea. RESPIRATORY: No SOB. GASTROINTESTINAL: No abdominal pain, nausea, vomiting, diarrhea, hematemesis, melena or change in the patient's habitual bowel movements consistency/number. GENITOURINARY: No dysuria, hematuria or change in bladder continence. MUSCULOSKELETAL: No new muscle pain or decrease in muscular strength. No new joint swelling, redness or tenderness. SKIN: No new rash. PAST MEDICAL HISTORY: [ ADHD, history of previous diverticulosis/diverticulitis ] PAST SURGICAL HISTORY: [ ACL Knee, Low anterior resection with Diverting ileostomy creatio 04/[address] Baez] PAST SOCIAL HISTORY: [ Patient lives with . Patient denies alcohol tobacco and recreational drug use ] FAMILY HISTORY: [Hypertension, diabetes, Chronic obstructive pulmonary disease and cancer ] Coded Allergies: No Known Drug Allergies (Unverified Allergy, Unknown, 04/08/21) Physical Exam: GEN: Awake, alert, oriented in person, time and place, and in no acute distress. HEENT: No sinus tenderness. Tympanic membranes were not examined. No rhinorrhea. Oral pharyngeal mucosa is pink, moist and within normal limits. Neck is supple with no cervical lymphadenopathy, thyromegaly or JVD. CHEST: Inspection, palpation and percussion of the chest were unremarkable. Lung auscultation revealed normal breath sounds bilaterally. CARDIAC: PMI is within normal limits. Heart sounds are regular. Normal S1, S2. No gallop or murmur. ABD: Soft, non-tender and not distended. No peritoneal signs on palpation. No organomegaly. Normal bowel sounds. Ileostomy with jelly consistency stool. EXT: No cyanosis or clubbing. No edema. SKIN: Intact. No rashes. JOINTS: No evidence of synovitis or acute arthritis. NEURO: Alert and oriented to name, place and person. Cranial nerve examination is unremarkable. No focal motor deficits. Normal speech. Gait is normal. Strength is normal. Vital Sign (Last 24 Hours) 06/18/25 06/18/25 07:52 08:00 Temp 98.1 Pulse 79 Resp 18 B/P (MAP) 128/89 Pulse Ox 96 O2 Delivery Room Air O2 Flow Rate 0 FiO2 21 Intake & Output (last 24hrs) 06/17/25 06/17/25 06/18/25 15:00 23:00 07:00 Intake Total 1000.0 ml 350.0 ml 1300 ml Output Total 1200 ml 600 ml Balance -200.0 ml 350.0 ml 700 ml Laboratory: [ ] Laboratory: Test 06/18/25 07:25 06/17/25 12:08 06/17/25 09:24 06/17/25 08:50 Range/Units White Blood Count 8.6 4.8-10.8 K/uL Red Blood Count 5.82 4.50-6.20 MIL/uL Hemoglobin 17.6 14.0-18.0 g/dL Hematocrit 50.6 42-54 % Mean Corpuscular Volume 86.9 79-99 fL Mean Corpuscular Hemoglobin 30.2 27.0-33.0 pg Mean Corpuscular Hemoglobin Concent 34.8 32.0-36.0 g/dL Red Cell Distribution Width 14.7 11.0-15.5 % Platelet Count 275 130-400 K/uL Mean Platelet Volume 8.5 7.5-10.5 fL Immature Granulocyte % (Auto) 0.5 0-1 % Neutrophils (%) (Auto) 52.3 40.0-77.0 % Lymphocytes (%) (Auto) 18.8 L 21.0-51.0 % Monocytes (%) (Auto) 5.4 3.0-13.0 % Eosinophils (%) (Auto) 22.9 H 0.0-8.0 % Basophils (%) (Auto) 0.1 0.0-5.0 % Neutrophils # (Auto) 4.5 1.8-7.7 K/uL Lymphocytes # (Auto) 1.6 1.0-4.8 K/uL Monocytes # (Auto) 0.5 0.1-1.0 K/uL Eosinophils # (Auto) 1.96 H 0.00-0.70 K/uL Basophils # (Auto) 0.01 0.00-0.20 K/uL Absolute Immature Granulocyte (auto 0.04 0-1 K/uL Nucleated Red Blood Cells 0.0 0.0-0.19 % Sodium Level 137 136-145 mmol/L Potassium Level 3.7 3.5-5.1 mmol/L Chloride Level 97 L 101-111 mmol/L Carbon Dioxide Level 32 21-32 mmol/L Blood Urea Nitrogen 12 7-18 mg/dL Creatinine 1.2 0.5-1.3 mg/dL Glomerular Filtration Rate Calc 77 >90 mL/min Random Glucose 88 70-105 mg/dL Total Calcium 8.5 8.5-10.1 mg/dL Urine Color YELLOW YELLOW Urine Appearance CLEAR CLEAR Urine pH 6.0 5.0-8.0 Urine Specific [place] 1.018 1.001-1.031 Urine Protein NEGATIVE NEGATIVE mg/dL Urine Glucose (UA) NEGATIVE NEGATIVE mg/dL Urine Ketones NEGATIVE NEGATIVE mg/dL Urine Occult Blood NEGATIVE NEGATIVE Urine Nitrate NEGATIVE NEGATIVE Urine Bilirubin NEGATIVE NEGATIVE mg/dL Urine Urobilinogen 0.2 0.2-1.0 mg/dL Urine Leukocyte Esterase NEGATIVE NEGATIVE Isabela/uL Prothrombin Time 11.8 H 9.6-11.6 SEC Prothromb Time International Ratio 1.13 0.85-1.15 Activated Partial Thromboplast Time 26.8 26.3-35.5 SEC Hemoglobin A1c 4.9 4.0-6.0 % Estimated Average Glucose (eAG) 94 70-126 mg/dL Total Bilirubin 1.0 0.2-1.0 mg/dL Aspartate Amino Transf (AST/SGOT) 23 10-37 U/L Alanine Aminotransferase (ALT/SGPT) 39 12-78 U/L Alkaline Phosphatase 124 50-136 U/L Total Creatine Kinase 52 21-232 U/L Troponin I High Sensitivity 4 4-75 ng/L C-Reactive Protein, Quantitative 7.80 H 0.5-3.0 mg/L Total Protein 6.7 6.0-8.3 g/dL Albumin 3.6 3.5-5.0 g/dL Lipase 24 16-77 U/L Procalcitonin < 0.05 L 0.05-0.5 ng/mL Thyroid Stimulating Hormone (TSH) 1.46 # 0.36-3.74 uIU/mL Stool Occult Blood POSITIVE H NEGATIVE Current Medications Medications (Trade) Dose Ordered Sig/Armando Route PRN Reason Start Time Stop Time Status Last Admin Dose Admin Acetaminophen (TYLenol 500MG TAB) 500 mg Q6H PRN PO MILD PAIN (1-3) 06/17/25 12:30 07/17/25 12:29 06/18/25 08:50 500 MG Cholestyramine Resin (Cholestyramine Packet) 4 gm TIDAC PO 06/18/25 07:30 07/18/25 07:29 06/18/25 07:15 4 GM Diphenoxylate HCl/ Atropine (Lomotil) 2 tab TID PO 06/18/25 09:00 07/18/25 08:59 Hydralazine HCl (APRESOLine 20MG INJ) 10 mg Q6H PRN IV ADMINISTER FOR SBP > 180 06/17/25 12:30 07/17/25 12:29 Ondansetron HCl (zoFRAN 4MG INJ) 4 mg Q6H PRN IVP NAUSEA/VOMITING 06/17/25 13:00 07/17/25 12:59 Piperacillin Sod/ Tazobactam Sod (Zosyn 3.375gm+NS 50ml) 3.375 gm Q8H IVPB 06/17/25 12:30 06/27/25 12:29 06/18/25 04:32 3.375 GM Psyllium Hydrophilic Mucilloid (Metamucil) 1 tbs BID PO 06/18/25 09:00 07/18/25 08:59 Sodium Chloride 1,000 ml @ 100 mls/hr Q10H IV 06/17/25 12:30 07/17/25 12:29 Sodium Chloride (NS 50ml) 50 ml AD IV 06/17/25 12:30 06/17/25 12:37 DC Diagnostics / Radiology: [COPY/PASTE HERE IF NO REPORTS PLEASE DELETE SECTION] Assessment: [Ileostomy status Dehydration secondary to high ileostomy output ] Plan: [soft diet as tolerated Strict I&O's Monitor ileostomy output goal is to maintain output less than 1.5L in 24 hour period anything greater than that should be replaced with IV fluids in a 1:1 fashion Continue Lomotil TID and Metamucil to aide in improving ileostomy consistency Plan is for Ileostomy closure on Thursday as planned CRS to continue to monitor Case Discussed with Dr. Zamorano ] CONNIE SLATER Jun 18, 2025 11:50
[2025-06-18] MEDS ORDERED: PoTASSium chloRIDE 20MEQ ER 20 MEQ ERTAB PO PRN (12:30)
[2025-06-18] MEDS: PoTASSium chl 10% ELIXIR 20MEQ 20 MEQ/15 ML UDCUP PO PRN (12:54)
--- NOTE | 2025-06-18 14:25 | NUR ---
INITIAL/DCP HOME Met w pt and spouse this afternoon to discuss dcp. Pt lives w his and children. He is independent w ambulation and ADLs. He does not own any DME or receive servicess. Pt normally works FT as a [employer] but is currently on leave dt illness. Discharge goal is to return home.
--- NOTE | 2025-06-18 22:56 | HMCSR ---
APPROVED REPORT EXAM: Two-dimensional and M-mode echocardiogram with Doppler and color Doppler. INDICATION ICD: Pre-syncope, assess left ventricular ejection fraction 2D Dimensions RVDd 3.9 cm LVEF(%) 53.2 (>50%) LVED Vol(simp.) 75.0 mL IVSd 0.9 (0.7-1.1cm) FS(%) 27 % LVES Vol(simp.) 28.0 mL LVDd 4.4 (3.8-5.6cm) LA (2D) 3.0 (1.6-4.0cm) LVEF(%, simp.) 63 % PWd 1.0 (0.7-1.1cm) Ao Root(2D) 3.5 (2.0-3.7cm) LA ESV INDEX (BP) 17.01 mL/m2 IVSs 1.0 cm LVOT diam 2.3 (1.8-2.4cm) LVDs 3.2 (2.5-4.0cm) IVC diam 1.0 cm PWs 1.2 cm Deformation Strain Apical 4 -17.0 % Apical 2 -15.6 % Apical 3 -13.1 % Global Strain -15.2 % M-Mode Dimensions EPSS 1.0 cm LA (MM) 3.3 (1.6-4.0cm) Ao Root(MM) 3.2 (2.0-3.7cm) Aortic Valve AoV Vmax 1.6 m/s Ao Peak GR 9.8 mmHg LVOT Vmax 1.2 m/s AoV VTI 0.2 m Ao Mean GR 6.2 mmHg LVOT VTI 0.24 m SANA (VMAX) 3.13 cm2 SANA (VTI) 4.7 cm2 Mitral Valve MV E Vmax 55.3 cm/s DECEL Time 263 ms MV A Vmax 64.0 cm/s P 1/2 T 58 ms E/A ratio 0.9 MVA (PHT) 3.8 cm2 TDI E/E' Medial 7.2 E/E' Lateral 8.3 Medial E' Peak V 7.71 cm/s Lateral E' Peak V 6.69 cm/s Pulmonary Valve PV Vmax 0.8 m/s PV Mean GR 1.6 mmHg PV Peak GR 2.6 mmHg Tricuspid Valve TR Vmax 0.8 m/s RAP (EST) 3 mmHg RVSP 5.4 mmHg TR Peak GR 2.4 mmHg Left Ventricle The left ventricle is normal size. No regional wall motion abnormalities noted. Mild concentric left ventricular hypertrophy. Left ventricular systolic function is normal, estimated LVEF is 55 to 60%. Stage I diastolic dysfunction. Right Ventricle The right ventricle is normal size. The right ventricular systolic function is normal. Atria The left atrium size is normal. The right atrium size is normal. Aortic Valve Aortic valve is possibly bicuspid. No aortic regurgitation is present. There is no aortic valvular stenosis. Mitral Valve The mitral valve is normal in structure. The leaflets are mildly thickened and calcified. There is no mitral valve regurgitation noted. There is no mitral valve stenosis. Tricuspid Valve The tricuspid valve is normal in structure. Trace tricuspid regurgitation. RVSP is normal. Pulmonic Valve Pulmonic valve is not well visualized. Great Vessels The aortic root is normal in size. The IVC is normal in size and collapses >50% with inspiration. Pericardium There is no pericardial effusion. Other Information Quality : Technically difficult study due to body habitus Conclusion The cardiac chambers are normal in size. Mild concentric left ventricular hypertrophy. No regional wall motion abnormalities noted. Left ventricular systolic function is normal, estimated LVEF is 55 to 60%. Stage I diastolic dysfunction. Trace tricuspid regurgitation. PASP is normal. There is no pericardial effusion.
[2025-06-19] VITALS (8 sets, daily range): BP systolic 118–127; BP diastolic 77–90; PULSE 88–119; RESP 16–18; TEMP 97.4–98.4; O2SAT 98–100
[2025-06-19] MEDS: LOPERAMIDE HCL 2 MG CAP PO ONE (01:25)
[2025-06-19 03:27] LABS: IMMATURE GRANULOCYTE ABSOLUTE 0.07 K/uL (0-1); NUCLEATED RED BLOOD CELLS 0.0 % (0.0-0.19); PLATELET COUNT (AUTO) 288 K/uL (130-400); RED BLOOD CELL COUNT(AUTO) 6.13 MIL/uL (4.50-6.20); RED CELL DISTRIBUTION WIDTH 14.7 % (11.0-15.5); WHITE BLOOD COUNT (AUTO) 14.5 K/uL (4.8-10.8)
[2025-06-19 03:38] LABS: CREATININE 1.1 mg/dL (0.5-1.3); GLOMERULAR FILTR. RATE CALC 85.0 mL/min (>90); GLUCOSE,RANDOM 115.0 mg/dL (70-105); SODIUM SERUM 132.0 mmol/L (136-145); UREA NITROGEN, BLOOD 15.0 mg/dL (7-18)
[2025-06-19] MEDS ORDERED: PoTASSium chloRIDE 20MEQ ER 20 MEQ ERTAB PO ONE (06:30)
[2025-06-19] MEDS: PoTASSium chl 10% ELIXIR 20MEQ 20 MEQ/15 ML UDCUP PO ONE (08:26)
[2025-06-19] MEDS: ENOXAPARIN SODIUM 30 MG/0.3 ML SQ SCH (09:06)
--- NOTE | 2025-06-19 10:35 | PN ---
[facility] PROGRESS NOTE Date of Service: Jun 19, 2025 Time of Service: 10:[address] Delgado SUBJECTIVE: 06/18 Follow up visit for a 44-year-old male with recent history of diverting ileostomy, admitted to the hospital for acute dehydration, presyncope. Patient remains on IV Zosyn, IVF. Consultation with surgeon has been requested pending evaluation. Continues to have large amount of liquidy output from ileostomy. 06/19 patient was seen by nurse practitioner and physician during rounding in room 403. Patient will receive 60 mEq of potassium total for potassium of 3.4 today. Patient is pending evaluation by colorectal surgeon regards possible ileostomy closure tomorrow 06/20/2025 by . Recent output from the ileostomy within 24 hours was 3450. 2D echo showed EF of 55 to 60% stage I diastolic dysfunction. We will continue to monitor patient in the meantime. A.m. labs REVIEW OF SYSTEMS CONSTITUTIONAL: Denies fevers, chills, or night sweats. No unintentional weight loss reported. NEUROLOGICAL: Denies headache, amaurosis fugax, motor weakness, sensory defi cit, vertigo/spinning sensation, gait abnormalities, or tremors. ENT: No hearing loss, otalgia, otorrhea, rhinitis, rhinorrhea, hoarseness, or sore throat. CARDIOVASCULAR: Denies any exertional angina, dyspnea on exertion, orthopnea, paroxysmal nocturnal dyspnea, palpitations, life-threatening arrhythmias, claudication. PULMONARY: Denies any shortness of breath, cough, phlegm/sputum, hemoptysis, pleuritic chest pain. SLEEP: Denies morning headaches, daytime somnolence or napping. Denies difficulty falling asleep, staying asleep, waking from sleep. Denies knowledge of snoring. GASTROINTESTINAL: Positive for abdominal pain. Denied any nausea, vomiting. GENITOURINARY: Denies frequency, urgency, nocturia, hematuria or incontinence (Storage/Irritative symptoms.) Low urinary stream, straining to void, urinary intermittency or hesitancy, splitting of the voiding stream, terminal dribbling. ENDOCRINOLOGIC: Denies polyuria, polydipsia, polyphagia or heat/cold intolerances. HEMATOLOGIC: Denies thrombophilia/previous clots, or coagulopathy/bleeding disorders. ONCOLOGIC: Denies personal history of malignancy. DERMATOLOGIC: Denies rashes or pruritus. PSYCHIATRIC: Denies any suicidal or homicidal ideation. Denies hallucinations. PHYSICAL EXAM GENERAL APPEARANCE: The patient is awake, alert, and oriented, in no acute cardiopulmonary distress. NEUROLOGICAL: Cranial nerves II-XII grossly intact. Motor is 5/5 in bilateral upper and lower extremities proximal to distal. No sensory deficits. HEENT: Face is symmetric. Pupils are equal and reactive. Extraocular movements are intact. NECK: Supple. No JVD. No thyromegaly. No submental, submandibular, pre- /postauricular, occipital or supraclavicular lymphadenopathy. CHEST: Normal chest expansion. No Telemetry. LUNGS: Absence of any rales, rhonchi or any wheezing. CARDIOVASCULAR: Regular. S1 and S2 normal. No appreciable rubs, murmurs or gallops. ABDOMEN: Soft, nontender. Patient has a ileostomy present. He has greenish colored stool which is loose in his ostomy bag. : Deferred. No Lee. EXTREMITIES: Non-edematous and not cyanotic. No clubbing. Good capillary re fill. SKIN: No skin breakdown. Vital Signs (last 8hr) Date Time Temp Pulse Resp B/P (MAP) Pulse Ox O2 Delivery O2 Flow Rate FiO2 06/19/25 07:31 98.1 97 18 118/87 95 Room Air 06/19/25 03:32 97.9 91 17 126/85 98 Room Air LABS: Laboratory: Test 06/19/25 03:17 06/17/25 12:08 Range/Units White Blood Count 14.5 #H 4.8-10.8 K/uL Red Blood Count 6.13 4.50-6.20 MIL/uL Hemoglobin 18.4 H 14.0-18.0 g/dL Hematocrit 53.7 42-54 % Mean Corpuscular Volume 87.6 79-99 fL Mean Corpuscular Hemoglobin 30.0 27.0-33.0 pg Mean Corpuscular Hemoglobin Concent 34.3 32.0-36.0 g/dL Red Cell Distribution Width 14.7 11.0-15.5 % Platelet Count 288 130-400 K/uL Mean Platelet Volume 8.6 7.5-10.5 fL Immature Granulocyte % (Auto) 0.5 0-1 % Neutrophils (%) (Auto) 52.2 40.0-77.0 % Lymphocytes (%) (Auto) 11.7 L 21.0-51.0 % Monocytes (%) (Auto) 5.0 3.0-13.0 % Eosinophils (%) (Auto) 30.1 H 0.0-8.0 % Basophils (%) (Auto) 0.5 0.0-5.0 % Neutrophils # (Auto) 7.6 1.8-7.7 K/uL Lymphocytes # (Auto) 1.7 1.0-4.8 K/uL Monocytes # (Auto) 0.7 0.1-1.0 K/uL Eosinophils # (Auto) 4.35 H 0.00-0.70 K/uL Basophils # (Auto) 0.07 0.00-0.20 K/uL Absolute Immature Granulocyte (auto 0.07 0-1 K/uL Nucleated Red Blood Cells 0.0 0.0-0.19 % Sodium Level 132 L 136-145 mmol/L Potassium Level 3.4 L 3.5-5.1 mmol/L Chloride Level 93 L 101-111 mmol/L Carbon Dioxide Level 27 21-32 mmol/L Blood Urea Nitrogen 15 7-18 mg/dL Creatinine 1.1 0.5-1.3 mg/dL Glomerular Filtration Rate Calc 85 >90 mL/min Random Glucose 115 H 70-105 mg/dL Total Calcium 9.2 8.5-10.1 mg/dL C-Reactive Protein, Quantitative 7.40 H 0.5-3.0 mg/L Urine Color YELLOW YELLOW Urine Appearance CLEAR CLEAR Urine pH 6.0 5.0-8.0 Urine Specific [place] 1.018 1.001-1.031 Urine Protein NEGATIVE NEGATIVE mg/dL Urine Glucose (UA) NEGATIVE NEGATIVE mg/dL Urine Ketones NEGATIVE NEGATIVE mg/dL Urine Occult Blood NEGATIVE NEGATIVE Urine Nitrate NEGATIVE NEGATIVE Urine Bilirubin NEGATIVE NEGATIVE mg/dL Urine Urobilinogen 0.2 0.2-1.0 mg/dL Urine Leukocyte Esterase NEGATIVE NEGATIVE Isabela/uL Current Medications Medications (Trade) Dose Ordered Sig/Armando Route PRN Reason Start Time Stop Time Status Last Admin Dose Admin Acetaminophen (TYLenol 500MG TAB) 500 mg Q6H PRN PO MILD PAIN (1-3) 06/17/25 12:30 07/17/25 12:29 06/19/25 02:33 500 MG Cholestyramine Resin (Cholestyramine Packet) 4 gm TIDAC PO 06/18/25 07:30 07/18/25 07:29 06/18/25 07:15 4 GM Diphenoxylate HCl/ Atropine (Lomotil) 2 tab TID PO 06/18/25 09:00 07/18/25 08:59 06/19/25 08:26 2 TAB Enoxaparin Sodium (Lovenox) 30 mg DAILY SQ 06/19/25 09:00 07/19/25 08:59 06/19/25 09:06 30 MG Hydralazine HCl (APRESOLine 20MG INJ) 10 mg Q6H PRN IV ADMINISTER FOR SBP > 180 06/17/25 12:30 07/17/25 12:29 Ondansetron HCl (zoFRAN 4MG INJ) 4 mg Q6H PRN IVP NAUSEA/VOMITING 06/17/25 13:00 07/17/25 12:59 06/19/25 09:06 4 MG Piperacillin Sod/ Tazobactam Sod (Zosyn 3.375gm+NS 50ml) 3.375 gm Q8H IVPB 06/17/25 12:30 06/27/25 12:29 06/19/25 04:05 3.375 GM Potassium Chloride 100 ml @ 100 mls/hr AD PRN IV POTASSIUM PROTOCOL 06/18/25 12:30 07/18/25 12:29 Potassium Chloride (K-Dur/Klor-Con 20meq) 20 meq AD PRN PO POTASSIUM PROTOCOL 06/18/25 12:30 07/18/25 12:29 Potassium Chloride (KCl 10% Elixir 20meq/15ml) 20 meq AD PRN PO POTASSIUM PROTOCOL 06/18/25 12:30 07/18/25 12:29 06/19/25 06:17 20 MEQ Psyllium Hydrophilic Mucilloid (Metamucil) 1 tbs BID PO 06/18/25 09:00 07/18/25 08:59 06/18/25 20:05 1 TBS Sodium Chloride 1,000 ml @ 100 mls/hr Q10H IV 06/17/25 12:30 07/17/25 12:29 06/19/25 04:06 100 MLS/HR Sodium Chloride (NS 50ml) 50 ml AD IV 06/17/25 12:30 06/17/25 12:37 DC DIAGNOSTICS / RADIOLOGY: [ ] ASSESSMENT: Acute Dehydration POA Presyncope POA Acute diastolic congestive heart failure EF 55 60% POA Colovesicular fistula status post diverting ileostomy Recent infectious colitis being treated outpatient with Augmentin PLAN: Patient will receive 60 mEq of potassium total for potassium of 3.4 today. Patient is pending evaluation by colorectal surgeon regards possible ileostomy closure tomorrow 06/20/2025 by . Recent output from the ileostomy within 24 hours was 3450. 2D echo showed EF of 55 to 60% stage I diastolic dysfunction. We will continue to monitor patient in the meantime. A.m. labs - continue on NS for gentle hydration. - continue on IV Zosyn. -requested consultation with Colorectal surgery due to patient having increased output from his ostomy. -patient was recommended CT abdomen pelvis for evaluation of abdominal pain. Patient declined to undergo CT abdomen pelvis -p.r.n. medications for fever, pain, nausea - follow up a.m. labs - further orders per hospital course ATTESTATION BY PHYSICIAN I have seen and examined the patient. I reviewed the documentation, medical decision making, and treatment plan as noted by the mid-level provider above. I agree with the findings and plan of care. FRANCISCO DELGADO MD, [facility] Jun 19, 2025 10:35
[2025-06-19] MEDS: PoTASSium chloRIDE 20MEQ ER 20 MEQ ERTAB PO ONE (11:37)
--- NOTE | 2025-06-19 19:36 | PN ---
[facility] PROGRESS NOTE Date of Visit: Jun 19, 2025 Time of Visit: 19:36 Events / Notes: [ ] Review of Systems: CONSTITUTIONAL: No malaise or change in sensation of wellbeing. ENMT: No rhinorrhea, otorrhea, sinus pain, ear ache. CARDIOVASCULAR: No angina, palpitations, orthopnea or paroxysmal dyspnea. RESPIRATORY: No SOB. GASTROINTESTINAL: No abdominal pain, nausea, vomiting, diarrhea, hematemesis, melena or change in the patient's habitual bowel movements consistency/number. GENITOURINARY: No dysuria, hematuria or change in bladder continence. MUSCULOSKELETAL: No new muscle pain or decrease in muscular strength. No new joint swelling, redness or tenderness. SKIN: No new rash. Physical Exam: GEN: Awake, alert, oriented in person, time and place, and in no acute distress. HEENT: No sinus tenderness. Tympanic membranes were not examined. No rhinorrhea. Oral pharyngeal mucosa is pink, moist and within normal limits. Neck is supple with no cervical lymphadenopathy, thyromegaly or JVD. CHEST: Inspection, palpation and percussion of the chest were unremarkable. Lung auscultation revealed normal breath sounds bilaterally. CARDIAC: PMI is within normal limits. Heart sounds are regular. Normal S1, S2. No gallop or murmur. ABD: Soft, non-tender and not distended. No peritoneal signs on palpation. No organomegaly. Normal bowel sounds. Ileostomy with jelly consistency stool. EXT: No cyanosis or clubbing. No edema. SKIN: Intact. No rashes. JOINTS: No evidence of synovitis or acute arthritis. NEURO: Alert and oriented to name, place and person. Cranial nerve examination is unremarkable. No focal motor deficits. Normal speech. Gait is normal. Strength is normal. Vital Signs (last 8hr) Date Time Temp Pulse Resp B/P (MAP) Pulse Ox O2 Delivery O2 Flow Rate FiO2 06/19/25 16:20 98.4 98 18 120/90 95 Room Air Laboratory: [ ] Laboratory: Test 06/19/25 09:43 06/19/25 03:17 Range/Units Procalcitonin 0.07 0.05-0.5 ng/mL White Blood Count 14.5 #H 4.8-10.8 K/uL Red Blood Count 6.13 4.50-6.20 MIL/uL Hemoglobin 18.4 H 14.0-18.0 g/dL Hematocrit 53.7 42-54 % Mean Corpuscular Volume 87.6 79-99 fL Mean Corpuscular Hemoglobin 30.0 27.0-33.0 pg Mean Corpuscular Hemoglobin Concent 34.3 32.0-36.0 g/dL Red Cell Distribution Width 14.7 11.0-15.5 % Platelet Count 288 130-400 K/uL Mean Platelet Volume 8.6 7.5-10.5 fL Immature Granulocyte % (Auto) 0.5 0-1 % Neutrophils (%) (Auto) 52.2 40.0-77.0 % Lymphocytes (%) (Auto) 11.7 L 21.0-51.0 % Monocytes (%) (Auto) 5.0 3.0-13.0 % Eosinophils (%) (Auto) 30.1 H 0.0-8.0 % Basophils (%) (Auto) 0.5 0.0-5.0 % Neutrophils # (Auto) 7.6 1.8-7.7 K/uL Lymphocytes # (Auto) 1.7 1.0-4.8 K/uL Monocytes # (Auto) 0.7 0.1-1.0 K/uL Eosinophils # (Auto) 4.35 H 0.00-0.70 K/uL Basophils # (Auto) 0.07 0.00-0.20 K/uL Absolute Immature Granulocyte (auto 0.07 0-1 K/uL Nucleated Red Blood Cells 0.0 0.0-0.19 % Sodium Level 132 L 136-145 mmol/L Potassium Level 3.4 L 3.5-5.1 mmol/L Chloride Level 93 L 101-111 mmol/L Carbon Dioxide Level 27 21-32 mmol/L Blood Urea Nitrogen 15 7-18 mg/dL Creatinine 1.1 0.5-1.3 mg/dL Glomerular Filtration Rate Calc 85 >90 mL/min Random Glucose 115 H 70-105 mg/dL Total Calcium 9.2 8.5-10.1 mg/dL C-Reactive Protein, Quantitative 7.40 H 0.5-3.0 mg/L Current Medications Medications (Trade) Dose Ordered Sig/Armando Route PRN Reason Start Time Stop Time Status Last Admin Dose Admin Acetaminophen (TYLenol 500MG TAB) 500 mg Q6H PRN PO MILD PAIN (1-3) 12/6/25 12:30 07/17/25 12:29 06/19/25 10:29 500 MG Cholestyramine Resin (Cholestyramine Packet) 4 gm TIDAC PO 06/18/25 07:30 07/18/25 07:29 06/18/25 07:15 4 GM Diphenoxylate HCl/ Atropine (Lomotil) 2 tab TID PO 06/18/25 09:00 07/18/25 08:59 06/19/25 15:16 2 TAB Enoxaparin Sodium (Lovenox) 30 mg DAILY SQ 06/19/25 09:00 07/19/25 08:59 06/19/25 09:06 30 MG Hydralazine HCl (APRESOLine 20MG INJ) 10 mg Q6H PRN IV ADMINISTER FOR SBP > 180 06/17/25 12:30 07/17/25 12:29 Ondansetron HCl (zoFRAN 4MG INJ) 4 mg Q6H PRN IVP NAUSEA/VOMITING 06/17/25 13:00 07/17/25 12:59 06/19/25 09:06 4 MG Piperacillin Sod/ Tazobactam Sod (Zosyn 3.375gm+NS 50ml) 3.375 gm Q8H IVPB 06/17/25 12:30 06/27/25 12:29 06/19/25 13:15 3.375 GM Potassium Chloride 100 ml @ 100 mls/hr AD PRN IV POTASSIUM PROTOCOL 06/18/25 12:30 07/18/25 12:29 Potassium Chloride (K-Dur/Klor-Con 20meq) 20 meq AD PRN PO POTASSIUM PROTOCOL 06/18/25 12:30 07/18/25 12:29 Potassium Chloride (KCl 10% Elixir 20meq/15ml) 20 meq AD PRN PO POTASSIUM PROTOCOL 06/18/25 12:30 07/18/25 12:29 06/19/25 06:17 20 MEQ Psyllium Hydrophilic Mucilloid (Metamucil) 1 tbs BID PO 06/18/25 09:00 07/18/25 08:59 06/18/25 20:05 1 TBS Sodium Chloride 1,000 ml @ 100 mls/hr Q10H IV 06/17/25 12:30 07/17/25 12:29 128/25 15:16 100 MLS/HR Sodium Chloride (NS 50ml) 50 ml AD IV 06/17/25 12:30 06/17/25 12:37 DC Diagnostics / Radiology: [COPY/PASTE HERE IF NO REPORTS PLEASE DELETE SECTION] Assessment: [Ileostomy status Dehydration secondary to high ileostomy output ] Plan: [soft diet as tolerated Strict I&O's Monitor ileostomy output goal is to maintain output less than 1.5L in 24 hour period anything greater than that should be replaced with IV fluids in a 1:1 fashion Continue Lomotil TID and Metamucil to aide in improving ileostomy consistency Plan is for Ileostomy closure on Thursday as planned CRS to continue to monitor Case Discussed with Dr. Zamorano ] JADON MASSEY SECURITY CLERK Jun 19, 2025 19:36
[2025-06-20] VITALS (28 sets, daily range): BP systolic 101–178; BP diastolic 56–102; PULSE 59–96; RESP 16–22; TEMP 97–98.1; O2SAT 96–98
[2025-06-20] MEDS: PROMETHAZINE HCL 25 MG/ML 1ML AMPULE IM ONE (01:20)
[2025-06-20 03:49] LABS: IMMATURE GRANULOCYTE ABSOLUTE 0.07 K/uL (0-1); NUCLEATED RED BLOOD CELLS 0.0 % (0.0-0.19); PLATELET COUNT (AUTO) 306 K/uL (130-400); RED BLOOD CELL COUNT(AUTO) 6.29 MIL/uL (4.50-6.20); RED CELL DISTRIBUTION WIDTH 14.9 % (11.0-15.5); WHITE BLOOD COUNT (AUTO) 16.4 K/uL (4.8-10.8)
[2025-06-20 04:03] LABS: ASPARTATE AMINOTRANSFERASE 53.0 U/L (10-37); CREATININE 1.4 mg/dL (0.5-1.3); GLOMERULAR FILTR. RATE CALC 64.0 mL/min (>90); GLUCOSE,RANDOM 126.0 mg/dL (70-105); SODIUM SERUM 129.0 mmol/L (136-145); TOTAL PROTEIN, SERUM 8.4 g/dL (6.0-8.3); UREA NITROGEN, BLOOD 21.0 mg/dL (7-18)
--- NOTE | 2025-06-20 06:39 | NUR ---
PT TAKEN TO OR.
[2025-06-20] MEDS ORDERED: MIDAZOLAM HCL 1 MG/ML 2ML VIAL ONE (07:36)
[2025-06-20] MEDS ORDERED: LIDOCAINE PF 100MG/5ML (2%) SYRINGE 5ML ONE (07:52)
[2025-06-20] MEDS ORDERED: NEOSTIGMINE METHYLSULFATE 1MG/ML IV ONE (07:53)
[2025-06-20] MEDS ORDERED: SUCCINYLCHOLINE CHLORIDE 20 MG/ML 10 ML VIAL ONE (07:53)
[2025-06-20] MEDS ORDERED: GLYCOPYRROLATE 0.2 MG/ML 5 ML VIAL ONE (07:53)
--- NOTE | 2025-06-20 08:00 | NUR ---
NURSING OBSERVATION PATIENT OFF UNIT FOR PROCEDURE UNABLE TO ASSESS Addendum: 06/20/25 at 1213 by VICK GUEVARA RN RN Amended: Links added.
[2025-06-20] MEDS ORDERED: MEPERIDINE-PF 25 MG/ML SYG ONE (08:07)
[2025-06-20] MEDS: LIDOCAINE HCL/EPINEPHRINE 30 ML VIAL IJ ONE (08:15)
[2025-06-20] MEDS ORDERED: PROMETHAZINE HCL 25 MG/ML 1ML AMPULE IM PRN (09:30)
--- NOTE | 2025-06-20 09:45 | NUR ---
PATIENT REPORT RECEIVED REPORT FROM SID IN PACCU. PATIENT UNDERWENT ILEOSTOMY CLOSURE WITH DR. ELLIS. EBL 3, GENERAL ANESTHESIA USED WITH LIDOCAINE TO ABDOMEN. ABDOMEN WITH IODOFORM PACKING 1\2 INCH WITH 4X4 AND MEDIPORE TAPE. 25 MCGS OF FENTANYL GIVEN FOR PAIN. VITALS 95% ON RA, HR 58, RR 18 BLOOD PRESSURE 113\80. LOMOTIL AND ACETAMINOPHEN DISCONTINUED. WILL START CLEAR LIQUIDS FOR LUNCH.
--- NOTE | 2025-06-20 09:53 | NUR ---
MORNING MEDS PATIENT TAKEN FOR PROCEDURE, NO AM MEDS GIVEN
--- NOTE | 2025-06-20 10:15 | NUR ---
UNIT ARRIVAL RECEIVED PATIENT FROM [facility] PACU NURSE. PATIENT RESTING COMFORTABLY, NO SIGNS OF DISTRESS NOTED. POST OP VITALS INITIATED. INCISION CLEAN DRY AND INTACT. BED LOCKED IN LOWEST POSITION. CALL LIGHT WITHIN REACH. FAMILY AT BEDSIDE.
--- NOTE | 2025-06-20 11:50 | PN ---
[facility] PROGRESS NOTE Date of Service: Jun 20, 2025 Time of Service: 11:47 Attending doctor Noel SUBJECTIVE: 06/18 Follow up visit for a 44-year-old male with recent history of diverting ileostomy, admitted to the hospital for acute dehydration, presyncope. Patient remains on IV Zosyn, IVF. Consultation with surgeon has been requested pending evaluation. Continues to have large amount of liquidy output from ileostomy. 06/19 patient was seen by nurse practitioner and physician during rounding in room 403. Patient will receive 60 mEq of potassium total for potassium of 3.4 today. Patient is pending evaluation by colorectal surgeon regards possible ileostomy closure tomorrow 06/20/2025 by . Recent output from the ileostomy within 24 hours was 3450. 2D echo showed EF of 55 to 60% stage I diastolic dysfunction. We will continue to monitor patient in the meantime. A.m. labs 06/20 patient was seen by nurse practitioner and physician during rounding in room 403. Patient is pending ileostomy closure with small-bowel resection and other indicated procedure today with 06/20/25. Patient was restarted on Zosyn. Due to low sodium of 129 we will also increase normal saline from 100 mL/hour to 150 mL per/hr. Psych consulted pending recommen dations. We will monitor patient in the meantime. A.m. REVIEW OF SYSTEMS CONSTITUTIONAL: Denies fevers, chills, or night sweats. No unintentional weight loss reported. NEUROLOGICAL: Denies headache, amaurosis fugax, motor weakness, sensory deficit, vertigo/spinning sensation, gait abnormalities, or tremors. ENT: No hearing loss, otalgia, otorrhea, rhinitis, rhinorrhea, hoarseness, or sore throat. CARDIOVASCULAR: Denies any exertional angina, dyspnea on exertion, orthopnea, paroxysmal nocturnal dyspnea, palpitations, life-threatening arrhythmias, claudication. PULMONARY: Denies any shortness of breath, cough, phlegm/sputum, hemoptysis, pleuritic chest pain. SLEEP: Denies morning headaches, daytime somnolence or napping. Denies difficulty falling asleep, staying asleep, waking from sleep. Denies knowledge of snoring. GASTROINTESTINAL: Positive for abdominal pain. Denied any nausea, vomiting. GENITOURINARY: Denies frequency, urgency, nocturia, hematuria or incontinence (Storage/Irritative symptoms.) Low urinary stream, straining to void, urinary intermittency or hesitancy, splitting of the voiding stream, terminal dribbling. ENDOCRINOLOGIC: Denies polyuria, polydipsia, polyphagia or heat/cold intolerances. HEMATOLOGIC: Denies thrombophilia/previous clots, or coagulopathy/bleeding disorders. ONCOLOGIC: Denies personal history of malignancy. DERMATOLOGIC: Denies rashes or pruritus. PSYCHIATRIC: Denies any suicidal or homicidal ideation. Denies hallucinations. PHYSICAL EXAM GENERAL APPEARANCE: The patient is awake, alert, and oriented, in no acute cardiopulmonary distress. NEUROLOGICAL: Cranial nerves II-XII grossly intact. Motor is 5/5 in bilateral upper and lower extremities proximal to distal. No sensory deficits. HEENT: Face is symmetric. Pupils are equal and reactive. Extraocular movements are intact. NECK: Supple. No JVD. No thyromegaly. No submental, submandibular, pre-/ postauricular, occipital or supraclavicular lymphadenopathy. CHEST: Normal chest expansion. No Telemetry. LUNGS: Absence of any rales, rhonchi or any wheezing. CARDIOVASCULAR: Regular. S1 and S2 normal. No appreciable rubs, murmurs or gallops. ABDOMEN: Soft, nontender. Patient has a ileostomy present. He has greenish colored stool which is loose in his ostomy bag. : Deferred. No Lee. EXTREMITIES: Non-edematous and not cyanotic. No clubbing. Good capillary refill. SKIN: No skin breakdown. Vital Signs (last 8hr) Date Time Temp Pulse Resp B/P (MAP) Pulse Ox O2 Delivery O2 Flow Rate FiO2 06/20/25 10:15 97.0 72 19 140/72 96 Room Air 06/20/25 10:10 70 19 135/70 94 Room Air 06/20/25 10:05 66 19 138/80 94 Room Air 06/20/25 10:00 69 19 137/77 95 Room Air 06/20/25 09:55 70 19 142/75 94 Room Air 06/20/25 09:50 68 19 144/73 96 Nasal Cannula 2.0 06/20/25 09:45 68 19 113/70 95 Nasal Cannula 2.0 06/20/25 09:40 69 18 101/65 97 Nasal Cannula 2.0 06/20/25 09:35 73 17 109/59 99 Nasal Cannula 2.0 06/20/25 09:30 71 18 110/56 98 Nasal Cannula 2.0 06/20/25 09:25 79 19 121/71 100 Nonrebreathing Mask 10.0 06/20/25 09:20 77 18 145/82 98 Nonrebreathing Mask 10.0 06/20/25 09:15 97.0 75 18 142/81 99 Nonrebreathing Mask 10.0 06/20/25 04:00 97.5 75 17 120/77 97 Room Air LABS: Laboratory: Test 06/20/25 03:23 06/19/25 09:43 06/19/25 03:17 Range/Units White Blood Count 16.4 H 4.8-10.8 K/uL Red Blood Count 6.29 H 4.50-6.20 MIL/uL Hemoglobin 19.0 H 14.0-18.0 g/dL Hematocrit 55.4 H 42-54 % Mean Corpuscular Volume 88.1 79-99 fL Mean Corpuscular Hemoglobin 30.2 27.0-33.0 pg Mean Corpuscular Hemoglobin Concent 34.3 32.0-36.0 g/dL Red Cell Distribution Width 14.9 11.0-15.5 % Platelet Count 306 130-400 K/uL Mean Platelet Volume 8.7 7.5-10.5 fL Immature Granulocyte % (Auto) 0.4 0-1 % Neutrophils (%) (Auto) 49.8 40.0-77.0 % Lymphocytes (%) (Auto) 11.6 L 21.0-51.0 % Monocytes (%) (Auto) 4.4 3.0-13.0 % Eosinophils (%) (Auto) 33.3 H 0.0-8.0 % Basophils (%) (Auto) 0.5 0.0-5.0 % Neutrophils # (Auto) 8.2 H 1.8-7.7 K/uL Lymphocytes # (Auto) 1.9 1.0-4.8 K/uL Monocytes # (Auto) 0.7 0.1-1.0 K/uL Eosinophils # (Auto) 5.46 H 0.00-0.70 K/uL Basophils # (Auto) 0.08 0.00-0.20 K/uL Absolute Immature Granulocyte (auto 0.07 0-1 K/uL Nucleated Red Blood Cells 0.0 0.0-0.19 % Sodium Level 129 L 136-145 mmol/L Potassium Level 3.8 3.5-5.1 mmol/L Chloride Level 90 *L 101-111 mmol/L Carbon Dioxide Level 23 21-32 mmol/L Blood Urea Nitrogen 21 H 7-18 mg/dL Creatinine 1.4 H 0.5-1.3 mg/dL Glomerular Filtration Rate Calc 64 >90 mL/min Random Glucose 126 H 70-105 mg/dL Total Calcium 9.4 8.5-10.1 mg/dL Magnesium Level 1.90 1.80-2.40 mg/dL Total Bilirubin 1.2 H 0.2-1.0 mg/dL Aspartate Amino Transf (AST/SGOT) 53 H 10-37 U/L Alanine Aminotransferase (ALT/SGPT) 97 H 12-78 U/L Alkaline Phosphatase 145 H 50-136 U/L Total Protein 8.4 H 6.0-8.3 g/dL Albumin 4.2 3.5-5.0 g/dL Procalcitonin 0.07 0.05-0.5 ng/mL C-Reactive Protein, Quantitative 7.40 H 0.5-3.0 mg/L Current Medications Medications (Trade) Dose Ordered Sig/Armando Route PRN Reason Start Time Stop Time Status Last Admin Dose Admin Acetaminophen (TYLenol 500MG TAB) 500 mg Q6H PO 06/20/25 09:30 07/20/25 09:29 Acetaminophen (TYLenol 500MG TAB) 500 mg Q6H PRN PO MILD PAIN (1-3) 06/17/25 12:30 06/20/25 09:17 DC 06/19/25 20:57 500 MG Cholestyramine Resin (Cholestyramine Packet) 4 gm TIDAC PO 06/18/25 07:30 07/18/25 07:29 06/18/25 07:15 4 GM Diphenoxylate HCl/ Atropine (Lomotil) 2 tab TID PO 06/18/25 09:00 06/20/25 09:15 DC 06/19/25 20:52 2 TAB Enoxaparin Sodium (Lovenox) 30 mg DAILY SQ 06/19/25 09:00 07/19/25 08:59 06/19/25 09:06 30 MG Fentanyl Citrate (FENTanyl CITRate PF 50 MCG/ 1 ML 2ML VIAL) 25 mcg Q5MIN PRN IVP PAIN LEVEL 7 TO 10 06/20/25 09:30 06/20/25 10:47 DC 06/20/25 09:35 25 MCG Gabapentin (NEURontin 300 MG CAP) 300 mg TID PO 06/20/25 14:00 07/20/25 13:59 Hydralazine HCl (APRESOLine 20MG INJ) 5 mg Q6H PRN IV ADMINISTER FOR SBP > 180 06/20/25 12:30 07/20/25 12:29 Hydralazine HCl (APRESOLine 20MG INJ) 10 mg Q6H PRN IV ADMINISTER FOR SBP > 180 06/17/25 12:30 06/20/25 11:23 DC Hydromorphone HCl (DiLAUDid 0.5MG INJ) 0.5 mg Q4H PRN IVP SEVERE PAIN (7-10) 06/20/25 09:30 06/25/25 09:29 Ketorolac Tromethamine (toRADol) 30 mg AD PRN IV PAIN LEVEL 1 TO 3 06/20/25 09:30 06/20/25 10:47 DC Metoclopramide HCl (regLAN 10MG IV) 10 mg AD PRN IVP NAUSEA/VOMITING 06/20/25 09:30 06/20/25 10:47 DC Morphine Sulfate (morPHINE 2MG SYG) 2 mg AD PRN IVP PAIN LEVEL 4 TO 6 06/20/25 09:30 06/20/25 10:47 DC Naloxone HCl (NARcan 0.4mg/1 mL) 0.1 mg AD PRN IVP OTHER [SEE ORDER COMMENTS] 06/20/25 09:15 06/20/25 10:47 DC Ondansetron HCl (zoFRAN 4MG INJ) 4 mg AD PRN IVP NAUSEA/VOMITING 06/20/25 09:30 06/20/25 10:47 DC Ondansetron HCl (zoFRAN 4MG INJ) 4 mg Q6H PRN IVP NAUSEA/VOMITING 06/17/25 13:00 07/17/25 12:59 06/19/25 19:57 4 MG Oxycodone HCl (ROXicoDONE) 5 mg Q4H PRN PO MODERATE PAIN (4-6) 06/20/25 09:30 06/27/25 09:29 Piperacillin Sod/ Tazobactam Sod (Zosyn 3.375gm+NS 50ml) 3.375 gm Q8H IVPB 06/17/25 12:30 06/20/25 10:20 DC 06/20/25 03:50 3.375 GM Potassium Chloride 100 ml @ 100 mls/hr AD PRN IV POTASSIUM PROTOCOL 06/18/25 12:30 07/18/25 12:29 Potassium Chloride (K-Dur/Klor-Con 20meq) 20 meq AD PRN PO POTASSIUM PROTOCOL 06/18/25 12:30 07/18/25 12:29 Potassium Chloride (KCl 10% Elixir 20meq/15ml) 20 meq AD PRN PO POTASSIUM PROTOCOL 06/18/25 12:30 07/18/25 12:29 06/19/25 20:52 20 MEQ Promethazine HCl (Phenergan) 25 mg AD PRN IM NAUSEA/VOMITING 06/20/25 09:30 06/20/25 10:47 DC Psyllium Hydrophilic Mucilloid (Metamucil) 1 tbs BID PO 06/18/25 09:00 07/18/25 08:59 06/18/25 20:05 1 TBS Sodium Chloride 1,000 ml @ 100 mls/hr Q10H IV 06/17/25 12:30 07/17/25 12:29 06/20/25 01:20 100 MLS/HR Sodium Chloride (NS 50ml) 50 ml AD IV 06/17/25 12:30 06/17/25 12:37 DC DIAGNOSTICS / RADIOLOGY: [ ] ASSESSMENT: Acute Dehydration POA Presyncope POA Acute diastolic congestive heart failure EF 55 60% POA Colovesicular fistula status post diverting ileostomy Recent infectious colitis being treated outpatient with Augmentin PLAN: Patient is pending ileostomy closure with small-bowel resection and other indicated procedure today with 06/20/25. Patient was restarted on Zosyn. Due to low sodium of 129 we will also increase normal saline from 100 mL/hour to 150 mL per/hr. Psych consulted pending recommendations. We will monitor patient in the meantime. A.m. 2D echo showed EF of 55 to 60% stage I diastolic dysfunction. -p.r.n. medications for fever, pain, nausea - follow up a.m. labs - further orders per hospital course ATTESTATION BY PHYSICIAN I have seen and examined the patient. I reviewed the documentation, medical decision making, and treatment plan as noted by the mid-level provider above. I agree with the findings and plan of care. FRANCISCO DELGADO MD, KATARZYNA [facility] Jun 20, 2025 11:50
[2025-06-20] MEDS ORDERED: 0.9%NACL 50ML IV SCH (12:00)
[2025-06-20] MEDS: ZOSYN 3.375GM +NS 50ML IVPB SCH (12:14)
[2025-06-20] MEDS: GABAPENTIN 300 MG CAPSULE PO SCH (15:13)
--- NOTE | 2025-06-20 15:17 | CONS ---
INFECTIOUS DISEASE CONSULTATION NOTE Date of Service: Jun 20, 2025 Reason for Consultation: Leukocytosis. Requesting Physician: Dr. Dodd. HISTORY OF PRESENT ILLNESS: This is a 44-year-old male patient with past medical history of Colovesicular fistula repair with diverting ileostomy creation on 04/2025 who was scheduled for outpatient elective ileostomy reversal by Dr. Zamorano. Patient however felt very weak and dizzy like he was going to pass out and he decided to come to the ER for evaluation. Patient underwent Ileostomy closure with small bowel resection. REVIEW OF SYSTEMS CONSTITUTIONAL: Denies fever, chills, or fatigue. HEAD/FACE: No signs of trauma. EENT: Denies eye pain, blurred vision, double vision, or light sensitivity. RESPIRATORY: Denies shortness of breath, cough, wheezing CARDIOVASCULAR: Denies chest pain, palpitation, syncope GASTROINTESTINAL/ABDOMINAL: Denies abdominal pain, constipation, diarrhea, nausea or vomiting GENITOURINARY: Denies dysuria or hematuria. MUSCULOSKELETAL: Denies joint pain, tenderness, or trauma. INTEGUMENTARY: Denies rash or itchiness NEUROLOGICAL/PSYCH: Denies anxiety, depression, heat or cold intolerance. PAST MEDICAL HISTORY: Diverticulitis. The colovesicular fistula. PAST SURGICAL HISTORY: Bilateral knee ACL repair. Colovesicular fistula repair with diverting ileostomy creation. PAST SOCIAL HISTORY: Denied current use of tobacco, alcohol or any other illicit drug. FAMILY HISTORY: Unknown. Coded Allergies: No Known Drug Allergies (Unverified Allergy, Unknown, 04/08/21) PHYSICAL EXAM EYES: Anicteric. Pupils equal and reactive. HENT: No oral thrush seen, moist Oral mucosa. NECK: Supple, no JVD or thyromegaly. LUNGS: Good air entry. No rales, no rhonchi. CARDIOVASCULAR: S1, S2 regular. No murmur heard. ABDOMEN: Soft, non tender, bowel sounds present. Ileostomy closure with small bowel resection. CENTRAL NERVOUS SYSTEM: Awake, alert, oriented x 3. SKIN: No rashes, no swelling. LYMPHATICS: No peripheral lymphadenopathy MUSCULOSKELETAL: No joint swelling, erythema or tenderness. EXTREMITIES: No cyanosis or clubbing. BACK: No deformity, no pressure ulcer. GENITOURINARY: No dysuria or hematuria. Vital Sign (Last 24 Hours) 06/19/25 06/20/25 06/20/25 19:50 09:50 12:30 Temp 97.9 Pulse 66 Resp 18 B/P (MAP) 141/ Pulse Ox 95 O2 Delivery Room Air O2 Flow Rate 2.0 FiO2 21 Intake & Output (last 24hrs) 06/19/25 06/19/25 06/20/25 15:00 23:00 07:00 Intake Total 850 ml Balance 850 ml LABS: Laboratory: Test 06/20/25 03:23 06/19/25 09:43 06/19/25 03:17 Range/Units White Blood Count 16.4 H 4.8-10.8 K/uL Red Blood Count 6.29 H 4.50-6.20 MIL/uL Hemoglobin 19.0 H 14.0-18.0 g/dL Hematocrit 55.4 H 42-54 % Mean Corpuscular Volume 88.1 79-99 fL Mean Corpuscular Hemoglobin 30.2 27.0-33.0 pg Mean Corpuscular Hemoglobin Concent 34.3 32.0-36.0 g/dL Red Cell Distribution Width 14.9 11.0-15.5 % Platelet Count 306 130-400 K/uL Mean Platelet Volume 8.7 7.5-10.5 fL Immature Granulocyte % (Auto) 0.4 0-1 % Neutrophils (%) (Auto) 49.8 40.0-77.0 % Lymphocytes (%) (Auto) 11.6 L 21.0-51.0 % Monocytes (%) (Auto) 4.4 3.0-13.0 % Eosinophils (%) (Auto) 33.3 H 0.0-8.0 % Basophils (%) (Auto) 0.5 0.0-5.0 % Neutrophils # (Auto) 8.2 H 1.8-7.7 K/uL Lymphocytes # (Auto) 1.9 1.0-4.8 K/uL Monocytes # (Auto) 0.7 0.1-1.0 K/uL Eosinophils # (Auto) 5.46 H 0.00-0.70 K/uL Basophils # (Auto) 0.08 0.00-0.20 K/uL Absolute Immature Granulocyte (auto 0.07 0-1 K/uL Nucleated Red Blood Cells 0.0 0.0-0.19 % Sodium Level 129 L 136-145 mmol/L Potassium Level 3.8 3.5-5.1 mmol/L Chloride Level 90 *L 101-111 mmol/L Carbon Dioxide Level 23 21-32 mmol/L Blood Urea Nitrogen 21 H 7-18 mg/dL Creatinine 1.4 H 0.5-1.3 mg/dL Glomerular Filtration Rate Calc 64 >90 mL/min Random Glucose 126 H 70-105 mg/dL Total Calcium 9.4 8.5-10.1 mg/dL Magnesium Level 1.90 1.80-2.40 mg/dL Total Bilirubin 1.2 H 0.2-1.0 mg/dL Aspartate Amino Transf (AST/SGOT) 53 H 10-37 U/L Alanine Aminotransferase (ALT/SGPT) 97 H 12-78 U/L Alkaline Phosphatase 145 H 50-136 U/L Total Protein 8.4 H 6.0-8.3 g/dL Albumin 4.2 3.5-5.0 g/dL Procalcitonin 0.07 0.05-0.5 ng/mL C-Reactive Protein, Quantitative 7.40 H 0.5-3.0 mg/L ASSESSMENT: Leukocytosis possible related dehydration. Dehydration. Hyponatremia. Recent infectious colitis failed outpatient treatment with Augmentin. History of diverticulitis. History of Colovesicular fistula repair with diverting ileostomy creation on 04/2025, s/p Ileostomy closure with small bowel resection today. PLAN: Continue Zosyn. Continue IV fluids. Obtain stool for PCR. Obtain a chest x-ray. Obtain a urinalysis and urine culture. We will follow up on culture results. Thank you for allowing ID to participate in the care of this patient. This case was reviewed and discussed with my supervising physician Dr. Michel and the above assessment and plan was formulated and agreed upon. ATTESTATION BY PHYSICIAN I have seen and examined the patient. I reviewed the documentation, medical decision making, and treatment plan as noted by the mid-level provider above. I agree with the findings and plan of care. MEENA MICHEL MD, [facility] Jun 20, 2025 15:17
--- NOTE | 2025-06-20 15:43 | OP ---
Operative Note: DATE OF PROCEDURE: 06/20/25 SURGEON: YARELIS BAEZ MD LACING CUTTER: None ANESTHESIA: General ANESTHESIOLOGIST/PROCESSING MGR: PROCESSING MGR PREOPERATIVE DIAGNOSIS: Ileostomy status POSTOPERATIVE DIAGNOSIS: same as above PROCEDURE: Ileostomy closure with small bowel resection ESTIMATED BLOOD LOSS: minimal INDICATIONS: Complications, risk, alternative and benefits were explained to the patient including but not limited to infection, bleeding,anastomotic leak, sepsis, needed for stoma, poor bowel function, recurrence of disease and need for additional procedures. The patient voiced understanding and wished to proceed with surgery. All of the patient's questions were answered to his satisfaction. DESCRIPTION OF PROCEDURE: After informed consent was obtained, the patient was taken to the operating room and laid in the supine position. Once GETA was achieved, the abdomen was prepped and draped in the usual sterile fashion. A time out was performed to confirm correct patient and procedure. Next local anesthetic was injected into the peristomal skin. Next the ileostomy site was incised leaving a small rim of skin. Dissection was carried down to release the small bowel from the surrounding tissue and fascia. We then took great care to separate the small bowel from the surrounding fascia. Once this was performed we are able to pull up an adequate amount of small bowel to perform and anastomosis. We chose two healthy segments of small bowel and performed a small bowel resection of the small bowel between these points. The mesentery was clamped and tied for hemostasis. Next using a blue load NURYS stapler the proximal and distal small bowel were transected and the small bowel sent as specimen. Next, an allis clamp was placed onto the edge of the staple line, this was cut off and the stapler placed into the small bowel. A performed a side to side stapled small bowel anastomosis in the standard fashion. Prior to closing the common enterotomy hemostasis of the interior staple line was checked for and obtained. Next allis clamps were placed onto the common enterotomy which was closed with a TA 60 stapler. Next the staple line was oversewn. A crotch stitch was placed. Hemostasis was checked for and obtained. Next the small bowel was placed back into the abdomen. The fascia was closed with 2-0 PDS sutures. The wound was irrigated and hemostasis of the subcutaneous tissue was obtained. Next the takedown site was closed using 0 vicryl in a pursestring manner. Iodoform packing was placed into the wound and a sterile gauze dressing was placed. The patient tolerated the procedure well and was taken to the recovery room in stable condition. I called the daughter to discuss the above at the completion of the case. counts reported as correct x2 by nursing staff specimens: small bowel Complications: None YARELIS BAEZ MD Jun 20, 2025 15:43
[2025-06-21] VITALS (8 sets, daily range): BP systolic 134–160; BP diastolic 91–103; PULSE 85–99; RESP 18–20; TEMP 97.5–98.2; O2SAT 96
--- NOTE | 2025-06-21 00:41 | NUR ---
PAIN MEDICATION PT GIVEN DILAUDID 0.5MG IVP AT 2318, HIS BP WAS ELEVATED. WENT IN TO RE-ASSESS HIS PAIN AND RECHECK HIS BLOOD PRESSURE. ASKED PAIN LEVEL HE STATED IT IS THE SAME NO CHANGE AFTER DILAUDID GIVEN. BLOOD PRESSURE WENT DOWN 151/101 WAS IN 180'S SBP. HE THEN ASKED WHEN HIS DILAUDID WAS DUE INFORMED HIM IT WAS GIVEN AT 2318 HE SAID I DID NOT GIVE IT TO HIM. WHEN IT WAS GIVEN TO HIM INSTRUCTED HIM TO PLEASE NOT STAND UP HE SAID HE WOULD NOT GET UP AT ALL. DID EDUCATE HIM ON THE IMPORTANCE OF AMBULATION TO HELP LESSEN HIS PAIN AND PREVENT ANY FUTURE COMPLICATIONS POST SURGERY, HE VERBALIZED UNDERSTANDING ON THAT. SHOWED PT THE EMAR WHEN IT WAS GIVEN BY MYSELF AND HE ASKED WHEN IT WAS GIVEN PRIOR. SHOWED HIM EMAR WHEN WING DIAZ DAY SHIFT NURSE GAVE IT AT 06/20, AND THEN GIVEN BY THIS NURSE AT 06/20. HE SAID THAT IT COULD NOT BE SINCE IT WAS DUE EVERY 6 HRS. INFORMED HIM IT WAS PRN EVERY 4 HRS NOT 6HRS. HE AGAIN STATED I DID NOT GIVE HIM ANY DILAUDID AT 2318, AGAIN ATTEMPTED TO SHOW HIM EMAR TO SHOW IT WAS GIVEN. HE BECAME UPSET AND TOLD THIS NURSE NOT TO CHASTISE HIM. I THEN OFFERED THE OXYCODONE SINCE THAT MED IS DUE FOR PAIN, HE STATED HE DID NOT WANT ANYTHING.
--- NOTE | 2025-06-21 01:24 | HMCIMG ---
EXAM: CR CHEST, 1 VIEW CLINICAL HISTORY: Rule out pneumonia COMPARISON: CXR dated 03-27-2025 TECHNIQUE: Single frontal radiograph of the chest was obtained. FINDINGS: Lines/Devices: None. Lungs: Radiographically clear. No consolidation or ground-glass opacities are observed. There is no pleural effusion. There is no pneumothorax. Mediastinum and cardiovascular structures: The cardiac silhouette is not enlarged. The central airway and mediastinal contours are unremarkable. Bones and soft tissues: Unremarkable. IMPRESSION: 1. No acute cardiopulmonary process. 2.Stable CXR as compared to prior CXR dated 03-27-2025. /[place]
[2025-06-21 03:31] LABS: IMMATURE GRANULOCYTE ABSOLUTE 0.05 K/uL (0-1); NUCLEATED RED BLOOD CELLS 0.0 % (0.0-0.19); PLATELET COUNT (AUTO) 270 K/uL (130-400); RED BLOOD CELL COUNT(AUTO) 5.37 MIL/uL (4.50-6.20); RED CELL DISTRIBUTION WIDTH 14.2 % (11.0-15.5); WHITE BLOOD COUNT (AUTO) 13.2 K/uL (4.8-10.8)
[2025-06-21 03:42] LABS: ASPARTATE AMINOTRANSFERASE 30.0 U/L (10-37); CREATININE 1.1 mg/dL (0.5-1.3); GLOMERULAR FILTR. RATE CALC 85.0 mL/min (>90); GLUCOSE,RANDOM 116.0 mg/dL (70-105); SODIUM SERUM 132.0 mmol/L (136-145); TOTAL PROTEIN, SERUM 7.1 g/dL (6.0-8.3); UREA NITROGEN, BLOOD 17.0 mg/dL (7-18)
[2025-06-21 06:32] LABS: APPEARANCE,URINE CLOUDY (CLEAR); GLUCOSE, URINE (UA) NEGATIVE (NEGATIVE); LEUKOCYTE ESTERASE ,URINE NEGATIVE Leu/uL (NEGATIVE); NITRATE,URINE NEGATIVE (NEGATIVE); OCCULT BLOOD,URINE NEGATIVE (NEGATIVE)
[2025-06-21 06:34] LABS: ADD UA MICROSCOPIC YES
--- NOTE | 2025-06-21 12:49 | PN ---
[facility] PROGRESS NOTE Date of Service: Jun 21, 2025 Time of Service: 12:[address] Delgado SUBJECTIVE: 06/18 Follow up visit for a 44-year-old male with recent history of diverting ileostomy, admitted to the hospital for acute dehydration, presyncope. Patient remains on IV Zosyn, IVF. Consultation with surgeon has been requested pending evaluation. Continues to have large amount of liquidy output from ileostomy. 06/19 patient was seen by nurse practitioner and physician during rounding in room 403. Patient will receive 60 mEq of potassium total for potassium of 3.4 today. Patient is pending evaluation by colorectal surgeon regards possible ileostomy closure tomorrow 06/20/2025 by . Recent output from the ileostomy within 24 hours was 3450. 2D echo showed EF of 55 to 60% stage I diastolic dysfunction. We will continue to monitor patient in the meantime. A.m. labs 06/20 patient was seen by nurse practitioner and physician during rounding in room 403. Patient is pending ileostomy closure with small-bowel resection and other indicated procedure today with 06/20/25. Patient was restarted on Zosyn. Due to low sodium of 129 we will also increase normal saline from 100 mL/hour to 150 mL per/hr. Psych consulted pending recommendat ions. We will monitor patient in the meantime. A.m. 06/21 patient was seen by SURFACE PLATE INSPECTOR and physician. Electrolyte has improved today potassium is at four. Kidney/renal function has improved creatinine 1.1 BUN 17 GFR 65. Continue fluids at 1:50 a.m. mL/hour. As per ID continue Zosyn. WBC trending down today at 13. As per patient he is still not passing any gases no burping and no bowel movement at this moment. We will continue to monitor patient in the meantime. A.m. labs REVIEW OF SYSTEMS CONSTITUTIONAL: Denies fevers, chills, or night sweats. No unintentional weight loss reported. NEUROLOGICAL: Denies headache, amaurosis fugax, motor weakness, sensory deficit, vertigo/spinning sensation, gait abnormalities, or tremors. ENT: No hearing loss, otalgia, otorrhea, rhinitis, rhinorrhea, hoarseness, or sore throat. CARDIOVASCULAR: Denies any exertional angina, dyspnea on exertion, orthopnea, paroxysmal nocturnal dyspnea, palpitations, life-threatening arrhythmias, claudication. PULMONARY: Denies any shortness of breath, cough, phlegm/sputum, hemoptysis, pleuritic chest pain. SLEEP: Denies morning headaches, daytime somnolence or napping. Denies difficulty falling asleep, staying asleep, waking from sleep. Denies knowledge of snoring. GASTROINTESTINAL: Positive for abdominal pain. Denied any nausea, vomiting. GENITOURINARY: Denies frequency, urgency, nocturia, hematuria or incontinence (Storage/Irritative symptoms.) Low urinary stream, straining to void, urinary intermittency or hesitancy, splitting of the voiding stream, terminal dribbling. ENDOCRINOLOGIC: Denies polyuria, polydipsia, polyphagia or heat/cold intolerances. HEMATOLOGIC: Denies thrombophilia/previous clots, or coagulopathy/bleeding disorders. ONCOLOGIC: Denies personal history of malignancy. DERMATOLOGIC: Denies rashes or pruritus. PSYCHIATRIC: Denies any suicidal or homicidal ideation. Denies hallucinations. PHYSICAL EXAM GENERAL APPEARANCE: The patient is awake, alert, and oriented, in no acute cardiopulmonary distress. NEUROLOGICAL: Cranial nerves II-XII grossly intact. Motor is 5/5 in bilateral upper and lower extremities proximal to distal. No sensory deficits. HEENT: Face is symmetric. Pupils are equal and reactive. Extraocular movements are intact. NECK: Supple. No JVD. No thyromegaly. No submental, submandibular, pre- /postauricular, occipital or supraclavicular lymphadenopathy. CHEST: Normal chest expansion. No Telemetry. LUNGS: Absence of any rales, rhonchi or any wheezing. CARDIOVASCULAR: Regular. S1 and S2 normal. No appreciable rubs, murmurs or gallops. ABDOMEN: Soft, nontender. Patient has a ileostomy present. He has greenish colored stool which is loose in his ostomy bag. : Deferred. No Lee. EXTREMITIES: Non-edematous and not cyanotic. No clubbing. Good capillary refill. SKIN: No skin breakdown. Vital Signs (last 8hr) Date Time Temp Pulse Resp B/P (MAP) Pulse Ox O2 Delivery O2 Flow Rate FiO2 06/21/25 11:54 98.1 95 18 138/96 96 Room Air 06/21/25 08:00 98.2 85 18 134/97 96 Room Air 06/21/25 07:56 96 Room Air* 0 21 LABS: Laboratory: Test 06/21/25 06:00 06/21/25 03:22 Range/Units Urine Color YELLOW YELLOW Urine Appearance CLOUDY H CLEAR Urine pH 5.5 5.0-8.0 Urine Specific [place] 1.028 1.001-1.031 Urine Protein 10 H NEGATIVE mg/dL Urine Glucose (UA) NEGATIVE NEGATIVE mg/dL Urine Ketones 5 H NEGATIVE mg/dL Urine Occult Blood NEGATIVE NEGATIVE Urine Nitrate NEGATIVE NEGATIVE Urine Bilirubin NEGATIVE NEGATIVE mg/dL Urine Urobilinogen 0.2 0.2-1.0 mg/dL Urine Leukocyte Esterase NEGATIVE NEGATIVE Isabela/uL Urine RBC 0-1 0-1 /HPF Urine WBC 2-5 H 0-1 /HPF Urine Amorphous Crystals (Auto) RARE None Seen /LPF Urine Bacteria None None Seen /HPF White Blood Count 13.2 H 4.8-10.8 K/uL Red Blood Count 5.37 4.50-6.20 MIL/uL Hemoglobin 16.2 14.0-18.0 g/dL Hematocrit 47.6 42-54 % Mean Corpuscular Volume 88.6 79-99 fL Mean Corpuscular Hemoglobin 30.2 27.0-33.0 pg Mean Corpuscular Hemoglobin Concent 34.0 32.0-36.0 g/dL Red Cell Distribution Width 14.2 11.0-15.5 % Platelet Count 270 130-400 K/uL Mean Platelet Volume 8.5 7.5-10.5 fL Immature Granulocyte % (Auto) 0.4 0-1 % Neutrophils (%) (Auto) 68.2 40.0-77.0 % Lymphocytes (%) (Auto) 12.7 L 21.0-51.0 % Monocytes (%) (Auto) 7.1 3.0-13.0 % Eosinophils (%) (Auto) 11.4 H 0.0-8.0 % Basophils (%) (Auto) 0.2 0.0-5.0 % Neutrophils # (Auto) 9.0 H 1.8-7.7 K/uL Lymphocytes # (Auto) 1.7 1.0-4.8 K/uL Monocytes # (Auto) 0.9 0.1-1.0 K/uL Eosinophils # (Auto) 1.51 H 0.00-0.70 K/uL Basophils # (Auto) 0.03 0.00-0.20 K/uL Absolute Immature Granulocyte (auto 0.05 0-1 K/uL Nucleated Red Blood Cells 0.0 0.0-0.19 % Sodium Level 132 L 136-145 mmol/L Potassium Level 4.0 3.5-5.1 mmol/L Chloride Level 94 L 101-111 mmol/L Carbon Dioxide Level 32 21-32 mmol/L Blood Urea Nitrogen 17 7-18 mg/dL Creatinine 1.1 0.5-1.3 mg/dL Glomerular Filtration Rate Calc 85 >90 mL/min Random Glucose 116 H 70-105 mg/dL Total Calcium 8.7 8.5-10.1 mg/dL Magnesium Level 1.90 1.80-2.40 mg/dL Total Bilirubin 1.3 H 0.2-1.0 mg/dL Aspartate Amino Transf (AST/SGOT) 30 10-37 U/L Alanine Aminotransferase (ALT/SGPT) 75 # 12-78 U/L Alkaline Phosphatase 112 50-136 U/L Total Protein 7.1 6.0-8.3 g/dL Albumin 3.5 3.5-5.0 g/dL Current Medications Medications (Trade) Dose Ordered Sig/Armando Route PRN Reason Start Time Stop Time Status Last Admin Dose Admin Acetaminophen (TYLenol 500MG TAB) 500 mg Q6H PO 06/20/25 09:30 07/20/25 09:29 06/21/25 10:11 500 MG Acetaminophen (TYLenol 500MG TAB) 500 mg Q6H PRN PO MILD PAIN (1-3) 06/17/25 12:30 06/20/25 09:17 DC 06/19/25 20:57 500 MG Cholestyramine Resin (Cholestyramine Packet) 4 gm TIDAC PO 06/18/25 07:30 07/18/25 07:29 06/20/25 12:14 4 GM Diphenoxylate HCl/ Atropine (Lomotil) 2 tab TID PO 06/18/25 09:00 06/20/25 09:15 DC 06/19/25 20:52 2 TAB Enoxaparin Sodium (Lovenox) 30 mg DAILY SQ 06/19/25 09:00 1/7/26 08:59 06/21/25 08:15 30 MG Fentanyl Citrate (FENTanyl CITRate PF 50 MCG/ 1 ML 2ML VIAL) 25 mcg Q5MIN PRN IVP PAIN LEVEL 7 TO 10 06/20/25 09:30 06/20/25 10:47 DC 06/20/25 09:35 25 MCG Gabapentin (NEURontin 300 MG CAP) 300 mg TID PO 06/20/25 14:00 07/20/25 13:59 06/21/25 08:14 300 MG Hydralazine HCl (APRESOLine 20MG INJ) 5 mg Q6H PRN IV ADMINISTER FOR SBP > 180 06/20/25 12:30 07/20/25 12:29 Hydralazine HCl (APRESOLine 20MG INJ) 10 mg Q6H PRN IV ADMINISTER FOR SBP > 180 06/17/25 12:30 06/20/25 11:23 DC Hydromorphone HCl (DiLAUDid 0.5MG INJ) 0.5 mg Q4H PRN IVP SEVERE PAIN (7-10) 06/20/25 09:30 06/25/25 09:29 06/21/25 05:13 0.5 MG Ketorolac Tromethamine (toRADol) 30 mg AD PRN IV PAIN LEVEL 1 TO 3 06/20/25 09:30 06/20/25 10:47 DC Metoclopramide HCl (regLAN 10MG IV) 10 mg AD PRN IVP NAUSEA/VOMITING 06/20/25 09:30 06/20/25 10:47 DC Morphine Sulfate (morPHINE 2MG SYG) 2 mg AD PRN IVP PAIN LEVEL 4 TO 6 06/20/25 09:30 06/20/25 10:47 DC Naloxone HCl (NARcan 0.4mg/1 mL) 0.1 mg AD PRN IVP OTHER [SEE ORDER COMMENTS] 06/20/25 09:15 06/20/25 10:47 DC Ondansetron HCl (zoFRAN 4MG INJ) 4 mg AD PRN IVP NAUSEA/VOMITING 06/20/25 09:30 06/20/25 10:47 DC Ondansetron HCl (zoFRAN 4MG INJ) 4 mg Q6H PRN IVP NAUSEA/VOMITING 06/17/25 13:00 07/17/25 12:59 06/20/25 23:19 4 MG Oxycodone HCl (ROXicoDONE) 5 mg Q4H PRN PO MODERATE PAIN (4-6) 06/20/25 09:30 06/27/25 09:29 06/21/25 08:14 5 MG Piperacillin Sod/ Tazobactam Sod (Zosyn 3.375gm+NS 50ml) 3.375 gm Q8H IVPB 06/17/25 12:30 06/20/25 10:20 DC 06/20/25 03:50 3.375 GM Piperacillin Sod/ Tazobactam Sod (Zosyn 3.375gm+NS 50ml) 3.375 gm Q8H IVPB 06/20/25 12:00 06/30/25 11:59 06/21/25 12:02 3.375 GM Potassium Chloride 100 ml @ 100 mls/hr AD PRN IV POTASSIUM PROTOCOL 06/18/25 12:30 07/18/25 12:29 Potassium Chloride (K-Dur/Klor-Con 20meq) 20 meq AD PRN PO POTASSIUM PROTOCOL 06/18/25 12:30 07/18/25 12:29 Potassium Chloride (KCl 10% Elixir 20meq/15ml) 20 meq AD PRN PO POTASSIUM PROTOCOL 06/18/25 12:30 07/18/25 12:29 06/19/25 20:52 20 MEQ Promethazine HCl (Phenergan) 25 mg AD PRN IM NAUSEA/VOMITING 06/20/25 09:30 06/20/25 10:47 DC Psyllium Hydrophilic Mucilloid (Metamucil) 1 tbs BID PO 06/18/25 09:00 07/18/25 08:59 06/18/25 20:05 1 TBS Sodium Chloride 1,000 ml @ 150 mls/hr Q6H40M IV 06/17/25 12:30 07/17/25 12:29 06/20/25 20:35 150 MLS/HR Sodium Chloride (NS 50ml) 50 ml AD IV 06/17/25 12:30 06/17/25 12:37 DC Sodium Chloride (NS 50ml) 50 ml AD IV 06/20/25 12:00 06/20/25 11:50 DC DIAGNOSTICS / RADIOLOGY: [ ] ASSESSMENT: Acute Dehydration POA Presyncope POA Acute diastolic congestive heart failure EF 55 60% POA Colovesicular fistula status post diverting ileostomy S/p ileostomy closure with a small bowel resection and other indicated procedures 06/20/2025 by Recent infectious colitis being treated outpatient with Augmentin PLAN: Electrolyte has improved today potassium is at four. Kidney/renal function has improved creatinine 1.1 BUN 17 GFR 65. Continue fluids at 1:50 a.m. mL/hour. As per ID continue Zosyn. WBC trending down today at 13. As per patient he is still not passing any gases no burping and no bowel movement at this moment. We will continue to monitor patient in the meantime. A.m. labs s/p ileostomy closure with small-bowel resection and other indicated procedure today with 06/20/25. 2D echo showed EF of 55 to 60% stage I diastolic dysfunction. -p.r.n. medications for fever, pain, nausea - follow up a.m. labs - further orders per hospital course ATTESTATION BY PHYSICIAN I have seen and examined the patient. I reviewed the documentation, medical decision making, and treatment plan as noted by the mid-level provider above. I agree with the findings and plan of care. FRANCISCO DELGADO MD, [facility]YNA [facility] Jun 21, 2025 12:49
--- NOTE | 2025-06-21 15:31 | PN ---
INFECTIOUS DISEASE PROGRESS NOTE Date of Service: Jun 21, 2025 SUBJECTIVE: [ ] PHYSICAL EXAM EYES: Anicteric. Pupils equal and reactive. HENT: No oral thrush seen, moist Oral mucosa. NECK: Supple, no JVD or thyromegaly. LUNGS: Good air entry. No rales, no rhonchi. CARDIOVASCULAR: S1, S2 regular. No murmur heard. ABDOMEN: Soft, non tender, bowel sounds present. CENTRAL NERVOUS SYSTEM: Awake, alert, oriented x 3. SKIN: No rashes, no swelling. LYMPHATICS: No peripheral lymphadenopathy MUSCULOSKELETAL: No joint swelling, erythema or tenderness. EXTREMITIES: No cyanosis or clubbing BACK: No deformity, no pressure ulcer. GENITOURINARY: No dysuria or hematuria. Vital Sign (Last 12 Hours) 06/21/25 06/21/25 06/21/25 06/21/25 04:06 07:56 08:00 11:54 Temp 98.2 98.2 98.1 Pulse 85 85 95 Resp 19 18 18 B/P (MAP) 150/103 134/97 138/96 Pulse Ox 96 96 96 96 O2 Delivery Room Air Room Air* Room Air Room Air O2 Flow Rate 0 FiO2 21 21 Intake & Output (last 24hrs) 06/20/25 06/20/25 06/21/25 15:00 23:00 07:00 Intake Total 250 ml Output Total 350 ml 400 ml Balance -350 ml -150 ml LABS: Laboratory: Test 06/21/25 06:00 06/21/25 03:22 Range/Units Urine Color YELLOW YELLOW Urine Appearance CLOUDY H CLEAR Urine pH 5.5 5.0-8.0 Urine Specific [place] 1.028 1.001-1.031 Urine Protein 10 H NEGATIVE mg/dL Urine Glucose (UA) NEGATIVE NEGATIVE mg/dL Urine Ketones 5 H NEGATIVE mg/dL Urine Occult Blood NEGATIVE NEGATIVE Urine Nitrate NEGATIVE NEGATIVE Urine Bilirubin NEGATIVE NEGATIVE mg/dL Urine Urobilinogen 0.2 0.2-1.0 mg/dL Urine Leukocyte Esterase NEGATIVE NEGATIVE Isabela/uL Urine RBC 0-1 0-1 /HPF Urine WBC 2-5 H 0-1 /HPF Urine Amorphous Crystals (Auto) RARE None Seen /LPF Urine Bacteria None None Seen /HPF White Blood Count 13.2 H 4.8-10.8 K/uL Red Blood Count 5.37 4.50-6.20 MIL/uL Hemoglobin 16.2 14.0-18.0 g/dL Hematocrit 47.6 42-54 % Mean Corpuscular Volume 88.6 79-99 fL Mean Corpuscular Hemoglobin 30.2 27.0-33.0 pg Mean Corpuscular Hemoglobin Concent 34.0 32.0-36.0 g/dL Red Cell Distribution Width 14.2 11.0-15.5 % Platelet Count 270 130-400 K/uL Mean Platelet Volume 8.5 7.5-10.5 fL Immature Granulocyte % (Auto) 0.4 0-1 % Neutrophils (%) (Auto) 68.2 40.0-77.0 % Lymphocytes (%) (Auto) 12.7 L 21.0-51.0 % Monocytes (%) (Auto) 7.1 3.0-13.0 % Eosinophils (%) (Auto) 11.4 H 0.0-8.0 % Basophils (%) (Auto) 0.2 0.0-5.0 % Neutrophils # (Auto) 9.0 H 1.8-7.7 K/uL Lymphocytes # (Auto) 1.7 1.0-4.8 K/uL Monocytes # (Auto) 0.9 0.1-1.0 K/uL Eosinophils # (Auto) 1.51 H 0.00-0.70 K/uL Basophils # (Auto) 0.03 0.00-0.20 K/uL Absolute Immature Granulocyte (auto 0.05 0-1 K/uL Nucleated Red Blood Cells 0.0 0.0-0.19 % Sodium Level 132 L 136-145 mmol/L Potassium Level 4.0 3.5-5.1 mmol/L Chloride Level 94 L 101-111 mmol/L Carbon Dioxide Level 32 21-32 mmol/L Blood Urea Nitrogen 17 7-18 mg/dL Creatinine 1.1 0.5-1.3 mg/dL Glomerular Filtration Rate Calc 85 >90 mL/min Random Glucose 116 H 70-105 mg/dL Total Calcium 8.7 8.5-10.1 mg/dL Magnesium Level 1.90 1.80-2.40 mg/dL Total Bilirubin 1.3 H 0.2-1.0 mg/dL Aspartate Amino Transf (AST/SGOT) 30 10-37 U/L Alanine Aminotransferase (ALT/SGPT) 75 # 12-78 U/L Alkaline Phosphatase 112 50-136 U/L Total Protein 7.1 6.0-8.3 g/dL Albumin 3.5 3.5-5.0 g/dL ASSESSMENT: Leukocytosis possible related to dehydration, improving. Dehydration. Recent infectious colitis failed outpatient treatment with Augmentin. History of diverticulitis. History of Colovesicular fistula repair with diverting ileostomy creation on 04/2025, s/p Ileostomy closure with small bowel resection today. PLAN: Continue Zosyn. Continue IV fluids. Continue pain management. We will follow up on culture results. This case was reviewed and discussed with my supervising physician Dr. Pressley and the above assessment and plan was formulated and agreed upon. ATTESTATION BY PHYSICIAN I have seen and examined the patient. I reviewed the documentation, medical decision making, and treatment plan as noted by the mid-level provider above. I agree with the findings and plan of care. MEENA PRESSLEY MD, [facility]IRTA [facility] Jun 21, 2025 15:31
--- NOTE | 2025-06-21 21:53 | PN ---
[facility] PROGRESS NOTE Date of Visit: Jun 21, 2025 Time of Visit: 21:50 Events / Notes: No acute events overnight. s/p ileostomy closure. Tolerating diet. Complains of dizziness. Abdomen soft and nontender. Wick dressing withdrawn 2 inches and demonstrated to patient. Review of Systems: CONSTITUTIONAL: No malaise or change in sensation of wellbeing. ENMT: No rhinorrhea, otorrhea, sinus pain, ear ache. CARDIOVASCULAR: No angina, palpitations, orthopnea or paroxysmal dyspnea. RESPIRATORY: No SOB. GASTROINTESTINAL: No abdominal pain, nausea, vomiting, diarrhea, hematemesis, melena or change in the patient's habitual bowel movements consistency/number. GENITOURINARY: No dysuria, hematuria or change in bladder continence. MUSCULOSKELETAL: No new muscle pain or decrease in muscular strength. No new joint swelling, redness or tenderness. SKIN: No new rash. Physical Exam: GEN: Awake, alert, oriented in person, time and place, and in no acute distress. HEENT: No sinus tenderness. Tympanic membranes were not examined. No rhinorrhea. Oral pharyngeal mucosa is pink, moist and within normal limits. Neck is supple with no cervical lymphadenopathy, thyromegaly or JVD. CHEST: Inspection, palpation and percussion of the chest were unremarkable. Lung auscultation revealed normal breath sounds bilaterally. CARDIAC: PMI is within normal limits. Heart sounds are regular. Normal S1, S2. No gallop or murmur. ABD: Soft, non-tender and not distended. No peritoneal signs on palpation. No organomegaly. Normal bowel sounds. Ileostomy with jelly consistency stool. EXT: No cyanosis or clubbing. No edema. SKIN: Intact. No rashes. JOINTS: No evidence of synovitis or acute arthritis. NEURO: Alert and oriented to name, place and person. Cranial nerve examination is unremarkable. No focal motor deficits. Normal speech. Gait is normal. Strength is normal. Vital Signs (last 8hr) Date Time Temp Pulse Resp B/P (MAP) Pulse Ox O2 Delivery O2 Flow Rate FiO2 06/21/25 20:13 98.2 89 20 145/91 97 Room Air 21 06/21/25 16:00 97.5 99 18 151/95 94 Room Air Laboratory: [ ] Laboratory: Test 06/21/25 06:00 06/21/25 03:22 Range/Units Urine Color YELLOW YELLOW Urine Appearance CLOUDY H CLEAR Urine pH 5.5 5.0-8.0 Urine Specific [place] 1.028 1.001-1.031 Urine Protein 10 H NEGATIVE mg/dL Urine Glucose (UA) NEGATIVE NEGATIVE mg/dL Urine Ketones 5 H NEGATIVE mg/dL Urine Occult Blood NEGATIVE NEGATIVE Urine Nitrate NEGATIVE NEGATIVE Urine Bilirubin NEGATIVE NEGATIVE mg/dL Urine Urobilinogen 0.2 0.2-1.0 mg/dL Urine Leukocyte Esterase NEGATIVE NEGATIVE Isabela/uL Urine RBC 0-1 0-1 /HPF Urine WBC 2-5 H 0-1 /HPF Urine Amorphous Crystals (Auto) RARE None Seen /LPF Urine Bacteria None None Seen /HPF White Blood Count 13.2 H 4.8-10.8 K/uL Red Blood Count 5.37 4.50-6.20 MIL/uL Hemoglobin 16.2 14.0-18.0 g/dL Hematocrit 47.6 42-54 % Mean Corpuscular Volume 88.6 79-99 fL Mean Corpuscular Hemoglobin 30.2 27.0-33.0 pg Mean Corpuscular Hemoglobin Concent 34.0 32.0-36.0 g/dL Red Cell Distribution Width 14.2 11.0-15.5 % Platelet Count 270 130-400 K/uL Mean Platelet Volume 8.5 7.5-10.5 fL Immature Granulocyte % (Auto) 0.4 0-1 % Neutrophils (%) (Auto) 68.2 40.0-77.0 % Lymphocytes (%) (Auto) 12.7 L 21.0-51.0 % Monocytes (%) (Auto) 7.1 3.0-13.0 % Eosinophils (%) (Auto) 11.4 H 0.0-8.0 % Basophils (%) (Auto) 0.2 0.0-5.0 % Neutrophils # (Auto) 9.0 H 1.8-7.7 K/uL Lymphocytes # (Auto) 1.7 1.0-4.8 K/uL Monocytes # (Auto) 0.9 0.1-1.0 K/uL Eosinophils # (Auto) 1.51 H 0.00-0.70 K/uL Basophils # (Auto) 0.03 0.00-0.20 K/uL Absolute Immature Granulocyte (auto 0.05 0-1 K/uL Nucleated Red Blood Cells 0.0 0.0-0.19 % Sodium Level 132 L 136-145 mmol/L Potassium Level 4.0 3.5-5.1 mmol/L Chloride Level 94 L 101-111 mmol/L Carbon Dioxide Level 32 21-32 mmol/L Blood Urea Nitrogen 17 7-18 mg/dL Creatinine 1.1 0.5-1.3 mg/dL Glomerular Filtration Rate Calc 85 >90 mL/min Random Glucose 116 H 70-105 mg/dL Total Calcium 8.7 8.5-10.1 mg/dL Magnesium Level 1.90 1.80-2.40 mg/dL Total Bilirubin 1.3 H 0.2-1.0 mg/dL Aspartate Amino Transf (AST/SGOT) 30 10-37 U/L Alanine Aminotransferase (ALT/SGPT) 75 # 12-78 U/L Alkaline Phosphatase 112 50-136 U/L Total Protein 7.1 6.0-8.3 g/dL Albumin 3.5 3.5-5.0 g/dL Current Medications Medications (Trade) Dose Ordered Sig/Armando Route PRN Reason Start Time Stop Time Status Last Admin Dose Admin Acetaminophen (TYLenol 500MG TAB) 500 mg Q6H PO 06/20/25 09:30 07/20/25 09:29 06/21/25 21:33 500 MG Acetaminophen (TYLenol 500MG TAB) 500 mg Q6H PRN PO MILD PAIN (1-3) 06/17/25 12:30 06/20/25 09:17 DC 06/19/25 20:57 500 MG Cholestyramine Resin (Cholestyramine Packet) 4 gm TIDAC PO 06/18/25 07:30 07/18/25 07:29 06/20/25 12:14 4 GM Diphenoxylate HCl/ Atropine (Lomotil) 2 tab TID PO 06/18/25 09:00 06/20/25 09:15 DC 06/19/25 20:52 2 TAB Enoxaparin Sodium (Lovenox) 30 mg DAILY SQ 06/19/25 09:00 07/19/25 08:59 06/21/25 08:15 30 MG Fentanyl Citrate (FENTanyl CITRate PF 50 MCG/ 1 ML 2ML VIAL) 25 mcg Q5MIN PRN IVP PAIN LEVEL 7 TO 10 06/20/25 09:30 06/20/25 10:47 DC 06/20/25 09:35 25 MCG Gabapentin (NEURontin 300 MG CAP) 300 mg TID PO 06/20/25 14:00 07/20/25 13:59 06/21/25 20:17 300 MG Hydralazine HCl (APRESOLine 20MG INJ) 5 mg Q6H PRN IV ADMINISTER FOR SBP > 180 06/20/25 12:30 07/20/25 12:29 Hydralazine HCl (APRESOLine 20MG INJ) 10 mg Q6H PRN IV ADMINISTER FOR SBP > 180 06/17/25 12:30 06/20/25 11:23 DC Hydromorphone HCl (DiLAUDid 0.5MG INJ) 0.5 mg Q4H PRN IVP SEVERE PAIN (7-10) 06/20/25 09:30 06/25/25 09:29 06/21/25 13:54 0.5 MG Ketorolac Tromethamine (toRADol) 30 mg AD PRN IV PAIN LEVEL 1 TO 3 06/20/25 09:30 06/20/25 10:47 DC Metoclopramide HCl (regLAN 10MG IV) 10 mg AD PRN IVP NAUSEA/VOMITING 06/20/25 09:30 06/20/25 10:47 DC Morphine Sulfate (morPHINE 2MG SYG) 2 mg AD PRN IVP PAIN LEVEL 4 TO 6 06/20/25 09:30 06/20/25 10:47 DC Naloxone HCl (NARcan 0.4mg/1 mL) 0.1 mg AD PRN IVP OTHER [SEE ORDER COMMENTS] 06/20/25 09:15 06/20/25 10:47 DC Ondansetron HCl (zoFRAN 4MG INJ) 4 mg AD PRN IVP NAUSEA/VOMITING 06/20/25 09:30 06/20/25 10:47 DC Ondansetron HCl (zoFRAN 4MG INJ) 4 mg Q6H PRN IVP NAUSEA/VOMITING 06/17/25 13:00 07/17/25 12:59 06/20/25 23:19 4 MG Oxycodone HCl (ROXicoDONE) 5 mg Q4H PRN PO MODERATE PAIN (4-6) 06/20/25 09:30 06/27/25 09:29 06/21/25 16:32 5 MG Piperacillin Sod/ Tazobactam Sod (Zosyn 3.375gm+NS 50ml) 3.375 gm Q8H IVPB 06/17/25 12:30 06/20/25 10:20 DC 06/20/25 03:50 3.375 GM Piperacillin Sod/ Tazobactam Sod (Zosyn 3.375gm+NS 50ml) 3.375 gm Q8H IVPB 06/20/25 12:00 06/30/25 11:59 06/21/25 20:16 3.375 GM Potassium Chloride 100 ml @ 100 mls/hr AD PRN IV POTASSIUM PROTOCOL 06/18/25 12:30 07/18/25 12:29 Potassium Chloride (K-Dur/Klor-Con 20meq) 20 meq AD PRN PO POTASSIUM PROTOCOL 06/18/25 12:30 07/18/25 12:29 Potassium Chloride (KCl 10% Elixir 20meq/15ml) 20 meq AD PRN PO POTASSIUM PROTOCOL 06/18/25 12:30 07/18/25 12:29 06/19/25 20:52 20 MEQ Promethazine HCl (Phenergan) 25 mg AD PRN IM NAUSEA/VOMITING 06/20/25 09:30 06/20/25 10:47 DC Psyllium Hydrophilic Mucilloid (Metamucil) 1 tbs BID PO 06/18/25 09:00 07/18/25 08:59 06/18/25 20:05 1 TBS Sodium Chloride 1,000 ml @ 150 mls/hr Q6H40M IV 06/17/25 12:30 07/17/25 12:29 06/21/25 20:17 150 MLS/HR Sodium Chloride (NS 50ml) 50 ml AD IV 06/17/25 12:30 06/17/25 12:37 DC Sodium Chloride (NS 50ml) 50 ml AD IV 06/20/25 12:00 06/20/25 11:50 DC Diagnostics / Radiology: [COPY/PASTE HERE IF NO REPORTS PLEASE DELETE SECTION] Assessment: Ileostomy closure Plan: GI soft diet as tolerated Encourage ambulation Patient cleared for discharge in AM if pain controlled and tolerating diet JADON MASSEY [employer] AD[employer]ISTRATOR Jun 21, 2025 21:53
[2025-06-22 03:57] LABS: IMMATURE GRANULOCYTE ABSOLUTE 0.04 K/uL (0-1); NUCLEATED RED BLOOD CELLS 0.0 % (0.0-0.19); PLATELET COUNT (AUTO) 257 K/uL (130-400); RED BLOOD CELL COUNT(AUTO) 5.06 MIL/uL (4.50-6.20); RED CELL DISTRIBUTION WIDTH 13.9 % (11.0-15.5); WHITE BLOOD COUNT (AUTO) 12.9 K/uL (4.8-10.8)
[2025-06-22 04:14] LABS: ASPARTATE AMINOTRANSFERASE 23.0 U/L (10-37); CREATININE 1.0 mg/dL (0.5-1.3); GLOMERULAR FILTR. RATE CALC 96.0 mL/min (>90); GLUCOSE,RANDOM 111.0 mg/dL (70-105); SODIUM SERUM 131.0 mmol/L (136-145); TOTAL PROTEIN, SERUM 7.1 g/dL (6.0-8.3); UREA NITROGEN, BLOOD 11.0 mg/dL (7-18)
[2025-06-22 04:23] VITALS: BP 138/93; PULSE 89; RESP 19; TEMP 98.4
[2025-06-22 08:00] VITALS: BP 150/92; PULSE 96; RESP 18; TEMP 98.3; O2SAT 94
--- NOTE | 2025-06-22 10:31 | PN ---
[facility] PROGRESS NOTE Date of Service: Jun 22, 2025 Time of Service: 10:[address] Delgado SUBJECTIVE: 06/18 Follow up visit for a 44-year-old male with recent history of diverting ileostomy, admitted to the hospital for acute dehydration, presyncope. Patient remains on IV Zosyn, IVF. Consultation with surgeon has been requested pending evaluation. Continues to have large amount of liquidy output from ileostomy. 06/19 patient was seen by nurse practitioner and physician during rounding in room 403. Patient will receive 60 mEq of potassium total for potassium of 3.4 today. Patient is pending evaluation by colorectal surgeon regards possible ileostomy closure tomorrow 06/20/2025 by . Recent output from the ileostomy within 24 hours was 3450. 2D echo showed EF of 55 to 60% stage I diastolic dysfunction. We will continue to monitor patient in the meantime. A.m. labs 06/20 patient was seen by nurse practitioner and physician during rounding in room 403. Patient is pending ileostomy closure with small-bowel resection and other indicated procedure today with 06/20/25. Patient was restarted on Zosyn. Due to low sodium of 129 we will also increase normal saline from 100 mL/hour to 150 mL per/hr. Psych consulted pending recommenda tions. We will monitor patient in the meantime. A.m. 06/21 patient was seen by [employer] and physician. Electrolyte has improved today potassium is at four. Kidney/renal function has improved creatinine 1.1 BUN 17 GFR 65. Continue fluids at 1:50 a.m. mL/hour. As per ID continue Zosyn. WBC trending down today at 13. As per patient he is still not passing any gases no burping and no bowel movement at this moment. We will continue to monitor patient in the meantime. A.m. labs 06/22/25 patient was seen by nurse practitioner and physician during rounding in room 403. Patient was evaluated by the GI and at this moment they place patient on GI soft diet which is now tolerating really well. Patient is complaining of some nausea and abdominal pain. Patient is encouraged to ambulate. Patient was cleared for discharge if pain control and tolerating diet. At this moment we will hold off the discharge due to pain not well tolerated. Discontinue Dilaudid and place patient on tramadol 50 mg q6h. Patient continues to be on Zosyn. WBC is trending down today is as 12.9. Final urine culture pending. We will continue to monitor patient in the meantime. A.m. labs. REVIEW OF SYSTEMS CONSTITUTIONAL: Denies fevers, chills, or night sweats. No unintentional weight loss reported. NEUROLOGICAL: Denies headache, amaurosis fugax, motor weakness, sensory deficit, vertigo/spinning sensation, gait abnormalities, or tremors. ENT: No hearing loss, otalgia, otorrhea, rhinitis, rhinorrhea, hoarseness, or sore throat. CARDIOVASCULAR: Denies any exertional angina, dyspnea on exertion, orthopnea, paroxysmal nocturnal dyspnea, palpitations, life-threatening arrhythmias, claudication. PULMONARY: Denies any shortness of breath, cough, phlegm/sputum, hemoptysis, pleuritic chest pain. SLEEP: Denies morning headaches, daytime somnolence or napping. Denies difficulty falling asleep, staying asleep, waking from sleep. Denies knowledge of snoring. GASTROINTESTINAL: Positive for abdominal pain. Denied any vomiting. Complains of nausea and not able to tolerate the food GENITOURINARY: Denies frequency, urgency, nocturia, hematuria or incontinence (Storage/Irritative symptoms.) Low urinary stream, straining to void, urinary intermittency or hesitancy, splitting of the voiding stream, terminal dribbling. ENDOCRINOLOGIC: Denies polyuria, polydipsia, polyphagia or heat/cold intolerances. HEMATOLOGIC: Denies thrombophilia/previous clots, or coagulopathy/bleeding disorders. ONCOLOGIC: Denies personal history of malignancy. DERMATOLOGIC: Denies rashes or pruritus. PSYCHIATRIC: Denies any suicidal or homicidal ideation. Denies hallucinations. PHYSICAL EXAM GENERAL APPEARANCE: The patient is awake, alert, and oriented, in no acute cardiopulmonary distress. NEUROLOGICAL: Cranial nerves II-XII grossly intact. Motor is 5/5 in bilateral upper and lower extremities proximal to distal. No sensory deficits. HEENT: Face is symmetric. Pupils are equal and reactive. Extraocular movements are intact. NECK: Supple. No JVD. No thyromegaly. No submental, submandibular, pre- /postauricular, occipital or supraclavicular lymphadenopathy. CHEST: Normal chest expansion. No Telemetry. LUNGS: Absence of any rales, rhonchi or any wheezing. CARDIOVASCULAR: Regular. S1 and S2 normal. No appreciable rubs, murmurs or gallops. ABDOMEN: Soft, nontender. Patient has a ileostomy present. He has greenish colored stool which is loose in his ostomy bag. : Deferred. No Lee. EXTREMITIES: Non-edematous and not cyanotic. No clubbing. Good capillary refill. SKIN: No skin breakdown. Vital Signs (last 8hr) Date Time Temp Pulse Resp B/P (MAP) Pulse Ox O2 Delivery O2 Flow Rate FiO2 06/22/25 08:00 94 Room Air* 0 21 06/22/25 08:00 98.2 96 18 150/92 94 Room Air 06/22/25 04:23 98.4 89 19 138/93 96 Room Air 21 LABS: Laboratory: Test 06/22/25 03:45 06/21/25 06:00 Range/Units White Blood Count 12.9 H 4.8-10.8 K/uL Red Blood Count 5.06 4.50-6.20 MIL/uL Hemoglobin 15.2 14.0-18.0 g/dL Hematocrit 44.6 42-54 % Mean Corpuscular Volume 88.1 79-99 fL Mean Corpuscular Hemoglobin 30.0 27.0-33.0 pg Mean Corpuscular Hemoglobin Concent 34.1 32.0-36.0 g/dL Red Cell Distribution Width 13.9 11.0-15.5 % Platelet Count 257 130-400 K/uL Mean Platelet Volume 8.8 7.5-10.5 fL Immature Granulocyte % (Auto) 0.3 0-1 % Neutrophils (%) (Auto) 75.3 40.0-77.0 % Lymphocytes (%) (Auto) 6.7 L 21.0-51.0 % Monocytes (%) (Auto) 4.6 3.0-13.0 % Eosinophils (%) (Auto) 12.9 H 0.0-8.0 % Basophils (%) (Auto) 0.2 0.0-5.0 % Neutrophils # (Auto) 9.7 H 1.8-7.7 K/uL Lymphocytes # (Auto) 0.9 L 1.0-4.8 K/uL Monocytes # (Auto) 0.6 0.1-1.0 K/uL Eosinophils # (Auto) 1.67 H 0.00-0.70 K/uL Basophils # (Auto) 0.03 0.00-0.20 K/uL Absolute Immature Granulocyte (auto 0.04 0-1 K/uL Nucleated Red Blood Cells 0.0 0.0-0.19 % White Cell Morphology Comment See comments Sodium Level 131 L 136-145 mmol/L Potassium Level 4.0 3.5-5.1 mmol/L Chloride Level 93 L 101-111 mmol/L Carbon Dioxide Level 32 21-32 mmol/L Blood Urea Nitrogen 11 7-18 mg/dL Creatinine 1.0 0.5-1.3 mg/dL Glomerular Filtration Rate Calc 96 >90 mL/min Random Glucose 111 H 70-105 mg/dL Total Calcium 8.6 8.5-10.1 mg/dL Magnesium Level 2.00 1.80-2.40 mg/dL Total Bilirubin 1.5 H 0.2-1.0 mg/dL Aspartate Amino Transf (AST/SGOT) 23 10-37 U/L Alanine Aminotransferase (ALT/SGPT) 53 12-78 U/L Alkaline Phosphatase 107 50-136 U/L Total Protein 7.1 6.0-8.3 g/dL Albumin 3.4 L 3.5-5.0 g/dL Urine Color YELLOW YELLOW Urine Appearance CLOUDY H CLEAR Urine pH 5.5 5.0-8.0 Urine Specific [place] 1.028 1.001-1.031 Urine Protein 10 H NEGATIVE mg/dL Urine Glucose (UA) NEGATIVE NEGATIVE mg/dL Urine Ketones 5 H NEGATIVE mg/dL Urine Occult Blood NEGATIVE NEGATIVE Urine Nitrate NEGATIVE NEGATIVE Urine Bilirubin NEGATIVE NEGATIVE mg/dL Urine Urobilinogen 0.2 0.2-1.0 mg/dL Urine Leukocyte Esterase NEGATIVE NEGATIVE Isabela/uL Urine RBC 0-1 0-1 /HPF Urine WBC 2-5 H 0-1 /HPF Urine Amorphous Crystals (Auto) RARE None Seen /LPF Urine Bacteria None None Seen /HPF Current Medications Medications (Trade) Dose Ordered Sig/Armando Route PRN Reason Start Time Stop Time Status Last Admin Dose Admin Acetaminophen (TYLenol 500MG TAB) 500 mg Q6H PO 06/20/25 09:30 07/20/25 09:29 06/22/25 10:04 500 MG Acetaminophen (TYLenol 500MG TAB) 500 mg Q6H PRN PO MILD PAIN (1-3) 06/17/25 12:30 06/20/25 09:17 DC 06/19/25 20:57 500 MG Cholestyramine Resin (Cholestyramine Packet) 4 gm TIDAC PO 06/18/25 07:30 07/18/25 07:29 06/20/25 12:14 4 GM Diphenoxylate HCl/ Atropine (Lomotil) 2 tab TID PO 06/18/25 09:00 06/20/25 09:15 DC 06/19/25 20:52 2 TAB Enoxaparin Sodium (Lovenox) 30 mg DAILY SQ 06/19/25 09:00 07/19/25 08:59 06/22/25 08:10 30 MG Fentanyl Citrate (FENTanyl CITRate PF 50 MCG/ 1 ML 2ML VIAL) 25 mcg Q5MIN PRN IVP PAIN LEVEL 7 TO 10 06/20/25 09:30 06/20/25 10:47 DC 06/20/25 09:35 25 MCG Gabapentin (NEURontin 300 MG CAP) 300 mg TID PO 06/20/25 14:00 07/20/25 13:59 06/22/25 08:08 300 MG Hydralazine HCl (APRESOLine 20MG INJ) 5 mg Q6H PRN IV ADMINISTER FOR SBP > 180 06/20/25 12:30 07/20/25 12:29 Hydralazine HCl (APRESOLine 20MG INJ) 10 mg Q6H PRN IV ADMINISTER FOR SBP > 180 06/17/25 12:30 06/20/25 11:23 DC Hydromorphone HCl (DiLAUDid 0.5MG INJ) 0.5 mg Q4H PRN IVP SEVERE PAIN (7-10) 06/20/25 09:30 06/25/25 09:29 06/22/25 08:09 0.5 MG Ketorolac Tromethamine (toRADol) 30 mg AD PRN IV PAIN LEVEL 1 TO 3 06/20/25 09:30 06/20/25 10:47 DC Metoclopramide HCl (regLAN 10MG IV) 10 mg AD PRN IVP NAUSEA/VOMITING 06/20/25 09:30 06/20/25 10:47 DC Morphine Sulfate (morPHINE 2MG SYG) 2 mg AD PRN IVP PAIN LEVEL 4 TO 6 06/20/25 09:30 06/20/25 10:47 DC Naloxone HCl (NARcan 0.4mg/1 mL) 0.1 mg AD PRN IVP OTHER [SEE ORDER COMMENTS] 06/20/25 09:15 06/20/25 10:47 DC Ondansetron HCl (zoFRAN 4MG INJ) 4 mg AD PRN IVP NAUSEA/VOMITING 06/20/25 09:30 06/20/25 10:47 DC Ondansetron HCl (zoFRAN 4MG INJ) 4 mg Q6H PRN IVP NAUSEA/VOMITING 06/17/25 13:00 07/17/25 12:59 06/22/25 08:08 4 MG Oxycodone HCl (ROXicoDONE) 5 mg Q4H PRN PO MODERATE PAIN (4-6) 06/20/25 09:30 06/27/25 09:29 06/21/25 16:32 5 MG Pantoprazole Sodium (PROTonix 40MG TAB) 40 mg DAILY PO 06/23/25 09:00 07/23/25 08:59 UNV Piperacillin Sod/ Tazobactam Sod (Zosyn 3.375gm+NS 50ml) 3.375 gm Q8H IVPB 06/17/25 12:30 06/20/25 10:20 DC 06/20/25 03:50 3.375 GM Piperacillin Sod/ Tazobactam Sod (Zosyn 3.375gm+NS 50ml) 3.375 gm Q8H IVPB 06/20/25 12:00 06/30/25 11:59 06/22/25 04:55 3.375 GM Potassium Chloride 100 ml @ 100 mls/hr AD PRN IV POTASSIUM PROTOCOL 06/18/25 12:30 07/18/25 12:29 Potassium Chloride (K-Dur/Klor-Con 20meq) 20 meq AD PRN PO POTASSIUM PROTOCOL 06/18/25 12:30 07/18/25 12:29 Potassium Chloride (KCl 10% Elixir 20meq/15ml) 20 meq AD PRN PO POTASSIUM PROTOCOL 06/18/25 12:30 07/18/25 12:29 06/19/25 20:52 20 MEQ Promethazine HCl (Phenergan) 25 mg AD PRN IM NAUSEA/VOMITING 06/20/25 09:30 06/20/25 10:47 DC Psyllium Hydrophilic Mucilloid (Metamucil) 1 tbs BID PO 06/18/25 09:00 07/18/25 08:59 06/18/25 20:05 1 TBS Sodium Chloride 1,000 ml @ 150 mls/hr Q6H40M IV 06/17/25 12:30 07/17/25 12:29 06/22/25 10:04 150 MLS/HR Sodium Chloride (NS 50ml) 50 ml AD IV 06/17/25 12:30 06/17/25 12:37 DC Sodium Chloride (NS 50ml) 50 ml AD IV 06/20/25 12:00 06/20/25 11:50 DC DIAGNOSTICS / RADIOLOGY: [ ] ASSESSMENT: Acute Dehydration POA Presyncope POA Acute diastolic congestive heart failure EF 55 60% POA Colovesicular fistula status post diverting ileostomy S/p ileostomy closure with a small bowel resection and other indicated procedures 06/20/2025 by Recent infectious colitis being treated outpatient with Augmentin PLAN: Patient was evaluated by the GI and at this moment they place patient on GI soft diet which is now tolerating really well. Patient is complaining of some nausea and abdominal pain. Patient is encouraged to ambulate. Patient was cleared for discharge if pain control and tolerating diet. At this moment we will hold off the discharge due to pain not well tolerated. Discontinue Dilaudid and place patient on tramadol 50 mg q6h. Patient continues to be on Zosyn. WBC is trending down today is as 12.9. Final urine culture pending. We will continue to monitor patient in the meantime. A.m. labs. s/p ileostomy closure with small-bowel resection and other indicated procedure today with 06/20/25. 2D echo showed EF of 55 to 60% stage I diastolic dysfunction. -p.r.n. medications for fever, pain, nausea - follow up a.m. labs - further orders per hospital course ATTESTATION BY PHYSICIAN I have seen and examined the patient. I reviewed the documentation, medical decision making, and treatment plan as noted by the mid-level provider above. I agree with the findings and plan of care. FRANCISCO DELGADO MD, [facility] Jun 22, 2025 10:30
[2025-06-22 12:00] VITALS: BP 139/83; PULSE 97; RESP 16; TEMP 98.7
--- NOTE | 2025-06-22 12:24 | PN ---
INFECTIOUS DISEASE PROGRESS NOTE Date of Service: Jun 22, 2025 SUBJECTIVE: This is a 44-year-old male patient who was seen and examined at bedside in room 403. Patient is awake, alert and oriented x3. During rounding today patient reported that he has not been eating well due to having a lot of gastroesophageal reflux and heartburn and some nausea. We will start patient on scheduled Protonix and Maalox now and then every 6 hours prn. Patient is afebrile and the WBC has trended down to 12.9. Renal function has improved to BUN of 11 and creatinine of 1.0. No nausea or vomiting. From Infectious Disease standpoint patient is cleared for discharge tomorrow. No antibiotics needed. PHYSICAL EXAM EYES: Anicteric. Pupils equal and reactive. HENT: No oral thrush seen, moist Oral mucosa. NECK: Supple, no JVD or thyromegaly. LUNGS: Good air entry. No rales, no rhonchi. CARDIOVASCULAR: S1, S2 regular. No murmur heard. ABDOMEN: Soft, non tender, bowel sounds present. Ileostomy closure with small bowel resection. CENTRAL NERVOUS SYSTEM: Awake, alert, oriented x 3. SKIN: No rashes, no swelling. LYMPHATICS: No peripheral lymphadenopathy MUSCULOSKELETAL: No joint swelling, erythema or tenderness. EXTREMITIES: No cyanosis or clubbing. BACK: No deformity, no pressure ulcer. GENITOURINARY: No dysuria or hematuria. Vital Sign (Last 12 Hours) 06/22/25 06/22/25 06/22/25 04:23 08:00 08:00 Temp 98.4 98.2 Pulse 89 96 Resp 19 18 B/P (MAP) 138/93 150/92 Pulse Ox 96 94 94 O2 Delivery Room Air Room Air Room Air* O2 Flow Rate 0 FiO2 21 21 Intake & Output (last 24hrs) 06/21/25 06/21/25 06/22/25 15:00 23:00 07:00 Intake Total 1200 ml Output Total 400 ml Balance 1200 ml -400 ml LABS: Laboratory: Test 06/22/25 03:45 06/21/25 06:00 Range/Units White Blood Count 12.9 H 4.8-10.8 K/uL Red Blood Count 5.06 4.50-6.20 MIL/uL Hemoglobin 15.2 14.0-18.0 g/dL Hematocrit 44.6 42-54 % Mean Corpuscular Volume 88.1 79-99 fL Mean Corpuscular Hemoglobin 30.0 27.0-33.0 pg Mean Corpuscular Hemoglobin Concent 34.1 32.0-36.0 g/dL Red Cell Distribution Width 13.9 11.0-15.5 % Platelet Count 257 130-400 K/uL Mean Platelet Volume 8.8 7.5-10.5 fL Immature Granulocyte % (Auto) 0.3 0-1 % Neutrophils (%) (Auto) 75.3 40.0-77.0 % Lymphocytes (%) (Auto) 6.7 L 21.0-51.0 % Monocytes (%) (Auto) 4.6 3.0-13.0 % Eosinophils (%) (Auto) 12.9 H 0.0-8.0 % Basophils (%) (Auto) 0.2 0.0-5.0 % Neutrophils # (Auto) 9.7 H 1.8-7.7 K/uL Lymphocytes # (Auto) 0.9 L 1.0-4.8 K/uL Monocytes # (Auto) 0.6 0.1-1.0 K/uL Eosinophils # (Auto) 1.67 H 0.00-0.70 K/uL Basophils # (Auto) 0.03 0.00-0.20 K/uL Absolute Immature Granulocyte (auto 0.04 0-1 K/uL Nucleated Red Blood Cells 0.0 0.0-0.19 % White Cell Morphology Comment See comments Sodium Level 131 L 136-145 mmol/L Potassium Level 4.0 3.5-5.1 mmol/L Chloride Level 93 L 101-111 mmol/L Carbon Dioxide Level 32 21-32 mmol/L Blood Urea Nitrogen 11 7-18 mg/dL Creatinine 1.0 0.5-1.3 mg/dL Glomerular Filtration Rate Calc 96 >90 mL/min Random Glucose 111 H 70-105 mg/dL Total Calcium 8.6 8.5-10.1 mg/dL Magnesium Level 2.00 1.80-2.40 mg/dL Total Bilirubin 1.5 H 0.2-1.0 mg/dL Aspartate Amino Transf (AST/SGOT) 23 10-37 U/L Alanine Aminotransferase (ALT/SGPT) 53 12-78 U/L Alkaline Phosphatase 107 50-136 U/L Total Protein 7.1 6.0-8.3 g/dL Albumin 3.4 L 3.5-5.0 g/dL Urine Color YELLOW YELLOW Urine Appearance CLOUDY H CLEAR Urine pH 5.5 5.0-8.0 Urine Specific [place] 1.028 1.001-1.031 Urine Protein 10 H NEGATIVE mg/dL Urine Glucose (UA) NEGATIVE NEGATIVE mg/dL Urine Ketones 5 H NEGATIVE mg/dL Urine Occult Blood NEGATIVE NEGATIVE Urine Nitrate NEGATIVE NEGATIVE Urine Bilirubin NEGATIVE NEGATIVE mg/dL Urine Urobilinogen 0.2 0.2-1.0 mg/dL Urine Leukocyte Esterase NEGATIVE NEGATIVE Isabela/uL Urine RBC 0-1 0-1 /HPF Urine WBC 2-5 H 0-1 /HPF Urine Amorphous Crystals (Auto) RARE None Seen /LPF Urine Bacteria None None Seen /HPF ASSESSMENT: Leukocytosis possible related dehydration. Dehydration. Hyponatremia. Recent infectious colitis failed outpatient treatment with Augmentin. History of diverticulitis. History of Colovesicular fistula repair with diverting ileostomy creation on 04/2025, s/p Ileostomy closure with small bowel resection today. Gastroesophageal reflux and heartburn. PLAN: Continue Zosyn. Continue IV fluids. Start Protonix 40 mg p.o. daily. Give Maalox 30 mL p.o. now and then q.6 hours prn. From Infectious Disease standpoint patient is cleared for discharge tomorrow. No antibiotics needed on discharge. This case was reviewed and discussed with my supervising physician Dr. Pressley and the above assessment and plan was formulated and agreed upon. ATTESTATION BY PHYSICIAN I have seen and examined the patient. I reviewed the documentation, medical decision making, and treatment plan as noted by the mid-level provider above. I agree with the findings and plan of care. MEENA PRESSLEY MD, [facility] Jun 22, 2025 12:24
[2025-06-22] MEDS ORDERED: MAG/ALUM/SIMETH 30 ML UDCUP PO PRN (12:30)
[2025-06-22] MEDS: MAG/ALUM/SIMETH 30 ML UDCUP PO ONE (12:30)
--- NOTE | 2025-06-22 12:44 | PN ---
COLORECTAL PROGRESS NOTE Date of Visit: Jun 22, 2025 Time of Visit: 12:44 Events / Notes: No acute events overnight. s/p ileostomy closure. Tolerating diet. Complains of dizziness. Abdomen soft and nontender. Wick dressing withdrawn 2 inches and demonstrated to patient. Review of Systems: CONSTITUTIONAL: No malaise or change in sensation of wellbeing. ENMT: No rhinorrhea, otorrhea, sinus pain, ear ache. CARDIOVASCULAR: No angina, palpitations, orthopnea or paroxysmal dyspnea. RESPIRATORY: No SOB. GASTROINTESTINAL: No abdominal pain, nausea, vomiting, diarrhea, hematemesis, melena or change in the patient's habitual bowel movements consistency/number. GENITOURINARY: No dysuria, hematuria or change in bladder continence. MUSCULOSKELETAL: No new muscle pain or decrease in muscular strength. No new joint swelling, redness or tenderness. SKIN: No new rash. Physical Exam: GEN: Awake, alert, oriented in person, time and place, and in no acute distress. HEENT: No sinus tenderness. Tympanic membranes were not examined. No rhinorrhea. Oral pharyngeal mucosa is pink, moist and within normal limits. Neck is supple with no cervical lymphadenopathy, thyromegaly or JVD. CHEST: Inspection, palpation and percussion of the chest were unremarkable. Lung auscultation revealed normal breath sounds bilaterally. CARDIAC: PMI is within normal limits. Heart sounds are regular. Normal S1, S2. No gallop or murmur. ABD: Soft, non-tender and not distended. No peritoneal signs on palpation. No organomegaly. Normal bowel sounds. Ileostomy with jelly consistency stool. EXT: No cyanosis or clubbing. No edema. SKIN: Intact. No rashes. JOINTS: No evidence of synovitis or acute arthritis. NEURO: Alert and oriented to name, place and person. Cranial nerve examination is unremarkable. No focal motor deficits. Normal speech. Gait is normal. Strength is normal. Vital Signs (last 8hr) Date Time Temp Pulse Resp B/P (MAP) Pulse Ox O2 Delivery O2 Flow Rate FiO2 06/22/25 12:00 98.8 97 16 139/83 94 Room Air 06/22/25 08:00 94 Room Air* 0 21 06/22/25 08:00 98.2 96 18 150/92 94 Room Air Laboratory: [ ] Laboratory: Test 06/22/25 03:45 06/21/25 06:00 Range/Units White Blood Count 12.9 H 4.8-10.8 K/uL Red Blood Count 5.06 4.50-6.20 MIL/uL Hemoglobin 15.2 14.0-18.0 g/dL Hematocrit 44.6 42-54 % Mean Corpuscular Volume 88.1 79-99 fL Mean Corpuscular Hemoglobin 30.0 27.0-33.0 pg Mean Corpuscular Hemoglobin Concent 34.1 32.0-36.0 g/dL Red Cell Distribution Width 13.9 11.0-15.5 % Platelet Count 257 130-400 K/uL Mean Platelet Volume 8.8 7.5-10.5 fL Immature Granulocyte % (Auto) 0.3 0-1 % Neutrophils (%) (Auto) 75.3 40.0-77.0 % Lymphocytes (%) (Auto) 6.7 L 21.0-51.0 % Monocytes (%) (Auto) 4.6 3.0-13.0 % Eosinophils (%) (Auto) 12.9 H 0.0-8.0 % Basophils (%) (Auto) 0.2 0.0-5.0 % Neutrophils # (Auto) 9.7 H 1.8-7.7 K/uL Lymphocytes # (Auto) 0.9 L 1.0-4.8 K/uL Monocytes # (Auto) 0.6 0.1-1.0 K/uL Eosinophils # (Auto) 1.67 H 0.00-0.70 K/uL Basophils # (Auto) 0.03 0.00-0.20 K/uL Absolute Immature Granulocyte (auto 0.04 0-1 K/uL Nucleated Red Blood Cells 0.0 0.0-0.19 % White Cell Morphology Comment See comments Sodium Level 131 L 136-145 mmol/L Potassium Level 4.0 3.5-5.1 mmol/L Chloride Level 93 L 101-111 mmol/L Carbon Dioxide Level 32 21-32 mmol/L Blood Urea Nitrogen 11 7-18 mg/dL Creatinine 1.0 0.5-1.3 mg/dL Glomerular Filtration Rate Calc 96 >90 mL/min Random Glucose 111 H 70-105 mg/dL Total Calcium 8.6 8.5-10.1 mg/dL Magnesium Level 2.00 1.80-2.40 mg/dL Total Bilirubin 1.5 H 0.2-1.0 mg/dL Aspartate Amino Transf (AST/SGOT) 23 10-37 U/L Alanine Aminotransferase (ALT/SGPT) 53 12-78 U/L Alkaline Phosphatase 107 50-136 U/L Total Protein 7.1 6.0-8.3 g/dL Albumin 3.4 L 3.5-5.0 g/dL Urine Color YELLOW YELLOW Urine Appearance CLOUDY H CLEAR Urine pH 5.5 5.0-8.0 Urine Specific [place] 1.028 1.001-1.031 Urine Protein 10 H NEGATIVE mg/dL Urine Glucose (UA) NEGATIVE NEGATIVE mg/dL Urine Ketones 5 H NEGATIVE mg/dL Urine Occult Blood NEGATIVE NEGATIVE Urine Nitrate NEGATIVE NEGATIVE Urine Bilirubin NEGATIVE NEGATIVE mg/dL Urine Urobilinogen 0.2 0.2-1.0 mg/dL Urine Leukocyte Esterase NEGATIVE NEGATIVE Isabela/uL Urine RBC 0-1 0-1 /HPF Urine WBC 2-5 H 0-1 /HPF Urine Amorphous Crystals (Auto) RARE None Seen /LPF Urine Bacteria None None Seen /HPF Current Medications Medications (Trade) Dose Ordered Sig/Armando Route PRN Reason Start Time Stop Time Status Last Admin Dose Admin Acetaminophen (TYLenol 500MG TAB) 500 mg Q6H PO 06/20/25 09:30 07/20/25 09:29 06/22/25 10:04 500 MG Acetaminophen (TYLenol 500MG TAB) 500 mg Q6H PRN PO MILD PAIN (1-3) 06/17/25 12:30 06/20/25 09:17 DC 06/19/25 20:57 500 MG Al Hydroxide/Mg Hydroxide (MAALox PLUS 30ML) 30 ml Q6H PRN PO HEARTBURN 06/22/25 12:30 07/22/25 12:29 Cholestyramine Resin (Cholestyramine Packet) 4 gm TIDAC PO 06/18/25 07:30 07/18/25 07:29 06/20/25 12:14 4 GM Diphenoxylate HCl/ Atropine (Lomotil) 2 tab TID PO 06/18/25 09:00 06/20/25 09:15 DC 06/19/25 20:52 2 TAB Enoxaparin Sodium (Lovenox) 30 mg DAILY SQ 06/19/25 09:00 07/19/25 08:59 06/22/25 08:10 30 MG Fentanyl Citrate (FENTanyl CITRate PF 50 MCG/ 1 ML 2ML VIAL) 25 mcg Q5MIN PRN IVP PAIN LEVEL 7 TO 10 06/20/25 09:30 06/20/25 10:47 DC 06/20/25 09:35 25 MCG Gabapentin (NEURontin 300 MG CAP) 300 mg TID PO 06/20/25 14:00 07/20/25 13:59 06/22/25 08:08 300 MG Hydralazine HCl (APRESOLine 20MG INJ) 5 mg Q6H PRN IV ADMINISTER FOR SBP > 180 06/20/25 12:30 07/20/25 12:29 Hydralazine HCl (APRESOLine 20MG INJ) 10 mg Q6H PRN IV ADMINISTER FOR SBP > 180 06/17/25 12:30 06/20/25 11:23 DC Hydromorphone HCl (DiLAUDid 0.5MG INJ) 0.5 mg Q4H PRN IVP SEVERE PAIN (7-10) 06/20/25 09:30 06/22/25 10:27 DC 06/22/25 08:09 0.5 MG Ketorolac Tromethamine (toRADol) 30 mg AD PRN IV PAIN LEVEL 1 TO 3 06/20/25 09:30 06/20/25 10:47 DC Metoclopramide HCl (regLAN 10MG IV) 10 mg AD PRN IVP NAUSEA/VOMITING 06/20/25 09:30 06/20/25 10:47 DC Morphine Sulfate (morPHINE 2MG SYG) 2 mg AD PRN IVP PAIN LEVEL 4 TO 6 06/20/25 09:30 06/20/25 10:47 DC Naloxone HCl (NARcan 0.4mg/1 mL) 0.1 mg AD PRN IVP OTHER [SEE ORDER COMMENTS] 06/20/25 09:15 06/20/25 10:47 DC Ondansetron HCl (zoFRAN 4MG INJ) 4 mg AD PRN IVP NAUSEA/VOMITING 06/20/25 09:30 06/20/25 10:47 DC Ondansetron HCl (zoFRAN 4MG INJ) 4 mg Q6H PRN IVP NAUSEA/VOMITING 06/17/25 13:00 07/17/25 12:59 06/22/25 08:08 4 MG Oxycodone HCl (ROXicoDONE) 5 mg Q4H PRN PO SEVERE PAIN (7-10) 06/20/25 09:30 06/27/25 09:29 06/21/25 16:32 5 MG Pantoprazole Sodium (PROTonix 40MG TAB) 40 mg DAILY PO 06/23/25 09:00 07/23/25 08:59 Piperacillin Sod/ Tazobactam Sod (Zosyn 3.375gm+NS 50ml) 3.375 gm Q8H IVPB 06/17/25 12:30 06/20/25 10:20 DC 06/20/25 03:50 3.375 GM Piperacillin Sod/ Tazobactam Sod (Zosyn 3.375gm+NS 50ml) 3.375 gm Q8H IVPB 06/20/25 12:00 06/30/25 11:59 06/22/25 04:55 3.375 GM Polyethylene Glycol (MIRalax 3350 17 GM POWD.PACK) 17 gm DAILY PO 06/23/25 09:00 07/23/25 08:59 Potassium Chloride 100 ml @ 100 mls/hr AD PRN IV POTASSIUM PROTOCOL 06/18/25 12:30 07/18/25 12:29 Potassium Chloride (K-Dur/Klor-Con 20meq) 20 meq AD PRN PO POTASSIUM PROTOCOL 06/18/25 12:30 07/18/25 12:29 Potassium Chloride (KCl 10% Elixir 20meq/15ml) 20 meq AD PRN PO POTASSIUM PROTOCOL 06/18/25 12:30 07/18/25 12:29 06/19/25 20:52 20 MEQ Promethazine HCl (Phenergan) 25 mg AD PRN IM NAUSEA/VOMITING 06/20/25 09:30 06/20/25 10:47 DC Psyllium Hydrophilic Mucilloid (Metamucil) 1 tbs BID PO 06/18/25 09:00 07/18/25 08:59 06/18/25 20:05 1 TBS Sodium Chloride 1,000 ml @ 150 mls/hr Q6H40M IV 06/17/25 12:30 07/17/25 12:29 06/22/25 10:04 150 MLS/HR Sodium Chloride (NS 50ml) 50 ml AD IV 06/17/25 12:30 06/17/25 12:37 DC Sodium Chloride (NS 50ml) 50 ml AD IV 06/20/25 12:00 06/20/25 11:50 DC Tramadol HCl (UltRAM) 50 mg Q6H PRN PO MODERATE PAIN (4-6) 06/22/25 10:30 06/27/25 10:29 Diagnostics / Radiology: [COPY/PASTE HERE IF NO REPORTS PLEASE DELETE SECTION] Assessment: Ileostomy closure Plan: GI soft diet as tolerated Encourage ambulation Patient cleared for discharge if pain controlled and tolerating diet JADON MASSEY MILL STENCILER Jun 22, 2025 12:44
--- NOTE | 2025-06-22 13:44 | DS ---
Discharge Summary Hospital Course Summary: DATE OF ADMISSION:[] 06/17/2025 DATE OF DISCHARGE:[06/22/2025] DISPOSITION:[Home] CONDITION:[Medically stable] CONSULTANTS:[Surgery, ID] FOLLOW UP APPOINTMENTS: PCP 2 to 3 days. Surgeon within one week [] PROCEDURES:[Ileostomy closure with small-bowel resection and other indicated procedures 06/20/2025] IMAGING: report attached to summary MICROBIOLOGY: report attached to summary ACTIVITY:[] Independent HOME MEDICATIONS: see [facility] NEW MEDICATIONS:[Clindamycin, gabapentin, pantoprazole, MiraLax, tramadol] EMERGENCY INSTRUCTIONS: The patient was instructed to present to the nearest Emergency departmentr or call 911 once their symptoms will return or worsen Outside Machinist Supervisor(s): Patient is 44 years old male who came to emergency department with a complaint of syncope. Patient stated that he has been having ileostomy and for the past few days he has been having very watery output and he believes he might be dehydrated and he has been becoming very dizzy to the point that he almost fell and fainted. 2D echo was performed and showed EF of 55 to 60% stage I diastolic dysfunction. Surgeon Dr. Bravo was consulted and on 06/20/2025 performed ileostomy closure with a small bowel resection and other indicated procedures. Afterwards patient was put on a liquid diet and then GI soft. Patient is t olerating food intake well. Patient denies any shortness of breaths, nausea, vomiting or any other discomfort other than pain at the surgical site. Patient is tolerating pain well. Patient was cleared by the surgeon to be discharged home follow up outpatient within one week. Patient was also advised to follow up with PCP in 2 to 3 days. A prescription for tramadol 25 mg p.o. q.6 hours was given to the patient for pain as needed. Procedure(s): REVIEW OF SYSTEMS CONSTITUTIONAL: Denies fevers, chills, or night sweats. No unintentional weight loss reported. NEUROLOGICAL: Denies headache, amaurosis fugax, motor weakness, sensory deficit, vertigo/spinning sensation, gait abnormalities, or tremors. ENT: No hearing loss, otalgia, otorrhea, rhinitis, rhinorrhea, hoarseness, or sore throat. CARDIOVASCULAR: Denies any exertional angina, dyspnea on exertion, orthopnea, paroxysmal nocturnal dyspnea, palpitations, life-threatening arrhythmias, claudication. PULMONARY: Denies any shortness of breath, cough, phlegm/sputum, hemoptysis, pleuritic chest pain. SLEEP: Denies morning headaches, daytime somnolence or napping. Denies difficulty falling asleep, staying asleep, waking from sleep. Denies knowledge of snoring. GASTROINTESTINAL: Positive for abdominal pain at the surgical site. Denied any vomiting. Denies any nausea or vomiting. Patient is able to tolerate food GENITOURINARY: Denies frequency, urgency, nocturia, hematuria or incontinence (Storage/Irritative symptoms.) Low urinary stream, straining to void, urinary intermittency or hesitancy, splitting of the voiding stream, terminal dribbling. ENDOCRINOLOGIC: Denies polyuria, polydipsia, polyphagia or heat/cold intolerances. HEMATOLOGIC: Denies thrombophilia/previous clots, or coagulopathy/bleeding disorders. ONCOLOGIC: Denies personal history of malignancy. DERMATOLOGIC: Denies rashes or pruritus. PSYCHIATRIC: Denies any suicidal or homicidal ideation. Denies hallucinations. PHYSICAL EXAM GENERAL APPEARANCE: The patient is awake, alert, and oriented, in no acute cardiopulmonary distress. NEUROLOGICAL: Cranial nerves II-XII grossly intact. Motor is 5/5 in bilateral upper and lower extremities proximal to distal. No sensory deficits. HEENT: Face is symmetric. Pupils are equal and reactive. Extraocular movements are intact. NECK: Supple. No JVD. No thyromegaly. No submental, submandibular, pre- /postauricular, occipital or supraclavicular lymphadenopathy. CHEST: Normal chest expansion. No Telemetry. LUNGS: Absence of any rales, rhonchi or any wheezing. CARDIOVASCULAR: Regular. S1 and S2 normal. No appreciable rubs, murmurs or gallops. ABDOMEN: Soft, nontender. Patient has a ileostomy present. He has greenish colored stool which is loose in his ostomy bag. : Deferred. No Lee. EXTREMITIES: Non-edematous and not cyanotic. No clubbing. Good capillary refill. SKIN: No skin breakdown. Assessment/Plan: ASSESSMENT: Acute Dehydration POA Presyncope POA Acute diastolic congestive heart failure EF 55 60% POA Colovesicular fistula status post diverting ileostomy S/p ileostomy closure with a small bowel resection and other indicated procedures 06/20/2025 by Recent infectious colitis being treated outpatient with Augmentin Home Medications: Active Scripts Psyllium Husk (Metamucil) 0.4 Gram Capsule, 1 CAP PO BID for 30 Days, #60 CAP 0 Refills Prov:YEIMY LARA MD 06/16/25 Diphenoxylate HCl/Atropine (Lomotil Tablet) 2.5 Mg-0.025 Mg Tablet, 2 TAB PO TID for 10 Days, #60 TAB 0 Refills Prov:YEIMY LARA MD 06/16/25 Amoxicillin/Potassium Clav (Augmentin 500-125 Tablet) 500 Mg-125 Mg Tablet, 1 TAB PO BID for 7 Days, #14 TAB 0 Refills Prov:VIVI WALTERS MD 06/16/25 Lactobacillus Rhamnosus GG (Culturelle) 15 Billion Cell Cap.sprink, 1 EACH PO BID for 5 Days, #10 CAP.SPRINK 0 Refills Prov:VIVI WALTERS MD 06/16/25 Cholestyramine (with Sugar) (Cholestyramine Packet) 4 Gram Powd.pack, 1 PACKET PO TIDAC for 5 Days, #15 PACKET 0 Refills Prov:VIVI WALTERS MD 06/16/25 Reported Medications Lisdexamfetamine Dimesylate (Vyvanse) 70 Mg Capsule, 1 CAP PO DAILY 03/28/25 Discontinued Scripts Sulfamethoxazole/Trimethoprim (Bactrim Ds Tablet) 800 Mg-160 Mg Tablet, 1 TAB PO BID for 14 Days, #28 TAB 0 Refills Prov:ISABEL MENDOZA MD 04/09/25 Time spent arranging discharge: 31-60 minutes ATTESTATION BY PHYSICIAN I have seen and examined the patient. I reviewed the documentation, medical decision making, and treatment plan as noted by the mid-level provider above. I agree with the findings and plan of care. FRANCISCO DELGADO MD, [facility] Jun 22, 2025 13:44
--- NOTE | 2025-06-22 15:05 | NUR ---
PT sitting in bed w/ eyes open A&Ox4 able to make needs known. Discharge instructions given to PT and written and verbally in [place] language. Both verbally acknowledged understanding. Dressing changed. I.V. removed intact w/o complications. PT escorted to pov via wc by retarder operator w\o complications.
== END 2025-06-22 15:05 | disposition home or self-care (01) | DRG 329 ==
LOC: EDH 08:22 → EDHIP 12:25 → 4AH 14:58
PROVIDERS: ADMIT Internal Medicine; ATTEND Internal Medicine
PROC: 0DB80ZZ Excision of Small Intestine, Open Approach (ICD-10-PCS; principal; 2025-06-20 07:50)
DX: Z43.2 Encounter for attention to ileostomy (principal); I50.31 Acute diastolic (congestive) heart failure; N32.1 Vesicointestinal fistula; E87.1 Hypo-osmolality and hyponatremia; A09 Infectious gastroenteritis and colitis, unspecified; Z83.3 Family history of diabetes mellitus; E86.0 Dehydration; R55 Syncope and collapse; D72.829 Elevated white blood cell count, unspecified; K21.9 Gastro-esophageal reflux disease without esophagitis; Z82.49 Family history of ischemic heart disease and other diseases of the circulatory system; Z82.5 Family history of asthma and other chronic lower respiratory diseases; F90.9 Attention-deficit hyperactivity disorder, unspecified type
CPT/HCPCS: 36415; 71045; 80048; 80053; 81001; 81003; 82270; 82550; 83036; 83690; 83735; 84145; 84443; 84484; 85025; 85610; 85730; 86140; 87046; 87086; 88304; 93005; 93306; 93356; 96374; 96375; 99285; A4344; A4606; A6266; G0378; J0330; J1100; J1171; J1650; J1885; J2003; J2175; J2250; J2270; J2405; J2543; J2550; J2704; J2710; J2765; J3010; J3490; J7030; A4216; A4222; A4223; A4600; A4930; J0665

== ENCOUNTER 2025-06-29 06:17 | Emergency (ER) | payer OTHER ==
[~2025-06-29] VITALS: Ht 177.8 cm; Wt 102.1 kg
[~2025-06-29 06:17] MED LIST changes: +AMOX-426 PO; +CHOL4POW4 PO; +CLIN-141 PO; +DIPH1TAB PO; +GABApentin 300 MG CAP PO; +LACT1CAP79 PO; +PANT40TA PO; +POLY17PO4 PO; +PSYL0.4C2 PO; -SULF1TAB42 PO
[2025-06-29 06:49] LABS: IMMATURE GRANULOCYTE ABSOLUTE 0.03 K/uL (0-1); NUCLEATED RED BLOOD CELLS 0.0 % (0.0-0.19); PLATELET COUNT (AUTO) 339 K/uL (130-400); RED BLOOD CELL COUNT(AUTO) 5.20 MIL/uL (4.50-6.20); RED CELL DISTRIBUTION WIDTH 14.0 % (11.0-15.5); WHITE BLOOD COUNT (AUTO) 6.8 K/uL (4.8-10.8)
[2025-06-29] MEDS: 0.9%NACL 1000ML 1,000 ML IV ONE (06:54)
[2025-06-29 07:01] LABS: CREATININE 0.8 mg/dL (0.5-1.3); GLOMERULAR FILTR. RATE CALC 113.0 mL/min (>90); GLUCOSE,RANDOM 93.0 mg/dL (70-105); SODIUM SERUM 139.0 mmol/L (136-145); UREA NITROGEN, BLOOD 10.0 mg/dL (7-18)
[2025-06-29] MEDS ORDERED: IOHEXOL-350 75 ML VIAL IV ONE (08:05)
--- NOTE | 2025-06-29 08:43 | HMCIMG ---
EXAM: CT Abdomen and Pelvis with IV contrast CLINICAL HISTORY: IV contrast, r/o infection TECHNIQUE: Axial computed tomography images of the abdomen and pelvis with intravenous contrast. CONTRAST: with intravenous contrast. COMPARISON: 06/14 FINDINGS: LUNG BASES: The lung bases appear clear. No pleural effusions are seen. LIVER: Unremarkable. GALLBLADDER AND BILE DUCTS: The gallbladder appears within normal limits. No radioopaque gallstones are seen. No biliary ductal dilatation is evident. PANCREAS: Unremarkable. SPLEEN: Unremarkable. ADRENAL GLANDS: Unremarkable. KIDNEYS, URETERS, AND BLADDER: The kidneys appear within normal limits. There is no hydronephrosis or hydroureter. No urinary calculi are seen. STOMACH AND BOWEL: Sigmoid anastomosis. Postoperative changes of bowel within the right lower quadrant. Mild degenerative changes spine. APPENDIX: No evidence of acute appendicitis on CT examination. PERITONEUM: No free fluid. No free air. LYMPH NODES: No lymphadenopathy is evident. REPRODUCTIVE: Unremarkable as visualized. VASCULATURE: No evidence of abdominal aortic aneurysm. BONES: No aggressive appearing osseous lesion. No acute osseous pathology evident. MISCELLANEOUS: Status post takedown of a ostomy within the right lower quadrant. There is a thick-walled gas and high density fluid containing region in the subcutaneous fat of the ventral wall in the region of the previous ileostomy. Findings could represent an abscess in the correct clinical setting. Although a krysta fistula to the abdomen is not identified on this exam; a fistula cannot be excluded given the presence of high density material which could have been related to oral contrast. IMPRESSION: 1. No acute intraabdominal or pelvic pathology. 2. Possible abscess in the subcutaneous fat of the ventral wall near the previous ileostomy site, containing gas and high-density fluid. 3. Fistula to the abdomen cannot be excluded. 4. Status post takedown of ostomy in the right lower quadrant. 5. Sigmoid anastomosis. /[place]
--- NOTE | 2025-06-29 09:50 | ERN ---
ED Note History of Present Illness Stated Complaint: POST OP PAIN, DRAINAGE Chief Complaint: Post-Op Problem Time Seen by MD: 07:27 Dictation: 44-year-old male with post abdominal pain and nausea status post surgery for diverticulitis with GI doctor patient has packing in place a small amount of purulent drainage is on antibiotics. No chest pain shortness a breath no fever. Allergies: Coded Allergies: No Known Drug Allergies (Unverified Allergy, Unknown, 04/08/21) Home Meds Active Scripts Clindamycin HCl (Clindamycin HCl) 300 Mg Capsule, 1 CAP PO BID for 7 Days, #14 CAP 0 Refills Prov:[facility] 06/22/25 Polyethylene Glycol 3350 (Miralax) 17 Gram Powd.pack, 17 GM PO DAILY, #15 PACK Prov:MUNIRJESUS MELLO [employer] 06/22/25 Pantoprazole Sodium (Protonix) 40 Mg Tablet.dr, 40 MG PO DAILY, #60 TAB Prov:JES[facility] LAZAR [facility] 06/22/25 [GABApentin 300 MG CAP] 300 MG CAPSULE No Conflict Check, 300 MG PO TID, #60 TAB 0 Refills Prov:JES[facility] LAZAR [facility] 06/22/25 Psyllium Husk (Metamucil) 0.4 Gram Capsule, 1 CAP PO BID for 30 Days, #60 CAP 0 Refills Prov:YEIMY LARA MD 06/16/25 Diphenoxylate HCl/Atropine (Lomotil Tablet) 2.5 Mg-0.025 Mg Tablet, 2 TAB PO TID for 10 Days, #60 TAB 0 Refills Prov:YEIMY LARA MD 06/16/25 Amoxicillin/Potassium Clav (Augmentin 500-125 Tablet) 500 Mg-125 Mg Tablet, 1 TAB PO BID for 7 Days, #14 TAB 0 Refills Prov:VIVI WALTERS MD 06/16/25 Lactobacillus Rhamnosus GG (Culturelle) 15 Billion Cell Cap.sprink, 1 EACH PO B ID for 5 Days, #10 CAP.SPRINK 0 Refills Prov:VIVI WALTERS MD 06/16/25 Cholestyramine (with Sugar) (Cholestyramine Packet) 4 Gram Powd.pack, 1 PACKET PO TIDAC for 5 Days, #15 PACKET 0 Refills Prov:VIVI WALTERS MD 06/16/25 Reported Medications Lisdexamfetamine Dimesylate (Vyvanse) 70 Mg Capsule, 1 CAP PO DAILY 03/28/25 Past Medical History Past Medical History: Diverticulitis, Diverticulosis Additional Past Medical Hx: ADHD, SEPSIS Surgical History: Other Surgical History Other: ILEOSTOMY, URINARY BLADDER FISTULA REPAIR BILAT KNEE SX, Family History: Negative Social History: Negative, Lives with family Review of System Dictation Constitutional: Negative for fever,chills, and weight loss Eyes: Negative for injury, pain,redness, and discharge ENT: Negative for injury,pain or swelling Cardiovascular: Negative for chest pain, palpitations, and edema Respiratory: Negative for shortness of breath, cough, and wheezing, Abdomen/GI: Per HPI : Negative for injury, bleeding and discharge MS/Extremity: Negative for injury and deformity Skin: Negative for rash, and discoloration Neuro: Negative for headache, weakness, numbness, tingling, and seizure Psych: Negative for suicide ideation, homicidal ideation, and hallucinations Initial Vital Sign VS Vital Signs Date Time Temp Pulse Resp B/P (MAP) Pulse Ox O2 Delivery O2 Flow Rate FiO2 06/29/25 06:38 98.4 82 20 147/92 97 Room Air* 0 21 Physical Exam Dictation General: awake, alert, NAD Head/Face: Normocephalic, atraumatic Eyes: PERRL, EOMI, vision at baseline ENT: oral cavity clear, TMs clear, no signs of infection Neck: Trachea midline, supple, no nuchal rigidity Cardiovascular: RRR, normal S1/S2, No MRGs, no JVD Respiratory: CTAB, no respiratory distress, No rales or wheezes Abdomen: Soft, non-tender, non-distended, normal bowel sounds, no guarding or rebound. Surgical site clean dry intact small packing does show some small amount of drainage Skin: Warm, dry, normal turgor, no rash MS/Extremity: Pulses equal, no cyanosis, neurovascular intact, FROM Neuro: COAx4, GCS 15, strength 5/5, CN 2-12 intact, normal cerebellar exam, normal gait, Psych: Normal behavior, mood, and affect normal Results (Laboratory/Radiology) Laboratory/Radiology Laboratory Tests Test 06/29/25 06:33 White Blood Count 6.8 K/uL (4.8-10.8) Red Blood Count 5.20 MIL/uL (4.50-6.20) Hemoglobin 15.6 g/dL (14.0-18.0) Hematocrit 46.2 % (42-54) Mean Corpuscular Volume 88.8 fL (79-99) Mean Corpuscular Hemoglobin 30.0 pg (27.0-33.0) Mean Corpuscular Hemoglobin Concent 33.8 g/dL (32.0-36.0) Red Cell Distribution Width 14.0 % (11.0-15.5) Platelet Count 339 K/uL (130-400) Mean Platelet Volume 8.4 fL (7.5-10.5) Immature Granulocyte % (Auto) 0.4 % (0-1) Neutrophils (%) (Auto) 60.3 % (40.0-77.0) Lymphocytes (%) (Auto) 17.6 % (21.0-51.0) L Monocytes (%) (Auto) 6.6 % (3.0-13.0) Eosinophils (%) (Auto) 14.2 % (0.0-8.0) H Basophils (%) (Auto) 0.9 % (0.0-5.0) Neutrophils # (Auto) 4.1 K/uL (1.8-7.7) Lymphocytes # (Auto) 1.2 K/uL (1.0-4.8) Monocytes # (Auto) 0.5 K/uL (0.1-1.0) Eosinophils # (Auto) 0.96 K/uL (0.00-0.70) H Basophils # (Auto) 0.06 K/uL (0.00-0.20) Absolute Immature Granulocyte (auto 0.03 K/uL (0-1) Nucleated Red Blood Cells 0.0 % (0.0-0.19) Sodium Level 139 mmol/L (136-145) Potassium Level 4.1 mmol/L (3.5-5.1) Chloride Level 102 mmol/L (101-111) Carbon Dioxide Level 27 mmol/L (21-32) Blood Urea Nitrogen 10 mg/dL (7-18) Creatinine 0.8 mg/dL (0.5-1.3) Glomerular Filtration Rate Calc 113 mL/min (>90) Random Glucose 93 mg/dL (70-105) Lactic Acid Level 1.6 mmol/L (0.8-2.5) Total Calcium 8.8 mg/dL (8.5-10.1) Labs Reviewed?: Yes ED Course ED Course Orders Procedure Category Date Status Time Cbc With Differential LAB 06/29/25 Complete 06:21 Basic Metabolic Panel LAB 06/29/25 Complete 06:21 Lactic Acid LAB 06/29/25 Complete 06:21 Aerobic Culture PARK 06/29/25 In Process 06:21 Anaerobic Culture PARK 06/29/25 In Process 06:21 0.9%Nacl 1000ml (Ns PHA 06/29/25 Complete 1000ml) 07:00 Ct Abdomen/Pelvis CT 06/29/25 Resulted W/Contrast 07:27 Ondansetron 4mg Inj PHA 06/29/25 Complete (Zofran 4mg Inj) 07:28 Iohexol (Omnipaque) PHA 06/29/25 Complete 08:05 Current Medications Medications (Trade) Dose Ordered Sig/Armando Route PRN Reason Start Time Stop Time Status Last Admin Dose Admin Iohexol (Omnipaque) 75 ml STK-MED ONCE IV 06/29/25 08:05 06/29/25 08:05 DC Ondansetron HCl (zoFRAN 4MG INJ) 4 mg ONCE STAT IVP 06/29/25 07:28 06/29/25 07:31 DC 06/29/25 08:27 Sodium Chloride 1,000 ml @ 0 mls/hr ONCE ONCE IV 06/29/25 07:00 06/29/25 07:01 DC 06/29/25 06:54 Vital Signs Date Time Temp Pulse Resp B/P (MAP) Pulse Ox O2 Delivery O2 Flow Rate FiO2 06/29/25 07:14 98.4 80 16 136/82 98 Room Air* 0 21 06/29/25 06:38 98.4 82 20 147/92 97 Room Air* 0 21 Medical Decision Making MDM MDM: Differential diagnosis: Rationale: Tests considered and ordered secondary to shared decision making include: Previous outside records reviewed: Old ER visits. Risk of complication and/or morbidity or mortality of patient management: None Medications-Per medication reconciliation Need for hospitalization: Patient does not meet criteria for hospitalization. Need for emergency major/minor surgery: No There are no social concerns with this patient. Prescription drug management Prescriptions will include symptomatic care Patient's prior external medical records from other ER visits were reviewed by me as indicated. Prior testing and results from previous visits were reviewed. Prior tests were taken into account with medical decision making and resource utilization, independent historian/historians were used to obtain complete medical history. I independently interpreted the test that were performed, results were reviewed by me and considered findings on radiology if ordered. Medical management and examination interpretation discussions were had by me with other qualified healthcare professionals as indicated for the patient's care. Postoperative discharge, CT scan shows possible abscess in the subcuticular space about five to 6 mm in diameter, patient is afebrile nontoxic no white count spoke to GI doctor who reports this is normal appearance for postop patient and we will see in clinic in the next 2 hours for repeat evaluation. DX & DISP Disposition: Discharge Departure Impression: Primary Impression: Post-op pain Additional Impression: Abdominal pain Condition: Stable Referrals: DONNA GARZA Jr., MD (PCP) CYNTHIA SONG MD Jun 29, 2025 09:49
[2025-06-29 10:08] VITALS: BP 140/87; PULSE 77; RESP 19; TEMP 98; O2SAT 98
--- NOTE | 2025-06-29 10:10 | NUR ---
DC PATIENT WAS DC'D BY Randy SONG DC'D PATIENTS IV WITH CATH STILL INTACT AND APPLIED 2X2 GAUZE WITH COBAN I EXPLAINED TO PATIENT TO FOLLOW UP WITH PCP, PROVIDED INFO BASED ON DIAGNOSIS,AND ANSWERED ANY FOLLOW UP QUESTIONS PATIENT AMBULATED OUT OF ED, NO COMPLICATIONS
== END 2025-06-29 10:08 | disposition home or self-care (01) ==
LOC: EDH 06:17
DX: G89.18 Other acute postprocedural pain (principal); R10.9 Unspecified abdominal pain; R11.0 Nausea; F90.9 Attention-deficit hyperactivity disorder, unspecified type; Z79.899 Other long term (current) drug therapy
CPT/HCPCS: 99285; 74177; 96374; 96361; 80048; 85025; 87070; 87076; 87086; 87186; 83605; 36415; J7030; J2405; Q9967